=== PATIENT | female | born 1960 | race Caucasian/White ===

== ENCOUNTER 2016-05-14 14:29 | Inpatient (IN) | payer MEDICARE ==
[~2016-05-14] VITALS: Ht 149.9 cm; Wt 54.7 kg
[~2016-05-14 14:29] MED LIST: /ONDA4TA PO; /WARF4TA OR; /WARF5TA GT; /WARF5TA PO; ACET-654 PO; AKWASOL OD; ALLO300T OR; ARTIDRO OP; ATOR1TAB19 PO; BISA10SU PR; CALC0.5C PO; CALCIUM LACTATE PO; CELLCEPT PO; CINA30TA PO; CLON0.1D3 TD; CLON3PA TD; COLA100C2 OR; COUMADIN PO; COZA100T2 PO; FERR325T OR; HYDR50TA PO; LASI80TA OR; LIPI10TA OR; LOPR50TA OR; MAGN400T2 PO; MAGN400T20 PO; METO25TAB PO; MINOXIDIL PO; NEPHTAB PO; OMEP20CA3 PO; PERC7.5T12 PO; PHOS667C PO; POTA20TA OR; PRED2.5T OR; PRED5TA PO; SENISPAR PO; SENS30TA PO; TYLE325T5 PO; VANC12CA PO; VITA80005 PO; WARF-23 PO; WARF5TAB66 PO; WARF6TAB14 PO; WARFPOW3 PO; ZEMPLAR PO; [UNRECOGNIZED DRUG - CODE] PO; [UNRECOGNIZED DRUG - OTHER] PO; [UNRECOGNIZED DRUG - OTHER] PO
[2016-05-14 15:14] LABS: BASO % 0.4 % (0.0-1.0); EOS % 0.4 % (0.0-3.0); LARGE UNSTAINED CELL # 0.1 K/mm3 (0.0-0.4); LARGE UNSTAINED CELL % 1.3 % (0.0-4.0); LYMPH # 0.6 K/mm3 (1.5-4.5); LYMPH % 6.3 % (24.0-44.0); MEAN CORPUSCULAR HEMOGLOBIN 29.4 pg (27.0-33.0); MEAN CORPUSCULAR VOLUME 91.9 fl (80.0-96.0); MONO # 0.2 K/mm3 (0.0-0.8); MONO % 1.9 % (0.0-5.0); NEUTROPHILS # 7.9 K/mm3 (1.8-7.7); NEUTROPHILS % 89.7 % (36.0-66.0); PLATELET COUNT, AUTOMATED 147 k/mm3 (150-450); RED CELL DISTRIBUTION WIDTH 15.8 % (11.5-14.5); VENOUS O2 SATURATION 74.5 % (60.0-80.0); VENOUS PARTIAL PRESSURE O2 45.9 mmHg (30.0-50.0); VENOUS STANDARD HCO3 21.5 MEQ/L; VENOUS TOTAL CO2 24.8 MEQ/L (24.0-28.0); WHITE BLOOD COUNT 8.8 K/mm3 (4.0-10.0)
[2016-05-14] MEDS ORDERED: ONDANSETRON 4MG/2ML VIAL (J2405) As Ordered ONE (15:18)
[2016-05-14 15:50] LABS: ALBUMIN 3.7 GM/DL (3.2-5.2); ALBUMIN/GLOBULIN RATIO 1.06 (1.00-1.93); BILIRUBIN,DIRECT 0.1 MG/DL (0.0-0.2); BILIRUBIN,TOTAL 0.4 MG/DL (0.2-1.0); CREATININE FOR GFR 8.97 MG/DL (0.55-1.02); GLOMERULAR FILTRATION RATE 4.8 (>51); TOTAL PROTEIN 7.2 GM/DL (6.4-8.2)
--- NOTE | 2016-05-14 16:32 | REP ---
Portable chest x-ray: Single view. History: Hypotension. Comparison chest x-ray September 07, 2015. Findings: EKG monitoring electrodes overlie the chest. Lungs are symmetrically aerated and free of infiltrate. Pleural angles are sharp. Heart is not enlarged. The aorta is slightly tortuous. Pulmonary vasculature is not increased. No significant bony abnormality is seen. Impression: No active disease. Signed by Seun Calixto MD 05/15/2016 10:14 A
[2016-05-14] MEDS ORDERED: ONDANSETRON 4MG/2ML VIAL (J2405) IV PRN (17:00)
[2016-05-14] MEDS ORDERED: METO25TAB PO (17:06)
[2016-05-14] MEDS ORDERED: RENATAB5 PO (17:12)
[2016-05-14] MEDS ORDERED: CALC667T PO (17:12)
[2016-05-14] MEDS ORDERED: LIDO1CRE14 TOP (17:12)
--- NOTE | 2016-05-14 19:09 | HPEPDOC ---
General Date of Admission May 14, 2016 at 16:50 Chief Complaint The patient is a 56-year-old female Presented to the ER with complaints of nausea, vomiting and diarrhea for 2 days. History of Present Illness Patient is a 56 year old female with a PMHx of ESRD on HD (TTS), SLE ( on prednisone), DLP, HTN, GERD, hypercoagulabe state who presented to the ER with complaints of nausea, vomiting and diarrhea for 2 days duration. She notes that she has been having watery stools, 10x on 05/13 and 4 x on 05/14. Her diarrhea was described as watery, without mucus or blood. She reports vomiting episodes yesterday but has been resolving. Her vomitus was mostly food items, no evidence of blood. She denies any fever at home, but reports some chills. She reports poor appetite over the last few days, but no significant change in weight. She reports this is the first time something like this has happened. She has not been on any recent antibiotics. She did note that her great neice had similar symptoms and may have been exposed to her. She denies any chest pain, SOB, palpitations, cough, dysuria or abdominal pain. Home Medications Scheduled (Nicole-Hardik) 1 Tab Tab 1 TAB PO DAILY (Reported) (Lmbundiow-Jxdgxqwzeb-Trov 2.5-2.5 %) 1 Cre Cre 1 DOSE TOP 3XW (Reported) APPLY TO ACCESS PORT ON DIALYSIS DAYS Atorvastatin Calcium (Atorvastatin Calcium) 10 Mg Tab 10 MG PO QHS (Reported) Calcium Acetate (Calcium Acetate) 667 Mg Tab 667 MG PO TID (Reported) Cinacalcet Hydrochloride (Sensipar) 30 Mg Tab 30 MG PO 3XW (Reported) MON, WED, FRI Magnesium Oxide (Magnesium Oxide) 400 Mg Tab 400 MG PO DAILY (Reported) Metoprolol Tartrate (Metoprolol Tartrate) 25 Mg Tab 25 MG PO BID (Reported) TAKES ONCE DAILY ON DIALYSIS DAYS Omeprazole (Omeprazole) 20 Mg Cap 20 MG PO DAILY (Reported) Prednisone (Prednisone) 5 Mg Tab 5 MG PO DAILY (Reported) Warfarin Sod (Warfarin Sodium) 5 Mg Tab 5 MG PO QHS (Reported) Scheduled PRN Acetaminophen (Acetaminophen) 325 Mg Tab 650 MG PO Q4H PRN PRN PAIN / FEVER ( Reported) Allergies Coded Allergies: Amoxicillin (Unverified Allergy, Unknown, ACHES/PAINS, 05/14/16) Aspirin (Verified Adverse Reaction, Intermediate, INCREASED BLEEDING D/T COUMADIN, 07/12/12) NSAIDs (Verified Adverse Reaction, Unknown, HAD PROBLEM W/ HEAVEY MENSTRUATION, 07/12/12) Penicillins (Unverified Adverse Reaction, Unknown, ACHES AND PAINS, 07/12/12 ) Past Medical History Medical History ESRD on HD (TTS), SLE (on prednisone), DLP, HTN, GERD, 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) Surgical History Cholecystectomy 2011 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) 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 Bowel surgery, unknown, possibly exploratory laparotomy 1986 Family History Family History Non contributory Social History Social History - Denies the use of alcohol, tobacco or illicit drugs - Denies recent travel or sick contacts - Lives alone - 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; 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 Review of Symptoms Other systems Constitutional: Denies weight loss, or recent trauma Poor appetite Eyes: No visual changes or eye pain Ears, Nose, Throat: Denies nose bleeds, or difficulty swallowing Cardiovascular: Denies chest pain, sweating, or orthopnea Respiratory: Denies cough, wheezing, or shortness of breath GI: Positive nausea, vomiting, and diarrhea, Deniese abdominal pain, or constipation : Denies pain with urination or frequency, Still makes urine Musculoskeletal: Denies joint pain or swelling Neuro / Psych: Denies muscle weakness or sensory loss Skin: No skin rashes noted All other review of systems negative; otherwise stated in history of present illness Vital Signs - Vitals: BP 103/59, HR 82, RR 18, Sat 94%RA, Temp 99.7F - General: Lying in bed, No acute distress, Speaking in full sentences, AAOx3 - HEENT: NC, AT, Right eye is glass, Left eye is reactive to light - CVS: RRR, +S1S2, - Murmurs / rubs / gallops - Lungs: Fair air entry bilaterally, Clear to auscultation, No wheezing / rales / rhonchi - Abdomen: Soft, Non-distended, Non-tender, Hyperactive bowel sounds x 4 - Extremities: + PPx4, No lower extremity edema, No calf tenderness - Neuro: No focal motor or sensory deficit - Skin: No visible rashes Laboratory Data Labs 24H Laboratory Tests 2 05/14/16 15:03: Aspartate Amino Transf (AST/SGOT) 90H, Alanine Aminotransferase (ALT/SGPT) 92H, Alkaline Phosphatase 93, Total Bilirubin 0.4, Direct Bilirubin 0.1, Albumin 3.7 , Albumin/Globulin Ratio 1.06, Anion Gap 18H, White Blood Count 8.8, Red Blood Count 4.49, Hemoglobin 13.2, Hematocrit 41.2, Mean Corpuscular Volume 91.9, Mean Corpuscular Hemoglobin 29.4, Mean Corpuscular Hemoglobin Concent 32.0, Red Cell Distribution Width 15.8H, Platelet Count 147L, Neutrophils (%) (Auto) 89.7H , Lymphocytes (%) (Auto) 6.3L, Monocytes (%) (Auto) 1.9, Eosinophils (%) (Auto) 0.4, Basophils (%) (Auto) 0.4, Neutrophils # (Auto) 7.9H, Lymphocytes # (Auto) 0.6L, Monocytes # (Auto) 0.2, Eosinophils # (Auto) 0.0, Basophils # (Auto) 0.0, Blood Gas Bicarbonate Standard 21.5, Calcium Level 8.0L, Glomerular Filtration Rate 4.8L, Large Unclassified Cells # 0.1, Large Unclassified Cells % 1.3, Phosphorus Level 7.0H, Total Protein 7.2, Venous Blood Base Excess -3.0L, Venous Blood pH 7.315L, Venous Blood Partial Pressure CO2 47.0, Venous Blood Partial Pressure O2 45.9, Venous Blood Total Carbon Dioxide 24.8, Venous Blood HCO3 23.4, Venous Blood Oxygen Saturation 74.5 05/14/16 15:30: Lactic Acid (Sepsis) 1.1 CBC/BMP Laboratory Tests 05/14/16 15:03 Red Blood Count 4.49, Mean Corpuscular Volume 91.9, Mean Corpuscular Hemoglobin 29.4, Mean Corpuscular Hemoglobin Concent 32.0, Red Cell Distribution Width 15.8 H, Neutrophils (%) (Auto) 89.7 H, Lymphocytes (%) (Auto) 6.3 L, Monocytes ( %) (Auto) 1.9, Eosinophils (%) (Auto) 0.4, Basophils (%) (Auto) 0.4, Neutrophils # (Auto) 7.9 H, Lymphocytes # (Auto) 0.6 L, Monocytes # (Auto) 0.2, Eosinophils # (Auto) 0.0, Basophils # (Auto) 0.0 Microbiology Microbiology 05/14/16 Blood Culture, Received Pending Plan / VTE VTE Prophylaxis Ordered?: Yes Plan Plan Intractable nausea, vomiting and diarrhea likely 2/2 gastroenteritis - Presented to ER with 2 day history - Physical unrevealing - No leukocytosis, no fevers - Will check GI panel - Will control symptoms with Zofran - Will start IV fluid hydration and liquid diet (advance as tolerated) Positive orthostatic likely 2/2 hypovolemia 2/2 vomiting and diarrhea - Received 500 cc NS bolus in ER - Discussed with Nephrology will give 1/2 NS and Bicarb at this time Anion Gap and Metabolic alkalosis - Likely 2/2 uremia and vomiting - Discussed with Nephrology will give 1/2 NS and Bicarb at this time ESRD on HD (TTS) - Received last HD on Wednesday, missed HD today because she came to ER - Discussed with Nephrology, Dialysis for tomorrow most likely SLE - c/w prednisone DLP - c/w statin HTN - will c/w metoprolol with holding parameters GERD - c/w omeprazole Hypercoaguable state unknown etiology - Hx of right eye blindness because of clot - Has been on Coumadin for 10 years - DVT prophylaxis - On full anticoagulation with Coumadin OJDEE DIAZ MD May 14, 2016 19:08
[2016-05-14] MEDS ORDERED: ACETAMINOPHEN TAB 650MG DOSE (2X325MG) PO PRN (19:15)
[2016-05-14 19:32] LABS: INR 2.5
[2016-05-14] MEDS ORDERED: SODIUM BICARBONATE 75 MEQ in NS 0.45% 1,000 ML IV SCH (21:30)
[2016-05-14] MEDS ORDERED: METOPROLOL TART 25 MG TABLET As Ordered ONE (22:08)
[2016-05-14] MEDS ORDERED: WARFARIN SOD 5 MG TAB As Ordered ONE (22:10)
[2016-05-14 22:15] VITALS: BP 137/80
[2016-05-14] MEDS: CALCIUM ACETATE 667 MG GELCAP PO SCH (22:22)
[2016-05-14] MEDS: ATORVASTATIN 10 MG TAB PO SCH (22:23)
[2016-05-14] MEDS: METOPROLOL TART 25 MG TABLET PO SCH (22:23)
[2016-05-14] MEDS: WARFARIN SOD 5 MG TAB PO SCH (22:23)
--- NOTE | 2016-05-14 23:16 | CR ---
DATE OF NEPHROLOGY CONSULTATION: 05/14/2016 REQUESTING PHYSICIAN: Maninder Shields MD CONSULTING PHYSICIAN: Phyllis Hernandez MD REASON FOR CONSULTATION: Management of end-stage renal disease, hemodialysis and metabolic acidosis. CHIEF COMPLAINT: Colleen Velasco is a 56-year-old female with past medical history of end-stage renal disease, on hemodialysis every Wednesday, , Wednesday, history of systemic lupus erythematosus on prednisone. She is well known to nephrology service from outpatient dialysis. Her last dialysis was on Wednesday. Today is her regular day of dialysis but the patient was unable to come for dialysis because of intractable nausea and vomiting for the last two days. She was having watery loose stools almost 10 to 11 episodes a day for the last two days. She denies seeing any blood or mucus in the stools. She also reported vomiting yesterday but she denies seeing any blood in the vomitus. She was unable to keep any food down. She felt very weak and dehydrated. She denies having any fever, rales or rigors but she reported that her temperature was 99 degrees Fahrenheit in the emergency room. When patient arrived in the emergency room she was found to have dehydration and volume depletion along with metabolic acidosis. She was given IV fluid hydration and nephrology service was called for the management of end-stage renal disease and hemodialysis. PAST MEDICAL HISTORY: End-stage renal disease on hemodialysis every Wednesday, and Wednesday, system lupus erythematosus, hypertension, hypercoagulability, gastroesophageal reflux disease, history of toxoplasmosis in the past. PAST SURGICAL HISTORY: Status post cholecystectomy in 2011, status post brain cyst removal in that was secondary to toxoplasmosis, status post right eye surgery about 10 years ago, status post exploratory laparotomy in , status post left forearm atrioventricular (AV) graft for dialysis. ALLERGIES: The patient is allergic to AMOXICILLIN and NSAIDS. CURRENT MEDICATIONS: The patient's current inpatient medications include: - Tylenol as needed - Lipitor 10 mg nightly - PhosLo 1 tablet by mouth three times a day - magnesium oxide 400 mg by mouth daily - metoprolol 25 mg by mouth twice a day - Prilosec 20 mg by mouth daily - Zofran 4 mg IV every 6 hours as needed nausea and vomiting - prednisone 5 mg by mouth daily - warfarin 5 mg by mouth daily FAMILY HISTORY: No significant family history of end-stage renal disease. SOCIAL HISTORY: The patient denies any use of alcohol, smoking or illicit drug abuse. She lives alone. REVIEW OF SYSTEMS: CONSTITUTIONAL: The patient reported weakness and lethargy. She denies any fever or chills. EYES: The patient denies any recent visual changes, blurry vision. ENT: The patient denies any dysphagia or odynophagia, or ear discharge. CARDIOVASCULAR: She denies any chest pains or palpitations. RESPIRATORY: She denies any fever, cough, wheezing, shortness of breath. Neurologic: Without paresthesias, paralysis or prior seizures. GASTROINTESTINAL (GI): She reports nausea, vomiting, diarrhea. She denies any abdominal pain and she reports decreased appetite. GENITOURINARY (): She denies dysuria or hematuria. She reports that she still makes about a cup of urine a day. MUSCULOSKELETAL: She denies any muscle aches or pains. 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 SKIN: She denies any rashes or ulcers. PSYCHIATRIC: She denies any history of depression or anxiety. All other review of systems is negative. PHYSICAL EXAMINATION: GENERAL: The patient is awake, alert and oriented times three. Laying in bed. No apparent distress at this time. VITAL SIGNS: Temperature is 99.7 degrees Fahrenheit. Blood pressure is 103/59, pulse is 80, respiratory rate of 18, saturating 94% on room air. HEAD/NECK: Extraocular muscles intact. Pupils equally round and reactive to light. Neck is supple. Mucous membranes are dry. CARDIOVASCULAR: S1, S2, regular rate. No murmur, rub or gallop. RESPIRATORY: Chest is clear to auscultation bilaterally. Bilateral equal air entry. No rales or rhonchi. ABDOMEN: Soft. Positive bowel sounds. Nontender. No ascites. No organomegaly. EXTREMITIES: Pulses are 2+. No edema of the bilateral lower extremities. No clubbing or cyanosis. CENTRAL NERVOUS SYSTEM: No focal neurological deficit. Power is 5/5 in all extremities. SKIN: No rashes or ulcers. PSYCHIATRIC: Normal mood and affect. LABORATORY REVIEW: CBC showed a WBC of 0.8. Hemoglobin is 13.2, platelets are 147, INR is 2.5, VBG showed a pH of 7.31. BNP showed sodium 138, potassium 4, chloride 97, bicarbonate 23, BUN 87, creatinine 8.9. Phosphorous is 7, calcium 8. Microbiology: Blood culture is pending. Imaging: A chest x-ray done today showed no active disease. ASSESSMENT: 56-year-old female with past medical history of systemic lupus erythematosus, end-stage renal disease on hemodialysis admitted this time because of dehydration, volume depletion and orthostatic hypotension because of acute gastroenteritis. Nephrology service following the patient for management of end-stage renal disease. PLAN: 1. Dehydration and volume depletion. The patient was given normal saline 500 mg IV in the emergency room. I have started the patient on half NS plus 75 mEq bicarbonate at 75 mL an hour. She will get 1 liter of fluid IV overnight. 2. Anion gap metabolic acidosis. It is secondary to diarrhea and renal failure. No urgent indication for hemodialysis at this time. I have added the bicarbonate to IV fluids and the patient will be dialyzed tomorrow in the morning which will correct acidosis. 3. Acute gastroenteritis. It is most likely viral in nature. Her symptoms are improving. Continue symptomatic management. Continue Zofran and IV fluids. Advance diet to liquid diet as tolerated. 4. End-stage renal disease on hemodialysis. The patient's regular dialysis days are Wednesday, , Wednesday. Today is her regular day of dialysis. She missed her dialysis today, but she is volume depleted and dehydrated. There is no urgent need to do hemodialysis today for metabolic acidosis. She will be dialyzed tomorrow early in the morning. Electrolytes are acceptable at this time. 5. Systemic lupus erythematosus. Continue current dose of prednisone 5 mg by mouth daily. 6. Hypertension. The patient's blood pressure is acceptable at this time. Continue current dose of metoprolol 25 mg by mouth twice a day. 7. Chronic kidney disease. Mineral bone disease. Continue current dose of her Renvela one tablet by mouth three times a day with meals once patient starts eating.
[2016-05-15] VITALS (8 sets, daily range): BP systolic 118–138; BP diastolic 64–76
[2016-05-15 07:09] LABS: INR 2.47
[2016-05-15 07:19] LABS: BASO % 0.5 % (0.0-1.0); EOS % 0.7 % (0.0-3.0); LARGE UNSTAINED CELL # 0.2 K/mm3 (0.0-0.4); LARGE UNSTAINED CELL % 2.9 % (0.0-4.0); LYMPH # 0.6 K/mm3 (1.5-4.5); LYMPH % 11.3 % (24.0-44.0); MEAN CORPUSCULAR HEMOGLOBIN 29.2 pg (27.0-33.0); MEAN CORPUSCULAR HGB CONC 31.7 g/dl (32.0-36.5); MONO # 0.3 K/mm3 (0.0-0.8); NEUTROPHILS # 4.3 K/mm3 (1.8-7.7); NEUTROPHILS % 78.6 % (36.0-66.0); PLATELET COUNT, AUTOMATED 107 k/mm3 (150-450); RED CELL DISTRIBUTION WIDTH 15.8 % (11.5-14.5); WHITE BLOOD COUNT 5.5 K/mm3 (4.0-10.0)
[2016-05-15 07:46] LABS: ALBUMIN 2.6 GM/DL (3.2-5.2); ALBUMIN/GLOBULIN RATIO 0.87 (1.00-1.93); BILIRUBIN,TOTAL 0.4 MG/DL (0.2-1.0); CALCIUM LEVEL 7.2 MG/DL (8.5-10.1); CREATININE FOR GFR 8.4 MG/DL (0.55-1.02); GLOMERULAR FILTRATION RATE 5.2 (>51); MAGNESIUM LEVEL 1.6 MG/DL (1.8-2.4); POTASSIUM SERUM 3.9 MEQ/L (3.5-5.1); TOTAL PROTEIN 5.6 GM/DL (6.4-8.2)
[2016-05-15] MEDS: OMEPRAZOLE 20 MG CAP PO SCH (08:53)
[2016-05-15] MEDS: CALCIUM ACETATE 667 MG GELCAP PO SCH ×3 (08:53→21:24)
[2016-05-15] MEDS: METOPROLOL TART 25 MG TABLET PO SCH ×2 (08:53→21:23)
[2016-05-15] MEDS: predniSONE 5 MG TAB PO SCH (08:53)
[2016-05-15] MEDS: MAGNESIUM OXIDE 400 MG TAB (MAG-OX) PO SCH (08:53)
[2016-05-15] MEDS ORDERED: PANTOPRAZOLE 40MG TAB (PROTONIX) PO SCH (09:00)
--- NOTE | 2016-05-15 09:20 | ECGEPIP ---
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
--- NOTE | 2016-05-15 11:15 | EDDOCDS ---
Nurse's Notes [facility] Name: Colleen Velasco Age: 56 yrs Sex: Female : 1960 Arrival Date: 05/14/2016 Time: 14:29 Bed Admit Hold Private MD: Donavon Radford P Diagnosis: Other viral enteritis;Dehydration;End stage renal disease Presentation: 05/14 14:36 Presenting complaint: Patient states: vomiting and diarrhea since Wednesday. Adult Sepsis kcs Screening: The patient does not have new or worsening altered mentation. Patient's respiratory rate is less than 22. Systolic blood pressure is greater than 100. Patient has a qSOFA score of 0- Negative Sepsis Screen. Suicide/Homicide risk assessment- the patient denies having any suicidal and/or homicidal ideations and does not present with any other emotional, behavioral or mental health complaints. 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 Transition of care: patient was not received from another setting of care. 14:36 Method Of Arrival: Walkin/Carried/Asstd kcs 14:36 Acuity: IVÁN Level 3 ms18 Triage Assessment: 14:40 General: Appears comfortable, well developed, well nourished, well groomed, Behavior is kcs cooperative, pleasant. Pain: Denies pain. HIV screening NA for this visit Offered previously. Neurological: Level of Consciousness is awake, alert. Respiratory: Airway is patent Respiratory effort is even, unlabored, Respiratory pattern is regular, symmetrical. Derm: Skin is intact, is healthy with good turgor, Skin is dry, Skin is normal. Historical: - Allergies: Amoxicillin"achy all over"; Aspirin; - Home Meds: 1. Coumadin 5 mg Oral tab 1 tab once daily 2. Lipitor 10 mg Oral tab 1 tab nightly 3. calcium acetate 667 mg three times perday 4. metoprolol tartrate 25 mg Oral tab 1 tab 2 times per day takes once daily on dialysis days 5. omeprazole 20 mg Oral cpDR 1 cap once daily 6. Sensipar 30 mg oral tab 1 tab on Mon-Wed-Fri 7. prednisone 5 mg Oral tab 1 tab once daily 8. magnesium oxide 400 mg Oral tab daily 9. Nicole-Hardik oral 1 tab daily 10. PhosLo 667 mg Oral cap 1 caps 3 times per day 11. Tylenol 325 mg Oral tab 2 tabs every 6 hours as needed - PMHx: Hypercholesterolemia; Hypertension; Lupus; Renal Failure with Dialysis; GERD; - PSHx: Cholecystectomy(December 30, 2011); Brain Cyst removal; Bowel Surgery; Glass Eye right; - The history from nurses notes was reviewed: and I agree with what is documented. - Social history: Smoking status: Patient states was never smoker of tobacco. No barriers to communication noted, The patient speaks fluent Austrian. - : The pt / caregiver states he / she is on anticoagulants: coumadin. Home medication list is obtained from the patient, [employer] import data. - Hospitalizations: : No recent hospitalization is reported. - Exposure Risk Screening:: None identified. - Immunization history:: All immunizations up-to-date. - Family history: Not pertinent. - Social history:: the patient is a non-smoker, the patient does not drink alcohol. Screenin:00 Screening information is obtained from the patient. Fall risk: At risk due to glass ms18 eye. Assistance ADL's: requires no assistance with activities of daily living. Abuse/DV Screen: The patient / caregiver reports he/she is: not in a situation that causes fear, pain or injury. Nutritional screening: No deficits noted. home support is adequate. Assessment: 15:33 General: Appears in no apparent distress, comfortable, Behavior is appropriate for age, ms18 cooperative, pleasant. 15:56 Neurological: Level of Consciousness is awake, alert, obeys commands, Oriented to ms18 person, place, time. Respiratory: No deficits noted. GI: Abdomen is non- distended Bowel sounds present X 4 quads. Abd is soft X 4 quads Reports diarrhea, nausea, vomiting. Derm: Skin is pink, warm & dry. 16:39 General: Appears in no apparent distress, comfortable, Behavior is appropriate for age, ms18 cooperative, pleasant, Hospitalist in the room with the pt at this time. Will continue to monitor pt. Respiratory: No deficits noted. Derm: Skin is pink, warm & dry. 17:30 General: PT resting comfortably on stretcher at this time. Will continue to monitor pt. ms18 18:33 General: Appears in no apparent distress, comfortable, Pt in no acute distress. ms18 Awaiting admission orders and bed assignment at this time. Will continue to monitor pt. Neurological: Level of Consciousness is awake, alert, obeys commands, Oriented to person, place, time. Cardiovascular: Rhythm is regular. Respiratory: No deficits noted. Airway is patent Respiratory effort is even, unlabored. Derm: Skin is pink, warm & dry. normal. 19:03 General: Verbal report given by Lauryn Presley RN. Assumed care of patient at this time.. [facility] 19:16 General: Appears in no apparent distress, comfortable, well nourished, well groomed, kas2 Behavior is appropriate for age, cooperative. Pain: Denies pain. Neurological: Level of Consciousness is awake, alert, obeys commands, Oriented to person, place, time. Cardiovascular: Capillary refill < 3 seconds Heart tones S1 S2 present Rhythm is sinus rhythm No ectopy. Respiratory: Airway is patent Respiratory effort is even, unlabored, Respiratory pattern is regular, symmetrical, Breath sounds are clear bilaterally. GI: Abdomen is non- distended Bowel sounds present X 4 quads. Abd is soft X 4 quads Abd is non tender X 4 quads. Derm: Skin is intact, Skin is dry, Skin is pink, warm & dry. normal, Skin temperature is warm. 20:49 General: Appears in no apparent distress, comfortable, Behavior is appropriate for age, kas2 cooperative. Pain: Denies pain. Neurological: Level of Consciousness is awake, alert, obeys commands, Oriented to person, place, time. Respiratory: Airway is patent Respiratory effort is even, unlabored, Respiratory pattern is regular, symmetrical. Derm: Skin is intact, Skin is dry, Skin is pink, warm & dry. Skin temperature is warm. 21:56 General: Appears in no apparent distress, comfortable, Behavior is appropriate for age, kas2 cooperative. Pain: Denies pain. Neurological: Level of Consciousness is awake, alert, obeys commands, Oriented to person, place, time. Cardiovascular: Rhythm is sinus rhythm No ectopy. Respiratory: Airway is patent Respiratory effort is even, unlabored, Respiratory pattern is regular, symmetrical. Derm: Skin is intact, Skin is dry, Skin is pink, warm & dry. Skin temperature is warm. 22:13 General: Verbal report given to Diamond YU. Patient moved to Room 18. Resettled in bed.. [facility] Vital Signs: 14:33 BP 79 / 69; Pulse 108; Resp 20; Temp 99.7(O); Pulse Ox 96% on R/A; Weight 54.43 kg (R); elp Height 4 ft. 11 in. (149.86 cm) (R); Pain 0/10; 14:40 BP 119 / 70; Pulse 101; Resp 20; Pulse Ox 96% on R/A; kcs 14:59 BP 109 / 69 (auto/); ms18 15:00 Pulse 96 MON; Pulse Ox 95% ; ms18 15:13 Pulse 92 MON; Pulse Ox 94% ; ms18 15:14 BP 102 / 60 (auto/); ms18 15:28 Pulse 90 MON; Pulse Ox 94% ; ms18 15:29 BP 106 / 59 (auto/); ms18 15:44 BP 102 / 59 (auto/); ms18 15:48 Pulse 88 MON; Resp 18; Pulse Ox 95% ; ms18 15:56 BP 103 / 59 (auto/); mv5 15:56 Pulse 82 MON; Pulse Ox 94% ; mv5 15:59 BP 103 / 57 (auto/); ms18 16:00 Pulse 84 MON; Pulse Ox 95% ; ms18 16:08 Pulse 84 MON; Pulse Ox 94% ; ms18 16:14 BP 104 / 59 (auto/); ms18 16:29 BP 105 / 55 (auto/); ms18 16:43 Pulse 84 MON; Pulse Ox 95% ; ms18 16:44 BP 110 / 61 (auto/); ms18 16:57 Pulse 82 MON; Pulse Ox 95% ; ms18 16:59 BP 112 / 64 (auto/); ms18 17:06 Pulse 78 MON; Pulse Ox 95% ; ms18 17:14 BP 107 / 61 (auto/); ms18 17:29 BP 107 / 61 (auto/); ms18 17:42 Pulse 80 MON; Pulse Ox 97% ; ms18 17:44 BP 116 / 64 (auto/); ms18 17:58 Pulse 80 MON; Pulse Ox 97% ; ms18 17:59 BP 111 / 64 (auto/); ms18 18:14 BP 113 / 64 (auto/); ms18 18:20 Pulse 82 MON; Pulse Ox 95% ; ms18 18:29 BP 114 / 65 (auto/); ms18 18:44 BP 108 / 63 (auto/); kas2 18:44 Pulse 80 MON; Pulse Ox 94% ; kas2 18:59 BP 122 / 68 (auto/); kas2 18:59 Pulse 80 MON; Pulse Ox 100% ; kas2 19:14 BP 122 / 67 (auto/); kas2 19:14 Pulse 80 MON; Pulse Ox 88% ; kas2 19:19 Resp 18; Temp 97.9(O); Pain 0/10; kas2 20:44 BP 121 / 72 (auto/); kas2 20:44 Pulse 80 MON; Pulse Ox 90% ; kas2 20:55 Resp 18; Temp 97.6(O); Pain 0/10; kas2 20:59 BP 119 / 73 (auto/); kas2 20:59 Pulse 80 MON; Pulse Ox 94% ; kas2 21:14 BP 118 / 68 (auto/); kas2 21:14 Pulse 80 MON; Pulse Ox 89% ; kas2 21:29 BP 123 / 70 (auto/); kas2 21:29 Pulse 82 MON; Pulse Ox 90% ; kas2 21:44 BP 127 / 72 (auto/); kas2 21:44 Pulse 82 MON; Pulse Ox 89% ; kas2 21:58 Resp 18; Temp 98.2(O); Pain 0/10; kas2 14:33 Body Mass Index 24.24 (54.43 kg, 149.86 cm) [facility] Vitals: 14:33 Log In Time: May 14, 2016 at 14:30. [facility] ED Course: 14:33 Patient visited by Shirin Vila PCA. elp 14:33 Donavon Radford is Private Physician. elp 14:33 Patient moved to Waiting elp 14:34 Patient visited by Shirin Vila PCA. elp 14:34 Patient moved to Pre RCE elp 14:35 Patient moved to Triage 3 kcs 14:36 Triage Initiated kcs 14:43 Lauryn Muller,RN is Primary Nurse. kcs 14:43 Patient moved to 8 kcs 14:45 Prasanna Zamora MD is Attending Physician. pc 15:02 Patient visited by Prasanna Zamora MD. pc 15:09 Patient visited by Lauryn Muller,GIGI. ms18 15:10 CBC with Diff Sent. ms18 15:10 MED Profile Sent. ms18 15:10 Inserted saline lock: 20 gauge in right antecubital area and blood collected. mv5 15:26 EKG done. (by ED staff). Reviewed by Prasanna Zamora MD. jrd 15:31 Lactic Acid (Vieira tube on ice) Sent. ms18 16:00 Patient visited by Lauryn Muller RN. ms18 16:00 The patient / caregiver is instructed regarding the plan of care and ED course. Patient ms18 has correct armband on for positive identification. Placed in gown. Bed in low position. Call light in reach. Side rails up X2. windows technical specialist on. Pulse ox on. NIBP on. Property :Personal belongings accompany Pt. 16:38 Chest, 1 View Returned. EDMS 16:39 Patient visited by Lauryn Muller RN. ms18 16:42 Madison Temple is Hospitalizing Provider. pc 17:16 Patient moved to Admit Hold dwg 18:22 [facility] Payment Agreement was scanned into [employer] and attached to record. gjb 18:59 Tamia MullerRN is Primary Nurse. kas2 19:04 Patient visited by Tamia Muller RN. kas2 19:19 Patient visited by Tamia Muller RN. kas2 20:51 Patient visited by Tamia Muller RN. kas2 20:56 Patient visited by Tamia Muller RN. kas2 21:59 Patient visited by Tamia Muller RN. kas2 22:13 Patient visited by Tamia Muller RN. kas2 22:20 Patient moved to 18 sls1 22:21 Patient moved to Admit Hold sls1 02 09:55 EKG-ADULT Returned. EDMS Administered Medications: 05/14 15:22 Drug: Ondansetron 4 mg [ondansetron HCl 2 mg/mL intravenous solution (2 mL)] Route: mv5 IVP; Site: right antecubital; 15:59 Follow up: Response: No Adverse Reaction mv5 15:27 Drug: NS 0.9% 1000 ml [sodium chloride 0.9 % intravenous solution] Route: IV; Rate: ms18 bolus; Site: right antecubital; Order Results: Lab Order: CBC with Diff; SPEC'M 05/14/16 15:03 Test: WHITE BLOOD COUNT; Value: 8.8; Range: 4.0-10.0; Units: K/mm3; Status: F Test: RED BLOOD COUNT; Value: 4.49; Range: 4.00-5.40; Units: M/mm3; Status: F Test: HEMOGLOBIN; Value: 13.2; Range: 12.0-16.0; Units: g/dl; Status: F Test: HEMATOCRIT; Value: 41.2; Range: 36.0-47.0; Units: %; Status: F Test: MEAN CORPUSCULAR VOLUME; Value: 91.9; Range: 80.0-96.0; Units: fl; Status: F Test: MEAN CORPUSCULAR HEMOGLOBIN; Value: 29.4; Range: 27.0-33.0; Units: pg; Status: F Test: MEAN CORPUSCULAR HGB CONC; Value: 32.0; Range: 32.0-36.5; Units: g/dl; Status: F Test: RED CELL DISTRIBUTION WIDTH; Value: 15.8; Range: 11.5-14.5; Abnormal: Above high normal; Units: %; Status: F Test: PLATELET COUNT, AUTOMATED; Value: 147; Range: 150-450; Abnormal: Below low normal; Units: k/mm3; Status: F Test: NEUTROPHILS %; Value: 89.7; Range: 36.0-66.0; Abnormal: Above high normal; Units: %; Status: F Test: LYMPH %; Value: 6.3; Range: 24.0-44.0; Abnormal: Below low normal; Units: %; Status: F Test: MONO %; Value: 1.9; Range: 0.0-5.0; Units: %; Status: F Test: EOS %; Value: 0.4; Range: 0.0-3.0; Units: %; Status: F Test: BASO %; Value: 0.4; Range: 0.0-1.0; Units: %; Status: F Test: LARGE UNSTAINED CELL %; Value: 1.3; Range: 0.0-4.0; Units: %; Status: F Test: NEUTROPHILS #; Value: 7.9; Range: 1.8-7.7; Abnormal: Above high normal; Units: K/mm3; Status: F Test: LYMPH #; Value: 0.6; Range: 1.5-4.5; Abnormal: Below low normal; Units: K/mm3; Status: F Test: MONO #; Value: 0.2; Range: 0.0-0.8; Units: K/mm3; Status: F Test: EOS #; Value: 0.0; Range: 0.0-0.50; Units: K/mm3; Status: F Test: BASO #; Value: 0.0; Range: 0.0-0.2; Units: K/mm3; Status: F Test: LARGE UNSTAINED CELL #; Value: 0.1; Range: 0.0-0.4; Units: K/mm3; Status: F Lab Order: MED Profile; SPEC'M 05/14/16 15:03 Test: GLUCOSE, FASTING; Value: 103; Range: 70-105; Units: MG/DL; Status: F Test: BLOOD UREA NITROGEN; Value: 87; Range: 7-18; Abnormal: Above high normal; Units: MG/DL; Status: F Test: CREATININE FOR GFR; Value: 8.97; Range: 0.55-1.02; Abnormal: Above high normal; Units: MG/DL; Status: F Test: GLOMERULAR FILTRATION RATE; Value: 4.8; Range: >51; Abnormal: Below low normal; Status: F Test: SODIUM LEVEL; Value: 138; Range: 136-145; Units: MEQ/L; Status: F Test: POTASSIUM SERUM; Value: 4.0; Range: 3.5-5.1; Units: MEQ/L; Status: F Test: CHLORIDE LEVEL; Value: 97; Range: 98-107; Abnormal: Below low normal; Units: MEQ/L; Status: F Test: CARBON DIOXIDE LEVEL; Value: 23; Range: 21-32; Units: MEQ/L; Status: F Test: ANION GAP; Value: 18; Range: 8-16; Abnormal: Above high normal; Units: MEQ/L; Status: F Test: CALCIUM LEVEL; Value: 8.0; Range: 8.5-10.1; Abnormal: Below low normal; Units: MG/DL; Status: F Test Note: ; Units are mL/min/1.73 m2 Chronic Kidney Disease Staging per NKF: Stage I & II GFR >=60 Normal to Mildly Decreased Stage III GFR 30-59 Moderately Decreased Stage IV GFR 15-29 Severely Decreased Stage V GFR <15 Very Little GFR Left ESRD GFR <15 on [employer] Lab Order: Lactic Acid (Vieira tube on ice); [facility] 05/14/16 15:30 Test: LACTIC ACID SEPSIS PROTOCOL; Value: 1.1; Range: 0.4-2.0; Units: MMOL/L; Status: F Lab Order: Venous Blood Gas (large pea green tube on ice); [facility] 05/14/16 15:03 Test: VENOUS PH; Value: 7.315; Range: 7.330-7.430; Abnormal: Below low normal; Units: UNITS; Status: F Test: VENOUS PARTIAL PRESSURE CO2; Value: 47.0; Range: 38.0-50.0; Units: mmHg; Status: F Test: VENOUS PARTIAL PRESSURE O2; Value: 45.9; Range: 30.0-50.0; Units: mmHg; Status: F Test: VENOUS TOTAL CO2; Value: 24.8; Range: 24.0-28.0; Units: MEQ/L; Status: F Test: VENOUS HCO3; Value: 23.4; Range: 23.0-27.0; Units: MEQ/L; Status: F Test: VENOUS BASE EXCESS; Value: -3.0; Range: -2.0-2.0; Abnormal: Below low normal; Status: F Test: VENOUS STANDARD HCO3; Value: 21.5; Units: MEQ/L; Status: F Test: VENOUS O2 SATURATION; Value: 74.5; Range: 60.0-80.0; Units: %; Status: F Lab Order: Liver Profile; [facility] 05/14/16 15:03 Test: AST/SGOT; Value: 90; Range: 15-37; Abnormal: Above high normal; Units: U/L; Status: F Test: ALT/SGPT; Value: 92; Range: 12-78; Abnormal: Above high normal; Units: U/L; Status: F Test: ALKALINE PHOSPHATASE; Value: 93; Range: 45-117; Units: U/L; Status: F Test: BILIRUBIN,TOTAL; Value: 0.4; Range: 0.2-1.0; Units: MG/DL; Status: F Test: BILIRUBIN,DIRECT; Value: 0.1; Range: 0.0-0.2; Units: MG/DL; Status: F Test: TOTAL PROTEIN; Value: 7.2; Range: 6.4-8.2; Units: GM/DL; Status: F Test: ALBUMIN; Value: 3.7; Range: 3.2-5.2; Units: GM/DL; Status: F Test: ALBUMIN/GLOBULIN RATIO; Value: 1.06; Range: 1.00-1.93; Status: F Lab Order: Phosphorous Level; [facility] 05/14/16 15:03 Test: PHOSPHORUS LEVEL; Value: 7.0; Range: 2.5-4.9; Abnormal: Above high normal; Units: MG/DL; Status: F Lab Order: PROTHROMBIN TIME PROFILE\\E\\INR; [facility]05/14/16 15:03 Test: PROTHROMBIN TIME; Value: 27.1; Range: 12.3-14.5; Abnormal: Above high normal; Units: SECONDS; Status: F Test: INR; Value: 2.50; Status: F Test Note: ; THERAPUTIC HUMAN INR VALUES INDICATIONS NORMAL RANGES PROPHYLAXIS/TREATMENT OF: VENOUS THROMBOSIS 2.0-3.0 PULMONARY EMBOLISM 2.0-3.0 PREVENTION OF SYSTEMIC EMBOLISM FROM: TISSUE HEART VALVES 2.0-3.0 ACUTE MYOCARDIAL INFARCTION 2.0-3.0 VALVULAR HEART DISEASE 2.0-3.0 ATRIAL FIBRILLATION 2.0-3.0 MECHANICAL VALVES(HIGH RISK) 2.5-3.5 RECURRENT MYOCARDIAL INFARCTION 2.5-3.5 Lab Order: CBC WITH DIFFERENTIAL; 05/15/16 06:45 Test: WHITE BLOOD COUNT; Value: 5.5; Range: 4.0-10.0; Units: K/mm3; Status: F Test: RED BLOOD COUNT; Value: 3.48; Range: 4.00-5.40; Abnormal: Below low normal; Units: M/mm3; Status: F Test: HEMOGLOBIN; Value: 10.2; Range: 12.0-16.0; Units: g/dl; Status: F Test: HEMATOCRIT; Value: 32.0; Range: 36.0-47.0; Abnormal: Below low normal; Units: %; Status: F Test: MEAN CORPUSCULAR VOLUME; Value: 92.0; Range: 80.0-96.0; Units: fl; Status: F Test: MEAN CORPUSCULAR HEMOGLOBIN; Value: 29.2; Range: 27.0-33.0; Units: pg; Status: F Test: MEAN CORPUSCULAR HGB CONC; Value: 31.7; Range: 32.0-36.5; Abnormal: Below low normal; Units: g/dl; Status: F Test: RED CELL DISTRIBUTION WIDTH; Value: 15.8; Range: 11.5-14.5; Abnormal: Above high normal; Units: %; Status: F Test: PLATELET COUNT, AUTOMATED; Value: 107; Range: 150-450; Abnormal: Below low normal; Units: k/mm3; Status: F Test: NEUTROPHILS %; Value: 78.6; Range: 36.0-66.0; Abnormal: Above high normal; Units: %; Status: F Test: LYMPH %; Value: 11.3; Range: 24.0-44.0; Abnormal: Below low normal; Units: %; Status: F Test: MONO %; Value: 6.0; Range: 0.0-5.0; Abnormal: Above high normal; Units: %; Status: F Test: EOS %; Value: 0.7; Range: 0.0-3.0; Units: %; Status: F Test: BASO %; Value: 0.5; Range: 0.0-1.0; Units: %; Status: F Test: LARGE UNSTAINED CELL %; Value: 2.9; Range: 0.0-4.0; Units: %; Status: F Test: NEUTROPHILS #; Value: 4.3; Range: 1.8-7.7; Units: K/mm3; Status: F Test: LYMPH #; Value: 0.6; Range: 1.5-4.5; Abnormal: Below low normal; Units: K/mm3; Status: F Test: MONO #; Value: 0.3; Range: 0.0-0.8; Units: K/mm3; Status: F Test: EOS #; Value: 0.0; Range: 0.0-0.50; Units: K/mm3; Status: F Test: BASO #; Value: 0.0; Range: 0.0-0.2; Units: K/mm3; Status: F Test: LARGE UNSTAINED CELL #; Value: 0.2; Range: 0.0-0.4; Units: K/mm3; Status: F Lab Order: COMPLETE COMPHRENSIVE METABOLI; SPEC'M 05/15/16 06:45 Test: GLUCOSE, FASTING; Value: 77; Range: 70-105; Units: MG/DL; Status: F Test: BLOOD UREA NITROGEN; Value: 92; Range: 7-18; Abnormal: Above high normal; Units: MG/DL; Status: F Test: CREATININE FOR GFR; Value: 8.40; Range: 0.55-1.02; Abnormal: Above high normal; Units: MG/DL; Status: F Test: GLOMERULAR FILTRATION RATE; Value: 5.2; Range: >51; Abnormal: Below low normal; Status: F Test: SODIUM LEVEL; Value: 139; Range: 136-145; Units: MEQ/L; Status: F Test: POTASSIUM SERUM; Value: 3.9; Range: 3.5-5.1; Units: MEQ/L; Status: F Test: CHLORIDE LEVEL; Value: 103; Range: 98-107; Units: MEQ/L; Status: F Test: CARBON DIOXIDE LEVEL; Value: 20; Range: 21-32; Abnormal: Below low normal; Units: MEQ/L; Status: F Test: ANION GAP; Value: 16; Range: 8-16; Units: MEQ/L; Status: F Test: CALCIUM LEVEL; Value: 7.2; Range: 8.5-10.1; Abnormal: Below low normal; Units: MG/DL; Status: F Test: AST/SGOT; Value: 82; Range: 15-37; Abnormal: Above high normal; Units: U/L; Status: F Test: ALT/SGPT; Value: 80; Range: 12-78; Abnormal: Above high normal; Units: U/L; Status: F Test: ALKALINE PHOSPHATASE; Value: 72; Range: 45-117; Units: U/L; Status: F Test: BILIRUBIN,TOTAL; Value: 0.4; Range: 0.2-1.0; Units: MG/DL; Status: F Test: TOTAL PROTEIN; Value: 5.6; Range: 6.4-8.2; Units: GM/DL; Status: F Test: ALBUMIN; Value: 2.6; Range: 3.2-5.2; Units: GM/DL; Status: F Test: ALBUMIN/GLOBULIN RATIO; Value: 0.87; Range: 1.00-1.93; Abnormal: Below low normal; Status: F Test Note: ; Units are mL/min/1.73 m2 Chronic Kidney Disease Staging per NKF: Stage I & II GFR >=60 Normal to Mildly Decreased Stage III GFR 30-59 Moderately Decreased Stage IV GFR 15-29 Severely Decreased Stage V GFR <15 Very Little GFR Left ESRD GFR <15 on [employer] Lab Order: MAGNESIUM LEVEL; SPEC05/15/16 06:45 Test: MAGNESIUM LEVEL; Value: 1.6; Range: 1.8-2.4; Abnormal: Below low normal; Units: MG/DL; Status: F Lab Order: PROTHROMBIN TIME PROFILE\\E\\INR; 05/15/16 06:45 Test: PROTHROMBIN TIME; Value: 26.8; Range: 12.3-14.5; Abnormal: Above high normal; Units: SECONDS; Status: F Test: INR; Value: 2.47; Status: F Test Note: ; THERAPUTIC HUMAN INR VALUES INDICATIONS NORMAL RANGES PROPHYLAXIS/TREATMENT OF: VENOUS THROMBOSIS 2.0-3.0 PULMONARY EMBOLISM 2.0-3.0 PREVENTION OF SYSTEMIC EMBOLISM FROM: TISSUE HEART VALVES 2.0-3.0 ACUTE MYOCARDIAL INFARCTION 2.0-3.0 VALVULAR HEART DISEASE 2.0-3.0 ATRIAL FIBRILLATION 2.0-3.0 MECHANICAL VALVES(HIGH RISK) 2.5-3.5 RECURRENT MYOCARDIAL INFARCTION 2.5-3.5 Lab Order: STOOL POLYS; SPEC05/15/16 05:15 Test: STOOL LACTOFERRIN-polys by ICA; Value: LACTOFERRIN RESULTS POSITIVE; Abnormal: Abnormal; Status: F Lab Order: GASTROINTESTINAL (GI) PANEL; SPEC05/15/16 05:15 Test: GASTROINTESTINAL (GI) PANEL; Value: GI PANEL RESULT POSITIVE by PCR; Status: F Test: GASTROINTESTINAL (GI) PANEL; Value: Comments:; Status: F Test: GASTROINTESTINAL (GI) PANEL; Value: ORGANISM 1: NOROVIRUS; Status: F Test: GASTROINTESTINAL (GI) PANEL; Value: NOROVIRUS; Status: F Test: GASTROINTESTINAL (GI) PANEL; Value: CONSISTENCY OF STOOL UNFORMED stool.; Status: F Test: GASTROINTESTINAL (GI) PANEL; Value: Norovirus 1 Noroviruses are highly contagious and cause moderate; Status: F Test: GASTROINTESTINAL (GI) PANEL; Value: Norovirus 2 to severe gastroenteritis consisting primarily of; Status: F Test: GASTROINTESTINAL (GI) PANEL; Value: Norovirus 3 nausea, vomiting, and diarrhea with fever.; Status: F Test: GASTROINTESTINAL (GI) PANEL; Value: Norovirus 4 Transmission is fecal-oral or through aerosolized; Status: F Test: GASTROINTESTINAL (GI) PANEL; Value: Norovirus 5 vomitus. Symptoms generally last 24-48 hours and; Status: F Test: GASTROINTESTINAL (GI) PANEL; Value: Norovirus 6 the illness in self-limiting.; Status: F Test Note: ; This Gastrointestinal PCR Panel detects the following bacteria, parasites and viruses: Campylobacter (jejuni, coli and upsaliensis), Clostridium difficile (toxin A/B), Plesiomonas shigelloides, Salmonella, Yersinia enterocolitica, Vibrio (parahaemolyticus, vulnificus and cholerae), Vibrio clolerae, Enteroaggregative E. coli (EAEC), Enteropathogenis E. coli (EPEC), Enterotoxigenic E. coli (ETEC) it/st, Shiga-like producing E. coli (STEC) stx1/stc2, E.coli O157, Shigella/Enteroinvasive E. coli (EIEC), Cryptosporidium, Cyclospora cayetanensis, Entamoeba histolytica, Giardia lamblia, Adenovirus F 40/41, Astrovirus, Norovirus GI/GII, Rotavirus A and Sapovirus (I, II, IV, V). Lab Order: OCCULT BLOOD STOOL SPECIMEN; SPEC'M 05/15/16 05:15 Test: OCCULT BLOOD; Value: OCCULT BLOOD 1 POSITIVE; Abnormal: Abnormal; Status: F Radiology Order: EKG-ADULT Test: EKG-ADULT REASON FOR EXAMINATION: hypotension; Stationary ECG Study; [facility] - ED; ; Test Date: 2016-05-14; Pat Name: COLLEEN KORIN Department:; Room: -; Gender: F Haz Tech: rere; : 1960 Requested By: Prasanna Mock; Order Number: [id number] [place] MD: Yolanda Gleason; Measurements; Intervals [place]; Rate: 91 P: 44; [place]: 148 QRS: 9; QRSD: 74 T: 40; QT: 335; QTc: 413; Interpretive Statements; SINUS RHYTHM; PRWP; NSTTW ABNORMALITY; DECREASED RATE/LESS PRONOUNCED ST CHANGES COMPARED 09/07/15; Electronically Signed On 05-15-2016 9:19:54 EST by Yolanda Gleason; Radiology Order: Chest, 1 View Test: Chest, 1 View REASON FOR EXAMINATION: hypotension; Portable chest x-ray: Single view.; ; History: Hypotension.; ; Comparison chest x-ray September 07, 2015.; ; Findings: EKG monitoring electrodes overlie the chest. Lungs are symmetrically; aerated and free of infiltrate. Pleural angles are sharp. Heart is not; enlarged. The aorta is slightly tortuous. Pulmonary vasculature is not; increased. No significant bony abnormality is seen.; ; Impression:; ; No active disease.; ; ; ; ; Unreviewed; Outcome: 16:43 Decision to Hospitalize by Provider. 05/15 11:15 Patient left the ED. 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
--- NOTE | 2016-05-15 11:15 | EDDOCDS ---
Physician Documentation [facility] Name: Colleen Velasco Age: 56 yrs Sex: Female : 1960 Arrival Date: 05/14/2016 Time: 14:29 Bed Admit Hold Private MD: Donavon Radford P Disposition: 05/14 16:39 Critical Care:. pc Disposition: 05/14/16 16:43 Hospitalization ordered by Madison Temple for Inpatient Admission. Preliminary diagnosis are Other viral enteritis, Dehydration, End stage renal disease. - Bed requested for PCU. - Status is Inpatient Admission. hs1 - Condition is Stable. - Problem is new. - Symptoms have improved. HPI: 15:04 This 56 yrs old Female presents to ER via Walkin/Carried/Asstd with pc complaints of Nausea/Vomiting/Diarrhea. 15:04 The history is obtained from the patient. 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 She has pc been unable to keep any fluids down, has not had solids in 2 days and has had no relief with OTCs. She denies any fevers or chills, Resp symptoms. She feels weak, dizzy with standing and was unable to go to dialysis today. At their worst, the symptoms were moderate. In the emergency department, the symptoms are unchanged. The patient has not experienced similar symptoms in the past. The patient has been recently seen by Dr. Radford. Historical: - Allergies: Amoxicillin"achy all over"; Aspirin; - Home Meds: 1. Coumadin 5 mg Oral tab 1 tab once daily 2. Lipitor 10 mg Oral tab 1 tab nightly 3. calcium acetate 667 mg three times perday 4. metoprolol tartrate 25 mg Oral tab 1 tab 2 times per day takes once daily on dialysis days 5. omeprazole 20 mg Oral cpDR 1 cap once daily 6. Sensipar 30 mg oral tab 1 tab on Mon-Wed-Wed 7. prednisone 5 mg Oral tab 1 tab once daily 8. magnesium oxide 400 mg Oral tab daily 9. Nicole-Hardik oral 1 tab daily 10. PhosLo 667 mg Oral cap 1 caps 3 times per day 11. Tylenol 325 mg Oral tab 2 tabs every 6 hours as needed - PMHx: Hypercholesterolemia; Hypertension; Lupus; Renal Failure with Dialysis; GERD; - PSHx: Cholecystectomy(December 30, 2011); Brain Cyst removal; Bowel Surgery; Glass Eye right; - The history from nurses notes was reviewed: and I agree with what is documented. - Social history: Smoking status: Patient states was never smoker of tobacco. No barriers to communication noted, The patient speaks fluent Kenyan. - : The pt / caregiver states he / she is on anticoagulants: coumadin. Home medication list is obtained from the patient, [email or web address] import data. - Hospitalizations: : No recent hospitalization is reported. - Exposure Risk Screening:: None identified. - Immunization history:: All immunizations up-to-date. - Family history: Not pertinent. - Social history:: the patient is a non-smoker, the patient does not drink alcohol. ROS: 15:04 All systems are negative except as listed. pc Exam: 15:04 General Appearance: alert, the patient is in mild distress. pc 15:04 EENT: normal eye inspection, ears, nose and throat normal, mucous membranes dry. 15:04 Neck: The exam reveals no acute abnormalities. ROM is normal and painless. No nuchal rigidity is noted.. 15:04 Respiratory: no respiratory distress, normal breath sounds, chest non-tender. 15:04 CVS: regular rhythm, normal S1 and S2, no murmurs, strong peripheral pulses, normal capillary refill, the patient is tachycardic, at 119 bpm. 15:04 Abdomen: soft, non-tender, no organomegaly, no masses appreciated, no hernias palpated with/without gravity or Valsalva bowel sounds hyperactive. 15:04 Back: normal inspection. 15:04 Skin: skin color is normal, warm, dry, the skin turgor is poor. 15:04 Extremities: The extremities have a grossly normal appearance, are non-tender, without acute ROM abnormalities, with pedal edema noted, is 1+ edema bilaterally 15:04 Neuro: oriented x 3, cranial nerves normal as tested, no motor deficits, no sensory deficits. 15:04 Psych: normal mood. Vital Signs: 14:33 BP 79 / 69; Pulse 108; Resp 20; Temp 99.7(O); Pulse Ox 96% on R/A; Weight 54.43 kg / elp 120 lbs (R); Height 4 ft. 11 in. (149.86 cm) (R); Pain 0/10; 14:40 BP 119 / 70; Pulse 101; Resp 20; Pulse Ox 96% on R/A; kcs 14:59 BP 109 / 69 (auto/); ms18 15:00 Pulse 96 MON; Pulse Ox 95% ; ms18 15:13 Pulse 92 MON; Pulse Ox 94% ; ms18 15:14 BP 102 / 60 (auto/); ms18 15:28 Pulse 90 MON; Pulse Ox 94% ; ms18 15:29 BP 106 / 59 (auto/); ms18 15:44 BP 102 / 59 (auto/); ms18 15:48 Pulse 88 MON; Resp 18; Pulse Ox 95% ; ms18 15:56 BP 103 / 59 (auto/); mv5 15:56 Pulse 82 MON; Pulse Ox 94% ; mv5 15:59 BP 103 / 57 (auto/); ms18 16:00 Pulse 84 MON; Pulse Ox 95% ; ms18 16:08 Pulse 84 MON; Pulse Ox 94% ; ms18 16:14 BP 104 / 59 (auto/); ms18 16:29 BP 105 / 55 (auto/); ms18 16:43 Pulse 84 MON; Pulse Ox 95% ; ms18 16:44 BP 110 / 61 (auto/); ms18 16:57 Pulse 82 MON; Pulse Ox 95% ; ms18 16:59 BP 112 / 64 (auto/); ms18 17:06 Pulse 78 MON; Pulse Ox 95% ; ms18 17:14 BP 107 / 61 (auto/); ms18 17:29 BP 107 / 61 (auto/); ms18 17:42 Pulse 80 MON; Pulse Ox 97% ; ms18 17:44 BP 116 / 64 (auto/); ms18 17:58 Pulse 80 MON; Pulse Ox 97% ; ms18 17:59 BP 111 / 64 (auto/); ms18 18:14 BP 113 / 64 (auto/); ms18 18:20 Pulse 82 MON; Pulse Ox 95% ; ms18 18:29 BP 114 / 65 (auto/); ms18 18:44 BP 108 / 63 (auto/); kas2 18:44 Pulse 80 MON; Pulse Ox 94% ; kas2 18:59 BP 122 / 68 (auto/); kas2 18:59 Pulse 80 MON; Pulse Ox 100% ; kas2 19:14 BP 122 / 67 (auto/); kas2 19:14 Pulse 80 MON; Pulse Ox 88% ; kas2 19:19 Resp 18; Temp 97.9(O); Pain 0/10; kas2 20:44 BP 121 / 72 (auto/); kas2 20:44 Pulse 80 MON; Pulse Ox 90% ; kas2 20:55 Resp 18; Temp 97.6(O); Pain 0/10; kas2 20:59 BP 119 / 73 (auto/); kas2 20:59 Pulse 80 MON; Pulse Ox 94% ; kas2 21:14 BP 118 / 68 (auto/); kas2 21:14 Pulse 80 MON; Pulse Ox 89% ; kas2 21:29 BP 123 / 70 (auto/); kas2 21:29 Pulse 82 MON; Pulse Ox 90% ; kas2 21:44 BP 127 / 72 (auto/); kas2 21:44 Pulse 82 MON; Pulse Ox 89% ; kas2 21:58 Resp 18; Temp 98.2(O); Pain 0/10; kas2 14:33 Body Mass Index 24.24 (54.43 kg, 149.86 cm) elp MDM: 15:04 IV Saline Lock ordered. pc 15:04 NS 0.9% 1000 ml IV at bolus once ordered. pc 15:04 Wire Spring Relay Adjuster/Pulse Ox/q 30 min VS ordered. pc 15:04 Ondansetron 4 mg IVP once ordered. pc 15:04 Stool samples ordered. pc 15:04 Differential Diagnosis: gastroenteritis with dehydration and hypotension; ESRD on HD pc r/o electrolyte imbalance;. Plan: labs, IVF, meds. 15:05 CBC with Diff Ordered. EDMS 15:05 MED Profile Ordered. EDMS 15:05 Lactic Acid (Vieira tube on ice) Ordered. EDMS 15:05 Venous Blood Gas (large pea green tube on ice) Ordered. EDMS 15:05 Liver Profile Ordered. EDMS 15:05 Phosphorous Level Ordered. EDMS 15:06 ECG WITH READING ER PHYS+CARDIAG ordered. EDMS 15:27 CBC with Diff Reviewed. pc 15:27 Venous Blood Gas (large pea green tube on ice) Reviewed. pc 15:54 MED Profile Reviewed. pc 15:54 Liver Profile Reviewed. pc 15:54 Phosphorous Level Reviewed. pc 15:58 Chest, 1 View Ordered. EDMS 15:58 BED REQUEST+ADM ordered. EDMS 16:21 Lactic Acid (Vieira tube on ice) Reviewed. pc 16:39 Data reviewed: old medical records, vital signs, nurses notes, EKG(s), lab test pc results, all radiology studies and available results. Test interpretation: LAB - all labs as ordered have been reviewed, interpreted and considered in the overall management of the clinical presentation; X-RAY - interpreted by Radiologist and personally reviewed, 1 view chest no acute disease. The patient has been re-examined and re-evaluated. The patient's symptoms have mildly improved after treatment, with her BP stable and her pulse decreased. Physician consultation: Dr. Phyllis Hernandez MD regarding consult, and will see patient in inpatient room. 16:39 Physician consultation: Dr. Madison Temple regarding admission, and will see patient in ED, shortly. Disposition: The historical points, examination findings, and any diagnostic results supporting the provided diagnosis, were discussed with the patient or legal guardian. The need for further work-up and/or treatment in the hospital was explained. 16:56 Admission / Observation Status ordered. EDMS 16:57 STOOL SODIUM Ordered. EDMS 16:57 BLOOD CULTURES Ordered. EDMS 16:57 GASTROINTESTINAL (GI) PANEL Ordered. EDMS 17:01 Test interpretation: EKG. pc 17:42 CLEAR LIQUIDS DIET ordered. EDMS 18:20 Financial registration complete. [facility] 18:22 [facility] Payment Agreement was scanned into [employer] and attached to record. gjb 19:07 PROTHROMBIN TIME PROFILE\\E\\INR Ordered. EDMS 19:32 CBC WITH DIFFERENTIAL Ordered. EDMS 19:33 COMPLETE COMPHRENSIVE METABOLI Ordered. EDMS 19:33 MAGNESIUM LEVEL Ordered. EDMS 19:34 PROTHROMBIN TIME PROFILE\\E\\INR Ordered. EDMS 0203 05:01 CALPROTECTIN STOOL Ordered. EDMS 05:01 OSMOLARITY STOOL Ordered. EDMS 05:01 STOOL CHLORIDE Ordered. EDMS 05:01 STOOL POTASSIUM Ordered. EDMS 05:01 STOOL SODIUM Ordered. EDMS 05:02 STOOL POLYS Ordered. EDMS 05:02 GASTROINTESTINAL (GI) PANEL Ordered. EDMS 05:06 OCCULT BLOOD STOOL SPECIMEN Ordered. EDMS EC/02 17:01 Rate is 91 beats/min. Rhythm is regular, Normal Sinus Rhythm. QRS [place] is Normal. SC pc interval is normal. QRS interval is normal. QT interval is normal. No Q waves. T waves are Normal. No ST changes noted. Clinical impression: Normal Sinus Rhythm. Administered Medications: 15:22 Drug: Ondansetron 4 mg [ondansetron HCl 2 mg/mL intravenous solution (2 mL)] Route: mv5 IVP; Site: right antecubital; 15:59 Follow up: Response: No Adverse Reaction mv5 15:27 Drug: NS 0.9% 1000 ml [sodium chloride 0.9 % intravenous solution] Route: IV; Rate: ms18 bolus; Site: right antecubital; Critical Care Time: 16:39 Critical care time: Bedside Care: 25 minutes, Consultation: 15 minutes, Family pc Intervention: 10 minutes. Total time: 50 minutes Signatures: Dispatcher [employer] EDMS Prasanna Zamora MD MD pc Sleeman, Kacey, RN RN Tri Majano, New Car Inspector Unit lbd Ermelinda Lazo RN RN hs1 Mary Lou Hawthorne Mallory RN ms18 Michelle Proctor RN mv5 The chart was reviewed and I authenticate all verbal orders and agree with the evaluation and treatment provided.Corrections: (The following items were deleted from the chart) 16:57 16:57 GASTROINTESTINAL (GI) PANEL ordered. EDMS EDMS 16:57 16:57 GASTROINTESTINAL (GI) PANEL ordered. EDWA EDMS / 05:01 02/02 16:57 STOOL POTASSIUM ordered. EDWA EDMS / 05:02 02/02 16:57 STOOL POLYS ordered. EDWA EDMS 02 05:02 05:02 GASTROINTESTINAL (GI) PANEL ordered. EDWA EDMS 05:02 05:02 GASTROINTESTINAL (GI) PANEL ordered. EDMS EDMS 05:03 02/02 16:56 CALPROTECTIN STOOL ordered. EDMS EDMS / 05:04 02/02 16:56 OSMOLARITY STOOL ordered. EDMS EDMS 02/ 05:04 02/02 16:56 STOOL CHLORIDE ordered. [facility] EDMS Attachments: 18:22 [facility] Payment Agreement gjb MTDD
[2016-05-15] MEDS ORDERED: SLF 3 ML SYR IV PRN (13:00)
[2016-05-15] MEDS ORDERED: LIDOCAINE 1% SDV 5 ML VIAL SC ONE (14:00)
[2016-05-15] MEDS: SLF 3 ML SYR IV SCH ×2 (14:09→21:24)
--- NOTE | 2016-05-15 16:56 | IPNPDOC ---
Date Seen The patient was seen on 05/15/16. Progress Note DATE OF ENCOUNTER: 05/15/2016 SUBJECTIVE: Ms. Velasco was seen this afternoon during hemodialysis. She reports feeling well and tolerating hemodialysis thus far. She reports that nausea and vomiting have resolved. Still having nonbloody diarrhea. No lightheadedness, dizziness, headache, chest pain/pressure, palpitations or shortness of breath. No fevers or chills. She missed hemodialysis yesterday due to her GI symptoms. OBJECTIVE: Vital Signs Date Time Temp Pulse Resp B/P Pulse Ox O2 Delivery O2 Flow Rate FiO2 05/15/16 12:00 96.4 68 18 119/70 99 Room Air I&O- Last 24 Hours up to 6 AM 05/15/16 06:00 Intake Total 150 ml Output Total 0 ml Balance 150 ml GENERAL: Alert and oriented x3. Laying in bed, in no acute distress. HEENT: Normocephalic, atraumatic, extraocular muscles intact. Moist mucosa. NECK: Supple. No jugular venous distention appreciated. No thyromegaly. HEART: Normal S1, S2, regular rate. No murmur, gallop or rubs. LUNGS: Good air movement. Clear to auscultation bilaterally. ABDOMEN: Soft. Nontender, nondistended. Positive bowel sounds. EXTREMITIES: No cyanosis or edema of the lower extremities. Positive pedal pulses bilaterally. SKIN: Warm and dry. No rashes noted. NEUROLOGIC: No focal deficits. Motor and sensation intact. LABORATORY DATA: 05/15/16 06:45 Calcium Level 7.2 L, Aspartate Amino Transferase(AST/SGOT) 82 H, Alanine Aminotransferase (ALT/SGPT) 80 H, Alkaline Phosphatase 72, Total Bilirubin 0.4, Total Protein 5.6 #L, Albumin 2.6 L, Anion Gap 16, Magnesium Level 1.6L, Prothrombin Time International Ratio 2.47, Prothrombin Time 26.8H MICROBIOLOGY: GI Panel positive for norovirus. Blood cultures pending. ASSESSMENT/PLAN: Ms. Velasco is a 56-year-old female with past medical history of systemic lupus erythematosus, end-stage renal disease on hemodialysis admitted for dehydration, volume depletion and orthostatic hypotension because of acute gastroenteritis. Nephrology service following the patient for management of end-stage renal disease. 1. End-stage renal disease on hemodialysis Wednesday, and Wednesday. She is being dialyzed today since she missed her session yesterday due to acute GI illness. Volume status is improved. Potassium is stable. Goal is to remove 1.5 liters. 2. Acute viral gastroenteritis. Her symptoms are improving. Continue supportive care. GI panel was positive for norovirus. 3. Dehydration and volume depletion. Volume status stable after receiving IV fluids. Fluids have been discontinued. 4. Mild anion gap metabolic acidosis, secondary to diarrhea and renal failure. She received bicarb overnight. Will continue to monitor for now. This should also improve with her dialysis session today. 5. Hypomagnesemia, likely secondary to diarrhea. Mag run given x 1. Continue with daily oral supplementation. 6. Systemic lupus erythematosus. Continue current dose of prednisone 5mg daily. 7. Hypertension. Blood pressure is stable. Continue metoprolol 25mg twice a day. 8. History of hyperphosphatemia in renal disease. Continue Phoslo. GME ATTESTATION GME ATTESTATION My preceptor for this patient encounter was physically present in the building during the encounter and was fully available. As needed, all aspects of the patient interview, examination, medical decision making process, and medical care plan development were reviewed and approved by the preceptor. Preceptor is aware and concurs with the plan as stated in the body of this note and will attest to such by his/her cosignature. ATTENDING NOTE Nephrology: Pt was examined during HD today. UF goal 500 ml. Norovirus induced gastroenteritis. Cont symptomatic management. diarrhea is improving. AGUS GONGORA DO May 15, 2016 16:56 ELEAZAR ROSE MD May 17, 2016 22:12
[2016-05-15] MEDS ORDERED: MAG SULF 1GM/100ML (MAG RUN) 1 GM in APPROPRIATE DILUENT 1 EA IV ONE (17:00)
[2016-05-15] MEDS: WARFARIN SOD 5 MG TAB PO SCH (17:12)
--- NOTE | 2016-05-15 18:01 | IPN ---
DATE: 05/15/2016 SUBJECTIVE: This is a 56-year-old female who was seen and examined at bed side. Patient has a history of lupus nephritis, Raynaud's hypotension and end-stage renal disease secondary to Lupus. Receives hemodialysis Wednesday, , Wednesday who presented to the Emergency department (ED) yesterday with complaint of vomiting and excessive diarrhea. Earlier this week on Wednesday she was out at [facility] and [facility], with her family and then Wednesday morning started waking up and not feeling well. Wednesday night she started having emesis and multiple diarrhea episodes was going every two hours. Reported having melena in her loose bowel movements that filled up the toilet bowl. There has been no recent travel, no sick contacts. Her family who ate similar things were not sick with similar symptoms, has not been drinking amador water. She does drink water from her well, which she has been living in the same house for many years. Attempted to take some Tylenol and Imodium at home without relief. Because of her symptoms she did not have her dialysis yesterday. This morning said her diarrhea had slowed down since midnight, had approximately three to four episodes which is improved compared to every two hours. She was found to be positive for Norovirus on GI panel. Her nausea is also resolved. No longer reports chills that she had on admission. No fevers, chest pain, shortness of breath, palpitations. OBJECTIVE: VITAL SIGNS: Blood pressure 118/66, heart rate 63, temperature 98.7, respiration rate 20, pulse ox 97% on room air. INTAKE AND OUTPUT: Not accurately documented. GENERAL: Patient is lying in bed, comfortable. In no acute distress. She is alert, awake and oriented times three. Pleasant, cooperative. HEENT: Normocephalic, atraumatic. Moist oral mucosa. Multiple missing teeth with dental caries. HEART: Regular rate and rhythm. S1, S2, normal, somewhat distant sounding. Could not appreciate any murmurs, rubs or gallops. Breath sounds were diminished bilateral lung bases but no adventitious sounds. ABDOMEN: Soft, non-tender, non-distended. Bowel sounds present. No rebound or guarding. She does have an umbilical hernia that is reducible. EXTREMITIES: Edematous but non pitting. NEUROLOGICAL: No focal deficits appreciated. LABORATORY DATA: WBC 5.5, hemoglobin 10.2, hematocrit 32; decreased from yesterday 13.2. Platelet 107; decreased from yesterday 147. All her cell lines appear to be down today. Neutrophil 78.6; improved from 98.7, sodium 139, potassium 3.9, chloride 103, carbon dioxide 20, BUN 96, creatinine 8.4, glucose 77, lactic acid 1.1, calcium 7.2, magnesium 1.6, AST 82, ALT 80, alkaline phosphatase 72. Total protein 5.6. Coags PT 26.8, INR 2.4, other <<5:41>> is pending. Stool occult is positive. Norovirus positive. IMAGING: Chest x-ray without acute findings. IMPRESSION AND PLAN: Ms. Velasco is a pleasant 56-year-old female with history of Lupus nephritis, end-stage renal disease secondary to Lupus on hemodialysis presented with nausea, vomiting, diarrhea. 1. Acute viral gastroenteritis. GI panel positive for Norovirus. Continue with supportive management. It appears that her loose bowel movements have slowed down significantly. Continue to monitor for volume status. 2. Dehydration. She was evaluated by nephrology and was started with half normal saline plus bicarbonate with 1 liter fluid administered in total. 3. Metabolic acidosis with gap, improving. Greatly appreciate Dr. Hernandez's assistance. 4. End-stage renal disease on hemodialysis. Patient is undergoing hemodialysis this morning. 5. Lupus with Lupus nephritis. She is on chronic prednisone 5 mg daily. Reportedly has been on this dose for at least 5 years. She is also on Coumadin to prevent hypercoagulable state. INR is therapeutic. 6. Anemia. Hemoglobin showed a decrease today compared to admission. Could be due to blood loss versus dilutional. Check iron studies. She recently had a colonoscopy in August 2014 at that time was shown to have internal hemorrhoids and diverticulosis. 7. Hypertension. Blood pressure appears to be within reasonable range. She is on her home dose Lopressor twice a day but should only take once a day on dialysis days. 8. Hyperlipidemia. Continue statin therapy 10 mg at bedtime. 9. Gastroesophageal reflux disease. Continue Prilosec 20 mg daily. 10. Chronic hypomagnesemia. Continue magnesium supplementation. 11. Previous history of small bowel obstruction status post surgery 2013 and 2012. 12. History of toxoplasmosis. 13. Deep vein thrombosis prophylaxis. Sequential compression devices (SCDs) and thromboembolic deterrent stockings (TEDS). She is on Coumadin, however due to anemia we will continue to monitor her H H. My preceptor for this patient encounter was Dr. Maninder Shields. The preceptor was physically present in the building during the encounter and was fully available as needed. All aspects of the patient interview, examination, medical decision making process, and medical care plan development were reviewed and approved by the preceptor. The preceptor is aware and concurs with the plan as stated in the body of this note and will attest to such by his/her co-signature.
[2016-05-15] MEDS: ATORVASTATIN 10 MG TAB PO SCH (21:24)
[2016-05-16 04:51] VITALS: BP 119/70
[2016-05-16] MEDS: SLF 3 ML SYR IV SCH (05:19)
[2016-05-16 05:51] LABS: BASO % 0.6 % (0.0-1.0); EOS # 0.1 K/mm3 (0.0-0.50); EOS % 1.9 % (0.0-3.0); LARGE UNSTAINED CELL # 0.2 K/mm3 (0.0-0.4); LARGE UNSTAINED CELL % 4.4 % (0.0-4.0); LYMPH % 25.8 % (24.0-44.0); MEAN CORPUSCULAR HEMOGLOBIN 28.6 pg (27.0-33.0); MEAN CORPUSCULAR VOLUME 92.2 fl (80.0-96.0); MONO # 0.3 K/mm3 (0.0-0.8); MONO % 8.1 % (0.0-5.0); NEUTROPHILS # 2.4 K/mm3 (1.8-7.7); NEUTROPHILS % 59.1 % (36.0-66.0); PLATELET COUNT, AUTOMATED 111 k/mm3 (150-450); RED CELL DISTRIBUTION WIDTH 15.7 % (11.5-14.5); RETIC HEMOGLOBIN CONTENT CHr 29.3 PG (24-36); RETICULOCYTE ABSOLUTE ADVIA212 22 x10(9)/L (17-77)
[2016-05-16 05:54] LABS: INR 3.74
[2016-05-16 06:19] LABS: ALBUMIN 2.6 GM/DL (3.2-5.2); ALBUMIN/GLOBULIN RATIO 0.9 (1.00-1.93); BILIRUBIN,TOTAL 0.3 MG/DL (0.2-1.0); CALCIUM LEVEL 8.5 MG/DL (8.5-10.1); CREATININE FOR GFR 4.43 MG/DL (0.55-1.02); GLOMERULAR FILTRATION RATE 10.9 (>51); MAGNESIUM LEVEL 2.4 MG/DL (1.8-2.4); POTASSIUM SERUM 3.9 MEQ/L (3.5-5.1); TOTAL PROTEIN 5.5 GM/DL (6.4-8.2)
[2016-05-16 08:00] VITALS: BP 122/66
[2016-05-16] MEDS: CALCIUM ACETATE 667 MG GELCAP PO SCH (08:56)
[2016-05-16] MEDS: OMEPRAZOLE 20 MG CAP PO SCH (08:56)
[2016-05-16] MEDS: MAGNESIUM OXIDE 400 MG TAB (MAG-OX) PO SCH (08:57)
[2016-05-16] MEDS: predniSONE 5 MG TAB PO SCH (08:57)
[2016-05-16 08:58] VITALS: BP 122/66
[2016-05-16] MEDS: METOPROLOL TART 25 MG TABLET PO SCH (08:58)
[2016-05-16] MEDS ORDERED: WARF-23 PO (10:40)
[2016-05-16] MEDS ORDERED: METO25TAB PO (10:40)
--- NOTE | 2016-05-16 12:09 | IPNPDOC ---
Date Seen The patient was seen on 05/16/16. Progress Note DATE OF ENCOUNTER: 05/16/2016 SUBJECTIVE: Ms. Velasco was seen this morning at bedside. No acute overnight issues. She had hemodialysis yesterday where 1.5 L was removed and this was well -tolerated. She had dialysis yesterday secondary to missing her normal dialysis schedule on due to GI symptoms. She reports that nausea, vomiting and diarrhea have resolved. No abdominal pain. No lightheadedness, dizziness, headache, chest pain/pressure, palpitations or shortness of breath. No fevers or chills. She is eager and feels ready to go home. OBJECTIVE: Vital Signs Date Time Temp Pulse Resp B/P Pulse Ox O2 Delivery O2 Flow Rate FiO2 05/16/16 08:58 54 122/66 05/16/16 08:00 96.7 18 96 Room Air I&O- Last 24 Hours up to 6 AM 05/16/16 06:00 Intake Total 1810 ml Output Total 1825 ml Balance -15 ml GENERAL: Alert and oriented x3. Laying in bed, in no acute distress. HEENT: Normocephalic, atraumatic, extraocular muscles intact. Moist mucosa. NECK: Supple. No jugular venous distention appreciated. No thyromegaly. HEART: Normal S1, S2, regular rate and rhythm. LUNGS: Clear to auscultation bilaterally. ABDOMEN: Soft. Nontender, nondistended. Positive bowel sounds. EXTREMITIES: No cyanosis or lower extremity edema. Positive pedal pulses bilaterally. SKIN: Warm and dry. No rashes noted. NEUROLOGIC: No focal deficits. Motor and sensation intact. LABORATORY DATA: 05/16/16 05:20 MICROBIOLOGY: GI Panel positive for norovirus. Blood cultures show no growth thus far. ASSESSMENT/PLAN: Ms. Velasco is a 56-year-old female with past medical history of systemic lupus erythematosus, end-stage renal disease on hemodialysis admitted for dehydration, volume depletion and orthostatic hypotension because of acute gastroenteritis. Nephrology service following the patient for management of end-stage renal disease. 1. End-stage renal disease on hemodialysis Wednesday, and Wednesday. She was dialyzed yesterday due to missing her normal dialysis on . Volume status is stable. Her potassium level is stable. She is feeling well and eager to go home. She can continue with her normal dialysis schedule. 2. Acute viral gastroenteritis. Her symptoms have resolved. 3. Mild anion gap metabolic acidosis, secondary to diarrhea and renal failure. This has resolved. She did receive bicarbonate when she came in, which would explain why her CO2 is mildly elevated. 4. Hypomagnesemia, resolved. 5. Systemic lupus erythematosus. She is on prednisone 5mg daily. 6. Hypertension. Blood pressure is stable. Continue metoprolol 25mg twice a day. 7. History of hyperphosphatemia in renal disease. Continue Phoslo. DISPOSITION: Patient is feeling well and would like to go home. She is stable on a renal standpoint. She has been advised to continue following her fluid restriction and she can be dialyzed according to her normal schedule, next dialysis would be Wednesday. GME ATTESTATION GME ATTESTATION My preceptor for this patient encounter was physically present in the building during the encounter and was fully available. As needed, all aspects of the patient interview, examination, medical decision making process, and medical care plan development were reviewed and approved by the preceptor. Preceptor is aware and concurs with the plan as stated in the body of this note and will attest to such by his/her cosignature. AGUS GONGORA DO May 16, 2016 12:09
--- NOTE | 2016-05-17 09:56 | DSES ---
DATE OF ADMISSION: 05/14/2016 DATE OF DISCHARGE: 05/16/2016 PRIMARY CARE PROVIDER: Dr. Donavon Radford. CONSULTATIONS: Dr. Hernandez, Dr. Radford of nephrology. PROCEDURES: None. COMPLICATIONS: None. DIAGNOSTIC IMAGING: Chest x-ray on admission: No actives disease. GI panel positive for norovirus lactoferrin positive. Blood cultures negative after 48 hours. DISCHARGE DIAGNOSES: 1. Acute viral gastroenteritis secondary to norovirus. 2. Hypotension. 3. Dehydration. 4. Metabolic encephalopathy with GAP. 5. Endstage renal disease on hemodialysis. 6. Lupus with lupus nephritis. 7. Anemia. 8. Hypertension. 9. Hyperlipidemia. 10. Gastroesophageal reflux disease 11. Chronic hypomagnesemia. 12. History of small bowel obstruction. 13. History of capsule osmosis. 14. Supratherapeutic INR. 15. Bradycardia. BRIEF HOSPITAL COURSE: Ms. Velasco is a pleasant 56-year-old female with a past medical history as mentioned above who presented to the emergency department on the day of presentation complaining of vomiting, excessive diarrhea. Earlier in the week, she actually was out with her family at [facility] and had a Whopper [employer] and [employer]. Her family remained well. However, approximately 2 days after her ingestion, she started having emesis and loose bowel movements going every 2 hours. No recent travel. No sick contact was reported. The patient has been living at the same house and drinks water from her well for years. Because of symptoms, she attempted to take some Imodium and Tylenol without significant relief of symptoms. She actually missed a dialysis on her scheduled day because of her symptoms. In the emergency department, she was found to be hypotensive with systolic of 79, heart rate 108, temperature 99.7. Because of her hypotension, she was started on IV hydration. Initially with normal saline and was later switched to half normal with sodium bicarbonate, which improved her metabolic acidosis. With hydration, her symptoms improved significantly on the second day of her stay, reported no longer having loose bowel movements. She also underwent hemodialysis on the day of admission and tolerated it well without any adverse reaction. Because of her INR at the time of discharged was found to be 3.74, she will hold her Coumadin dosing tonight. She was also found to have bradycardia on telemetry with heart rate as low as in the 40s, therefore, her Lopressor dose was decreased from 25 twice a day to 12.5 twice a day after discussion with her primary care provider. For her other chronic conditions, her home medications will continue without change including her prednisone. PHYSICAL EXAMINATION AT DISCHARGE: VITAL SIGNS: Blood pressure 122/66, heart rate 55, temperature 96.7, respiratory rate 18, pulse ox 96% on room air. Intake and output was 1780 and 1825. GENERAL: The patient was walking in the room, comfortable. No acute distress. Alert, awake, oriented times three. Pleasant and cooperative. Her last bowel movement was a day prior to discharge date. NECK: Supple. Trachea midline. No jugular venous distention. CHEST: Symmetric chest rise. No accessory muscle use. Breath sounds were diminished but clear. HEART: Regular rate and rhythm. S1, S2 present. Distant sounding. ABDOMEN: Soft, nontender, nondistended. Bowel sounds present. No guarding and no rebound. EXTREMITIES: No pedal edema. Pedal pulses present but diminished. Left upper extremity has fistula in place, positive for bruit and thrill. NEURO: No focal deficit. LABORATORY DATA: WBC 4, hemoglobin 10.4, hematocrit 33.4, platelet 111. Sodium 143, potassium 3.9, chloride 102, carbon dioxide 34, BUN 25, creatinine 4.43, glucose 84, magnesium 2.4. TIBC 150, transferrin 575, coags: PT 37, INR 3.74. DISPOSITION: Home. Activity as tolerated. Diet: Renal diet. CONDITION: Stable. DISCHARGE MEDICATION CHANGE: - Lopressor 12.5 mg by mouth twice a day. - Coumadin 5 mg daily, will be held on the day of discharge. Continue with the following home medications: - Tylenol 650 mg by mouth every 4 hour as needed - Lipitor 10 mg by mouth nightly - calcium acetate 667 three times a day - Sensipar 30 mg three times a week, Wednesday, Wednesday and Wednesday. - lidocaine cream with dialysis - magnesium oxide 400 mg daily - omeprazole 20 mg by mouth daily - prednisone 5 mg by mouth daily. Will defer to primary care physician to taper down her medication. - Nicole-Hardik 1 tablet by mouth daily Stop the following home medication: Lopressor 25 mg by mouth twice a day Followup with Dr. Radford next week. PATIENT INSTRUCTIONS: The patient was instructed to return to the hospital if she has worsening or recurrent symptoms or anything else concerning the patient or her family. All of this was explained to the patient at the time of discharge and all questions answered. Time spent: 35 minutes. My preceptor for this patient encounter was Dr. Maninder Shields. The preceptor was physically present in the building during the encounter and was fully available. As needed, all aspects of the patient interview, examination, medical decision making process, and medical care plan development were reviewed and approved by the preceptor. The preceptor is aware and concurs with the plan as stated in the body of this note and will attest to such by his/her cosignature.
--- NOTE | 2016-05-17 12:15 | EDDOCDS ---
Physician Documentation [facility] Name: Colleen Velasco Age: 56 yrs Sex: Female : 1960 Arrival Date: 05/14/2016 Time: 14:29 Bed Admit Hold Private MD: Donavon Radford P Disposition: 05/14 16:39 Critical Care:. pc Disposition: 05/14/16 16:43 Hospitalization ordered by Madison Temple for Inpatient Admission. Preliminary diagnosis are Other viral enteritis, Dehydration, End stage renal disease. - Bed requested for PCU. - Status is Inpatient Admission. hs1 - Condition is Stable. - Problem is new. - Symptoms have improved. HPI: 15:04 This 56 yrs old Female presents to ER via Walkin/Carried/Asstd with pc complaints of Nausea/Vomiting/Diarrhea. 15:04 The history is obtained from the patient. 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 She has pc been unable to keep any fluids down, has not had solids in 2 days and has had no relief with OTCs. She denies any fevers or chills, Resp symptoms. She feels weak, dizzy with standing and was unable to go to dialysis today. At their worst, the symptoms were moderate. In the emergency department, the symptoms are unchanged. The patient has not experienced similar symptoms in the past. The patient has been recently seen by Dr. Radford. Historical: - Allergies: Amoxicillin"achy all over"; Aspirin; - Home Meds: 1. Coumadin 5 mg Oral tab 1 tab once daily 2. Lipitor 10 mg Oral tab 1 tab nightly 3. calcium acetate 667 mg three times perday 4. metoprolol tartrate 25 mg Oral tab 1 tab 2 times per day takes once daily on dialysis days 5. omeprazole 20 mg Oral cpDR 1 cap once daily 6. Sensipar 30 mg oral tab 1 tab on Mon-Wed-Wed 7. prednisone 5 mg Oral tab 1 tab once daily 8. magnesium oxide 400 mg Oral tab daily 9. Nicole-Hardik oral 1 tab daily 10. PhosLo 667 mg Oral cap 1 caps 3 times per day 11. Tylenol 325 mg Oral tab 2 tabs every 6 hours as needed - PMHx: Hypercholesterolemia; Hypertension; Lupus; Renal Failure with Dialysis; GERD; - PSHx: Cholecystectomy(December 30, 2011); Brain Cyst removal; Bowel Surgery; Glass Eye right; - The history from nurses notes was reviewed: and I agree with what is documented. - Social history: Smoking status: Patient states was never smoker of tobacco. No barriers to communication noted, The patient speaks fluent Macanese. - : The pt / caregiver states he / she is on anticoagulants: coumadin. Home medication list is obtained from the patient, [employer] import data. - Hospitalizations: : No recent hospitalization is reported. - Exposure Risk Screening:: None identified. - Immunization history:: All immunizations up-to-date. - Family history: Not pertinent. - Social history:: the patient is a non-smoker, the patient does not drink alcohol. ROS: 15:04 All systems are negative except as listed. pc Exam: 15:04 General Appearance: alert, the patient is in mild distress. pc 15:04 EENT: normal eye inspection, ears, nose and throat normal, mucous membranes dry. 15:04 Neck: The exam reveals no acute abnormalities. ROM is normal and painless. No nuchal rigidity is noted.. 15:04 Respiratory: no respiratory distress, normal breath sounds, chest non-tender. 15:04 CVS: regular rhythm, normal S1 and S2, no murmurs, strong peripheral pulses, normal capillary refill, the patient is tachycardic, at 119 bpm. 15:04 Abdomen: soft, non-tender, no organomegaly, no masses appreciated, no hernias palpated with/without gravity or Valsalva bowel sounds hyperactive. 15:04 Back: normal inspection. 15:04 Skin: skin color is normal, warm, dry, the skin turgor is poor. 15:04 Extremities: The extremities have a grossly normal appearance, are non-tender, without acute ROM abnormalities, with pedal edema noted, is 1+ edema bilaterally 15:04 Neuro: oriented x 3, cranial nerves normal as tested, no motor deficits, no sensory deficits. 15:04 Psych: normal mood. Vital Signs: 14:33 BP 79 / 69; Pulse 108; Resp 20; Temp 99.7(O); Pulse Ox 96% on R/A; Weight 54.43 kg / elp 120 lbs (R); Height 4 ft. 11 in. (149.86 cm) (R); Pain 0/10; 14:40 BP 119 / 70; Pulse 101; Resp 20; Pulse Ox 96% on R/A; kcs 14:59 BP 109 / 69 (auto/); ms18 15:00 Pulse 96 MON; Pulse Ox 95% ; ms18 15:13 Pulse 92 MON; Pulse Ox 94% ; ms18 15:14 BP 102 / 60 (auto/); ms18 15:28 Pulse 90 MON; Pulse Ox 94% ; ms18 15:29 BP 106 / 59 (auto/); ms18 15:44 BP 102 / 59 (auto/); ms18 15:48 Pulse 88 MON; Resp 18; Pulse Ox 95% ; ms18 15:56 BP 103 / 59 (auto/); mv5 15:56 Pulse 82 MON; Pulse Ox 94% ; mv5 15:59 BP 103 / 57 (auto/); ms18 16:00 Pulse 84 MON; Pulse Ox 95% ; ms18 16:08 Pulse 84 MON; Pulse Ox 94% ; ms18 16:14 BP 104 / 59 (auto/); ms18 16:29 BP 105 / 55 (auto/); ms18 16:43 Pulse 84 MON; Pulse Ox 95% ; ms18 16:44 BP 110 / 61 (auto/); ms18 16:57 Pulse 82 MON; Pulse Ox 95% ; ms18 16:59 BP 112 / 64 (auto/); ms18 17:06 Pulse 78 MON; Pulse Ox 95% ; ms18 17:14 BP 107 / 61 (auto/); ms18 17:29 BP 107 / 61 (auto/); ms18 17:42 Pulse 80 MON; Pulse Ox 97% ; ms18 17:44 BP 116 / 64 (auto/); ms18 17:58 Pulse 80 MON; Pulse Ox 97% ; ms18 17:59 BP 111 / 64 (auto/); ms18 18:14 BP 113 / 64 (auto/); ms18 18:20 Pulse 82 MON; Pulse Ox 95% ; ms18 18:29 BP 114 / 65 (auto/); ms18 18:44 BP 108 / 63 (auto/); kas2 18:44 Pulse 80 MON; Pulse Ox 94% ; kas2 18:59 BP 122 / 68 (auto/); kas2 18:59 Pulse 80 MON; Pulse Ox 100% ; kas2 19:14 BP 122 / 67 (auto/); kas2 19:14 Pulse 80 MON; Pulse Ox 88% ; kas2 19:19 Resp 18; Temp 97.9(O); Pain 0/10; kas2 20:44 BP 121 / 72 (auto/); kas2 20:44 Pulse 80 MON; Pulse Ox 90% ; kas2 20:55 Resp 18; Temp 97.6(O); Pain 0/10; kas2 20:59 BP 119 / 73 (auto/); kas2 20:59 Pulse 80 MON; Pulse Ox 94% ; kas2 21:14 BP 118 / 68 (auto/); kas2 21:14 Pulse 80 MON; Pulse Ox 89% ; kas2 21:29 BP 123 / 70 (auto/); kas2 21:29 Pulse 82 MON; Pulse Ox 90% ; kas2 21:44 BP 127 / 72 (auto/); kas2 21:44 Pulse 82 MON; Pulse Ox 89% ; kas2 21:58 Resp 18; Temp 98.2(O); Pain 0/10; kas2 14:33 Body Mass Index 24.24 (54.43 kg, 149.86 cm) elp MDM: 15:04 IV Saline Lock ordered. pc 15:04 NS 0.9% 1000 ml IV at bolus once ordered. pc 15:04 Compo Conveyor Operator/Pulse Ox/q 30 min VS ordered. pc 15:04 Ondansetron 4 mg IVP once ordered. pc 15:04 Stool samples ordered. pc 15:04 Differential Diagnosis: gastroenteritis with dehydration and hypotension; ESRD on HD pc r/o electrolyte imbalance;. Plan: labs, IVF, meds. 15:05 CBC with Diff Ordered. EDMS 15:05 MED Profile Ordered. EDMS 15:05 Lactic Acid (Vieira tube on ice) Ordered. EDMS 15:05 Venous Blood Gas (large pea green tube on ice) Ordered. EDMS 15:05 Liver Profile Ordered. EDMS 15:05 Phosphorous Level Ordered. EDMS 15:06 ECG WITH READING ER PHYS+CARDIAG ordered. EDMS 15:27 CBC with Diff Reviewed. pc 15:27 Venous Blood Gas (large pea green tube on ice) Reviewed. pc 15:54 MED Profile Reviewed. pc 15:54 Liver Profile Reviewed. pc 15:54 Phosphorous Level Reviewed. pc 15:58 Chest, 1 View Ordered. EDMS 15:58 BED REQUEST+ADM ordered. EDMS 16:21 Lactic Acid (Vieira tube on ice) Reviewed. pc 16:39 Data reviewed: old medical records, vital signs, nurses notes, EKG(s), lab test pc results, all radiology studies and available results. Test interpretation: LAB - all labs as ordered have been reviewed, interpreted and considered in the overall management of the clinical presentation; X-RAY - interpreted by Radiologist and personally reviewed, 1 view chest no acute disease. The patient has been re-examined and re-evaluated. The patient's symptoms have mildly improved after treatment, with her BP stable and her pulse decreased. Physician consultation: Dr. Phyllis Hernandez MD regarding consult, and will see patient in inpatient room. 16:39 Physician consultation: Dr. Madison Temple regarding admission, and will see patient in ED, shortly. Disposition: The historical points, examination findings, and any diagnostic results supporting the provided diagnosis, were discussed with the patient or legal guardian. The need for further work-up and/or treatment in the hospital was explained. 16:56 Admission / Observation Status ordered. EDMS 16:57 STOOL SODIUM Ordered. EDMS 16:57 BLOOD CULTURES Ordered. EDMS 16:57 GASTROINTESTINAL (GI) PANEL Ordered. EDMS 17:01 Test interpretation: EKG. pc 17:42 CLEAR LIQUIDS DIET ordered. EDMS 18:20 Financial registration complete. [facility] 18:22 [facility] Payment Agreement was scanned into [email or web address] and attached to record. gjb 19:07 PROTHROMBIN TIME PROFILE\\E\\INR Ordered. EDMS 19:32 CBC WITH DIFFERENTIAL Ordered. EDMS 19:33 COMPLETE COMPHRENSIVE METABOLI Ordered. EDMS 19:33 MAGNESIUM LEVEL Ordered. EDMS 19:34 PROTHROMBIN TIME PROFILE\\E\\INR Ordered. EDMS 02/03 05:01 CALPROTECTIN STOOL Ordered. EDMS 05:01 OSMOLARITY STOOL Ordered. EDMS 05:01 STOOL CHLORIDE Ordered. EDMS 05:01 STOOL POTASSIUM Ordered. EDMS 05:01 STOOL SODIUM Ordered. EDMS 05:02 STOOL POLYS Ordered. EDMS 05:02 GASTROINTESTINAL (GI) PANEL Ordered. EDMS 05:06 OCCULT BLOOD STOOL SPECIMEN Ordered. EDMS 14:56 ECG/EKG was scanned into [email or web address] and attached to record. EC/02 17:01 Rate is 91 beats/min. Rhythm is regular, Normal Sinus Rhythm. QRS Alfred is Normal. TX pc interval is normal. QRS interval is normal. QT interval is normal. No Q waves. T waves are Normal. No ST changes noted. Clinical impression: Normal Sinus Rhythm. Administered Medications: 15:22 Drug: Ondansetron 4 mg [ondansetron HCl 2 mg/mL intravenous solution (2 mL)] Route: mv5 IVP; Site: right antecubital; 15:59 Follow up: Response: No Adverse Reaction mv5 15:27 Drug: NS 0.9% 1000 ml [sodium chloride 0.9 % intravenous solution] Route: IV; Rate: ms18 bolus; Site: right antecubital; Critical Care Time: 16:39 Critical care time: Bedside Care: 25 minutes, Consultation: 15 minutes, Family pc Intervention: 10 minutes. Total time: 50 minutes Signatures: Dispatcher [employer] EDPrasanna Alicia MD MD pc Sleeman, Kacey, RN RN kcs Daly, Linda, Machine Tool Builder Unit lbd Priscilla Saldaña, Ermelinda Schaefer RN RN hs1 Mary Lou Hawthorne Mallory RN [id number] Michelle Proctor RN mv5 The chart was reviewed and I authenticate all verbal orders and agree with the evaluation and treatment provided.Corrections: (The following items were deleted from the chart) 16:57 16:57 GASTROINTESTINAL (GI) PANEL ordered. [facility] EDMS 16:57 16:57 GASTROINTESTINAL (GI) PANEL ordered. EDID EDMS 05/15 05:01 02/02 16:57 STOOL POTASSIUM ordered. EDID EDMS 05/15 05:02 02/02 16:57 STOOL POLYS ordered. EDID EDMS 02 05:02 05:02 GASTROINTESTINAL (GI) PANEL ordered. EDID EDMS 05:02 05:02 GASTROINTESTINAL (GI) PANEL ordered. EDID EDMS 05:03 02 16:56 CALPROTECTIN STOOL ordered. EDID EDMS 05/15 05:04 02/02 16:56 OSMOLARITY STOOL ordered. EDID EDMS 02 05:04 02/02 16:56 STOOL CHLORIDE ordered. [facility] EDMS Attachments: 18:22 [facility] [place] Agreement gj 05/15 14:56 ECG/EKG gb Chart Complete MTDD
--- NOTE | 2016-05-17 12:16 | EDDOCDS ---
Nurse's Notes [facility] Name: Colleen Velasco Age: 56 yrs Sex: Female : 1960 Arrival Date: 05/14/2016 Time: 14:29 Bed Admit Hold Private MD: Donavon Radford P Diagnosis: Other viral enteritis;Dehydration;End stage renal disease Presentation: 05/14 14:36 Presenting complaint: Patient states: vomiting and diarrhea since Wednesday. Adult Sepsis kcs Screening: The patient does not have new or worsening altered mentation. Patient's respiratory rate is less than 22. Systolic blood pressure is greater than 100. Patient has a qSOFA score of 0- Negative Sepsis Screen. Suicide/Homicide risk assessment- the patient denies having any suicidal and/or homicidal ideations and does not present with any other emotional, behavioral or mental health complaints. Status: Patient is not a service team leader or dependent. Transition of care: patient was not received from another setting of care. 14:36 Method Of Arrival: Walkin/Carried/Asstd kcs 14:36 Acuity: IVÁN Level 3 ms18 Triage Assessment: 14:40 General: Appears comfortable, well developed, well nourished, well groomed, Behavior is kcs cooperative, pleasant. Pain: Denies pain. HIV screening NA for this visit Offered previously. Neurological: Level of Consciousness is awake, alert. Respiratory: Airway is patent Respiratory effort is even, unlabored, Respiratory pattern is regular, symmetrical. Derm: Skin is intact, is healthy with good turgor, Skin is dry, Skin is normal. Historical: - Allergies: Amoxicillin"achy all over"; Aspirin; - Home Meds: 1. Coumadin 5 mg Oral tab 1 tab once daily 2. Lipitor 10 mg Oral tab 1 tab nightly 3. calcium acetate 667 mg three times perday 4. metoprolol tartrate 25 mg Oral tab 1 tab 2 times per day takes once daily on dialysis days 5. omeprazole 20 mg Oral cpDR 1 cap once daily 6. Sensipar 30 mg oral tab 1 tab on Mon-Wed-Fri 7. prednisone 5 mg Oral tab 1 tab once daily 8. magnesium oxide 400 mg Oral tab daily 9. Nicole-Hardik oral 1 tab daily 10. PhosLo 667 mg Oral cap 1 caps 3 times per day 11. Tylenol 325 mg Oral tab 2 tabs every 6 hours as needed - PMHx: Hypercholesterolemia; Hypertension; Lupus; Renal Failure with Dialysis; GERD; - PSHx: Cholecystectomy(December 30, 2011); Brain Cyst removal; Bowel Surgery; Glass Eye right; - The history from nurses notes was reviewed: and I agree with what is documented. - Social history: Smoking status: Patient states was never smoker of tobacco. No barriers to communication noted, The patient speaks fluent Kosovan. - : The pt / caregiver states he / she is on anticoagulants: coumadin. Home medication list is obtained from the patient, [employer] import data. - Hospitalizations: : No recent hospitalization is reported. - Exposure Risk Screening:: None identified. - Immunization history:: All immunizations up-to-date. - Family history: Not pertinent. - Social history:: the patient is a non-smoker, the patient does not drink alcohol. Screenin:00 Screening information is obtained from the patient. Fall risk: At risk due to glass ms18 eye. Assistance ADL's: requires no assistance with activities of daily living. Abuse/DV Screen: The patient / caregiver reports he/she is: not in a situation that causes fear, pain or injury. Nutritional screening: No deficits noted. home support is adequate. Assessment: 15:33 General: Appears in no apparent distress, comfortable, Behavior is appropriate for age, ms18 cooperative, pleasant. 15:56 Neurological: Level of Consciousness is awake, alert, obeys commands, Oriented to ms18 person, place, time. Respiratory: No deficits noted. GI: Abdomen is non- distended Bowel sounds present X 4 quads. Abd is soft X 4 quads Reports diarrhea, nausea, vomiting. Derm: Skin is pink, warm & dry. 16:39 General: Appears in no apparent distress, comfortable, Behavior is appropriate for age, ms18 cooperative, pleasant, Hospitalist in the room with the pt at this time. Will continue to monitor pt. Respiratory: No deficits noted. Derm: Skin is pink, warm & dry. 17:30 General: PT resting comfortably on stretcher at this time. Will continue to monitor pt. ms18 18:33 General: Appears in no apparent distress, comfortable, Pt in no acute distress. ms18 Awaiting admission orders and bed assignment at this time. Will continue to monitor pt. Neurological: Level of Consciousness is awake, alert, obeys commands, Oriented to person, place, time. Cardiovascular: Rhythm is regular. Respiratory: No deficits noted. Airway is patent Respiratory effort is even, unlabored. Derm: Skin is pink, warm & dry. normal. 19:03 General: Verbal report given by Lauryn Presley RN. Assumed care of patient at this time.. [facility] 19:16 General: Appears in no apparent distress, comfortable, well nourished, well groomed, kas2 Behavior is appropriate for age, cooperative. Pain: Denies pain. Neurological: Level of Consciousness is awake, alert, obeys commands, Oriented to person, place, time. Cardiovascular: Capillary refill < 3 seconds Heart tones S1 S2 present Rhythm is sinus rhythm No ectopy. Respiratory: Airway is patent Respiratory effort is even, unlabored, Respiratory pattern is regular, symmetrical, Breath sounds are clear bilaterally. GI: Abdomen is non- distended Bowel sounds present X 4 quads. Abd is soft X 4 quads Abd is non tender X 4 quads. Derm: Skin is intact, Skin is dry, Skin is pink, warm & dry. normal, Skin temperature is warm. 20:49 General: Appears in no apparent distress, comfortable, Behavior is appropriate for age, kas2 cooperative. Pain: Denies pain. Neurological: Level of Consciousness is awake, alert, obeys commands, Oriented to person, place, time. Respiratory: Airway is patent Respiratory effort is even, unlabored, Respiratory pattern is regular, symmetrical. Derm: Skin is intact, Skin is dry, Skin is pink, warm & dry. Skin temperature is warm. 21:56 General: Appears in no apparent distress, comfortable, Behavior is appropriate for age, kas2 cooperative. Pain: Denies pain. Neurological: Level of Consciousness is awake, alert, obeys commands, Oriented to person, place, time. Cardiovascular: Rhythm is sinus rhythm No ectopy. Respiratory: Airway is patent Respiratory effort is even, unlabored, Respiratory pattern is regular, symmetrical. Derm: Skin is intact, Skin is dry, Skin is pink, warm & dry. Skin temperature is warm. 22:13 General: Verbal report given to Diamond YU. Patient moved to Room 18. Resettled in bed.. [facility] Vital Signs: 14:33 BP 79 / 69; Pulse 108; Resp 20; Temp 99.7(O); Pulse Ox 96% on R/A; Weight 54.43 kg (R); elp Height 4 ft. 11 in. (149.86 cm) (R); Pain 0/10; 14:40 BP 119 / 70; Pulse 101; Resp 20; Pulse Ox 96% on R/A; kcs 14:59 BP 109 / 69 (auto/); ms18 15:00 Pulse 96 MON; Pulse Ox 95% ; ms18 15:13 Pulse 92 MON; Pulse Ox 94% ; ms18 15:14 BP 102 / 60 (auto/); ms18 15:28 Pulse 90 MON; Pulse Ox 94% ; ms18 15:29 BP 106 / 59 (auto/); ms18 15:44 BP 102 / 59 (auto/); ms18 15:48 Pulse 88 MON; Resp 18; Pulse Ox 95% ; ms18 15:56 BP 103 / 59 (auto/); mv5 15:56 Pulse 82 MON; Pulse Ox 94% ; mv5 15:59 BP 103 / 57 (auto/); ms18 16:00 Pulse 84 MON; Pulse Ox 95% ; ms18 16:08 Pulse 84 MON; Pulse Ox 94% ; ms18 16:14 BP 104 / 59 (auto/); ms18 16:29 BP 105 / 55 (auto/); ms18 16:43 Pulse 84 MON; Pulse Ox 95% ; ms18 16:44 BP 110 / 61 (auto/); ms18 16:57 Pulse 82 MON; Pulse Ox 95% ; ms18 16:59 BP 112 / 64 (auto/); ms18 17:06 Pulse 78 MON; Pulse Ox 95% ; ms18 17:14 BP 107 / 61 (auto/); ms18 17:29 BP 107 / 61 (auto/); ms18 17:42 Pulse 80 MON; Pulse Ox 97% ; ms18 17:44 BP 116 / 64 (auto/); ms18 17:58 Pulse 80 MON; Pulse Ox 97% ; ms18 17:59 BP 111 / 64 (auto/); ms18 18:14 BP 113 / 64 (auto/); ms18 18:20 Pulse 82 MON; Pulse Ox 95% ; ms18 18:29 BP 114 / 65 (auto/); ms18 18:44 BP 108 / 63 (auto/); kas2 18:44 Pulse 80 MON; Pulse Ox 94% ; kas2 18:59 BP 122 / 68 (auto/); kas2 18:59 Pulse 80 MON; Pulse Ox 100% ; kas2 19:14 BP 122 / 67 (auto/); kas2 19:14 Pulse 80 MON; Pulse Ox 88% ; kas2 19:19 Resp 18; Temp 97.9(O); Pain 0/10; kas2 20:44 BP 121 / 72 (auto/); kas2 20:44 Pulse 80 MON; Pulse Ox 90% ; kas2 20:55 Resp 18; Temp 97.6(O); Pain 0/10; kas2 20:59 BP 119 / 73 (auto/); kas2 20:59 Pulse 80 MON; Pulse Ox 94% ; kas2 21:14 BP 118 / 68 (auto/); kas2 21:14 Pulse 80 MON; Pulse Ox 89% ; kas2 21:29 BP 123 / 70 (auto/); kas2 21:29 Pulse 82 MON; Pulse Ox 90% ; kas2 21:44 BP 127 / 72 (auto/); kas2 21:44 Pulse 82 MON; Pulse Ox 89% ; kas2 21:58 Resp 18; Temp 98.2(O); Pain 0/10; kas2 14:33 Body Mass Index 24.24 (54.43 kg, 149.86 cm) [facility] Vitals: 14:33 Log In Time: May 14, 2016 at 14:30. [facility] ED Course: 14:33 Patient visited by Shirin Vila PCA. elp 14:33 Donavon Radford is Private Physician. elp 14:33 Patient moved to Waiting elp 14:34 Patient visited by Shirin Vila PCA. elp 14:34 Patient moved to Pre RCE elp 14:35 Patient moved to Triage 3 kcs 14:36 Triage Initiated kcs 14:43 Lauryn Muller,RN is Primary Nurse. kcs 14:43 Patient moved to 8 kcs 14:45 Prasanna Zamora MD is Attending Physician. pc 15:02 Patient visited by Prasanna Zamora MD. pc 15:09 Patient visited by Lauryn Muller,GIGI. ms18 15:10 CBC with Diff Sent. ms18 15:10 MED Profile Sent. ms18 15:10 Inserted saline lock: 20 gauge in right antecubital area and blood collected. mv5 15:26 EKG done. (by ED staff). Reviewed by Prasanna Zamora MD. jrd 15:31 Lactic Acid (Vieira tube on ice) Sent. ms18 16:00 Patient visited by Lauryn Muller RN. ms18 16:00 The patient / caregiver is instructed regarding the plan of care and ED course. Patient ms18 has correct armband on for positive identification. Placed in gown. Bed in low position. Call light in reach. Side rails up X2. vice president business development on. Pulse ox on. NIBP on. Property :Personal belongings accompany Pt. 16:38 Chest, 1 View Returned. EDMS 16:39 Patient visited by Lauryn Muller RN. ms18 16:42 Madison Temple is Hospitalizing Provider. pc 17:16 Patient moved to Admit Hold dwg 18:22 [facility] Payment Agreement was scanned into [employer] and attached to record. gjb 18:59 Tamia MullerRN is Primary Nurse. kas2 19:04 Patient visited by Tamia Muller RN. kas2 19:19 Patient visited by Tamia Muller RN. kas2 20:51 Patient visited by Tamia Muller RN. kas2 20:56 Patient visited by Tamia Muller RN. kas2 21:59 Patient visited by Tamia Muller RN. kas2 22:13 Patient visited by Tamia Muller RN. kas2 22:20 Patient moved to 18 sls1 22:21 Patient moved to Admit Hold sls1 02 09:55 EKG-ADULT Returned. EDMS 14:56 ECG/EKG was scanned into [employer] and attached to record. gb Administered Medications: 05/14 15:22 Drug: Ondansetron 4 mg [ondansetron HCl 2 mg/mL intravenous solution (2 mL)] Route: mv5 IVP; Site: right antecubital; 15:59 Follow up: Response: No Adverse Reaction mv5 15:27 Drug: NS 0.9% 1000 ml [sodium chloride 0.9 % intravenous solution] Route: IV; Rate: ms18 bolus; Site: right antecubital; Order Results: Lab Order: CBC with Diff; SPEC'M 05/14/16 15:03 Test: WHITE BLOOD COUNT; Value: 8.8; Range: 4.0-10.0; Units: K/mm3; Status: F Test: RED BLOOD COUNT; Value: 4.49; Range: 4.00-5.40; Units: M/mm3; Status: F Test: HEMOGLOBIN; Value: 13.2; Range: 12.0-16.0; Units: g/dl; Status: F Test: HEMATOCRIT; Value: 41.2; Range: 36.0-47.0; Units: %; Status: F Test: MEAN CORPUSCULAR VOLUME; Value: 91.9; Range: 80.0-96.0; Units: fl; Status: F Test: MEAN CORPUSCULAR HEMOGLOBIN; Value: 29.4; Range: 27.0-33.0; Units: pg; Status: F Test: MEAN CORPUSCULAR HGB CONC; Value: 32.0; Range: 32.0-36.5; Units: g/dl; Status: F Test: RED CELL DISTRIBUTION WIDTH; Value: 15.8; Range: 11.5-14.5; Abnormal: Above high normal; Units: %; Status: F Test: PLATELET COUNT, AUTOMATED; Value: 147; Range: 150-450; Abnormal: Below low normal; Units: k/mm3; Status: F Test: NEUTROPHILS %; Value: 89.7; Range: 36.0-66.0; Abnormal: Above high normal; Units: %; Status: F Test: LYMPH %; Value: 6.3; Range: 24.0-44.0; Abnormal: Below low normal; Units: %; Status: F Test: MONO %; Value: 1.9; Range: 0.0-5.0; Units: %; Status: F Test: EOS %; Value: 0.4; Range: 0.0-3.0; Units: %; Status: F Test: BASO %; Value: 0.4; Range: 0.0-1.0; Units: %; Status: F Test: LARGE UNSTAINED CELL %; Value: 1.3; Range: 0.0-4.0; Units: %; Status: F Test: NEUTROPHILS #; Value: 7.9; Range: 1.8-7.7; Abnormal: Above high normal; Units: K/mm3; Status: F Test: LYMPH #; Value: 0.6; Range: 1.5-4.5; Abnormal: Below low normal; Units: K/mm3; Status: F Test: MONO #; Value: 0.2; Range: 0.0-0.8; Units: K/mm3; Status: F Test: EOS #; Value: 0.0; Range: 0.0-0.50; Units: K/mm3; Status: F Test: BASO #; Value: 0.0; Range: 0.0-0.2; Units: K/mm3; Status: F Test: LARGE UNSTAINED CELL #; Value: 0.1; Range: 0.0-0.4; Units: K/mm3; Status: F Lab Order: MED Profile; SPEC'M 05/14/16 15:03 Test: GLUCOSE, FASTING; Value: 103; Range: 70-105; Units: MG/DL; Status: F Test: BLOOD UREA NITROGEN; Value: 87; Range: 7-18; Abnormal: Above high normal; Units: MG/DL; Status: F Test: CREATININE FOR GFR; Value: 8.97; Range: 0.55-1.02; Abnormal: Above high normal; Units: MG/DL; Status: F Test: GLOMERULAR FILTRATION RATE; Value: 4.8; Range: >51; Abnormal: Below low normal; Status: F Test: SODIUM LEVEL; Value: 138; Range: 136-145; Units: MEQ/L; Status: F Test: POTASSIUM SERUM; Value: 4.0; Range: 3.5-5.1; Units: MEQ/L; Status: F Test: CHLORIDE LEVEL; Value: 97; Range: 98-107; Abnormal: Below low normal; Units: MEQ/L; Status: F Test: CARBON DIOXIDE LEVEL; Value: 23; Range: 21-32; Units: MEQ/L; Status: F Test: ANION GAP; Value: 18; Range: 8-16; Abnormal: Above high normal; Units: MEQ/L; Status: F Test: CALCIUM LEVEL; Value: 8.0; Range: 8.5-10.1; Abnormal: Below low normal; Units: MG/DL; Status: F Test Note: ; Units are mL/min/1.73 m2 Chronic Kidney Disease Staging per NKF: Stage I & II GFR >=60 Normal to Mildly Decreased Stage III GFR 30-59 Moderately Decreased Stage IV GFR 15-29 Severely Decreased Stage V GFR <15 Very Little GFR Left ESRD GFR <15 on STEAK SAUCE [employer]KER Lab Order: Lactic Acid (Vieria tube on ice); [facility] 05/14/16 15:30 Test: LACTIC ACID SEPSIS PROTOCOL; Value: 1.1; Range: 0.4-2.0; Units: MMOL/L; Status: F Lab Order: Venous Blood Gas (large pea green tube on ice); [facility] 05/14/16 15:03 Test: VENOUS PH; Value: 7.315; Range: 7.330-7.430; Abnormal: Below low normal; Units: UNITS; Status: F Test: VENOUS PARTIAL PRESSURE CO2; Value: 47.0; Range: 38.0-50.0; Units: mmHg; Status: F Test: VENOUS PARTIAL PRESSURE O2; Value: 45.9; Range: 30.0-50.0; Units: mmHg; Status: F Test: VENOUS TOTAL CO2; Value: 24.8; Range: 24.0-28.0; Units: MEQ/L; Status: F Test: VENOUS HCO3; Value: 23.4; Range: 23.0-27.0; Units: MEQ/L; Status: F Test: VENOUS BASE EXCESS; Value: -3.0; Range: -2.0-2.0; Abnormal: Below low normal; Status: F Test: VENOUS STANDARD HCO3; Value: 21.5; Units: MEQ/L; Status: F Test: VENOUS O2 SATURATION; Value: 74.5; Range: 60.0-80.0; Units: %; Status: F Lab Order: Liver Profile; [facility] 05/14/16 15:03 Test: AST/SGOT; Value: 90; Range: 15-37; Abnormal: Above high normal; Units: U/L; Status: F Test: ALT/SGPT; Value: 92; Range: 12-78; Abnormal: Above high normal; Units: U/L; Status: F Test: ALKALINE PHOSPHATASE; Value: 93; Range: 45-117; Units: U/L; Status: F Test: BILIRUBIN,TOTAL; Value: 0.4; Range: 0.2-1.0; Units: MG/DL; Status: F Test: BILIRUBIN,DIRECT; Value: 0.1; Range: 0.0-0.2; Units: MG/DL; Status: F Test: TOTAL PROTEIN; Value: 7.2; Range: 6.4-8.2; Units: GM/DL; Status: F Test: ALBUMIN; Value: 3.7; Range: 3.2-5.2; Units: GM/DL; Status: F Test: ALBUMIN/GLOBULIN RATIO; Value: 1.06; Range: 1.00-1.93; Status: F Lab Order: Phosphorous Level; [facility] 05/14/16 15:03 Test: PHOSPHORUS LEVEL; Value: 7.0; Range: 2.5-4.9; Abnormal: Above high normal; Units: MG/DL; Status: F Lab Order: PROTHROMBIN TIME PROFILE\\E\\INR; 05/14/16 15:03 Test: PROTHROMBIN TIME; Value: 27.1; Range: 12.3-14.5; Abnormal: Above high normal; Units: SECONDS; Status: F Test: INR; Value: 2.50; Status: F Test Note: ; THERAPUTIC HUMAN INR VALUES INDICATIONS NORMAL RANGES PROPHYLAXIS/TREATMENT OF: VENOUS THROMBOSIS 2.0-3.0 PULMONARY EMBOLISM 2.0-3.0 PREVENTION OF SYSTEMIC EMBOLISM FROM: TISSUE HEART VALVES 2.0-3.0 ACUTE MYOCARDIAL INFARCTION 2.0-3.0 VALVULAR HEART DISEASE 2.0-3.0 ATRIAL FIBRILLATION 2.0-3.0 MECHANICAL VALVES(HIGH RISK) 2.5-3.5 RECURRENT MYOCARDIAL INFARCTION 2.5-3.5 Lab Order: CBC WITH DIFFERENTIAL; 05/15/16 06:45 Test: WHITE BLOOD COUNT; Value: 5.5; Range: 4.0-10.0; Units: K/mm3; Status: F Test: RED BLOOD COUNT; Value: 3.48; Range: 4.00-5.40; Abnormal: Below low normal; Units: M/mm3; Status: F Test: HEMOGLOBIN; Value: 10.2; Range: 12.0-16.0; Units: g/dl; Status: F Test: HEMATOCRIT; Value: 32.0; Range: 36.0-47.0; Abnormal: Below low normal; Units: %; Status: F Test: MEAN CORPUSCULAR VOLUME; Value: 92.0; Range: 80.0-96.0; Units: fl; Status: F Test: MEAN CORPUSCULAR HEMOGLOBIN; Value: 29.2; Range: 27.0-33.0; Units: pg; Status: F Test: MEAN CORPUSCULAR HGB CONC; Value: 31.7; Range: 32.0-36.5; Abnormal: Below low normal; Units: g/dl; Status: F Test: RED CELL DISTRIBUTION WIDTH; Value: 15.8; Range: 11.5-14.5; Abnormal: Above high normal; Units: %; Status: F Test: PLATELET COUNT, AUTOMATED; Value: 107; Range: 150-450; Abnormal: Below low normal; Units: k/mm3; Status: F Test: NEUTROPHILS %; Value: 78.6; Range: 36.0-66.0; Abnormal: Above high normal; Units: %; Status: F Test: LYMPH %; Value: 11.3; Range: 24.0-44.0; Abnormal: Below low normal; Units: %; Status: F Test: MONO %; Value: 6.0; Range: 0.0-5.0; Abnormal: Above high normal; Units: %; Status: F Test: EOS %; Value: 0.7; Range: 0.0-3.0; Units: %; Status: F Test: BASO %; Value: 0.5; Range: 0.0-1.0; Units: %; Status: F Test: LARGE UNSTAINED CELL %; Value: 2.9; Range: 0.0-4.0; Units: %; Status: F Test: NEUTROPHILS #; Value: 4.3; Range: 1.8-7.7; Units: K/mm3; Status: F Test: LYMPH #; Value: 0.6; Range: 1.5-4.5; Abnormal: Below low normal; Units: K/mm3; Status: F Test: MONO #; Value: 0.3; Range: 0.0-0.8; Units: K/mm3; Status: F Test: EOS #; Value: 0.0; Range: 0.0-0.50; Units: K/mm3; Status: F Test: BASO #; Value: 0.0; Range: 0.0-0.2; Units: K/mm3; Status: F Test: LARGE UNSTAINED CELL #; Value: 0.2; Range: 0.0-0.4; Units: K/mm3; Status: F Lab Order: COMPLETE COMPHRENSIVE METABOLI; SPEC'M 05/15/16 06:45 Test: GLUCOSE, FASTING; Value: 77; Range: 70-105; Units: MG/DL; Status: F Test: BLOOD UREA NITROGEN; Value: 92; Range: 7-18; Abnormal: Above high normal; Units: MG/DL; Status: F Test: CREATININE FOR GFR; Value: 8.40; Range: 0.55-1.02; Abnormal: Above high normal; Units: MG/DL; Status: F Test: GLOMERULAR FILTRATION RATE; Value: 5.2; Range: >51; Abnormal: Below low normal; Status: F Test: SODIUM LEVEL; Value: 139; Range: 136-145; Units: MEQ/L; Status: F Test: POTASSIUM SERUM; Value: 3.9; Range: 3.5-5.1; Units: MEQ/L; Status: F Test: CHLORIDE LEVEL; Value: 103; Range: 98-107; Units: MEQ/L; Status: F Test: CARBON DIOXIDE LEVEL; Value: 20; Range: 21-32; Abnormal: Below low normal; Units: MEQ/L; Status: F Test: ANION GAP; Value: 16; Range: 8-16; Units: MEQ/L; Status: F Test: CALCIUM LEVEL; Value: 7.2; Range: 8.5-10.1; Abnormal: Below low normal; Units: MG/DL; Status: F Test: AST/SGOT; Value: 82; Range: 15-37; Abnormal: Above high normal; Units: U/L; Status: F Test: ALT/SGPT; Value: 80; Range: 12-78; Abnormal: Above high normal; Units: U/L; Status: F Test: ALKALINE PHOSPHATASE; Value: 72; Range: 45-117; Units: U/L; Status: F Test: BILIRUBIN,TOTAL; Value: 0.4; Range: 0.2-1.0; Units: MG/DL; Status: F Test: TOTAL PROTEIN; Value: 5.6; Range: 6.4-8.2; Units: GM/DL; Status: F Test: ALBUMIN; Value: 2.6; Range: 3.2-5.2; Units: GM/DL; Status: F Test: ALBUMIN/GLOBULIN RATIO; Value: 0.87; Range: 1.00-1.93; Abnormal: Below low normal; Status: F Test Note: ; Units are mL/min/1.73 m2 Chronic Kidney Disease Staging per NKF: Stage I & II GFR >=60 Normal to Mildly Decreased Stage III GFR 30-59 Moderately Decreased Stage IV GFR 15-29 Severely Decreased Stage V GFR <15 Very Little GFR Left ESRD GFR <15 on STEAK [employer]UCE [employer]ER Lab Order: MAGNESIUM LEVEL; SPEC05/15/16 06:45 Test: MAGNESIUM LEVEL; Value: 1.6; Range: 1.8-2.4; Abnormal: Below low normal; Units: MG/DL; Status: F Lab Order: PROTHROMBIN TIME PROFILE\\E\\INR; 05/15/16 06:45 Test: PROTHROMBIN TIME; Value: 26.8; Range: 12.3-14.5; Abnormal: Above high normal; Units: SECONDS; Status: F Test: INR; Value: 2.47; Status: F Test Note: ; THERAPUTIC HUMAN INR VALUES INDICATIONS NORMAL RANGES PROPHYLAXIS/TREATMENT OF: VENOUS THROMBOSIS 2.0-3.0 PULMONARY EMBOLISM 2.0-3.0 PREVENTION OF SYSTEMIC EMBOLISM FROM: TISSUE HEART VALVES 2.0-3.0 ACUTE MYOCARDIAL INFARCTION 2.0-3.0 VALVULAR HEART DISEASE 2.0-3.0 ATRIAL FIBRILLATION 2.0-3.0 MECHANICAL VALVES(HIGH RISK) 2.5-3.5 RECURRENT MYOCARDIAL INFARCTION 2.5-3.5 Lab Order: STOOL POLYS; 05/15/16 05:15 Test: STOOL LACTOFERRIN-polys by ICA; Value: LACTOFERRIN RESULTS POSITIVE; Abnormal: Abnormal; Status: F Lab Order: GASTROINTESTINAL (GI) PANEL; SPEC05/15/16 05:15 Test: GASTROINTESTINAL (GI) PANEL; Value: GI PANEL RESULT POSITIVE by PCR; Status: F Test: GASTROINTESTINAL (GI) PANEL; Value: Comments:; Status: F Test: GASTROINTESTINAL (GI) PANEL; Value: ORGANISM 1: NOROVIRUS; Status: F Test: GASTROINTESTINAL (GI) PANEL; Value: NOROVIRUS; Status: F Test: GASTROINTESTINAL (GI) PANEL; Value: CONSISTENCY OF STOOL UNFORMED stool.; Status: F Test: GASTROINTESTINAL (GI) PANEL; Value: Norovirus 1 Noroviruses are highly contagious and cause moderate; Status: F Test: GASTROINTESTINAL (GI) PANEL; Value: Norovirus 2 to severe gastroenteritis consisting primarily of; Status: F Test: GASTROINTESTINAL (GI) PANEL; Value: Norovirus 3 nausea, vomiting, and diarrhea with fever.; Status: F Test: GASTROINTESTINAL (GI) PANEL; Value: Norovirus 4 Transmission is fecal-oral or through aerosolized; Status: F Test: GASTROINTESTINAL (GI) PANEL; Value: Norovirus 5 vomitus. Symptoms generally last 24-48 hours and; Status: F Test: GASTROINTESTINAL (GI) PANEL; Value: Norovirus 6 the illness in self-limiting.; Status: F Test Note: ; This Gastrointestinal PCR Panel detects the following bacteria, parasites and viruses: Campylobacter (jejuni, coli and upsaliensis), Clostridium difficile (toxin A/B), Plesiomonas shigelloides, Salmonella, Yersinia enterocolitica, Vibrio (parahaemolyticus, vulnificus and cholerae), Vibrio clolerae, Enteroaggregative E. coli (EAEC), Enteropathogenis E. coli (EPEC), Enterotoxigenic E. coli (ETEC) it/st, Shiga-like producing E. coli (STEC) stx1/stc2, E.coli O157, Shigella/Enteroinvasive E. coli (EIEC), Cryptosporidium, Cyclospora cayetanensis, Entamoeba histolytica, Giardia lamblia, Adenovirus F 40/41, Astrovirus, Norovirus GI/GII, Rotavirus A and Sapovirus (I, II, IV, V). 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; : 1960 Requested By: Prasanna Mock; Order Number: [id number] [place] MD: Yolanda Gleason; Measurements; Intervals [place]; Rate: 91 P: 44; OK: 148 QRS: 9; QRSD: 74 T: 40; QT: 335; QTc: 413; Interpretive Statements; SINUS RHYTHM; PRWP; NSTTW ABNORMALITY; DECREASED RATE/LESS PRONOUNCED ST CHANGES COMPARED 09/07/15; Electronically Signed On 05-15-2016 9:19:54 EST by Yolanda Gleason; Radiology Order: Chest, 1 View Test: Chest, 1 View REASON FOR EXAMINATION: hypotension; Portable chest x-ray: Single view.; ; History: Hypotension.; ; Comparison chest x-ray September 07, 2015.; ; Findings: EKG monitoring electrodes overlie the chest. Lungs are symmetrically; aerated and free of infiltrate. Pleural angles are sharp. Heart is not; enlarged. The aorta is slightly tortuous. Pulmonary vasculature is not; increased. No significant bony abnormality is seen.; ; Impression:; ; No active disease.; ; ; ; ; Unreviewed; Outcome: 16:43 Decision to Hospitalize by Provider. 05/15 11:15 Patient left the ED. hs1 Signatures: Dispatcher [employer] EDMS Prasanna Zamora MD MD pc Sleeman, Kacey, RN RN Umang Johnson RN RN dwPriscilla Bustos, Rocky Reg Ermelinda Hagen RN RN hs1 Carley Evangelista RN RN sls1 Shirin Vila, CREDIT CARD CONTROL CLERK CREDIT CARD CONTROL CLERK Lauryn Miller RN RN ms18 Gucci Pittman, CREDIT CARD CONTROL CLERK CREDIT CARD CONTROL CLERK Mayr Lou Henry Kim, RN RN [facility] Michelle Proctor RN RN mv5 Corrections: (The following items were deleted from the chart) 05/14 14:45 14:36 Acuity: IVÁN Level 4 kcs ms18 15:56 15:33 General: Appears in no apparent distress, mv5 ms18 Chart Complete MTDD
--- NOTE | 2016-05-17 12:16 | EDDOCDS ---
Physician Documentation [facility] Name: Colleen Velasco Age: 56 yrs Sex: Female : 1960 Arrival Date: 05/14/2016 Time: 14:29 Bed Admit Hold Private MD: Donavon Radford P Disposition: 05/14 16:39 Critical Care:. pc Disposition: 05/14/16 16:43 Hospitalization ordered by Madison Temple for Inpatient Admission. Preliminary diagnosis are Other viral enteritis, Dehydration, End stage renal disease. - Bed requested for PCU. - Status is Inpatient Admission. hs1 - Condition is Stable. - Problem is new. - Symptoms have improved. HPI: 15:04 This 56 yrs old Female presents to ER via Walkin/Carried/Asstd with pc complaints of Nausea/Vomiting/Diarrhea. 15:04 The history is obtained from the patient. She started with n/v/d 36 hours [employer]. She has pc been unable to keep any fluids down, has not had solids in 2 days and has had no relief with OTCs. She denies any fevers or chills, Resp symptoms. She feels weak, dizzy with standing and was unable to go to dialysis today. At their worst, the symptoms were moderate. In the emergency department, the symptoms are unchanged. The patient has not experienced similar symptoms in the past. The patient has been recently seen by Dr. Radford. Historical: - Allergies: Amoxicillin"achy all over"; Aspirin; - Home Meds: 1. Coumadin 5 mg Oral tab 1 tab once daily 2. Lipitor 10 mg Oral tab 1 tab nightly 3. calcium acetate 667 mg three times perday 4. metoprolol tartrate 25 mg Oral tab 1 tab 2 times per day takes once daily on dialysis days 5. omeprazole 20 mg Oral cpDR 1 cap once daily 6. Sensipar 30 mg oral tab 1 tab on Mon-Wed-Wed 7. prednisone 5 mg Oral tab 1 tab once daily 8. magnesium oxide 400 mg Oral tab daily 9. Nicole-Hardik oral 1 tab daily 10. PhosLo 667 mg Oral cap 1 caps 3 times per day 11. Tylenol 325 mg Oral tab 2 tabs every 6 hours as needed - PMHx: Hypercholesterolemia; Hypertension; Lupus; Renal Failure with Dialysis; GERD; - PSHx: Cholecystectomy(December 30, 2011); Brain Cyst removal; Bowel Surgery; Glass Eye right; - The history from nurses notes was reviewed: and I agree with what is documented. - Social history: Smoking status: Patient states was never smoker of tobacco. No barriers to communication noted, The patient speaks fluent [place]ijani. - : The pt / caregiver states he / she is on anticoagulants: coumadin. Home medication list is obtained from the patient, Automated [employer] import data. - Hospitalizations: : No recent hospitalization is reported. - Exposure Risk Screening:: None identified. - Immunization history:: All immunizations up-to-date. - Family history: Not pertinent. - Social history:: the patient is a non-smoker, the patient does not drink alcohol. ROS: 15:04 All systems are negative except as listed. pc Exam: 15:04 General Appearance: alert, the patient is in mild distress. pc 15:04 EENT: normal eye inspection, ears, nose and throat normal, mucous membranes dry. 15:04 Neck: The exam reveals no acute abnormalities. ROM is normal and painless. No nuchal rigidity is noted.. 15:04 Respiratory: no respiratory distress, normal breath sounds, chest non-tender. 15:04 CVS: regular rhythm, normal S1 and S2, no murmurs, strong peripheral pulses, normal capillary refill, the patient is tachycardic, at 119 bpm. 15:04 Abdomen: soft, non-tender, no organomegaly, no masses appreciated, no hernias palpated with/without gravity or Valsalva bowel sounds hyperactive. 15:04 Back: normal inspection. 15:04 Skin: skin color is normal, warm, dry, the skin turgor is poor. 15:04 Extremities: The extremities have a grossly normal appearance, are non-tender, without acute ROM abnormalities, with pedal edema noted, is 1+ edema bilaterally 15:04 Neuro: oriented x 3, cranial nerves normal as tested, no motor deficits, no sensory deficits. 15:04 Psych: normal mood. Vital Signs: 14:33 BP 79 / 69; Pulse 108; Resp 20; Temp 99.7(O); Pulse Ox 96% on R/A; Weight 54.43 kg / elp 120 lbs (R); Height 4 ft. 11 in. (149.86 cm) (R); Pain 0/10; 14:40 BP 119 / 70; Pulse 101; Resp 20; Pulse Ox 96% on R/A; kcs 14:59 BP 109 / 69 (auto/); ms18 15:00 Pulse 96 MON; Pulse Ox 95% ; ms18 15:13 Pulse 92 MON; Pulse Ox 94% ; ms18 15:14 BP 102 / 60 (auto/); ms18 15:28 Pulse 90 MON; Pulse Ox 94% ; ms18 15:29 BP 106 / 59 (auto/); ms18 15:44 BP 102 / 59 (auto/); ms18 15:48 Pulse 88 MON; Resp 18; Pulse Ox 95% ; ms18 15:56 BP 103 / 59 (auto/); mv5 15:56 Pulse 82 MON; Pulse Ox 94% ; mv5 15:59 BP 103 / 57 (auto/); ms18 16:00 Pulse 84 MON; Pulse Ox 95% ; ms18 16:08 Pulse 84 MON; Pulse Ox 94% ; ms18 16:14 BP 104 / 59 (auto/); ms18 16:29 BP 105 / 55 (auto/); ms18 16:43 Pulse 84 MON; Pulse Ox 95% ; ms18 16:44 BP 110 / 61 (auto/); ms18 16:57 Pulse 82 MON; Pulse Ox 95% ; ms18 16:59 BP 112 / 64 (auto/); ms18 17:06 Pulse 78 MON; Pulse Ox 95% ; ms18 17:14 BP 107 / 61 (auto/); ms18 17:29 BP 107 / 61 (auto/); ms18 17:42 Pulse 80 MON; Pulse Ox 97% ; ms18 17:44 BP 116 / 64 (auto/); ms18 17:58 Pulse 80 MON; Pulse Ox 97% ; ms18 17:59 BP 111 / 64 (auto/); ms18 18:14 BP 113 / 64 (auto/); ms18 18:20 Pulse 82 MON; Pulse Ox 95% ; ms18 18:29 BP 114 / 65 (auto/); ms18 18:44 BP 108 / 63 (auto/); kas2 18:44 Pulse 80 MON; Pulse Ox 94% ; kas2 18:59 BP 122 / 68 (auto/); kas2 18:59 Pulse 80 MON; Pulse Ox 100% ; kas2 19:14 BP 122 / 67 (auto/); kas2 19:14 Pulse 80 MON; Pulse Ox 88% ; kas2 19:19 Resp 18; Temp 97.9(O); Pain 0/10; kas2 20:44 BP 121 / 72 (auto/); kas2 20:44 Pulse 80 MON; Pulse Ox 90% ; kas2 20:55 Resp 18; Temp 97.6(O); Pain 0/10; kas2 20:59 BP 119 / 73 (auto/); kas2 20:59 Pulse 80 MON; Pulse Ox 94% ; kas2 21:14 BP 118 / 68 (auto/); kas2 21:14 Pulse 80 MON; Pulse Ox 89% ; kas2 21:29 BP 123 / 70 (auto/); kas2 21:29 Pulse 82 MON; Pulse Ox 90% ; kas2 21:44 BP 127 / 72 (auto/); kas2 21:44 Pulse 82 MON; Pulse Ox 89% ; kas2 21:58 Resp 18; Temp 98.2(O); Pain 0/10; kas2 14:33 Body Mass Index 24.24 (54.43 kg, 149.86 cm) elp MDM: 15:04 IV Saline Lock ordered. pc 15:04 NS 0.9% 1000 ml IV at bolus once ordered. pc 15:04 Sterile Tech/Pulse Ox/q 30 min VS ordered. pc 15:04 Ondansetron 4 mg IVP once ordered. pc 15:04 Stool samples ordered. pc 15:04 Differential Diagnosis: gastroenteritis with dehydration and hypotension; ESRD on HD pc r/o electrolyte imbalance;. Plan: labs, IVF, meds. 15:05 CBC with Diff Ordered. EDMS 15:05 MED Profile Ordered. EDMS 15:05 Lactic Acid (Vieira tube on ice) Ordered. EDMS 15:05 Venous Blood Gas (large pea green tube on ice) Ordered. EDMS 15:05 Liver Profile Ordered. EDMS 15:05 Phosphorous Level Ordered. EDMS 15:06 ECG WITH READING ER PHYS+CARDIAG ordered. EDMS 15:27 CBC with Diff Reviewed. pc 15:27 Venous Blood Gas (large pea green tube on ice) Reviewed. pc 15:54 MED Profile Reviewed. pc 15:54 Liver Profile Reviewed. pc 15:54 Phosphorous Level Reviewed. pc 15:58 Chest, 1 View Ordered. EDMS 15:58 BED REQUEST+ADM ordered. EDMS 16:21 Lactic Acid (Vieira tube on ice) Reviewed. pc 16:39 Data reviewed: old medical records, vital signs, nurses notes, EKG(s), lab test pc results, all radiology studies and available results. Test interpretation: LAB - all labs as ordered have been reviewed, interpreted and considered in the overall management of the clinical presentation; X-RAY - interpreted by Radiologist and personally reviewed, 1 view chest no acute disease. The patient has been re-examined and re-evaluated. The patient's symptoms have mildly improved after treatment, with her BP stable and her pulse decreased. Physician consultation: Dr. Phyllis Hernandez MD regarding consult, and will see patient in inpatient room. 16:39 Physician consultation: Dr. Madison eTmple regarding admission, and will see patient in ED, shortly. Disposition: The historical points, examination findings, and any diagnostic results supporting the provided diagnosis, were discussed with the patient or legal guardian. The need for further work-up and/or treatment in the hospital was explained. 16:56 Admission / Observation Status ordered. EDMS 16:57 STOOL SODIUM Ordered. EDMS 16:57 BLOOD CULTURES Ordered. EDMS 16:57 GASTROINTESTINAL (GI) PANEL Ordered. EDMS 17:01 Test interpretation: EKG. pc 17:42 CLEAR LIQUIDS DIET ordered. EDMS 18:20 Financial registration complete. [facility] 18:22 [facility] Payment Agreement was scanned into [email or web address] and attached to record. gjb 19:07 PROTHROMBIN TIME PROFILE\\E\\INR Ordered. EDMS 19:32 CBC WITH DIFFERENTIAL Ordered. EDMS 19:33 COMPLETE COMPHRENSIVE METABOLI Ordered. EDMS 19:33 MAGNESIUM LEVEL Ordered. EDMS 19:34 PROTHROMBIN TIME PROFILE\\E\\INR Ordered. EDMS 02/03 05:01 CALPROTECTIN STOOL Ordered. EDMS 05:01 OSMOLARITY STOOL Ordered. EDMS 05:01 STOOL CHLORIDE Ordered. EDMS 05:01 STOOL POTASSIUM Ordered. EDMS 05:01 STOOL SODIUM Ordered. EDMS 05:02 STOOL POLYS Ordered. EDMS 05:02 GASTROINTESTINAL (GI) PANEL Ordered. EDMS 05:06 OCCULT BLOOD STOOL SPECIMEN Ordered. EDMS 14:56 ECG/EKG was scanned into [email or web address] and attached to record. EC/02 17:01 Rate is 91 beats/min. Rhythm is regular, Normal Sinus Rhythm. QRS [place] is Normal. [place] pc interval is normal. QRS interval is normal. QT interval is normal. No Q waves. T waves are Normal. No ST changes noted. Clinical impression: Normal Sinus Rhythm. Administered Medications: 15:22 Drug: Ondansetron 4 mg [ondansetron HCl 2 mg/mL intravenous solution (2 mL)] Route: mv5 IVP; Site: right antecubital; 15:59 Follow up: Response: No Adverse Reaction mv5 15:27 Drug: NS 0.9% 1000 ml [sodium chloride 0.9 % intravenous solution] Route: IV; Rate: ms18 bolus; Site: right antecubital; Critical Care Time: 16:39 Critical care time: Bedside Care: 25 minutes, Consultation: 15 minutes, Family pc Intervention: 10 minutes. Total time: 50 minutes Signatures: Dispatcher [employer] EDPrasanna Alicia MD MD pc Sleeman, Kacey, RN RN kcs Daly, Linda, Scrap Sorter Unit lbd Priscilla Saldaña, Ermelinda Schaefer RN RN hs1 Mary Lou Hawthorne Mallory RN ms18 Michelle Proctor RN mv5 The chart was reviewed and I authenticate all verbal orders and agree with the evaluation and treatment provided.Corrections: (The following items were deleted from the chart) 16:57 16:57 GASTROINTESTINAL (GI) PANEL ordered. [facility] EDMS 16:57 16:57 GASTROINTESTINAL (GI) PANEL ordered. EDGA EDMS 05/15 05:01 02/02 16:57 STOOL POTASSIUM ordered. EDGA EDMS 05/15 05:02 02/02 16:57 STOOL POLYS ordered. EDGA EDMS 02 05:02 05:02 GASTROINTESTINAL (GI) PANEL ordered. EDGA EDMS 05:02 05:02 GASTROINTESTINAL (GI) PANEL ordered. EDGA EDMS 05:03 02 16:56 CALPROTECTIN STOOL ordered. EDGA EDMS 05/15 05:04 02/02 16:56 OSMOLARITY STOOL ordered. EDGA EDMS 02 05:04 02/02 16:56 STOOL CHLORIDE ordered. [facility] EDMS Attachments: 18:22 [facility] [place] gj 05/15 14:56 ECG/EKG gb Chart Complete MTDD
== END 2016-05-16 13:13 | disposition home or self-care (01) | DRG 391 ==
LOC: M ED 14:29 → M ED INP 16:50 → M PCU 05-15 10:01
PROVIDERS: ADMIT Internal Medicine; ATTEND Internal Medicine
PROC: 5A1D00Z (ICD-10-PCS; principal; 2016-05-15)
DX: A08.11 Acute gastroenteropathy due to Norwalk agent (principal); N18.6 End stage renal disease; G93.41 Metabolic encephalopathy; E87.2 Acidosis; I12.0 Hypertensive chronic kidney disease with stage 5 chronic kidney disease or end stage renal disease; E78.5 Hyperlipidemia, unspecified; K21.9 Gastro-esophageal reflux disease without esophagitis; D64.9 Anemia, unspecified; R00.1 Bradycardia, unspecified; M32.14 Glomerular disease in systemic lupus erythematosus; E86.0 Dehydration; E83.39 Other disorders of phosphorus metabolism; I95.1 Orthostatic hypotension; E83.42 Hypomagnesemia; Z99.2 Dependence on renal dialysis; Z79.01 Long term (current) use of anticoagulants; Z79.52 Long term (current) use of systemic steroids; Z79.899 Other long term (current) drug therapy; Z88.6 Allergy status to analgesic agent; Z88.1 Allergy status to other antibiotic agents; Z88.0 Allergy status to penicillin; Z90.49 Acquired absence of other specified parts of digestive tract; Z90.01 Acquired absence of eye

== ENCOUNTER → 2016-07-22 | Outpatient (CLI) | payer MEDICARE ==
[~2016-07-22] MED LIST changes: +CALC667T PO; +LIDO1CRE14 TOP; -PHOS667C PO; +PHOS667C5 PO; +RENATAB5 PO
--- NOTE | 2016-07-22 15:50 | REPMRS ---
Patient History The patient states she has not had a clinical breast exam in over a year. Patient is postmenopausal and is nulliparous. No known family history of cancer. Digital Woman Screen Mammo: July 22, 2016 - Exam #: [id number] Bilateral CC and MLO view(s) were taken. Technologist: Christelle Crowell, Technologist Prior study comparison: November 07, 2014, digital woman screen mammo performed at [facility]. FINDINGS: The breast tissue is heterogeneously dense. This may lower the sensitivity of mammography. There has been no change in the appearance of the mammogram from the prior studies. There is a moderate amount of residual fibroglandular tissue which is fairly symmetric. There is no interval development of dominant mass, areas of architectural distortion, or clustered microcalcification typical of malignancy. ASSESSMENT: BI-RADS/ACR category 1 mammogram. Negative. Recommendation Routine screening mammogram in 1 year (for women over age 40). This mammogram was interpreted with the aid of an FDA-approved computer-aided dectection system. Electronically Signed By: Umang Vieira MD 07/22/16 [id number]
== END ==
LOC: M WHC 14:45
PROVIDERS: ATTEND Internal Medicine Nephrology
DX: Z12.31 Encounter for screening mammogram for malignant neoplasm of breast (principal); Z99.2 Dependence on renal dialysis; Z01.818 Encounter for other preprocedural examination

== ENCOUNTER → 2016-10-29 | Outpatient (REF) | payer MEDICARE, BC ==
[~2016-10-29] MED LIST changes: -ACET-654 PO; +ACET1TAB17 PO; +CALC1CAP; +METO25TA4 PO; +WARF-20 PO
== END ==
LOC: M LAB REF 10:48
PROVIDERS: ATTEND Internal Medicine Nephrology
DX: K92.2 Gastrointestinal hemorrhage, unspecified (principal)

== ENCOUNTER 2016-12-11 05:46 | Day surgery (SDC) | payer MEDICARE, BC ==
[~2016-12-11] VITALS: Ht 149.9 cm; Wt 54.4 kg
[2016-12-11] MEDS ORDERED: D5W/0.2% SODIUM CHLORIDE 1,000 ML IV SCH (06:00)
[2016-12-11 06:49] LABS: INR 1.07
[2016-12-11] MEDS ORDERED: fentaNYL 100 MCG/2 ML INJECTION (J3010) As Ordered ONE (07:35)
[2016-12-11] MEDS ORDERED: LIDOCAINE 2% INJ 100 MG/5 ML SDV (FOR ANES.) As Ordered ONE (07:35)
[2016-12-11] MEDS ORDERED: PROPOFOL 200 MG/20 ML VIAL As Ordered ONE (07:49)
[2016-12-11] MEDS ORDERED: ePHEDrine SULFATE 25 MG/5 ML(5MG/ML) SYRINGE As Ordered ONE (07:51)
--- NOTE | 2016-12-11 08:06 | ROOR ---
Patient Name: Colleen Velasco Procedure Date: 12/11/2016 7:13 AM Date of : 1960 Age: 56 Gender: Female Note Status: Finalized Procedure: Upper GI endoscopy Indications: Iron deficiency anemia Providers: Rayshawn Wyatt MD Referring MD: Donavon Radford MD Requesting Provider: Medicines: Monitored Anesthesia Care Complications: No immediate complications. Procedure: Pre-Anesthesia Assessment: - Prior to the procedure, a History and Physical was performed, and patient medications and allergies were reviewed. The patient is competent. The risks and benefits of the procedure and the sedation options and risks were discussed with the patient. All questions were answered and informed consent was obtained. Patient identification and proposed procedure were verified by the physician, the nurse and the anesthesiologist in the endoscopy suite. Mental Status Examination: alert and oriented. Airway Examination: normal oropharyngeal airway and neck mobility. Respiratory Examination: clear to auscultation. CV Examination: normal. Prophylactic Antibiotics: The patient does not require prophylactic antibiotics. Prior Anticoagulants: The patient has taken Coumadin (warfarin), last dose was 7 days prior to procedure. ASA Grade Assessment: III - A patient with severe systemic disease. After reviewing the risks and benefits, the patient was deemed in satisfactory condition to undergo the procedure. The anesthesia plan was to use monitored anesthesia care (MAC). Immediately prior to administration of medications, the patient was re-assessed for adequacy to receive sedatives. The heart rate, respiratory rate, oxygen saturations, blood pressure, adequacy of pulmonary ventilation, and response to care were monitored throughout the procedure. The physical status of the patient was re-assessed after the procedure. The Endoscope was introduced through the mouth, and advanced to the third part of duodenum. The upper GI endoscopy was accomplished without difficulty. The patient tolerated the procedure well. Findings: The Z-line was irregular and was found 35 cm from the incisors. Mucosa was biopsied with a cold forceps for histology. A total of 4 specimen bottles were sent to pathology. Patchy mildly erythematous mucosa without bleeding was found at the pylorus. Biopsies were taken with a cold forceps for Helicobacter pylori testing. Patchy nodular mucosa was found in the gastric antrum. Biopsies were taken with a cold forceps for histology. Estimated blood loss was minimal. The third portion of the duodenum was normal. This was biopsied with a cold forceps for evaluation of celiac disease. Impression: - Z-line irregular, 35 cm from the incisors. Biopsied. - Erythematous mucosa in the pylorus. Biopsied. - Nodular mucosa in the gastric antrum. Biopsied. - Normal third portion of the duodenum. Biopsied. Recommendation: - Telephone my office for pathology results in 2 weeks. Rayshawn Wyatt MD Rayshawn Wyatt MD 12/11/2016 8:06:15 AM This report has been signed electronically. Number of Addenda: 0 Note Initiated On: 12/11/2016 7:13 AM Estimated Blood Loss: Estimated blood loss was minimal.
[2016-12-11 08:50] VITALS: BP 135/58
== END 2016-12-11 08:50 | disposition home or self-care (01) ==
LOC: M SDC 05:46
PROVIDERS: ATTEND Surgery
DX: K22.8 Other specified diseases of esophagus (principal); K31.89 Other diseases of stomach and duodenum; D50.9 Iron deficiency anemia, unspecified; I10 Essential (primary) hypertension; M32.10 Systemic lupus erythematosus, organ or system involvement unspecified; N18.9 Chronic kidney disease, unspecified; Z88.0 Allergy status to penicillin; Z88.8 Allergy status to other drugs, medicaments and biological substances; Z79.899 Other long term (current) drug therapy
CPT/HCPCS: 36415; 49329; 84132; 85610; 88305; J3010

== ENCOUNTER → 2016-12-25 | Outpatient (CLI) | payer MEDICARE, BC ==
[~2016-12-25] MED LIST changes: +ISOVUE-300 61% 50ML VIAL (Q9967) As Ordered ONE; +LIDOCAINE 2% MDV 20 ML VIAL As Ordered ONE; +MIDAZOLAM INJ 2 MG/2 ML VIAL (J2250) As Ordered ONE; +fentaNYL 100 MCG/2 ML INJECTION (J3010) As Ordered ONE
--- NOTE | 2017-01-20 11:58 | REPKIM ---
DATE OF PROCEDURE: 12/25/2016 ATTENDING SURGEON: Dr. Mitali Estrella CYLINDER BATCHER: Palmer Blanc PREOPERATIVE DIAGNOSIS: End-stage renal disease. Dysfunctional left looped forearm arteriovenous graft. POSTOPERATIVE DIAGNOSIS: End-stage renal disease. Dysfunctional left looped forearm arteriovenous graft. PROCEDURE: Left looped forearm arteriovenous graft fistulogram. Retrograde left brachial artery angiogram. Left cephalic vein angioplasty with 8 x 200 balloon. Left looped forearm arteriovenous graft angioplasty with 8 x 200 balloon. INDICATION: Patient is a 56-year-old female with end-stage renal disease who underwent creation of a left looped forearm arteriovenous graft from the brachial artery to the cephalic vein. The patient has had recurrent stenosis of the graft cephalic vein anastomosis and now has pulsatility with excessive bleeding on decannulization from the graft while undergoing hemodialysis. Patient will undergo a fistulogram with possible angioplasty and/or stent. Risks, benefits, and alternative treatment options were discussed with the patient. ANESTHESIA: Was local with sedation with 1 mL of Versed and 50 mcg of Fentanyl and 1 mL of 2% lidocaine. SEDATION TIME: Was from 8:28 a.m. to 8:45 a.m. with the sedation administered by myself. The cardiopulmonary monitoring performed by the nurse in the room and the procedure was performed under my direct supervision and direction and I was present for the entire case. FLUOROSCOPIC TIME: 1.6 minutes. CONTRAST: 3 mL. Heparin - none. COMPLICATIONS: None. DRAINS: None. SPECIMENS: None. IMPLANTS: None. PROCEDURE: Patient was taken to the angiography suite, placed supine on the angiography room table and the left loop forearm arteriovenous graft was cannulated with a micropuncture needle after anesthetizing the overlying skin with 1% lidocaine. The micropuncture wire was advanced through the micropuncture needle which was upsized to a micropuncture sheath. A fistulogram was performed showing an approximate 80% stenosis at the graft to cephalic vein anastomosis. The cephalic vein and the arteriovenous graft were then angioplastied with an 8 x 200 balloon. A retrograde left brachial artery angiogram was performed showing the remainder of the graft to be patent with good flow in the brachial artery proximal and distal to the arteriovenous graft and no stenosis at the graft to brachial artery anastomosis. A completion of fistulogram showed resolution of the stenosis of the graft to cephalic vein anastomosis. Catheters and wires were removed. A 2-0 Prolene suture was placed at the puncture site for hemostasis. Dressings were then applied. All instruments, sponge, and needle counts were correct at the end of the case. There were no complications. Dr. Estrella was present for and directed the entire case. The patient was transferred to the holding area and subsequently discharged in stable condition once the 2-0 Prolene suture was removed and good hemostasis was noted. RADIOLOGIC SUPERVISION INTERPRETATION: The fistulogram showed graft to be widely patent in the cephalic vein where there was 80% stenosis at the cephalic vein to graft anastomosis. The reminder of the cephalic vein was patent into the upper arm and essentially with no central venous stenosis noted. The graft to cephalic vein anastomosis was angioplastied with an 8 x 200 balloon with a completion fistulogram showing resolution of the stenosis. A retrograde brachial artery angiogram was performed during inflation of the 8 x 200 balloon showing the remainder of the graft to be patent to the brachial artery with no stenosis at the graft to brachial artery anastomosis and good flow in the brachial artery proximal and distal to the graft to brachial artery anastomosis.
== END | disposition home or self-care (01) ==
LOC: M IRPRO 07:08
PROVIDERS: ATTEND Surgery Vascular Surgery
DX: T82.590A Other mechanical complication of surgically created arteriovenous fistula, initial encounter (principal); N18.6 End stage renal disease; Z99.2 Dependence on renal dialysis
CPT/HCPCS: 36902; 99152; C1725; C1769; C1894; J2250; J3010; Q9967

== ENCOUNTER → 2017-02-02 | Outpatient (CLI) | payer MEDICARE ==
[~2017-02-02] MED LIST changes: -ISOVUE-300 61% 50ML VIAL (Q9967) As Ordered ONE; -LIDOCAINE 2% MDV 20 ML VIAL As Ordered ONE; -MIDAZOLAM INJ 2 MG/2 ML VIAL (J2250) As Ordered ONE; -fentaNYL 100 MCG/2 ML INJECTION (J3010) As Ordered ONE
[2017-02-02 20:04] LABS: BASO # 0.1 10^3/uL (0.0-0.2); BASO % 0.4 % (0.0-1.0); EOS # 0.1 10^3/uL (0.0-0.50); EOS % 0.6 % (0.0-3.0); IMMATURE GRANULOCYTE % 1.8 % (0-0); LYMPH # 1.3 10^3/uL (1.5-4.5); LYMPH % 8.3 % (24.0-44.0); MEAN CORPUSCULAR HEMOGLOBIN 28.3 pg (27.0-33.0); MEAN CORPUSCULAR HGB CONC 30.8 g/dl (32.0-36.5); MEAN CORPUSCULAR VOLUME 91.8 fl (80.0-96.0); MONO # 0.9 10^3/uL (0.0-0.8); NEUTROPHILS # 12.4 10^3/uL (1.8-7.7); NEUTROPHILS % 82.9 % (36.0-66.0); PLATELET COUNT, AUTOMATED 111 10^3/uL (150-450); RED CELL DISTRIBUTION WIDTH 17.1 % (11.5-14.5)
[2017-02-02 20:11] LABS: CREATININE FOR GFR 3.45 MG/DL (0.55-1.02); GLOMERULAR FILTRATION RATE 14.6 (>51)
== END ==
LOC: M SMT 14:37
PROVIDERS: ATTEND Internal Medicine Rheumatology
DX: M32.10 Systemic lupus erythematosus, organ or system involvement unspecified (principal); D69.6 Thrombocytopenia, unspecified; M10.9 Gout, unspecified

== ENCOUNTER → 2017-05-21 | Outpatient (CLI) | payer MEDICARE ==
[~2017-05-21] MED LIST changes: -/ONDA4TA PO; -/WARF4TA OR; -/WARF5TA GT; -/WARF5TA PO; -ACET1TAB17 PO; -AKWASOL OD; -ALLO300T OR; -ARTIDRO OP; -ATOR1TAB19 PO; -BISA10SU PR; -CALC0.5C PO; -CALC1CAP; -CALC667T PO; -CALCIUM LACTATE PO; -CELLCEPT PO; -CINA30TA PO; -CLON0.1D3 TD; -CLON3PA TD; -COLA100C2 OR; -COUMADIN PO; -COZA100T2 PO; -FERR325T OR; -HYDR50TA PO; +ISOVUE-300 61% 50ML VIAL (Q9967) As Ordered; -LASI80TA OR; -LIDO1CRE14 TOP; +LIDOCAINE 2% MDV 20 ML VIAL As Ordered; -LIPI10TA OR; -LOPR50TA OR; -MAGN400T2 PO; -MAGN400T20 PO; -METO25TA4 PO; -METO25TAB PO; +MIDAZOLAM INJ 2 MG/2 ML VIAL (J2250) As Ordered; -MINOXIDIL PO; -NEPHTAB PO; -OMEP20CA3 PO; -PERC7.5T12 PO; -PHOS667C5 PO; -POTA20TA OR; -PRED2.5T OR; -PRED5TA PO; -RENATAB5 PO; -SENISPAR PO; -SENS30TA PO; -TYLE325T5 PO; -VANC12CA PO; -VITA80005 PO; -WARF-20 PO; -WARF-23 PO; -WARF5TAB66 PO; -WARF6TAB14 PO; -WARFPOW3 PO; -ZEMPLAR PO; -[UNRECOGNIZED DRUG - CODE] PO; -[UNRECOGNIZED DRUG - OTHER] PO; -[UNRECOGNIZED DRUG - OTHER] PO; +fentaNYL 100 MCG/2 ML INJECTION (J3010) As Ordered
== END | disposition home or self-care (01) ==
LOC: M IRPRO 10:33
DX: T82.858A Stenosis of other vascular prosthetic devices, implants and grafts, initial encounter (principal); N18.9 Chronic kidney disease, unspecified
CPT/HCPCS: 36902

== ENCOUNTER 2017-08-05 23:25 | Emergency (ER) | payer MEDICARE, BC ==
[2017-08-06] MEDS: MORPHINE 4 MG/ML 1ML VIAL/SYRINGE (J2270) IV ×2 (02:01→03:30)
[2017-08-06 03:26] LABS: BASO % 0.1 % (0.0-1.0); EOS # 0.2 10^3/uL (0.0-0.50); EOS % 1.1 % (0.0-3.0); HEMATOCRIT 23.3 % (36.0-47.0); HEMOGLOBIN 7.4 g/dl (12.0-15.5); IMMATURE GRANULOCYTE % 0.9 % (0-3.0); LYMPH # 0.4 10^3/uL (1.5-4.5); LYMPH % 2.7 % (24.0-44.0); MEAN CORPUSCULAR HEMOGLOBIN 28.6 pg (27.0-33.0); MEAN CORPUSCULAR HGB CONC 31.8 g/dl (32.0-36.5); MONO # 0.6 10^3/uL (0.0-0.8); MONO % 4.8 % (0.0-5.0); NEUTROPHILS # 12.2 10^3/uL (1.8-7.7); NEUTROPHILS % 90.4 % (36.0-66.0); PLATELET COUNT, AUTOMATED 208 10^3/uL (150-450); RED BLOOD COUNT 2.59 10^6/uL (4.00-5.40); RED CELL DISTRIBUTION WIDTH 18.8 % (11.5-14.5); WHITE BLOOD COUNT 13.5 10^3/uL (4.0-10.0)
[2017-08-06 04:19] LABS: ANION GAP 10 MEQ/L (8-16); BLOOD UREA NITROGEN 52 MG/DL (7-18); CALCIUM LEVEL 6.6 MG/DL (8.5-10.1); CARBON DIOXIDE LEVEL 16 MEQ/L (21-32); CHLORIDE LEVEL 115 MEQ/L (98-107); GLOMERULAR FILTRATION RATE 23.2 (>51); GLUCOSE, FASTING 105 MG/DL (70-100); POTASSIUM SERUM 5.1 MEQ/L (3.5-5.1); SODIUM LEVEL 141 MEQ/L (136-145)
[2017-08-06 04:22] LABS: AMORPHOUS SEDIMENT SMALL (NEGATIVE); APPEARANCE, URINE CLOUDY (CLEAR); BACTERIA, URINE AUTO NEGATIVE (NEGATIVE); BILIRUBIN, URINE AUTO NEGATIVE (NEGATIVE); BLOOD, URINE BLOOD 3+ (NEGATIVE); COLOR, URINE YELLOW (YELLOW); GLUCOSE, URINE (UA) AUTO NEGATIVE (NEGATIVE); KETONE, URINE AUTO NEGATIVE (NEGATIVE); LEUKOCYTE ESTERASE, URINE AUTO NEGATIVE (NEGATIVE); MUCUS, URINE SMALL (NEGATIVE); NITRITE, URINE AUTO NEGATIVE (NEGATIVE); PROTEIN, URINE AUTO 2+ mg/dL (NEGATIVE); RBC, URINE AUTO TNTC /HPF (0-3); SPECIFIC GRAVITY URINE AUTO 1.014 (1.002-1.035); SQUAMOUS EPITHELIAL CELL UR AU 1 /HPF (0-6); UROBILINOGEN, URINE AUTO 0.2 mg/dL (0.0-2.0); WBC, URINE AUTO 11 /HPF (0-3)
[2017-08-06] MEDS: ONDANSETRON 4MG/2ML VIAL (J2405) IV (05:02)
[2017-08-06] MEDS ORDERED: metroNIDAZOLE 500 MG in APPROPRIATE DILUENT 1 EA IV (05:15)
[2017-08-06] MEDS ORDERED: CIPROFLOXACIN 200 MG in APPROPRIATE DILUENT 1 EA IV (05:15)
[2017-08-06 05:22] LABS: PARTIAL THROMBOPLASTIN TIME 182.1 SECONDS (26.8-37.9); PROTHROMBIN TIME > 150.0 SECONDS (12.4-14.5)
[2017-08-06] MEDS: NS 500 ML IV (05:23)
[2017-08-06] MEDS ORDERED: PHYTONADIONE 10MG/ML INJECTION (J3430) As Ordered (05:27)
[2017-08-06] MEDS: PHYTONADIONE INJection 10 MG in NS 50 ML IV (05:41)
== END 2017-08-06 07:06 | disposition short-term general hospital (02) ==
LOC: M ED 23:25
DX: Z94.0 Kidney transplant status (principal); R58 Hemorrhage, not elsewhere classified; M25.551 Pain in right hip; I48.91 Unspecified atrial fibrillation; E78.5 Hyperlipidemia, unspecified; K21.9 Gastro-esophageal reflux disease without esophagitis; Z79.899 Other long term (current) drug therapy; Z79.01 Long term (current) use of anticoagulants; Z88.0 Allergy status to penicillin; Z88.8 Allergy status to other drugs, medicaments and biological substances
CPT/HCPCS: J3430

== ENCOUNTER → 2017-08-25 | Outpatient (REF) | payer MEDICARE ==
[2017-08-25 15:30] LABS: BASO # 0.1 10^3/uL (0.0-0.2); BASO % 0.6 % (0.0-1.0); EOS # 0.1 10^3/uL (0.0-0.50); EOS % 1.1 % (0.0-3.0); HEMOGLOBIN 10.4 g/dl (12.0-15.5); IMMATURE GRANULOCYTE % 4.4 % (0-3.0); LYMPH # 0.3 10^3/uL (1.5-4.5); LYMPH % 2.4 % (24.0-44.0); MEAN CORPUSCULAR HEMOGLOBIN 29.5 pg (27.0-33.0); MEAN CORPUSCULAR HGB CONC 31.5 g/dl (32.0-36.5); MEAN CORPUSCULAR VOLUME 93.5 fl (80.0-96.0); MONO # 0.6 10^3/uL (0.0-0.8); MONO % 5.3 % (0.0-5.0); NEUTROPHILS # 10.1 10^3/uL (1.8-7.7); NEUTROPHILS % 86.2 % (36.0-66.0); PLATELET COUNT, AUTOMATED 295 10^3/uL (150-450); RED BLOOD COUNT 3.53 10^6/uL (4.00-5.40); RED CELL DISTRIBUTION WIDTH 16.5 % (11.5-14.5); WHITE BLOOD COUNT 11.7 10^3/uL (4.0-10.0)
[2017-08-25 15:47] LABS: ALBUMIN 3.2 GM/DL (3.2-5.2); ALBUMIN/GLOBULIN RATIO 0.97 (1.00-1.93); ALKALINE PHOSPHATASE 149 U/L (45-117); ALT/SGPT 29 U/L (12-78); ANION GAP 8 MEQ/L (8-16); AST/SGOT 24 U/L (7-37); BILIRUBIN,DIRECT 0.2 MG/DL (0.0-0.2); BILIRUBIN,TOTAL 0.4 MG/DL (0.2-1.0); BLOOD UREA NITROGEN 55 MG/DL (7-18); CALCIUM LEVEL 7.9 MG/DL (8.5-10.1); CARBON DIOXIDE LEVEL 23 MEQ/L (21-32); CHLORIDE LEVEL 100 MEQ/L (98-107); CHOLESTEROL LEVEL 134 MG/DL (<200); CHOLESTEROL RISK RATIO 4.466 (<5); CREATININE FOR GFR 2.08 MG/DL (0.55-1.30); GLUCOSE, FASTING 115 MG/DL (70-100); HDL CHOLESTEROL 30 MG/DL (>40); LDL CHOLESTEROL 52.6 MG/DL (<100); MAGNESIUM LEVEL 1.9 MG/DL (1.8-2.4); NON-HDL-C 104 MG/DL; PHOSPHORUS LEVEL 3.6 MG/DL (2.5-4.9); SODIUM LEVEL 131 MEQ/L (136-145); TOTAL PROTEIN 6.5 GM/DL (6.4-8.2); TRIGLYCERIDES LEVEL 257 MG/DL (<150)
[2017-08-25 15:51] LABS: POTASSIUM SERUM 5.4 MEQ/L (3.5-5.1)
[2017-08-25 16:03] LABS: CREATININE,RANDOM URINE 24.2 MG/DL; TOTAL PROTEIN,RANDOM URINE 28.5 MG/DL (0.0-12.0)
[2017-08-25 16:04] LABS: APPEARANCE, URINE CLEAR (CLEAR); BACTERIA, URINE AUTO NEGATIVE (NEGATIVE); BILIRUBIN, URINE AUTO NEGATIVE (NEGATIVE); BLOOD, URINE BLOOD NEGATIVE (NEGATIVE); COLOR, URINE YELLOW (YELLOW); GLUCOSE, URINE (UA) AUTO NEGATIVE (NEGATIVE); KETONE, URINE AUTO NEGATIVE (NEGATIVE); LEUKOCYTE ESTERASE, URINE AUTO NEGATIVE (NEGATIVE); MUCUS, URINE SMALL (NEGATIVE); NITRITE, URINE AUTO NEGATIVE (NEGATIVE); PROTEIN, URINE AUTO NEGATIVE (NEGATIVE); RBC, URINE AUTO 0 /HPF (0-3); SPECIFIC GRAVITY URINE AUTO 1.006 (1.002-1.035); SQUAMOUS EPITHELIAL CELL UR AU 0 /HPF (0-6); UROBILINOGEN, URINE AUTO 0.2 mg/dL (0.0-2.0); WBC, URINE AUTO 0 /HPF (0-3)
[2017-08-25 16:09] LABS: POSITIVE DIFF POS FLAG
== END ==
LOC: M LAB REF 15:00
DX: N18.5 Chronic kidney disease, stage 5 (principal); Z94.0 Kidney transplant status; D84.9 Immunodeficiency, unspecified; Z79.899 Other long term (current) drug therapy
CPT/HCPCS: 83735

== ENCOUNTER → 2017-08-26 | Outpatient (REF) | payer MEDICARE ==
[2017-08-31 00:07] LABS: BK VIRUS BLOOD PCR1 Negative copies/mL (Negative); CMV QUANT DNA PCR (PLASMA) Negative (Negative)
== END ==
LOC: M LAB REF 12:05
DX: Z94.0 Kidney transplant status (principal); N18.5 Chronic kidney disease, stage 5; D84.9 Immunodeficiency, unspecified
CPT/HCPCS: 87497

== ENCOUNTER → 2017-10-12 | Outpatient (CLI) | payer MEDICARE ==
[2017-10-12 12:36] LABS: HEMATOCRIT 30.6 % (36.0-47.0); HEMOGLOBIN 9.9 g/dl (12.0-15.5); MEAN CORPUSCULAR HEMOGLOBIN 30.7 pg (27.0-33.0); MEAN CORPUSCULAR HGB CONC 32.4 g/dl (32.0-36.5); MEAN CORPUSCULAR VOLUME 94.7 fl (80.0-96.0); PLATELET COUNT, AUTOMATED 184 10^3/uL (150-450); RED BLOOD COUNT 3.23 10^6/uL (4.00-5.40); RED CELL DISTRIBUTION WIDTH 16.1 % (11.5-14.5); WHITE BLOOD COUNT 4.9 10^3/uL (4.0-10.0)
[2017-10-12 12:40] LABS: APPEARANCE, URINE CLEAR (CLEAR); BACTERIA, URINE AUTO NEGATIVE (NEGATIVE); BILIRUBIN, URINE AUTO NEGATIVE (NEGATIVE); BLOOD, URINE BLOOD NEGATIVE (NEGATIVE); COLOR, URINE YELLOW (YELLOW); GLUCOSE, URINE (UA) AUTO NEGATIVE (NEGATIVE); KETONE, URINE AUTO NEGATIVE (NEGATIVE); LEUKOCYTE ESTERASE, URINE AUTO NEGATIVE (NEGATIVE); NITRITE, URINE AUTO NEGATIVE (NEGATIVE); PROTEIN, URINE AUTO NEGATIVE (NEGATIVE); RBC, URINE AUTO 1 /HPF (0-3); SPECIFIC GRAVITY URINE AUTO 1.009 (1.002-1.035); SQUAMOUS EPITHELIAL CELL UR AU 0 /HPF (0-6); UROBILINOGEN, URINE AUTO 0.2 mg/dL (0.0-2.0); WBC, URINE AUTO 1 /HPF (0-3)
[2017-10-12 13:11] LABS: ALBUMIN 3.6 GM/DL (3.2-5.2); ALBUMIN/GLOBULIN RATIO 1.33 (1.00-1.93); ALKALINE PHOSPHATASE 87 U/L (45-117); ALT/SGPT 27 U/L (12-78); AMYLASE 143 U/L (25-115); ANION GAP 13 MEQ/L (8-16); AST/SGOT 31 U/L (7-37); BILIRUBIN,TOTAL 0.3 MG/DL (0.2-1.0); BLOOD UREA NITROGEN 49 MG/DL (7-18); CARBON DIOXIDE LEVEL 24 MEQ/L (21-32); CHLORIDE LEVEL 96 MEQ/L (98-107); CREATININE FOR GFR 1.86 MG/DL (0.55-1.30); GLOMERULAR FILTRATION RATE 29.6 (>51); GLUCOSE, FASTING 96 MG/DL (70-100); POTASSIUM SERUM 4.6 MEQ/L (3.5-5.1); SODIUM LEVEL 133 MEQ/L (136-145); TOTAL PROTEIN 6.3 GM/DL (6.4-8.2)
== END ==
LOC: M WUC 10:22
DX: N18.6 End stage renal disease (principal)
CPT/HCPCS: 82150

== ENCOUNTER → 2017-10-19 | Outpatient (CLI) | payer MEDICARE ==
[2017-10-19 13:12] LABS: HEMATOCRIT 28.9 % (36.0-47.0); HEMOGLOBIN 9.2 g/dl (12.0-15.5); MEAN CORPUSCULAR HEMOGLOBIN 29.6 pg (27.0-33.0); MEAN CORPUSCULAR HGB CONC 31.8 g/dl (32.0-36.5); MEAN CORPUSCULAR VOLUME 92.9 fl (80.0-96.0); PLATELET COUNT, AUTOMATED 207 10^3/uL (150-450); RED BLOOD COUNT 3.11 10^6/uL (4.00-5.40); RED CELL DISTRIBUTION WIDTH 15.5 % (11.5-14.5); WHITE BLOOD COUNT 3.1 10^3/uL (4.0-10.0)
[2017-10-19 13:25] LABS: APPEARANCE, URINE CLEAR (CLEAR); BACTERIA, URINE AUTO NEGATIVE (NEGATIVE); BILIRUBIN, URINE AUTO NEGATIVE (NEGATIVE); BLOOD, URINE BLOOD NEGATIVE (NEGATIVE); COLOR, URINE YELLOW (YELLOW); GLUCOSE, URINE (UA) AUTO NEGATIVE (NEGATIVE); KETONE, URINE AUTO NEGATIVE (NEGATIVE); LEUKOCYTE ESTERASE, URINE AUTO NEGATIVE (NEGATIVE); NITRITE, URINE AUTO NEGATIVE (NEGATIVE); PROTEIN, URINE AUTO NEGATIVE (NEGATIVE); RBC, URINE AUTO 1 /HPF (0-3); SPECIFIC GRAVITY URINE AUTO 1.009 (1.002-1.035); SQUAMOUS EPITHELIAL CELL UR AU 0 /HPF (0-6); UROBILINOGEN, URINE AUTO 0.2 mg/dL (0.0-2.0); WBC, URINE AUTO 2 /HPF (0-3)
[2017-10-19 13:37] LABS: ALBUMIN 3.8 GM/DL (3.2-5.2); ALBUMIN/GLOBULIN RATIO 1.58 (1.00-1.93); ALKALINE PHOSPHATASE 83 U/L (45-117); ALT/SGPT 24 U/L (12-78); AMYLASE 100 U/L (25-115); ANION GAP 9 MEQ/L (8-16); AST/SGOT 21 U/L (7-37); BILIRUBIN,TOTAL 0.4 MG/DL (0.2-1.0); BLOOD UREA NITROGEN 46 MG/DL (7-18); CALCIUM LEVEL 9.2 MG/DL (8.5-10.1); CARBON DIOXIDE LEVEL 26 MEQ/L (21-32); CHLORIDE LEVEL 96 MEQ/L (98-107); CREATININE FOR GFR 2.18 MG/DL (0.55-1.30); GLOMERULAR FILTRATION RATE 24.7 (>51); GLUCOSE, FASTING 93 MG/DL (70-100); POTASSIUM SERUM 4.2 MEQ/L (3.5-5.1); SODIUM LEVEL 131 MEQ/L (136-145); TOTAL PROTEIN 6.2 GM/DL (6.4-8.2)
== END ==
LOC: M WUC 09:24
DX: N18.6 End stage renal disease (principal)
CPT/HCPCS: 82150

== ENCOUNTER → 2017-10-26 | Outpatient (CLI) | payer MEDICARE ==
[2017-10-26 13:13] LABS: HEMATOCRIT 27.7 % (36.0-47.0); HEMOGLOBIN 8.8 g/dl (12.0-15.5); MEAN CORPUSCULAR HEMOGLOBIN 29.6 pg (27.0-33.0); MEAN CORPUSCULAR HGB CONC 31.8 g/dl (32.0-36.5); MEAN CORPUSCULAR VOLUME 93.3 fl (80.0-96.0); PLATELET COUNT, AUTOMATED 187 10^3/uL (150-450); RED BLOOD COUNT 2.97 10^6/uL (4.00-5.40); RED CELL DISTRIBUTION WIDTH 15.3 % (11.5-14.5); WHITE BLOOD COUNT 2.8 10^3/uL (4.0-10.0)
[2017-10-26 13:15] LABS: APPEARANCE, URINE CLEAR (CLEAR); BACTERIA, URINE AUTO NEGATIVE (NEGATIVE); BILIRUBIN, URINE AUTO NEGATIVE (NEGATIVE); BLOOD, URINE BLOOD NEGATIVE (NEGATIVE); COLOR, URINE YELLOW (YELLOW); GLUCOSE, URINE (UA) AUTO NEGATIVE (NEGATIVE); KETONE, URINE AUTO NEGATIVE (NEGATIVE); LEUKOCYTE ESTERASE, URINE AUTO NEGATIVE (NEGATIVE); NITRITE, URINE AUTO NEGATIVE (NEGATIVE); PROTEIN, URINE AUTO NEGATIVE (NEGATIVE); RBC, URINE AUTO 0 /HPF (0-3); SQUAMOUS EPITHELIAL CELL UR AU 0 /HPF (0-6); UROBILINOGEN, URINE AUTO 0.2 mg/dL (0.0-2.0); WBC, URINE AUTO 2 /HPF (0-3)
[2017-10-26 13:19] LABS: ADD MANUAL DIFFER YES; DIFF SLIDE NUMBER 227; POS COUNT POS FLAG; POSITIVE MORPH POS FLAG
[2017-10-26 13:32] LABS: ALBUMIN 3.6 GM/DL (3.2-5.2); ALKALINE PHOSPHATASE 79 U/L (45-117); ALT/SGPT 24 U/L (12-78); ANION GAP 10 MEQ/L (8-16); AST/SGOT 19 U/L (7-37); BILIRUBIN,DIRECT 0.2 MG/DL (0.0-0.2); BILIRUBIN,TOTAL 0.3 MG/DL (0.2-1.0); BLOOD UREA NITROGEN 58 MG/DL (7-18); CARBON DIOXIDE LEVEL 25 MEQ/L (21-32); CHLORIDE LEVEL 100 MEQ/L (98-107); CHOLESTEROL LEVEL 87 MG/DL (<200); CHOLESTEROL RISK RATIO 2.071 (<5); CREATININE FOR GFR 2.22 MG/DL (0.55-1.30); GLOMERULAR FILTRATION RATE 24.2 (>51); GLUCOSE, FASTING 97 MG/DL (70-100); HDL CHOLESTEROL 42 MG/DL (>40); LDL CHOLESTEROL 18.8 MG/DL (<100); MAGNESIUM LEVEL 1.3 MG/DL (1.8-2.4); NON-HDL-C 45 MG/DL; PHOSPHORUS LEVEL 3.1 MG/DL (2.5-4.9); POTASSIUM SERUM 4.4 MEQ/L (3.5-5.1); SODIUM LEVEL 135 MEQ/L (136-145); TRIGLYCERIDES LEVEL 131 MG/DL (<150)
[2017-10-26 13:52] LABS: CREATININE,RANDOM URINE 55.5 MG/DL; TOTAL PROTEIN,RANDOM URINE 27.3 MG/DL (0.0-12.0)
[2017-10-26 14:16] LABS: BASOPHILS 1 % (0-4); EOSINOPHILS 2 % (0-5); LYMPHOCYTES 10 % (16-52); MONOCYTES 4 % (0-8); NEUTROPHILS 83 % (35-75); OVALOCYTES 1+; PLATELET ESTIMATE NORMAL (NORMAL)
[2017-10-26 14:17] LABS: ANISOCYTOSIS 1+
[2017-10-26 14:45] LABS: INR 8.85; PROTHROMBIN TIME 75.1 SECONDS (12.1-14.4)
[2017-10-29 10:43] LABS: BK VIRUS BLOOD PCR1 Negative copies/mL (Negative); CMV QUANT DNA PCR (PLASMA) Negative (Negative)
== END ==
LOC: M WUC 10:16
DX: Z51.81 Encounter for therapeutic drug level monitoring (principal); Z79.899 Other long term (current) drug therapy; Z94.0 Kidney transplant status; N18.5 Chronic kidney disease, stage 5; D84.9 Immunodeficiency, unspecified
CPT/HCPCS: 83735

== ENCOUNTER → 2017-10-27 | Outpatient (REF) | payer MEDICARE ==
[2017-10-27 20:28] LABS: PROTHROMBIN TIME 57.7 SECONDS (12.1-14.4)
[2017-10-27 20:44] LABS: INR 6.35
== END ==
LOC: M LAB REF 16:59
DX: Z51.81 Encounter for therapeutic drug level monitoring (principal); Z79.01 Long term (current) use of anticoagulants
CPT/HCPCS: 85610

== ENCOUNTER → 2017-11-01 | Outpatient (CLI) | payer MEDICARE ==
[2017-11-01 12:35] LABS: HEMATOCRIT 28.8 % (36.0-47.0); HEMOGLOBIN 8.7 g/dl (12.0-15.5); MEAN CORPUSCULAR HEMOGLOBIN 29.2 pg (27.0-33.0); MEAN CORPUSCULAR HGB CONC 30.2 g/dl (32.0-36.5); MEAN CORPUSCULAR VOLUME 96.6 fl (80.0-96.0); PLATELET COUNT, AUTOMATED 200 10^3/uL (150-450); RED BLOOD COUNT 2.98 10^6/uL (4.00-5.40); RED CELL DISTRIBUTION WIDTH 15.3 % (11.5-14.5); WHITE BLOOD COUNT 3.7 10^3/uL (4.0-10.0)
[2017-11-01 13:18] LABS: ALBUMIN 3.5 GM/DL (3.2-5.2); ALKALINE PHOSPHATASE 87 U/L (45-117); ALT/SGPT 23 U/L (12-78); AMYLASE 133 U/L (25-115); ANION GAP 12 MEQ/L (8-16); AST/SGOT 19 U/L (7-37); BILIRUBIN,TOTAL 0.3 MG/DL (0.2-1.0); BLOOD UREA NITROGEN 50 MG/DL (7-18); CARBON DIOXIDE LEVEL 24 MEQ/L (21-32); CHLORIDE LEVEL 99 MEQ/L (98-107); CREATININE FOR GFR 2.04 MG/DL (0.55-1.30); GLOMERULAR FILTRATION RATE 26.6 (>51); GLUCOSE, FASTING 100 MG/DL (70-100); LIPASE 658 U/L (73-393); POTASSIUM SERUM 4.2 MEQ/L (3.5-5.1); SODIUM LEVEL 135 MEQ/L (136-145); TOTAL PROTEIN 6.2 GM/DL (6.4-8.2)
[2017-11-01 15:12] LABS: CREATININE, URINE 58.3 MG/DL; MALB URINE SIEMENS 89.9 MG/L; MAU/CREAT RATIO 154.2 MCG/MG (0.0-30.0)
== END ==
LOC: M WUC 09:50
DX: Z51.81 Encounter for therapeutic drug level monitoring (principal); Z79.01 Long term (current) use of anticoagulants
CPT/HCPCS: 82150

== ENCOUNTER → 2017-11-01 | Outpatient (CLI) | payer MEDICARE ==
[2017-11-01 14:47] LABS: INR 1.54; PROTHROMBIN TIME 18.7 SECONDS (12.1-14.4)
== END ==
LOC: M WUC 12:14
DX: Z51.81 Encounter for therapeutic drug level monitoring (principal); Z79.01 Long term (current) use of anticoagulants

== ENCOUNTER → 2017-11-05 | Outpatient (REF) | payer MEDICARE ==
[2017-11-05 13:37] LABS: INR 3.38
== END ==
LOC: M LAB REF 12:47
DX: Z79.01 Long term (current) use of anticoagulants (principal)
CPT/HCPCS: 85610

== ENCOUNTER → 2017-11-09 | Outpatient (CLI) | payer MEDICARE ==
[2017-11-09 17:11] LABS: INR 7.75
[2017-11-10 10:33] LABS: PROTHROMBIN TIME 67.6 SECONDS (12.1-14.4)
== END ==
LOC: M WUC 12:00
DX: Z51.81 Encounter for therapeutic drug level monitoring (principal); Z79.01 Long term (current) use of anticoagulants
CPT/HCPCS: 85610

== ENCOUNTER → 2017-11-12 | Outpatient (REF) | payer MEDICARE ==
[2017-11-12 14:27] LABS: PROTHROMBIN TIME 42.3 SECONDS (12.1-14.4)
== END ==
LOC: M LAB REF 13:04
DX: Z79.01 Long term (current) use of anticoagulants (principal)
CPT/HCPCS: 85610

== ENCOUNTER → 2017-11-15 | Outpatient (REF) | payer MEDICARE ==
[2017-11-15 17:56] LABS: INR 1.96; PROTHROMBIN TIME 22.7 SECONDS (12.1-14.4)
[2017-11-15 18:32] LABS: FERRITIN 2649 NG/ML (8-252); IRON (FE) 106 UG/DL (50-170); PERCENT SATURATION 44.5 % (13.2-45.0); TOTAL IRON BINDING CAPACITY 238 UG/DL (250-450)
== END ==
LOC: M LAB REF 13:25
DX: R19.7 Diarrhea, unspecified (principal); D50.0 Iron deficiency anemia secondary to blood loss (chronic); Z94.0 Kidney transplant status
CPT/HCPCS: 83550

== ENCOUNTER → 2017-11-18 | Outpatient (CLI) | payer MEDICARE | LOC: M RAD 07:05 | DX: I82.C11 Acute embolism and thrombosis of right internal jugular vein (principal); Z79.01 Long term (current) use of anticoagulants | CPT/HCPCS: 93880 ==

== ENCOUNTER → 2017-11-23 | Outpatient (CLI) | payer MEDICARE ==
[2017-11-23 15:03] LABS: HEMATOCRIT 26.7 % (36.0-47.0); HEMOGLOBIN 7.9 g/dl (12.0-15.5); MEAN CORPUSCULAR HEMOGLOBIN 29.8 pg (27.0-33.0); MEAN CORPUSCULAR HGB CONC 29.6 g/dl (32.0-36.5); MEAN CORPUSCULAR VOLUME 100.8 fl (80.0-96.0); PLATELET COUNT, AUTOMATED 126 10^3/uL (150-450); RED BLOOD COUNT 2.65 10^6/uL (4.00-5.40); RED CELL DISTRIBUTION WIDTH 15.3 % (11.5-14.5); WHITE BLOOD COUNT 6.1 10^3/uL (4.0-10.0)
[2017-11-23 15:14] LABS: APPEARANCE, URINE CLEAR (CLEAR); BACTERIA, URINE AUTO NEGATIVE (NEGATIVE); BILIRUBIN, URINE AUTO NEGATIVE (NEGATIVE); BLOOD, URINE BLOOD NEGATIVE (NEGATIVE); COLOR, URINE YELLOW (YELLOW); GLUCOSE, URINE (UA) AUTO NEGATIVE (NEGATIVE); KETONE, URINE AUTO NEGATIVE (NEGATIVE); LEUKOCYTE ESTERASE, URINE AUTO NEGATIVE (NEGATIVE); NITRITE, URINE AUTO NEGATIVE (NEGATIVE); PROTEIN, URINE AUTO NEGATIVE (NEGATIVE); RBC, URINE AUTO 2 /HPF (0-3); SPECIFIC GRAVITY URINE AUTO 1.006 (1.002-1.035); SQUAMOUS EPITHELIAL CELL UR AU 0 /HPF (0-6); UROBILINOGEN, URINE AUTO 0.2 mg/dL (0.0-2.0); WBC, URINE AUTO 1 /HPF (0-3)
[2017-11-23 15:31] LABS: ALBUMIN 3.4 GM/DL (3.2-5.2); ALBUMIN/GLOBULIN RATIO 1.26 (1.00-1.93); ALKALINE PHOSPHATASE 82 U/L (45-117); ALT/SGPT 16 U/L (12-78); AMYLASE 146 U/L (25-115); ANION GAP 10 MEQ/L (8-16); AST/SGOT 16 U/L (7-37); BILIRUBIN,TOTAL 0.3 MG/DL (0.2-1.0); BLOOD UREA NITROGEN 38 MG/DL (7-18); CALCIUM LEVEL 8.9 MG/DL (8.5-10.1); CARBON DIOXIDE LEVEL 26 MEQ/L (21-32); CHLORIDE LEVEL 109 MEQ/L (98-107); CREATININE FOR GFR 2.03 MG/DL (0.55-1.30); GLOMERULAR FILTRATION RATE 26.8 (>51); GLUCOSE, FASTING 94 MG/DL (70-100); POTASSIUM SERUM 4.4 MEQ/L (3.5-5.1); SODIUM LEVEL 145 MEQ/L (136-145); TOTAL PROTEIN 6.1 GM/DL (6.4-8.2)
== END ==
LOC: M WUC 12:32
DX: N18.6 End stage renal disease (principal); Z51.81 Encounter for therapeutic drug level monitoring; Z79.01 Long term (current) use of anticoagulants
CPT/HCPCS: 82150

== ENCOUNTER → 2017-11-23 | Outpatient (CLI) | payer MEDICARE ==
[2017-11-23 15:16] LABS: INR 1.02; PROTHROMBIN TIME 13.5 SECONDS (12.1-14.4)
== END ==
LOC: M WUC 12:27
DX: Z51.81 Encounter for therapeutic drug level monitoring (principal); Z79.01 Long term (current) use of anticoagulants

== ENCOUNTER → 2017-11-29 | Outpatient (REF) | payer MEDICARE ==
[2017-11-29 13:20] LABS: PROTHROMBIN TIME 13.3 SECONDS (12.1-14.4)
== END ==
LOC: M LAB REF 12:58
DX: Z79.01 Long term (current) use of anticoagulants (principal); I48.0 Paroxysmal atrial fibrillation
CPT/HCPCS: 85610

== ENCOUNTER → 2017-12-03 | Outpatient (CLI) | payer MEDICARE ==
[2017-12-03 17:11] LABS: INR 1.07
[2017-12-06 08:36] LABS: PROTHROMBIN TIME 14.1 SECONDS (12.1-14.4)
== END ==
LOC: M WUC 12:39
DX: Z79.01 Long term (current) use of anticoagulants (principal)
CPT/HCPCS: 85610

== ENCOUNTER → 2018-01-04 | Outpatient (REF) | payer MEDICARE, BC ==
[2018-01-04 13:21] LABS: INR 1.11; PROTHROMBIN TIME 14.5 SECONDS (12.1-14.4)
== END ==
LOC: M LAB REF 12:51
DX: Z79.01 Long term (current) use of anticoagulants (principal)
CPT/HCPCS: 85610

== ENCOUNTER → 2018-01-10 | Outpatient (CLI) | payer MEDICARE, BC | LOC: M WUC 13:50 | DX: Z94.0 Kidney transplant status (principal) | CPT/HCPCS: 36415 ==

== ENCOUNTER 2018-01-12 14:06 | Day surgery (SDC) | payer MEDICARE, BC ==
[2018-01-12] MEDS ORDERED: fentaNYL 100 MCG/2 ML INJECTION (J3010) As Ordered (19:44)
[2018-01-12] MEDS ORDERED: PROPOFOL 200 MG/20 ML VIAL As Ordered (19:44)
[2018-01-12] MEDS ORDERED: LIDOCAINE 2% INJ 100 MG/5 ML SDV (FOR ANES.) As Ordered (19:44)
== END 2018-01-12 21:00 | disposition home or self-care (01) ==
LOC: M OPP 21:00
DX: I34.0 Nonrheumatic mitral (valve) insufficiency (principal); I50.32 Chronic diastolic (congestive) heart failure; I34.8 Other nonrheumatic mitral valve disorders; I48.0 Paroxysmal atrial fibrillation; I11.0 Hypertensive heart disease with heart failure; M32.9 Systemic lupus erythematosus, unspecified; N18.6 End stage renal disease; Z94.0 Kidney transplant status; Z79.01 Long term (current) use of anticoagulants; Z79.899 Other long term (current) drug therapy; Z88.0 Allergy status to penicillin; Z88.1 Allergy status to other antibiotic agents; Z91.041 Radiographic dye allergy status
CPT/HCPCS: J3010

== ENCOUNTER → 2018-01-17 | Outpatient (REF) | payer MEDICARE, BC | LOC: M LABWUC 16:39 | DX: Z94.0 Kidney transplant status (principal) ==

== ENCOUNTER → 2018-01-17 | Outpatient (REF) | payer MEDICARE, BC ==
[2018-01-17 18:33] LABS: INR 1.54; PROTHROMBIN TIME 18.7 SECONDS (12.1-14.4)
== END ==
LOC: M LAB REF 17:16
DX: Z51.81 Encounter for therapeutic drug level monitoring (principal); Z79.01 Long term (current) use of anticoagulants; Z94.0 Kidney transplant status
CPT/HCPCS: 85610

== ENCOUNTER → 2018-01-19 | Outpatient (REF) | payer MEDICARE, BC | LOC: M LAB REF 17:25 | DX: A04.72 Enterocolitis due to Clostridium difficile, not specified as recurrent (principal) | CPT/HCPCS: 87493 ==

== ENCOUNTER → 2018-02-01 | Outpatient (CLI) | payer MEDICARE, BC ==
[2018-02-01 17:50] LABS: PROTHROMBIN TIME 19.1 SECONDS (12.1-14.4)
[2018-02-03 08:36] LABS: INR 1.58
== END ==
LOC: M WUC 13:58
DX: Z51.81 Encounter for therapeutic drug level monitoring (principal); Z79.01 Long term (current) use of anticoagulants

== ENCOUNTER → 2018-02-01 | Outpatient (CLI) | payer MEDICARE, BC ==
[2018-02-01 17:45] LABS: HEMATOCRIT 30.1 % (36.0-47.0); HEMOGLOBIN 8.8 g/dl (12.0-15.5); MEAN CORPUSCULAR HEMOGLOBIN 28.3 pg (27.0-33.0); MEAN CORPUSCULAR HGB CONC 29.2 g/dl (32.0-36.5); MEAN CORPUSCULAR VOLUME 96.8 fl (80.0-96.0); PLATELET COUNT, AUTOMATED 185 10^3/uL (150-450); RED BLOOD COUNT 3.11 10^6/uL (4.00-5.40); RED CELL DISTRIBUTION WIDTH 13.8 % (11.5-14.5); WHITE BLOOD COUNT 4.6 10^3/uL (4.0-10.0)
[2018-02-01 18:34] LABS: APPEARANCE, URINE HAZY (CLEAR); BACTERIA, URINE AUTO NEGATIVE (NEGATIVE); BILIRUBIN, URINE AUTO NEGATIVE (NEGATIVE); BLOOD, URINE BLOOD NEGATIVE (NEGATIVE); COLOR, URINE YELLOW (YELLOW); GLUCOSE, URINE (UA) AUTO NEGATIVE (NEGATIVE); KETONE, URINE AUTO NEGATIVE (NEGATIVE); LEUKOCYTE ESTERASE, URINE AUTO NEGATIVE (NEGATIVE); MUCUS, URINE SMALL (NEGATIVE); NITRITE, URINE AUTO NEGATIVE (NEGATIVE); PROTEIN, URINE AUTO NEGATIVE (NEGATIVE); RBC, URINE AUTO 4 /HPF (0-3); SPECIFIC GRAVITY URINE AUTO 1.009 (1.002-1.035); SQUAMOUS EPITHELIAL CELL UR AU 0 /HPF (0-6); UROBILINOGEN, URINE AUTO 0.2 mg/dL (0.0-2.0); WBC, URINE AUTO 2 /HPF (0-3)
[2018-02-01 21:54] LABS: ALBUMIN 3.5 GM/DL (3.2-5.2); ALBUMIN/GLOBULIN RATIO 1.35 (1.00-1.93); ALKALINE PHOSPHATASE 78 U/L (45-117); ALT/SGPT 16 U/L (12-78); AMYLASE 103 U/L (25-115); ANION GAP 10 MEQ/L (8-16); AST/SGOT 19 U/L (7-37); BILIRUBIN,TOTAL 0.2 MG/DL (0.2-1.0); BLOOD UREA NITROGEN 52 MG/DL (7-18); CALCIUM LEVEL 8.6 MG/DL (8.5-10.1); CARBON DIOXIDE LEVEL 23 MEQ/L (21-32); CHLORIDE LEVEL 106 MEQ/L (98-107); CREATININE FOR GFR 2.22 MG/DL (0.55-1.30); GLOMERULAR FILTRATION RATE 24.2 (>51); GLUCOSE, FASTING 114 MG/DL (70-100); LIPASE 348 U/L (73-393); POTASSIUM SERUM 4.9 MEQ/L (3.5-5.1); SODIUM LEVEL 139 MEQ/L (136-145); TOTAL PROTEIN 6.1 GM/DL (6.4-8.2)
== END ==
LOC: M WUC 13:52
DX: N18.6 End stage renal disease (principal); Z51.81 Encounter for therapeutic drug level monitoring; Z79.01 Long term (current) use of anticoagulants
CPT/HCPCS: 82150

== ENCOUNTER → 2018-02-17 | Outpatient (REF) | payer MEDICARE, BC ==
[2018-02-17 13:34] LABS: INR 1.71; PROTHROMBIN TIME 20.4 SECONDS (12.1-14.4)
== END ==
LOC: M LAB REF 13:05
DX: I48.0 Paroxysmal atrial fibrillation (principal); Z79.01 Long term (current) use of anticoagulants
CPT/HCPCS: 85610

== ENCOUNTER 2018-02-28 15:43 | Emergency (ER) | payer MEDICARE, BC | END 2018-02-28 16:50 | disposition home or self-care (01) | LOC: M ED 15:43 | DX: R13.10 Dysphagia, unspecified (principal); I10 Essential (primary) hypertension | CPT/HCPCS: 99283 ==

== ENCOUNTER → 2018-03-02 | Outpatient (REF) | payer MEDICARE, BC ==
[2018-03-02 17:46] LABS: INR 3.12; PROTHROMBIN TIME 32.8 SECONDS (12.1-14.4)
== END ==
LOC: M LAB REF 16:45
DX: I48.0 Paroxysmal atrial fibrillation (principal); Z51.81 Encounter for therapeutic drug level monitoring; Z79.01 Long term (current) use of anticoagulants
CPT/HCPCS: 85610

== ENCOUNTER 2018-03-07 11:41 | Outpatient (CLI) | payer MEDICARE, BC ==
[2018-03-07] MEDS: MAG SULF 1GM/100ML (MAG RUN) X 2 DOSES (2GM TOTAL) IV (12:22)
== END 2018-03-07 15:15 | disposition home or self-care (01) ==
LOC: M INFU 11:41
DX: E83.42 Hypomagnesemia (principal); Z94.0 Kidney transplant status
CPT/HCPCS: J3475

== ENCOUNTER → 2018-03-17 | Outpatient (REF) | payer MEDICARE, BC ==
[2018-03-17 13:35] LABS: INR 2.58; PROTHROMBIN TIME 28.2 SECONDS (12.1-14.4)
== END ==
LOC: M LAB REF 13:09
DX: I48.0 Paroxysmal atrial fibrillation (principal); Z79.01 Long term (current) use of anticoagulants
CPT/HCPCS: 85610

== ENCOUNTER 2018-03-24 13:31 | Outpatient (CLI) | payer MEDICARE, BC ==
[~2018-03-24] VITALS: Ht 149.9 cm; Wt 50.9 kg
[~2018-03-24 13:31] MED LIST changes: +/ONDA4TA PO; +/WARF4TA OR; +/WARF5TA GT; +/WARF5TA PO; +ACET1TAB55 PO; +AKWASOL OD; +ALLO300T OR; +ARTIDRO OP; +ATOR1TAB19 PO; +BISA10SU PR; +CALC0.5C PO; +CALC1CAP; +CALC1CAP31 PO; +CALC667T PO; +CALCIUM LACTATE PO; +CELLCEPT PO; +CINA30TA PO; +CLON0.1D3 TD; +CLON3PA TD; +COLA100C2 OR; +COUM1TAB14 PO; +COUM1TAB17 PO; +COUMADIN PO; +COZA100T2 PO; +FERR325T OR; +FLEC50HA PO; +FURO40TA2 PO; +HYDR-3910 PO; +HYDR50TA PO; +IRON325T7 PO; +ISOS30TA4 PO; -ISOVUE-300 61% 50ML VIAL (Q9967) As Ordered; +LASI80TA OR; +LIDO1CRE14 TOP; -LIDOCAINE 2% MDV 20 ML VIAL As Ordered; +LIPI10TA OR; +LOPR50TA OR; +MAGN400T2 PO; +MAGN400T20 PO; +METO25TA4 PO; +METO25TAB PO; -MIDAZOLAM INJ 2 MG/2 ML VIAL (J2250) As Ordered; +MINOXIDIL PO; +MYCO250C PO; +NEPHTAB PO; +OMEP20CA3 PO; +PERC7.5T12 PO; +PHOS667C5 PO; +POTA20TA OR; +PRED2.5T OR; +PRED25TA PO; +PRED5TA PO; +RENATAB5 PO; +SENISPAR PO; +SENS30TA PO; +SODI650T PO; +TACR1CAP3 PO; +TYLE325T5 PO; +VANC12CA PO; +VITA80005 PO; +WARF-20 PO; +WARF-23 PO; +WARF5TAB66 PO; +WARF6TAB14 PO; +WARFPOW3 PO; +ZEMPLAR PO; +[UNRECOGNIZED DRUG - CODE] PO; +[UNRECOGNIZED DRUG - OTHER] PO; +[UNRECOGNIZED DRUG - OTHER] PO; -fentaNYL 100 MCG/2 ML INJECTION (J3010) As Ordered
[2018-03-24 13:35] VITALS: BP 141/65
[2018-03-24] MEDS ORDERED: MAG SULF 1GM/100ML (MAG RUN) 1 GM in APPROPRIATE DILUENT 1 EA IV SCH (14:00)
[2018-03-24 15:00] VITALS: BP 112/56
[2018-03-24 16:00] VITALS: BP 116/58
[2018-03-29] MEDS ORDERED: OMEP40CA2 PO (12:57)
[2018-03-29] MEDS ORDERED: PRED5TA PO (12:57)
[2018-03-29] MEDS ORDERED: METO100T5 PO (12:57)
[2018-03-29] MEDS ORDERED: MYCO250C PO (12:57)
[2018-03-31] MEDS ORDERED: PROC20004 INJ (17:55)
[2018-03-31] MEDS ORDERED: FLORCAP10 PO (17:55)
[2018-03-31] MEDS ORDERED: VITA500T PO (17:55)
[2018-03-31] MEDS ORDERED: REFR0.5D8 OD (17:55)
[2018-03-31] MEDS ORDERED: CELL250C PO (17:55)
[2018-04-04] MEDS ORDERED: CIPR-249 PO (11:20)
[2018-04-04] MEDS ORDERED: ISOS30TA4 PO (11:20)
[2018-04-04] MEDS ORDERED: FURO20TA2 PO (11:20)
== END 2018-03-24 16:00 | disposition home or self-care (01) ==
LOC: M INFU 13:31
PROVIDERS: ATTEND Internal Medicine Nephrology
DX: E83.42 Hypomagnesemia (principal)
CPT/HCPCS: 96365; 96366; J3475

== ENCOUNTER 2018-03-29 12:38 | Emergency (ER) | payer MEDICARE, BC ==
[2018-03-29] MEDS: ONDANSETRON 4 MG ORAL DISINTEGRATING TAB (Q0162 PER 1MG) PO (13:47)
[2018-03-29 13:59] LABS: HEMATOCRIT 36.3 % (36.0-47.0); HEMOGLOBIN 10.9 g/dl (12.0-15.5); MEAN CORPUSCULAR HEMOGLOBIN 28.2 pg (27.0-33.0); MEAN CORPUSCULAR VOLUME 93.8 fl (80.0-96.0); PLATELET COUNT, AUTOMATED 201 10^3/uL (150-450); RED BLOOD COUNT 3.87 10^6/uL (4.00-5.40); RED CELL DISTRIBUTION WIDTH 14.5 % (11.5-14.5); WHITE BLOOD COUNT 2.6 10^3/uL (4.0-10.0)
[2018-03-29 14:04] LABS: ADD MANUAL DIFFER YES; DIFF SLIDE NUMBER 286; POS COUNT POS FLAG; POSITIVE DIFF POS FLAG; POSITIVE MORPH POS FLAG
[2018-03-29 14:12] LABS: INR 1.92; PROTHROMBIN TIME 22.4 SECONDS (12.1-14.4)
[2018-03-29 14:13] LABS: PARTIAL THROMBOPLASTIN TIME 48.8 SECONDS (25.4-37.6)
[2018-03-29 14:29] LABS: ANION GAP 11 MEQ/L (8-16); BLOOD UREA NITROGEN 51 MG/DL (7-18); CALCIUM LEVEL 9.1 MG/DL (8.5-10.1); CARBON DIOXIDE LEVEL 21 MEQ/L (21-32); CHLORIDE LEVEL 106 MEQ/L (98-107); CREATININE FOR GFR 1.98 MG/DL (0.55-1.30); GLOMERULAR FILTRATION RATE 27.6 (>51); GLUCOSE, FASTING 131 MG/DL (70-100); POTASSIUM SERUM 4.1 MEQ/L (3.5-5.1); SODIUM LEVEL 138 MEQ/L (136-145)
[2018-03-29 15:30] LABS: BANDS 10 % (< 11); BASOPHILS 3 % (0-4); EOSINOPHILS 3 % (0-5); LYMPHOCYTES 9 % (16-52); METAMYELOCYTES 10 % (0-0); MONOCYTES 22 % (0-8); MYELOCYTES 23 % (0-0); NEUTROPHILS 20 % (35-75)
[2018-03-29 15:31] LABS: PLATELET ESTIMATE NORMAL (NORMAL); TEAR DROP CELLS 1+
[2018-03-29 15:32] LABS: HYPOCHROMASIA 1+; TOXIC VACUOLATION 1+
[2018-03-29 18:37] LABS: LACTIC ACID SEPSIS PROTOCOL 0.9 MMOL/L (0.4-2.0)
== END 2018-03-29 19:10 | disposition home or self-care (01) ==
LOC: M ED 12:38
DX: A02.9 Salmonella infection, unspecified (principal); D72.819 Decreased white blood cell count, unspecified; I10 Essential (primary) hypertension; E78.5 Hyperlipidemia, unspecified; M32.9 Systemic lupus erythematosus, unspecified; N18.9 Chronic kidney disease, unspecified; K21.9 Gastro-esophageal reflux disease without esophagitis; Z86.73 Personal history of transient ischemic attack (TIA), and cerebral infarction without residual deficits; Z86.19 Personal history of other infectious and parasitic diseases; Z90.49 Acquired absence of other specified parts of digestive tract; Z79.01 Long term (current) use of anticoagulants; Z79.899 Other long term (current) drug therapy; Z88.1 Allergy status to other antibiotic agents; Z88.0 Allergy status to penicillin; Z88.6 Allergy status to analgesic agent

== ENCOUNTER 2018-03-31 14:55 | Inpatient (IN) | payer MEDICARE, BC ==
[2018-03-31] MEDS: NS 1,000 ML IV (17:43)
[2018-03-31] MEDS: diphenhydrAMINE INJ 50MG/ML VIAL (J1200) IV (17:43)
[2018-03-31] MEDS: methylPREDNISolone INJ 125 MG/2 ML VIAL (J2930) IV (17:43)
[2018-03-31] MEDS: cefTRIAXone SOD 1 GM in D5W MINI-BAG PLUS 50 ML IV (17:43)
[2018-03-31 17:45] LABS: HEMOGLOBIN 10.6 g/dl (12.0-15.5); MEAN CORPUSCULAR HEMOGLOBIN 28.2 pg (27.0-33.0); MEAN CORPUSCULAR HGB CONC 30.3 g/dl (32.0-36.5); MEAN CORPUSCULAR VOLUME 93.1 fl (80.0-96.0); PLATELET COUNT, AUTOMATED 250 10^3/uL (150-450); RED BLOOD COUNT 3.76 10^6/uL (4.00-5.40); RED CELL DISTRIBUTION WIDTH 14.6 % (11.5-14.5); WHITE BLOOD COUNT 3.4 10^3/uL (4.0-10.0)
[2018-03-31 17:46] LABS: ANION GAP 13 MEQ/L (8-16); BLOOD UREA NITROGEN 69 MG/DL (7-18); CALCIUM LEVEL 8.1 MG/DL (8.5-10.1); CARBON DIOXIDE LEVEL 18 MEQ/L (21-32); CHLORIDE LEVEL 102 MEQ/L (98-107); GLOMERULAR FILTRATION RATE 13.4 (>51); GLUCOSE, FASTING 108 MG/DL (70-100); POTASSIUM SERUM 3.6 MEQ/L (3.5-5.1); SODIUM LEVEL 133 MEQ/L (136-145)
[2018-03-31 17:49] LABS: ADD MANUAL DIFFER YES; DIFF SLIDE NUMBER 321; POS COUNT POS FLAG; POSITIVE DIFF POS FLAG; POSITIVE MORPH POS FLAG
[2018-03-31] MEDS ORDERED: ACETAMINOPHEN TAB 650MG DOSE (2X325MG) PO (18:15)
[2018-03-31 18:27] LABS: BANDS 41 % (< 11); BASOPHILS 3 % (0-4); EOSINOPHILS 2 % (0-5); LYMPHOCYTES 6 % (16-52); METAMYELOCYTES 17 % (0-0); MONOCYTES 8 % (0-8); NEUTROPHILS 23 % (35-75)
[2018-03-31 18:28] LABS: PLATELET ESTIMATE NORMAL (NORMAL)
[2018-03-31 18:29] LABS: ACANTHOCYTES 1+; OVALOCYTES 1+; TEAR DROP CELLS 1+
[2018-03-31] MEDS: **hydrALAZINE HCL** 25 MG TAB PO (20:54)
[2018-03-31] MEDS: FLECAINIDE 50MG TABLET PO (20:54)
[2018-03-31] MEDS: METOPROLOL TARTRATE 100 MG TAB PO (20:54)
[2018-03-31] MEDS: ATORVASTATIN 10 MG TAB PO (20:55)
[2018-03-31] MEDS: TACROLIMUS 1 MG CAP (J7507) PO (20:55)
[2018-03-31] MEDS: WARFARIN SOD 5 MG TAB PO (20:55)
[2018-03-31] MEDS: CIPROFLOXACIN 400 MG in APPROPRIATE DILUENT 1 EA IV (21:17)
[2018-03-31] MEDS: SODIUM BICARBONATE 75 MEQ in NS 0.45% 1,000 ML IV (22:54)
[2018-03-31 23:46] LABS: INR 2.34; PROTHROMBIN TIME 26.2 SECONDS (12.1-14.4)
[2018-03-31 23:47] LABS: ANION GAP 15 MEQ/L (8-16); BLOOD UREA NITROGEN 68 MG/DL (7-18); CALCIUM LEVEL 7.8 MG/DL (8.5-10.1); CARBON DIOXIDE LEVEL 12 MEQ/L (21-32); CHLORIDE LEVEL 109 MEQ/L (98-107); CREATININE FOR GFR 3.08 MG/DL (0.55-1.30); GLOMERULAR FILTRATION RATE 16.6 (>51); GLUCOSE, FASTING 167 MG/DL (70-100); POTASSIUM SERUM 3.9 MEQ/L (3.5-5.1); SODIUM LEVEL 136 MEQ/L (136-145)
[2018-04-01 06:00] LABS: HEMATOCRIT 28.9 % (36.0-47.0); HEMOGLOBIN 8.9 g/dl (12.0-15.5); MEAN CORPUSCULAR HEMOGLOBIN 28.3 pg (27.0-33.0); MEAN CORPUSCULAR HGB CONC 30.8 g/dl (32.0-36.5); MEAN CORPUSCULAR VOLUME 91.7 fl (80.0-96.0); PLATELET COUNT, AUTOMATED 143 10^3/uL (150-450); RED BLOOD COUNT 3.15 10^6/uL (4.00-5.40); RED CELL DISTRIBUTION WIDTH 14.1 % (11.5-14.5)
[2018-04-01 06:01] LABS: ADD MANUAL DIFFER YES; DIFF SLIDE NUMBER 55; POS COUNT POS FLAG; POSITIVE DIFF POS FLAG; POSITIVE MORPH POS FLAG; WHITE BLOOD COUNT 1.3 10^3/uL (4.0-10.0)
[2018-04-01 06:14] LABS: INR 2.59; PROTHROMBIN TIME 28.3 SECONDS (12.1-14.4)
[2018-04-01 06:24] LABS: ANION GAP 13 MEQ/L (8-16); BLOOD UREA NITROGEN 63 MG/DL (7-18); CALCIUM LEVEL 7.7 MG/DL (8.5-10.1); CARBON DIOXIDE LEVEL 16 MEQ/L (21-32); CHLORIDE LEVEL 109 MEQ/L (98-107); CREATININE FOR GFR 2.66 MG/DL (0.55-1.30); GLOMERULAR FILTRATION RATE 19.6 (>51); GLUCOSE, FASTING 156 MG/DL (70-100); POTASSIUM SERUM 3.6 MEQ/L (3.5-5.1); SODIUM LEVEL 138 MEQ/L (136-145)
[2018-04-01 06:31] LABS: BANDS 10 % (< 11); LYMPHOCYTES 16 % (16-52); METAMYELOCYTES 14 % (0-0); MONOCYTES 2 % (0-8); MYELOCYTES 2 % (0-0); NEUTROPHILS 56 % (35-75); OVALOCYTES 1+
[2018-04-01 06:32] LABS: TEAR DROP CELLS 1+
[2018-04-01 06:34] LABS: PLATELET ESTIMATE DECREASED (NORMAL)
[2018-04-01] MEDS: predniSONE 5 MG TAB PO (08:43)
[2018-04-01] MEDS: ASCORBIC ACID 500 MG TAB PO (08:43)
[2018-04-01] MEDS: **hydrALAZINE HCL** 25 MG TAB PO ×2 (08:44→21:33)
[2018-04-01] MEDS: TACROLIMUS 1 MG CAP (J7507) PO ×2 (08:44→21:33)
[2018-04-01] MEDS: METOPROLOL TARTRATE 100 MG TAB PO ×2 (08:44→21:33)
[2018-04-01] MEDS: ISOSORBIDE MON. (IMDUR) 30 MG XR TAB PO (08:44)
[2018-04-01] MEDS: SODIUM BICARBONATE 75 MEQ in NS 0.45% 1,000 ML IV ×2 (08:45→23:00)
[2018-04-01] MEDS: MAGNESIUM OXIDE 400 MG TAB (MAG-OX) PO (08:45)
[2018-04-01] MEDS: FLECAINIDE 50MG TABLET PO ×2 (08:45→21:33)
[2018-04-01] MEDS: OMEPRAZOLE 20 MG CAP PO (08:45)
[2018-04-01] MEDS ORDERED: PANTOPRAZOLE 40MG INJ (PROTONIX) (C9113) IV (09:00)
[2018-04-01 10:42] LABS: ANION GAP 12 MEQ/L (8-16); BLOOD UREA NITROGEN 67 MG/DL (7-18); CALCIUM LEVEL 8.2 MG/DL (8.5-10.1); CARBON DIOXIDE LEVEL 19 MEQ/L (21-32); CHLORIDE LEVEL 108 MEQ/L (98-107); GLOMERULAR FILTRATION RATE 20.1 (>51); GLUCOSE, FASTING 121 MG/DL (70-100); MAGNESIUM LEVEL 1.3 MG/DL (1.8-2.4); POTASSIUM SERUM 3.8 MEQ/L (3.5-5.1); SODIUM LEVEL 139 MEQ/L (136-145)
[2018-04-01] MEDS: MAG SULF 1GM/100ML (MAG RUN) 1 GM in APPROPRIATE DILUENT 1 EA IV ×2 (13:38→14:35)
[2018-04-01 14:34] LABS: ANION GAP 13 MEQ/L (8-16); BLOOD UREA NITROGEN 59 MG/DL (7-18); CARBON DIOXIDE LEVEL 17 MEQ/L (21-32); CHLORIDE LEVEL 108 MEQ/L (98-107); CREATININE FOR GFR 2.46 MG/DL (0.55-1.30); GLOMERULAR FILTRATION RATE 21.5 (>51); GLUCOSE, FASTING 117 MG/DL (70-100); POTASSIUM SERUM 3.6 MEQ/L (3.5-5.1); SODIUM LEVEL 138 MEQ/L (136-145)
[2018-04-01] MEDS: WARFARIN SOD 5 MG TAB PO (17:53)
[2018-04-01 20:46] LABS: ANION GAP 14 MEQ/L (8-16); BLOOD UREA NITROGEN 54 MG/DL (7-18); CALCIUM LEVEL 7.4 MG/DL (8.5-10.1); CARBON DIOXIDE LEVEL 18 MEQ/L (21-32); CHLORIDE LEVEL 111 MEQ/L (98-107); CREATININE FOR GFR 2.15 MG/DL (0.55-1.30); GLOMERULAR FILTRATION RATE 25.1 (>51); GLUCOSE, FASTING 120 MG/DL (70-100); POTASSIUM SERUM 3.5 MEQ/L (3.5-5.1); SODIUM LEVEL 143 MEQ/L (136-145)
[2018-04-01] MEDS: CIPROFLOXACIN 400 MG in APPROPRIATE DILUENT 1 EA IV (21:32)
[2018-04-01] MEDS: ATORVASTATIN 10 MG TAB PO (21:32)
[2018-04-02 02:36] LABS: ANION GAP 10 MEQ/L (8-16); BLOOD UREA NITROGEN 52 MG/DL (7-18); CALCIUM LEVEL 7.8 MG/DL (8.5-10.1); CARBON DIOXIDE LEVEL 20 MEQ/L (21-32); CHLORIDE LEVEL 113 MEQ/L (98-107); CREATININE FOR GFR 1.87 MG/DL (0.55-1.30); GLOMERULAR FILTRATION RATE 29.4 (>51); GLUCOSE, FASTING 115 MG/DL (70-100); POTASSIUM SERUM 3.2 MEQ/L (3.5-5.1); SODIUM LEVEL 143 MEQ/L (136-145)
[2018-04-02 06:16] LABS: HEMATOCRIT 25.2 % (36.0-47.0); HEMOGLOBIN 7.8 g/dl (12.0-15.5); MEAN CORPUSCULAR HEMOGLOBIN 28.5 pg (27.0-33.0); PLATELET COUNT, AUTOMATED 138 10^3/uL (150-450); RED BLOOD COUNT 2.74 10^6/uL (4.00-5.40); RED CELL DISTRIBUTION WIDTH 14.6 % (11.5-14.5)
[2018-04-02 06:23] LABS: POS COUNT POS FLAG; WHITE BLOOD COUNT 1.7 10^3/uL (4.0-10.0)
[2018-04-02 06:27] LABS: INR 2.69; PROTHROMBIN TIME 29.2 SECONDS (12.1-14.4)
[2018-04-02 06:58] LABS: ALBUMIN 2.7 GM/DL (3.2-5.2); ALBUMIN/GLOBULIN RATIO 1.23 (1.00-1.93); ALKALINE PHOSPHATASE 64 U/L (45-117); ALT/SGPT 13 U/L (12-78); ANION GAP 11 MEQ/L (8-16); AST/SGOT 14 U/L (7-37); BILIRUBIN,TOTAL 0.1 MG/DL (0.2-1.0); BLOOD UREA NITROGEN 48 MG/DL (7-18); C REACTIVE PROTEIN QUANTITATIV 0.41 MG/DL (0.00-0.30); CALCIUM LEVEL 7.7 MG/DL (8.5-10.1); CARBON DIOXIDE LEVEL 21 MEQ/L (21-32); CHLORIDE LEVEL 111 MEQ/L (98-107); FERRITIN 1444 NG/ML (8-252); GLOMERULAR FILTRATION RATE 32.9 (>51); GLUCOSE, FASTING 87 MG/DL (70-100); IRON (FE) 147 UG/DL (50-170); MAGNESIUM LEVEL 1.8 MG/DL (1.8-2.4); PHOSPHORUS LEVEL 2.4 MG/DL (2.5-4.9); POTASSIUM SERUM 3.4 MEQ/L (3.5-5.1); SODIUM LEVEL 143 MEQ/L (136-145); TOTAL IRON BINDING CAPACITY 171 UG/DL (250-450); TOTAL PROTEIN 4.9 GM/DL (6.4-8.2)
[2018-04-02] MEDS: OMEPRAZOLE 20 MG CAP PO (08:16)
[2018-04-02] MEDS: MAG SULF 1GM/100ML (MAG RUN) 1 GM in APPROPRIATE DILUENT 1 EA IV (08:16)
[2018-04-02] MEDS: TACROLIMUS 1 MG CAP (J7507) PO ×2 (08:16→20:36)
[2018-04-02] MEDS: NS 1,000 ML IV (08:16)
[2018-04-02] MEDS: ASCORBIC ACID 500 MG TAB PO (08:16)
[2018-04-02] MEDS: predniSONE 5 MG TAB PO (08:16)
[2018-04-02] MEDS: FLECAINIDE 50MG TABLET PO ×2 (08:16→20:36)
[2018-04-02] MEDS: POTASSIUM CHLORIDE 10 MEQ SR TABLET PO (08:17)
[2018-04-02] MEDS: MAGNESIUM OXIDE 400 MG TAB (MAG-OX) PO (08:17)
[2018-04-02] MEDS: **hydrALAZINE HCL** 25 MG TAB PO ×2 (08:23→20:36)
[2018-04-02] MEDS: ISOSORBIDE MON. (IMDUR) 30 MG XR TAB PO (08:23)
[2018-04-02] MEDS: METOPROLOL TARTRATE 100 MG TAB PO ×2 (08:24→20:36)
[2018-04-02 10:03] LABS: DIFF SLIDE NUMBER 28; POSITIVE DIFF POS FLAG; POSITIVE MORPH POS FLAG
[2018-04-02 10:37] LABS: BANDS 3 % (< 11); EOSINOPHILS 1 % (0-5); HYPOCHROMASIA 2+; LYMPHOCYTES 36 % (16-52); METAMYELOCYTES 5 % (0-0); MONOCYTES 8 % (0-8); MYELOCYTES 2 % (0-0); NEUTROPHILS 45 % (35-75); OVALOCYTES 1+
[2018-04-02 10:38] LABS: PLATELET ESTIMATE DECREASED (NORMAL)
[2018-04-02] MEDS: DARBEPOETIN 100 MCG/0.5 ML *NON-DIALYSIS* SYRINGE (J0881) SQ (13:05)
[2018-04-02 13:26] LABS: IMMEDIATE SPIN CROSSMATCH 1 1
[2018-04-02] MEDS: NYSTATIN 500,000 U/5 ML SUSP UDC SS ×3 (13:55→23:42)
[2018-04-02] MEDS: WARFARIN SOD 5 MG TAB PO (17:31)
[2018-04-02] MEDS: CIPROFLOXACIN 400 MG in APPROPRIATE DILUENT 1 EA IV (20:35)
[2018-04-02] MEDS: ATORVASTATIN 10 MG TAB PO (20:36)
[2018-04-02] MEDS: **hydrALAZINE** 10 MG TAB PO (23:43)
[2018-04-02] MEDS: amLODIPine 5 MG TAB PO (23:43)
[2018-04-03] MEDS: METOPROLOL TART 25 MG TABLET PO (01:34)
[2018-04-03] MEDS: NYSTATIN 500,000 U/5 ML SUSP UDC SS ×4 (05:30→23:26)
[2018-04-03 06:44] LABS: ALBUMIN 2.8 GM/DL (3.2-5.2); ALBUMIN/GLOBULIN RATIO 1.08 (1.00-1.93); ALKALINE PHOSPHATASE 60 U/L (45-117); ALT/SGPT 13 U/L (12-78); ANION GAP 9 MEQ/L (8-16); AST/SGOT 19 U/L (7-37); BILIRUBIN,TOTAL 0.4 MG/DL (0.2-1.0); BLOOD UREA NITROGEN 30 MG/DL (7-18); C REACTIVE PROTEIN QUANTITATIV < 0.30 MG/DL (0.00-0.30); CALCIUM LEVEL 8.6 MG/DL (8.5-10.1); CARBON DIOXIDE LEVEL 21 MEQ/L (21-32); CHLORIDE LEVEL 112 MEQ/L (98-107); CREATININE FOR GFR 1.42 MG/DL (0.55-1.30); GLOMERULAR FILTRATION RATE 40.4 (>51); GLUCOSE, FASTING 83 MG/DL (70-100); MAGNESIUM LEVEL 1.7 MG/DL (1.8-2.4); POTASSIUM SERUM 3.6 MEQ/L (3.5-5.1); SODIUM LEVEL 142 MEQ/L (136-145); TOTAL PROTEIN 5.4 GM/DL (6.4-8.2)
[2018-04-03 07:14] LABS: HEMATOCRIT 33.6 % (36.0-47.0); MEAN CORPUSCULAR HEMOGLOBIN 28.1 pg (27.0-33.0); MEAN CORPUSCULAR HGB CONC 30.7 g/dl (32.0-36.5); MEAN CORPUSCULAR VOLUME 91.6 fl (80.0-96.0); PLATELET COUNT, AUTOMATED 171 10^3/uL (150-450); RED BLOOD COUNT 3.67 10^6/uL (4.00-5.40); RED CELL DISTRIBUTION WIDTH 15.1 % (11.5-14.5); WHITE BLOOD COUNT 3.2 10^3/uL (4.0-10.0)
[2018-04-03 07:25] LABS: INR 1.92; PROTHROMBIN TIME 22.3 SECONDS (12.1-14.4)
[2018-04-03 08:13] LABS: HEMOGLOBIN 10.3 g/dl (12.0-15.5); POS COUNT POS FLAG; POSITIVE MORPH POS FLAG
[2018-04-03 08:14] LABS: ADD MANUAL DIFFER YES; DIFF SLIDE NUMBER 47
[2018-04-03 08:21] LABS: ATYPICAL LYMPH 1 % (0-5); BANDS 3 % (< 11); EOSINOPHILS 6 % (0-5); LYMPHOCYTES 21 % (16-52); METAMYELOCYTES 11 % (0-0); MONOCYTES 7 % (0-8); MYELOCYTES 5 % (0-0); NEUTROPHILS 46 % (35-75)
[2018-04-03 08:23] LABS: OVALOCYTES 1+; PLATELET ESTIMATE NORMAL (NORMAL)
[2018-04-03 08:25] LABS: TEAR DROP CELLS 1+
[2018-04-03] MEDS: MAGNESIUM OXIDE 400 MG TAB (MAG-OX) PO (09:15)
[2018-04-03] MEDS: OMEPRAZOLE 20 MG CAP PO (09:15)
[2018-04-03] MEDS: MAG SULF 1GM/100ML (MAG RUN) 1 GM in APPROPRIATE DILUENT 1 EA IV (09:15)
[2018-04-03] MEDS: **hydrALAZINE HCL** 25 MG TAB PO ×2 (09:16→21:11)
[2018-04-03] MEDS: ISOSORBIDE MON. (IMDUR) 30 MG XR TAB PO (09:16)
[2018-04-03] MEDS: predniSONE 5 MG TAB PO (09:16)
[2018-04-03] MEDS: FLECAINIDE 50MG TABLET PO ×2 (09:16→21:10)
[2018-04-03] MEDS: TACROLIMUS 1 MG CAP (J7507) PO ×2 (09:16→21:12)
[2018-04-03] MEDS: ASCORBIC ACID 500 MG TAB PO (09:16)
[2018-04-03] MEDS: METOPROLOL TARTRATE 100 MG TAB PO ×2 (09:17→21:11)
[2018-04-03] MEDS: POTASSIUM CHLORIDE 10 MEQ SR TABLET PO (09:17)
[2018-04-03] MEDS: FUROSEMIDE 20 MG TAB PO (11:14)
[2018-04-03] MEDS: CIPROFLOXACIN 500 MG TAB PO (15:29)
[2018-04-03] MEDS: WARFARIN SOD 5 MG TAB PO (17:19)
[2018-04-03] MEDS: ATORVASTATIN 10 MG TAB PO (21:11)
[2018-04-04] MEDS: CIPROFLOXACIN 500 MG TAB PO (06:13)
[2018-04-04] MEDS: NYSTATIN 500,000 U/5 ML SUSP UDC SS ×2 (06:13→12:24)
[2018-04-04 06:43] LABS: HEMATOCRIT 32.4 % (36.0-47.0); MEAN CORPUSCULAR HEMOGLOBIN 28.2 pg (27.0-33.0); MEAN CORPUSCULAR HGB CONC 30.9 g/dl (32.0-36.5); MEAN CORPUSCULAR VOLUME 91.5 fl (80.0-96.0); PLATELET COUNT, AUTOMATED 177 10^3/uL (150-450); RED BLOOD COUNT 3.54 10^6/uL (4.00-5.40); RED CELL DISTRIBUTION WIDTH 15.2 % (11.5-14.5); WHITE BLOOD COUNT 3.5 10^3/uL (4.0-10.0)
[2018-04-04 06:51] LABS: ADD MANUAL DIFFER YES; DIFF SLIDE NUMBER 44; POS COUNT POS FLAG; POSITIVE MORPH POS FLAG
[2018-04-04 06:57] LABS: ALBUMIN 2.6 GM/DL (3.2-5.2); ALBUMIN/GLOBULIN RATIO 0.96 (1.00-1.93); ALKALINE PHOSPHATASE 64 U/L (45-117); ALT/SGPT 15 U/L (12-78); ANION GAP 7 MEQ/L (8-16); AST/SGOT 17 U/L (7-37); BILIRUBIN,TOTAL 0.4 MG/DL (0.2-1.0); BLOOD UREA NITROGEN 25 MG/DL (7-18); C REACTIVE PROTEIN QUANTITATIV < 0.30 MG/DL (0.00-0.30); CALCIUM LEVEL 8.4 MG/DL (8.5-10.1); CARBON DIOXIDE LEVEL 23 MEQ/L (21-32); CHLORIDE LEVEL 113 MEQ/L (98-107); CREATININE FOR GFR 1.53 MG/DL (0.55-1.30); GLOMERULAR FILTRATION RATE 37.1 (>51); GLUCOSE, FASTING 84 MG/DL (70-100); MAGNESIUM LEVEL 1.9 MG/DL (1.8-2.4); SODIUM LEVEL 143 MEQ/L (136-145); TOTAL PROTEIN 5.3 GM/DL (6.4-8.2)
[2018-04-04 06:59] LABS: INR 1.89; PROTHROMBIN TIME 22.1 SECONDS (12.1-14.4)
[2018-04-04 07:31] LABS: ATYPICAL LYMPH 3 % (0-5); BANDS 5 % (< 11); EOSINOPHILS 7 % (0-5); LYMPHOCYTES 14 % (16-52); METAMYELOCYTES 5 % (0-0); MONOCYTES 13 % (0-8); MYELOCYTES 8 % (0-0); NEUTROPHILS 45 % (35-75)
[2018-04-04 07:32] LABS: ANISOCYTOSIS 1+; PLATELET ESTIMATE NORMAL (NORMAL); POIKILOCYTOSIS 1+
[2018-04-04 07:33] LABS: OVALOCYTES 1+
[2018-04-04] MEDS: OMEPRAZOLE 20 MG CAP PO (08:35)
[2018-04-04] MEDS: ISOSORBIDE MON. (IMDUR) 30 MG XR TAB PO (08:35)
[2018-04-04] MEDS: METOPROLOL TARTRATE 100 MG TAB PO (08:35)
[2018-04-04] MEDS: predniSONE 5 MG TAB PO (08:36)
[2018-04-04] MEDS: ASCORBIC ACID 500 MG TAB PO (08:36)
[2018-04-04] MEDS: TACROLIMUS 1 MG CAP (J7507) PO (08:36)
[2018-04-04] MEDS: **hydrALAZINE HCL** 25 MG TAB PO (08:36)
[2018-04-04] MEDS: FUROSEMIDE 20 MG TAB PO (08:36)
[2018-04-04] MEDS: MAGNESIUM OXIDE 400 MG TAB (MAG-OX) PO (08:36)
[2018-04-04] MEDS: FLECAINIDE 50MG TABLET PO (08:36)
[2018-04-04] MEDS: MYCOPHENOLATE MOFETIL 250 MG CAP (J7517) PO (12:24)
== END 2018-04-04 14:46 | disposition home or self-care (01) | DRG 371 ==
LOC: M ED 14:55 → M ED INP 17:46 → M MSPAV 20:33
PROC: 30233N1 Transfusion of Nonautologous Red Blood Cells into Peripheral Vein, Percutaneous Approach (ICD-10-PCS; principal; 2018-04-02)
DX: A02.0 Salmonella enteritis (principal); D61.811 Other drug-induced pancytopenia; D84.9 Immunodeficiency, unspecified; N17.9 Acute kidney failure, unspecified; E87.2 Acidosis; N18.4 Chronic kidney disease, stage 4 (severe); Z94.0 Kidney transplant status; D68.61 Antiphospholipid syndrome; I48.0 Paroxysmal atrial fibrillation; Z79.01 Long term (current) use of anticoagulants; Z79.899 Other long term (current) drug therapy; D63.1 Anemia in chronic kidney disease; K21.9 Gastro-esophageal reflux disease without esophagitis; E86.0 Dehydration; E78.5 Hyperlipidemia, unspecified; M32.14 Glomerular disease in systemic lupus erythematosus; I35.0 Nonrheumatic aortic (valve) stenosis; Z79.52 Long term (current) use of systemic steroids; Z88.6 Allergy status to analgesic agent; Z88.2 Allergy status to sulfonamides; Z88.0 Allergy status to penicillin; R13.10 Dysphagia, unspecified; E87.6 Hypokalemia; E83.42 Hypomagnesemia; I12.9 Hypertensive chronic kidney disease with stage 1 through stage 4 chronic kidney disease, or unspecified chronic kidney disease

== ENCOUNTER → 2018-03-31 | Outpatient (REF) | payer MEDICARE ==
[2018-03-31 17:24] LABS: HEMATOCRIT 30.8 % (36.0-47.0); HEMOGLOBIN 9.4 g/dl (12.0-15.5); MEAN CORPUSCULAR HEMOGLOBIN 28.1 pg (27.0-33.0); MEAN CORPUSCULAR HGB CONC 30.5 g/dl (32.0-36.5); MEAN CORPUSCULAR VOLUME 91.9 fl (80.0-96.0); PLATELET COUNT, AUTOMATED 220 10^3/uL (150-450); RED BLOOD COUNT 3.35 10^6/uL (4.00-5.40); RED CELL DISTRIBUTION WIDTH 14.6 % (11.5-14.5); WHITE BLOOD COUNT 3.3 10^3/uL (4.0-10.0)
[2018-03-31 17:30] LABS: ADD MANUAL DIFFER YES; DIFF SLIDE NUMBER 319; POSITIVE DIFF POS FLAG; POSITIVE MORPH POS FLAG
[2018-03-31 17:41] LABS: INR 2.15; PROTHROMBIN TIME 24.4 SECONDS (12.1-14.4)
[2018-03-31 17:45] LABS: SLIDE REVIEW Report; SOURCE PERIPHERAL SMEAR
[2018-03-31 18:15] LABS: ATYPICAL LYMPH 1 % (0-5); BANDS 25 % (< 11); BASOPHILS 2 % (0-4); EOSINOPHILS 2 % (0-5); HYPOCHROMASIA 1+; LYMPHOCYTES 5 % (16-52); METAMYELOCYTES 13 % (0-0); MONOCYTES 12 % (0-8); NEUTROPHILS 40 % (35-75); NUCLEATED RED BLOOD CELL 1 % (0-0); PLATELET ESTIMATE NORMAL (NORMAL)
[2018-03-31 18:16] LABS: TEAR DROP CELLS 1+
== END ==
LOC: M LAB REF 17:04
DX: D47.Z1 Post-transplant lymphoproliferative disorder (PTLD) (principal); I48.0 Paroxysmal atrial fibrillation; Z51.81 Encounter for therapeutic drug level monitoring; Z79.01 Long term (current) use of anticoagulants; Z94.0 Kidney transplant status

== ENCOUNTER → 2018-03-31 | Outpatient (CLI) | payer MEDICARE, BC ==
[2018-03-31 12:53] LABS: HEMATOCRIT 31.8 % (36.0-47.0); HEMOGLOBIN 9.6 g/dl (12.0-15.5); MEAN CORPUSCULAR HEMOGLOBIN 28.2 pg (27.0-33.0); MEAN CORPUSCULAR HGB CONC 30.2 g/dl (32.0-36.5); MEAN CORPUSCULAR VOLUME 93.3 fl (80.0-96.0); PLATELET COUNT, AUTOMATED 214 10^3/uL (150-450); RED BLOOD COUNT 3.41 10^6/uL (4.00-5.40); RED CELL DISTRIBUTION WIDTH 14.5 % (11.5-14.5); WHITE BLOOD COUNT 3.6 10^3/uL (4.0-10.0)
[2018-03-31 12:54] LABS: ADD MANUAL DIFFER YES; DIFF SLIDE NUMBER 195; POS COUNT POS FLAG; POSITIVE MORPH POS FLAG
[2018-03-31 13:19] LABS: ALBUMIN 3.5 GM/DL (3.2-5.2); ALBUMIN/GLOBULIN RATIO 1.46 (1.00-1.93); ALKALINE PHOSPHATASE 73 U/L (45-117); ALT/SGPT 14 U/L (12-78); AMYLASE 102 U/L (25-115); ANION GAP 15 MEQ/L (8-16); AST/SGOT 16 U/L (7-37); BILIRUBIN,DIRECT < 0.1 MG/DL (0.0-0.2); BILIRUBIN,TOTAL 0.2 MG/DL (0.2-1.0); BLOOD UREA NITROGEN 72 MG/DL (7-18); CALCIUM LEVEL 8.4 MG/DL (8.5-10.1); CARBON DIOXIDE LEVEL 14 MEQ/L (21-32); CHLORIDE LEVEL 104 MEQ/L (98-107); CREATININE FOR GFR 3.39 MG/DL (0.55-1.30); GLOMERULAR FILTRATION RATE 14.8 (>51); GLUCOSE, FASTING 120 MG/DL (70-100); LIPASE 581 U/L (73-393); MAGNESIUM LEVEL 1.6 MG/DL (1.8-2.4); POTASSIUM SERUM 3.8 MEQ/L (3.5-5.1); SODIUM LEVEL 133 MEQ/L (136-145); TOTAL PROTEIN 5.9 GM/DL (6.4-8.2)
[2018-03-31 13:40] LABS: ATYPICAL LYMPH 3 % (0-5); BANDS 18 % (< 11); BASOPHILS 2 % (0-4); EOSINOPHILS 5 % (0-5); LYMPHOCYTES 8 % (16-52); METAMYELOCYTES 9 % (0-0); MONOCYTES 24 % (0-8); NEUTROPHILS 31 % (35-75); NUCLEATED RED BLOOD CELL 1 % (0-0)
[2018-03-31 13:41] LABS: PLATELET ESTIMATE NORMAL (NORMAL)
[2018-03-31 13:42] LABS: SMUDGE CELLS 1+
[2018-03-31 13:43] LABS: ACANTHOCYTES 1+; POLYCHROMASIA 1+
[2018-03-31 13:45] LABS: MAU/CREAT RATIO 83.5 MCG/MG (0.0-30.0); TOTAL PROTEIN,RANDOM URINE 61.6 MG/DL (0.0-12.0)
[2018-04-07 00:31] LABS: BK VIRUS BLOOD PCR1 4500 copies/mL (Negative); BK VIRUS BLOOD PCR2 3.653 (.)
== END ==
LOC: M WUC 10:37
DX: N18.5 Chronic kidney disease, stage 5 (principal); D84.9 Immunodeficiency, unspecified; Z51.81 Encounter for therapeutic drug level monitoring; Z79.899 Other long term (current) drug therapy; Z94.0 Kidney transplant status

== ENCOUNTER → 2018-04-07 | Outpatient (REF) | payer MEDICARE ==
[~2018-04-07] MED LIST changes: +CELL250C PO; +CIPR-249 PO; +FLORCAP10 PO; +FURO20TA2 PO; +METO100T5 PO; +OMEP40CA2 PO; +PROC20004 INJ; +REFR0.5D8 OD; +VITA500T PO
[2018-04-07 13:25] LABS: ALBUMIN 3.3 GM/DL (3.2-5.2); ALT/SGPT 20 U/L (12-78); AMYLASE 143 U/L (25-115); BILIRUBIN,DIRECT < 0.1 MG/DL (0.0-0.2); BILIRUBIN,TOTAL 0.2 MG/DL (0.2-1.0); LIPASE 600 U/L (73-393); TOTAL PROTEIN 5.9 GM/DL (6.4-8.2)
[2018-04-07 13:40] LABS: INR 1.74; PROTHROMBIN TIME 20.6 SECONDS (12.1-14.4)
[2018-04-12 14:10] LABS: BK VIRUS BLOOD PCR2 4.176 (.)
== END ==
LOC: M LAB REF 12:35
PROVIDERS: ATTEND Internal Medicine Nephrology
DX: Z94.0 Kidney transplant status (principal); Z79.899 Other long term (current) drug therapy; D84.9 Immunodeficiency, unspecified; Z79.01 Long term (current) use of anticoagulants

== ENCOUNTER → 2018-04-20 | Outpatient (REF) | payer MEDICARE ==
[~2018-04-20] MED LIST changes: +ISOS30TAB PO
[2018-04-20 17:44] LABS: INR 1.4; PROTHROMBIN TIME 17.3 SECONDS (12.1-14.4)
== END ==
LOC: M LAB REF 16:59
PROVIDERS: ATTEND Internal Medicine Nephrology
DX: I48.0 Paroxysmal atrial fibrillation (principal); Z51.81 Encounter for therapeutic drug level monitoring; Z79.01 Long term (current) use of anticoagulants

== ENCOUNTER → 2018-04-26 | Outpatient (REF) | payer MEDICARE ==
[2018-04-26 13:54] LABS: INR 1.89
== END ==
LOC: M LAB REF 13:24
PROVIDERS: ATTEND Internal Medicine Nephrology
DX: Z94.0 Kidney transplant status (principal); Z79.899 Other long term (current) drug therapy; D84.9 Immunodeficiency, unspecified; Z79.01 Long term (current) use of anticoagulants

== ENCOUNTER 2018-04-29 11:49 | Day surgery (SDC) | payer MEDICARE ==
[~2018-04-29] VITALS: Ht 149.9 cm; Wt 49.0 kg
[~2018-04-29 11:49] MED LIST changes: +NS 1,000 ML IV ONE
[2018-04-29] MEDS ORDERED: LIDOCAINE 2% INJ 100 MG/5 ML SDV (FOR ANES.) As Ordered ONE (12:27)
[2018-04-29] MEDS ORDERED: PROPOFOL 200 MG/20 ML VIAL As Ordered ONE (12:27)
[2018-04-29] MEDS ORDERED: fentaNYL 100 MCG/2 ML INJECTION (J3010) As Ordered ONE (12:28)
[2018-04-29] MEDS ORDERED: ePHEDrine SULFATE 25 MG/5 ML(5MG/ML) SYRINGE As Ordered ONE (12:47)
--- NOTE | 2018-04-29 13:10 | ROOR ---
Patient Name: Colleen Velasco Procedure Date: 04/29/2018 12:26 PM Date of : 1960 Age: 58 Room: [facility] Gender: Female Note Status: Finalized Procedure: Upper GI endoscopy Indications: Dysphagia, Abnormal cine-esophagram Providers: Maninder BRISENO MD Referring MD: Donavon Radford MD Requesting Provider: Medicines: Monitored Anesthesia Care Complications: No immediate complications. Procedure: Pre-Anesthesia Assessment: - The heart rate, respiratory rate, oxygen saturations, blood pressure, adequacy of pulmonary ventilation, and response to care were monitored throughout the procedure. The Endoscope was introduced through the mouth, and advanced to the second part of duodenum. The upper GI endoscopy was accomplished without difficulty. The patient tolerated the procedure well. Findings: One benign-appearing, intrinsic moderate (circumferential scarring or stenosis; an endoscope may pass) stenosis was found at the gastroesophageal junction. This stenosis measured 1 cm (inner diameter) x 1 cm (in length). The stenosis was traversed. A TTS dilator was passed through the scope. Dilation with a 12-13.5-15 mm balloon dilator was performed to 15 mm. The dilation site was examined and showed moderate improvement in luminal narrowing. Estimated blood loss was minimal. A small hiatal hernia was present. The examined duodenum was normal. Mildly severe esophagitis was found in the lower third of the esophagus. Biopsies were taken with a cold forceps for histology. Impression: - Benign-appearing esophageal stenosis and mild esophagitis. Biopsied.. Dilated. - Small hiatal hernia. - Normal examined duodenum. - (I note prolonged mild oozing of blood from dilation site, This was observed for at least 10 minutes until this stopped spontaneously.) Recommendation: - Use Prilosec (omeprazole) 40 mg daily. - Continue present medications. - Resume Coumadin (warfarin) at prior dose in 2 days. Refer to managing physician for further adjustment of therapy. - Return to referring physician at the next available appointment for coumadin level check. - (Future endoscopic procedures, if needed, will involve pre op INR/platelet function check and coumadin hold for more than the standard 3 days.) Maninder Briseno MD Maninder BRISENO MD 04/29/2018 1:10:20 PM This report has been signed electronically. Number of Addenda: 0 Note Initiated On: 04/29/2018 12:26 PM Estimated Blood Loss: Estimated blood loss: none.
[2018-04-29 13:40] VITALS: BP 137/75
== END 2018-04-29 13:44 | disposition home or self-care (01) ==
LOC: M OPP 11:49
PROVIDERS: ATTEND Internal Medicine Gastroenterology
DX: K22.2 Esophageal obstruction (principal); K44.9 Diaphragmatic hernia without obstruction or gangrene; K20.9 Esophagitis, unspecified; R13.10 Dysphagia, unspecified; R93.3 Abnormal findings on diagnostic imaging of other parts of digestive tract; N18.9 Chronic kidney disease, unspecified; I12.9 Hypertensive chronic kidney disease with stage 1 through stage 4 chronic kidney disease, or unspecified chronic kidney disease; E78.00 Pure hypercholesterolemia, unspecified; Z79.82 Long term (current) use of aspirin; Z79.899 Other long term (current) drug therapy; Z88.8 Allergy status to other drugs, medicaments and biological substances; Z94.0 Kidney transplant status
CPT/HCPCS: 43239; 43249; 88305; J3010

== ENCOUNTER → 2018-05-10 | Outpatient (REF) | payer MEDICARE ==
[~2018-05-10] MED LIST changes: -NS 1,000 ML IV ONE
[2018-05-10 19:14] LABS: INR 1.82; PROTHROMBIN TIME 21.4 SECONDS (12.1-14.4)
== END ==
LOC: M LAB REF 16:59
PROVIDERS: ATTEND Internal Medicine Nephrology
DX: I48.0 Paroxysmal atrial fibrillation (principal); Z79.01 Long term (current) use of anticoagulants

== ENCOUNTER → 2018-05-25 | Outpatient (REF) | payer MEDICARE ==
[2018-05-25 13:29] LABS: INR 2.41; PROTHROMBIN TIME 26.7 SECONDS (12.1-14.4)
== END ==
LOC: M LAB REF 12:43
PROVIDERS: ATTEND Internal Medicine Nephrology
DX: I48.0 Paroxysmal atrial fibrillation (principal); Z79.01 Long term (current) use of anticoagulants

== ENCOUNTER → 2018-06-27 | Outpatient (REF) | payer MEDICARE ==
[2018-06-27 13:51] LABS: INR 2.33
[2018-06-30 10:15] LABS: BK VIRUS BLOOD PCR1 Positive < 200 copies/mL (Negative)
== END ==
LOC: M LAB REF 13:17
PROVIDERS: ATTEND Internal Medicine Nephrology
DX: I48.0 Paroxysmal atrial fibrillation (principal); Z94.0 Kidney transplant status; Z79.01 Long term (current) use of anticoagulants; N39.0 Urinary tract infection, site not specified

== ENCOUNTER → 2018-07-19 | Outpatient (REF) | payer MEDICARE ==
[~2018-07-19] MED LIST changes: -/ONDA4TA PO; -/WARF4TA OR; -/WARF5TA GT; -/WARF5TA PO; -CALC0.5C PO; +CALC0.5C14 PO; +CLON0.3D2 TD; -CLON3PA TD; +COUM1TAB14 OR; +COUM1TAB17 GT; +FERR325T82 PO; +HYDR-4267 PO; -HYDR50TA PO; -IRON325T7 PO; +METO1TAB63 PO; -METO25TAB PO; +NEPH1TAB11 PO; +ONDA-1 PO
[2018-07-19 14:26] LABS: INR 1.63; PROTHROMBIN TIME 19.6 SECONDS (12.1-14.4)
== END ==
LOC: M LAB REF 13:37
PROVIDERS: ATTEND Internal Medicine Nephrology
DX: Z79.01 Long term (current) use of anticoagulants (principal); I48.0 Paroxysmal atrial fibrillation; Z94.0 Kidney transplant status

== ENCOUNTER 2018-08-04 13:16 | Outpatient (CLI) | payer MEDICARE ==
[~2018-08-04] VITALS: Ht 149.9 cm; Wt 52.7 kg
[2018-08-04 13:16] VITALS: BP 134/65
[2018-08-04 14:11] VITALS: BP 138/63
== END 2018-08-04 14:11 ==
LOC: M INFU 13:16
PROVIDERS: ATTEND Internal Medicine Nephrology
DX: N39.0 Urinary tract infection, site not specified (principal); B96.20 Unspecified Escherichia coli [E. coli] as the cause of diseases classified elsewhere; Z53.9 Procedure and treatment not carried out, unspecified reason

== ENCOUNTER 2018-08-21 21:54 | Inpatient (IN) | payer MEDICARE ==
[~2018-08-21] VITALS: Ht 149.9 cm; Wt 50.7 kg
[~2018-08-21 21:54] MED LIST changes: +**hydrALAZINE** 10 MG TAB PO SCH; +ATORVASTATIN 10 MG TAB PO SCH; +CALCITRIOL 0.25 MCG CAP (S0169) PO SCH; -CINA30TA PO; +CINA30TA4 PO; +FLECAINIDE 50MG TABLET PO SCH; +ISOSORBIDE MON. (IMDUR) 30 MG XR TAB PO SCH; +METOPROLOL TARTRATE 100 MG TAB PO SCH; +MYCOPHENOLATE MOFETIL 250 MG CAP (J7517) PO SCH; +TACROLIMUS 0.5 MG CAP PO SCH; +TACROLIMUS 1 MG CAP (J7507) PO SCH; +WARFARIN SOD 5 MG TAB PO SCH
[2018-08-21] MEDS ORDERED: FURO40TA2 (22:06)
[2018-08-21] MEDS ORDERED: PROCRIT (22:06)
[2018-08-21] MEDS ORDERED: PRED5TA (22:06)
[2018-08-21] MEDS ORDERED: COUM1TAB17 (22:06)
[2018-08-21] MEDS ORDERED: ISOS30TA4 PO (22:06)
[2018-08-21] MEDS ORDERED: NS 500 ML IV ONE (22:45)
[2018-08-22 00:04] LABS: INR 3.2; PROTHROMBIN TIME 33.5 SECONDS (12.1-14.4)
[2018-08-22 00:07] LABS: BASO % 0.7 % (0.0-1.0); EOS % 0.3 % (0.0-3.0); HEMATOCRIT 32.8 % (36.0-47.0); HEMOGLOBIN 10.2 g/dl (12.0-15.5); LYMPH # 0.4 10^3/uL (1.5-4.5); LYMPH % 6.8 % (24.0-44.0); MEAN CORPUSCULAR HEMOGLOBIN 29.8 pg (27.0-33.0); MEAN CORPUSCULAR HGB CONC 31.1 g/dl (32.0-36.5); MEAN CORPUSCULAR VOLUME 95.9 fl (80.0-96.0); MONO % 35.2 % (0.0-5.0); NEUTROPHILS # 3.2 10^3/uL (1.8-7.7); NEUTROPHILS % 56.1 % (36.0-66.0); PLATELET COUNT, AUTOMATED 152 10^3/uL (150-450); RED BLOOD COUNT 3.42 10^6/uL (4.00-5.40); WHITE BLOOD COUNT 5.8 10^3/uL (4.0-10.0)
[2018-08-22 00:11] LABS: ALBUMIN 3.4 GM/DL (3.2-5.2); ALT/SGPT 16 U/L (12-78); BILIRUBIN,DIRECT < 0.1 MG/DL (0.0-0.2); BILIRUBIN,TOTAL 0.3 MG/DL (0.2-1.0); BLOOD UREA NITROGEN 70 MG/DL (7-18); CARBON DIOXIDE LEVEL 22 MEQ/L (21-32); CHLORIDE LEVEL 103 MEQ/L (98-107); CK-MB VALUE MASS < 1.0 NG/ML (<3.6); CPK CREATINE PHOSPHOKINASE 39 U/L (26-192); CREATININE FOR GFR 3.05 MG/DL (0.55-1.30); GLOMERULAR FILTRATION RATE 16.7 (>51); GLUCOSE, FASTING 86 MG/DL (70-100); LIPASE 284 U/L (73-393); MB/CK RELATIVE INDEX 2.56 (< OR =4); POTASSIUM SERUM 4.9 MEQ/L (3.5-5.1); SODIUM LEVEL 134 MEQ/L (136-145); TOTAL PROTEIN 6.6 GM/DL (6.4-8.2); TROPONIN I < 0.02 NG/ML (< 0.10)
[2018-08-22] MEDS ORDERED: NS 500 ML IV ONE (00:30)
--- NOTE | 2018-08-22 00:30 | REPVR ---
EXAM: US Retroperitoneal Limited, Kidneys EXAM DATE/TIME: 08/21/2018 11:51 PM CLINICAL HISTORY: 58 years old, female; Signs and symptoms; Other: Urgency; Prior surgery; Surgery date: 6+ months; Surgery type: Renal transplant, just over 1 yr ago; Additional info: Urgency, transplant kidney TECHNIQUE: Imaging protocol: Real-time ultrasound of the retroperitoneum with image documentation. Examination was focused on the kidneys. COMPARISON: GALLBLADDER US 11/14/2011 11:53 PM FINDINGS: Right kidney: Echogenic atrophic [place] right kidney measuring 8.4 x 3.8 x 2.9 cm. Left kidney: Echogenic atrophic [place] left kidney measuring 6.8 x 3.0 x 2.8 cm. Transplanted kidney: Transplanted kidney in the right lower quadrant measuring 10.8 x 5.4 x 5.3 cm. No evidence of hydronephrosis, stones, mass, cyst in the transplanted kidney. Bladder: Urinary bladder is empty and not well visualized. IMPRESSION: Atrophic echogenic bilateral [place] kidneys. Transplanted kidney in the right lower quadrant measuring 10.8 x 5.4 x 5.3 cm. No evidence of hydronephrosis, stones, mass, cyst in the transplanted kidney. Urinary bladder is not evaluated secondary to nondistention. Electronically signed by: Charlene Rodgers On 08/22/2018 00:30:11 AM
[2018-08-22] MEDS ORDERED: PIPERACILLIN/TAZOBACTAM SOD 2.25 GM in D5W MINI-BAG PLUS 50 ML IV ONE (00:45)
[2018-08-22] MEDS ORDERED: FLUCONAZOLE 200 MG in APPROPRIATE DILUENT 1 EA IV ONE (00:45)
[2018-08-22] MEDS ORDERED: NS 1,000 ML IV SCH (01:00)
[2018-08-22] MEDS ORDERED: ACET500T15 PO (01:15)
[2018-08-22] MEDS ORDERED: FURO20TA2 PO (01:15)
[2018-08-22] MEDS ORDERED: TACR0.5C3 PO (01:15)
[2018-08-22] MEDS ORDERED: PROBCAP14 PO (01:15)
--- NOTE | 2018-08-22 01:26 | HPEPDOC ---
General Date of Admission Chief Complaint The patient is a 58-year-old female admitted with a reason for visit of Body Aches. Source: Patient, RN/, Old records History of Present Illness Ms. Velasco is a 58 years old woman with hx/o Lupus Nephritis, s/p Right Renal transplant on 07/2017 at [facility], s/p biopsy on 07/2018 to r/o BK infection (ruled out) due to rising serum Cr 1.7, hx/o ESBL E. coli UTI in June 2018. The pt presents to ER with c/o chills, rigors, dysuria and urgency for two days. In the ER, pt has a slight temp of 99.1K, with abnormal UA: positive LE, WBC and bacteremia. She was also noted to have elevated serum Cr of 3.05. WBC and hemodynamic was normal. Dr. Green was contacted from ER; recommended adding Diflucan to cover fungal infection. Record from [facility] reviewed. She was admitted from [birth year][age] yo 08/03/18 in order to bridge Coumadin prior to kidney biopsy. During admission she had developed CHF, likely from tachyarrhythmia and mitral regurg. Echo on record from 01/2018 shows moderate mitral regurg with normal EF and LV. Review urine culture from 06/2018 shows ESBL E. coli. Home Medications Scheduled Ascorbic Acid (Vitamin C) 500 Mg Tab, 500 MG PO DAILY, (Reported) Atorvastatin Calcium (Atorvastatin Calcium) 10 Mg Tab, 10 MG PO QHS, (Reported) Calcitriol (Calcitriol) 0.25 Mcg Cap, 0.25 MCG PO BID, (Reported) Ferrous Sulfate (Iron) 325 Mg Tab, 650 MG PO QPM, (Reported) Flecainide Acetate (Flecainide Acetate) 50 Mg Tab, 50 MG PO BID, (Reported) Folic Acid/Vit B Complex and C (Nicole-Hardik Tablet) 1 Tab Tab, 1 TAB PO DAILY, ( Reported) Furosemide (Furosemide) 20 Mg Tablet, 20 MG PO DAILY, (Reported) Hydralazine HCl (Hydralazine HCl) 25 Mg Tab, 25 MG PO TID, (Reported) HOLD FOR SYSTOLIC BP <100 Isosorbide Mononitrate (Isosorbide Mononitrate ER) 30 Mg Tab.er.24h, 30 MG PO BID, (Reported) Lactobacillus Acidophilus (Probiotic) 1 Each Capsule, 1 CAP PO DAILY, (Reported) Magnesium Oxide (Magnesium Oxide) 400 Mg Tab, 800 MG PO DAILY, (Reported) AT NOON Metoprolol Tartrate (Metoprolol Tartrate) 100 Mg Tab, 100 MG PO BID, (Reported) Mycophenolate Mofetil (Cellcept) 250 Mg Cap, 500 MG PO BID, (Reported) Prednisone (Prednisone) 5 Mg Tab, 5 MG PO DAILY, (Reported) Tacrolimus (Tacrolimus) 1 Mg Cap, 2 MG PO BID, (Reported) TOTAL DOSE: 2.5 MG BID (5 MG PER DAY) Tacrolimus (Tacrolimus) 0.5 Mg Capsule, 0.5 MG PO BID, (Reported) TOTAL DOSE: 2.5 MG BID (5 MG PER DAY) Warfarin Sodium (Coumadin) 5 Mg Tab, 5 MG PO QHS, (Reported) Scheduled PRN Acetaminophen (Acetaminophen) 500 Mg Tablet, 1,000 MG PO Q6H PRN for PAIN / FEVER, (Reported) Carboxymethylcellulose Sodium (Refresh Tears) 0.5 % Ori, 1 DROP OD TID PRN for DRY EYES, (Reported) Epoetin Raffi (Procrit) 20,000 Unit/Ml Inj, 10,000 UNIT INJ Q2WK PRN for LOW BLOOD COUNTS, (Reported) GIVEN AFTER BLOOD COUNT TESTS PER DR. GREEN Allergies Coded Allergies: sulfamethoxazole (Verified Allergy, Mild, ITCHY, ACHY JOINTS, 08/04/18) trimethoprim (Verified Allergy, Mild, ITCHY, ACHY JOINTS, 08/04/18) NSAIDS (Non-Steroidal Anti-Inflamma (Verified Adverse Reaction, Mild, HAD PROBLEM W/HEAVY MENSTRUATION, 08/04/18) amoxicillin (Verified Adverse Reaction, Mild, ACHES/PAINS, 08/04/18) aspirin (Verified Adverse Reaction, Mild, INCREASED BLEEDING D/T COUMADIN, 08/04/18) Past Medical History Medical History Antiphospholipid Syndrome, SLE, ESRD due to Lupus Nephritis s/p Right Kidney Transplant 07/2017, Blindness of Right Eye, ?CHF, Paroxysmal AF, Gout, HLD, Hyperparathyroidism, HTN, Libman-Sacks Endocarditis, ESBL UTI Surgical History Abdominal surgery, Brain surgery, Eye surgery, Kidney transplant, Family History DM, HTN, Kidney disease, Cancer, Asthma Social History * Smoker: Denies Alcohol: Denies Drugs: denies A-FIB/CHADSVASC A-FIB History Current/History of A-Fib/PAF?: Yes Current Oral Anticoagulant The: Yes Review of Systems Constitutional: Reports: Chills, Fever Eyes: Denies: Pain ENT: Denies: Head Aches Skin: Denies: Rash, Lesions Pulmonary: Denies: Dyspnea, Cough Cardiovascular: Denies: Chest Pain, Edema Gastrointestinal: Denies: Nausea, Vomiting, Abdominal Pain, Diarrhea Genitourinary: Reports: Dysuria, Frequency Musculoskeletal: Denies: Neck Pain, Back Pain Neurological: Denies: Weakness, Numbness Psych: Reports: Mood Normal; Denies: Anxiety Physical Examination General Exam: Positive: Alert, Cooperative, No Acute Distress ENT Exam: Positive: Atraumatic Neck Exam: Positive: Supple; Negative: JVD Chest Exam: Positive: Clear to auscultation, Normal air movement Heart Exam: Positive: Rate Normal, Regular Rhythm Abdomen Exam: Positive: Normal bowel sounds, Soft; Negative: Tenderness Extremity Exam: Positive: Normal pulses; Negative: Edema Skin Exam: Positive: Nl turgor and temperature; Negative: Rash Neuro Exam: Positive: Normal Speech, Strength at 5/5 X4 ext Psych Exam: Positive: Mental status NL, Mood NL Vital Signs Vital Signs Date Time Temp Pulse Resp B/P (MAP) Pulse Ox O2 Delivery O2 Flow Rate FiO2 08/22/18 01:10 97.1 69 18 95 Room Air 08/21/18 23:38 Laboratory Data Labs 24H Laboratory Tests 2 08/21/18 22:33: Urine Color PATRIC, Urine Appearance CLOUDYH, Urine pH 5.0, Urine Specific [place] 1.017, Urine Protein 1+H, Urine Glucose (UA) NEGATIVE, Urine Ketones NEGATIVE, Urine Blood NEGATIVE, Urine Nitrite NEGATIVE, Urine Bilirubin NEGATIVE, Urine Urobilinogen 0.2, Urine Leukocyte Esterase 1+H, Urine WBC (Auto) 47H, Urine RBC (Auto) 3, Urine Hyaline Casts (Auto) 0, Urine Bacteria (Auto) 1+H, Urine Squamous Epithelial Cells 3, Urine Amorphous Sediment SMALLH, Urine Mucus (Auto) SMALL, Urine Sperm (Auto) 08/21/18 23:35: Immature Granulocyte % (Auto) 0.9, White Blood Count 5.8, Red Blood Count 3.42L, Hemoglobin 10.2L, Hematocrit 32.8L, Mean Corpuscular Volume 95.9, Mean Corpuscular Hemoglobin 29.8, Mean Corpuscular Hemoglobin Concent 31.1L, Red Cell Distribution Width 15.0H, Platelet Count 152, Neutrophils (%) (Auto) 56.1, Lymphocytes (%) (Auto) 6.8L, Monocytes (%) (Auto) 35.2H, Eosinophils (%) (Auto) 0.3, Basophils (%) (Auto) 0.7, Neutrophils # (Auto) 3.2, Lymphocytes # (Auto) 0.4L, Monocytes # (Auto) 2.0H, Eosinophils # (Auto) 0.0, Basophils # (Auto) 0.0, Nucleated Red Blood Cells % (auto) 0.0, Prothrombin Time 33.5H, Prothromb Time International Ratio 3.20, Activated Partial Thromboplast Time 92.0H, Anion Gap 9, Glomerular Filtration Rate 16.7L, Lactic Acid Level 0.6, Calcium Level 9.0, Aspartate Amino Transf (AST/SGOT) 20, Alanine Aminotransferase (ALT/SGPT) 16, Alkaline Phosphatase 49, Total Bilirubin 0.3, Direct Bilirubin < 0.1, Total Creatine Kinase 39, Creatine Kinase MB < 1.0, Creatine Kinase MB Relative Index 2.56, Troponin I < 0.02, Total Protein 6.6, Albumin 3.4, Albumin/Globulin Ratio 1.06, Lipase 284 CBC/BMP Laboratory Tests 08/21/18 23:35 Red Blood Count 3.42 L, Mean Corpuscular Volume 95.9, Mean Corpuscular Hemoglobin 29.8, Mean Corpuscular Hemoglobin Concent 31.1 L, Red Cell Distribution Width 15.0 H, Neutrophils (%) (Auto) 56.1, Lymphocytes (%) (Auto) 6.8 L, Monocytes (%) (Auto) 35.2 H, Eosinophils (%) (Auto) 0.3, Basophils (%) (Auto) 0.7, Neutrophils # (Auto) 3.2, Lymphocytes # (Auto) 0.4 L, Monocytes # (Auto) 2.0 H, Eosinophils # (Auto) 0.0, Basophils # (Auto) 0.0 Microbiology Microbiology 08/22/18 Blood Culture, Received Pending 08/21/18 Blood Culture, Received Pending 08/21/18 Urine Culture, Received Pending Assessment/Plan UTI in a Renal Transplant Patient on Immunosuppressive Therapy; Hx/O ESBL UTI - Admit to inpatient - Imipenem renally dosed; Diflucan for fungal coverage - Follow c/s - Monitor Signs of Sepsis RABIA - Nephrology consult; I spoke with Dr. Green, he will see the pt later today. - IV Fluid; monitor renal fx closely - Hold diuretic Paroxysmal AF - Currently in SR - INR 3,2 - Continue home dose Coumadin; repeat Coumadin, and adjust accordingly - Continue BB and Flecainide Reported Hx/o CHF - pt has no clinical signs of CHF; monitor while pt is receiving IV fluid S/P Renal Transplant - Continue immunotherapy Plan / VTE VTE Prophylaxis Ordered?: No VTE Exclusion Mechanical Proph: Other VTE Exclusion Pharmacological: Other Plan Anticipated Discharge: Home THEODORA JENSEN MD August 22, 2018 01:26
[2018-08-22] MEDS ORDERED: MOM 30ML SUSPENSION UDC PO PRN (01:30)
[2018-08-22] MEDS ORDERED: MAALOX 30 ML SUSP *UDC PO PRN (01:30)
[2018-08-22] MEDS: ACETAMINOPHEN TAB 650MG DOSE (2X325MG) PO PRN ×2 (01:50→07:05)
[2018-08-22 02:55] VITALS: BP 164/58
[2018-08-22] MEDS ORDERED: ACETAMINOPHEN TAB 650MG DOSE (2X325MG) PO ONE (03:15)
[2018-08-22 03:43] VITALS: BP 164/58
[2018-08-22 04:00] VITALS: BP 132/70
[2018-08-22] MEDS ORDERED: IMIPENEM/CILASTATIN 250 MG in D5W MINI-BAG PLUS 100 ML IV SCH (04:00)
[2018-08-22 04:18] LABS: INR 3.13; PROTHROMBIN TIME 32.9 SECONDS (12.1-14.4)
[2018-08-22 04:27] LABS: CALCIUM LEVEL 8.6 MG/DL (8.5-10.1); CREATININE FOR GFR 2.89 MG/DL (0.55-1.30); GLOMERULAR FILTRATION RATE 17.8 (>51); POTASSIUM SERUM 4.7 MEQ/L (3.5-5.1)
--- NOTE | 2018-08-22 05:48 | DS.PDOC ---
Discharge Summary General Date of Admission August 22, 2018 at 01:16 Date of Discharge 08/22/2018 Discharge Summary PROCEDURES PERFORMED DURING STAY: None. ADMITTING DIAGNOSES: 1. UTI in a Renal Transplant Recipient 2. Acute Renal Failure. DISCHARGE DIAGNOSES: 1. UTI in a Renal Transplant Recipient 2. Acute Renal Failure. COMPLICATIONS/CHIEF COMPLAINT: Arf, Uti. HISTORY OF PRESENT ILLNESS: Ms. Velasco is a 58 years old woman with hx/o Lupus Nephritis, s/p Right Renal transplant on 07/2017 at [facility], s/p biopsy on 07/2018 to r/o BK infection (ruled out) due to rising serum Cr 1.7, hx/o ESBL E. coli UTI in June 2018. The pt presents to ER with c/o chills, rigors, dysuria and urgency for two days. In the ER, pt has a slight temp of 99.1K, with abnormal UA: positive LE, WBC and bacteremia. She was also noted to have elevated serum Cr of 3.05. WBC and hemodynamic was normal. Dr. Radford was contacted from ER; recommended adding Diflucan to cover fungal infection. Record from [facility] reviewed. She was admitted from [birth year]/[age] yo 08/03/18 in order to bridge Coumadin prior to kidney biopsy. During admission she had developed CHF, likely from tachyarrhythmia and mitral regurg. Echo on record from 01/2018 shows moderate mitral regurg with normal EF and LV. Review urine culture from 06/2018 shows ESBL E. coli.. HOSPITAL COURSE: Pt was admitted in phone consultation with Nephrology. She was empirical placed on renally-dosed imipenem due to prior hx of ESBL E coli UTI, and Diflucan to cover fungal infection. Pt spike fever of 105 overnight after admission; hemodynamically stable. Repeat serum Cr did not improve much (from 3.05 to 2.89) after two litre of IV fluid. Transplant team at [facility] contacted early this morning; pt accepted for admission under Dr. Deras. Pt updated on plan; she agrees. DISCHARGE MEDICATIONS: Please see below. ALLERGIES: Please see below. PHYSICAL EXAMINATION ON DISCHARGE: VITAL SIGNS: Please see below. GENERAL: A, Ox3, NAD HEENT/ NECK: neck supple, no JVD CARDIOVASCULAR EXAMINATION: Regular rate and rhythm RESPIRATORY EXAMINATION: CTA b/l ABDOMINAL EXAMINATION: soft, nontender EXTREMITIES: no edema SKIN: no rash NEUROLOGICAL EXAMINATION: no focal deficits PSYCHIATRIC EXAMINATION: no normal mood LABORATORY DATA: Please see below. DISPOSITION: [facility] Vital Signs/I&Os Vital Signs Date Time Temp Pulse Resp B/P (MAP) Pulse Ox O2 Delivery O2 Flow Rate FiO2 08/22/18 04:38 83 08/22/18 04:00 99.9 20 132/70 (90) 97 08/22/18 01:10 Room Air I&O- Last 24 Hours up to 6 AM 08/22/18 06:00 Intake Total 150 ml Output Total 0 ml Balance 150 ml Laboratory Data Labs 24H Laboratory Tests 2 08/21/18 22:33: Urine Color PATRIC, Urine Appearance CLOUDYH, Urine pH 5.0, Urine Specific [place] 1.017, Urine Protein 1+H, Urine Glucose (UA) NEGATIVE, Urine Ketones NEG ATIVE, Urine Blood NEGATIVE, Urine Nitrite NEGATIVE, Urine Bilirubin NEGATIVE, Urine Urobilinogen 0.2, Urine Leukocyte Esterase 1+H, Urine WBC (Auto) 47H, Urine RBC (Auto) 3, Urine Hyaline Casts (Auto) 0, Urine Bacteria (Auto) 1+H, Urine Squamous Epithelial Cells 3, Urine Amorphous Sediment SMALLH, Urine Mucus (Auto) SMALL, Urine Sperm (Auto) 08/21/18 23:35: Immature Granulocyte % (Auto) 0.9, White Blood Count 5.8, Red Blood Count 3.42L, Hemoglobin 10.2L, Hematocrit 32.8L, Mean Corpuscular Volume 95.9, Mean Corpuscular Hemoglobin 29.8, Mean Corpuscular Hemoglobin Concent 31.1L, Red Cell Distribution Width 15.0H, Platelet Count 152, Neutrophils (%) (Auto) 56.1, Lymphocytes (%) (Auto) 6.8L, Monocytes (%) (Auto) 35.2H, Eosinophils (%) (Auto) 0.3, Basophils (%) (Auto) 0.7, Neutrophils # (Auto) 3.2, Lymphocytes # (Auto) 0.4L, Monocytes # (Auto) 2.0H, Eosinophils # (Auto) 0.0, Basophils # (Auto) 0.0, Nucleated Red Blood Cells % (auto) 0.0, Prothrombin Time 33.5H, Prothromb Time International Ratio 3.20, Activated Partial Thromboplast Time 92.0H, Anion Gap 9, Glomerular Filtration Rate 16.7L, Lactic Acid Level 0.6, Calcium Level 9.0, Aspartate Amino Transf (AST/SGOT) 20, Alanine Aminotransferase (ALT/SGPT) 16, Alkaline Phosphatase 49, Total Bilirubin 0.3, Direct Bilirubin < 0.1, Total Creatine Kinase 39, Creatine Kinase MB < 1.0, Creatine Kinase MB Relative Index 2.56, Troponin I < 0.02, Total Protein 6.6, Albumin 3.4, Albumin/Globulin Ratio 1.06, Lipase 284 08/22/18 03:40: Prothrombin Time 32.9H, Prothromb Time International Ratio 3.13, Anion Gap 8, Glomerular Filtration Rate 17.8L, Calcium Level 8.6, Blood Urea Nitrogen 67H, Creatinine 2.89H, Sodium Level 135L, Potassium Level 4.7, Chloride Level 107, Carbon Dioxide Level 20L 08/22/18 05:31: CBC/BMP Laboratory Tests 08/21/18 23:35 Red Blood Count 3.42 L, Mean Corpuscular Volume 95.9, Mean Corpuscular Hemoglobin 29.8, Mean Corpuscular Hemoglobin Concent 31.1 L, Red Cell Distribution Width 15.0 H, Neutrophils (%) (Auto) 56.1, Lymphocytes (%) (Auto) 6.8 L, Monocytes (%) (Auto) 35.2 H, Eosinophils (%) (Auto) 0.3, Basophils (%) (Auto) 0.7, Neutrophils # (Auto) 3.2, Lymphocytes # (Auto) 0.4 L, Monocytes # (Auto) 2.0 H, Eosinophils # (Auto) 0.0, Basophils # (Auto) 0.0 08/22/18 03:40 Calcium Level 8.6 Microbiology Microbiology 08/22/18 Blood Culture, Received Pending 08/21/18 Blood Culture, Received Pending 08/21/18 Urine Culture, Received Pending Discharge Medications Scheduled Ascorbic Acid (Vitamin C) 500 Mg Tab, 500 MG PO DAILY, (Reported) Atorvastatin Calcium (Atorvastatin Calcium) 10 Mg Tab, 10 MG PO QHS, (Reported) Calcitriol (Calcitriol) 0.25 Mcg Cap, 0.25 MCG PO BID, (Reported) Ferrous Sulfate (Iron) 325 Mg Tab, 650 MG PO QPM, (Reported) Flecainide Acetate (Flecainide Acetate) 50 Mg Tab, 50 MG PO BID, (Reported) Folic Acid/Vit B Complex and C (Nicole-Hardik Tablet) 1 Tab Tab, 1 TAB PO DAILY, (Reported) Furosemide (Furosemide) 20 Mg Tablet, 20 MG PO DAILY, (Reported) Hydralazine HCl (Hydralazine HCl) 25 Mg Tab, 25 MG PO TID, (Reported) HOLD FOR SYSTOLIC BP <100 Isosorbide Mononitrate (Isosorbide Mononitrate ER) 30 Mg Tab.er.24h, 30 MG PO B ID, (Reported) Lactobacillus Acidophilus (Probiotic) 1 Each Capsule, 1 CAP PO DAILY, (Reported) Magnesium Oxide (Magnesium Oxide) 400 Mg Tab, 800 MG PO DAILY, (Reported) AT NOON Metoprolol Tartrate (Metoprolol Tartrate) 100 Mg Tab, 100 MG PO BID, (Reported) Mycophenolate Mofetil (Cellcept) 250 Mg Cap, 500 MG PO BID, (Reported) Prednisone (Prednisone) 5 Mg Tab, 5 MG PO DAILY, (Reported) Tacrolimus (Tacrolimus) 1 Mg Cap, 2 MG PO BID, (Reported) TOTAL DOSE: 2.5 MG BID (5 MG PER DAY) Tacrolimus (Tacrolimus) 0.5 Mg Capsule, 0.5 MG PO BID, (Reported) TOTAL DOSE: 2.5 MG BID (5 MG PER DAY) Warfarin Sodium (Coumadin) 5 Mg Tab, 5 MG PO QHS, (Reported) Scheduled PRN Acetaminophen (Acetaminophen) 500 Mg Tablet, 1,000 MG PO Q6H PRN for PAIN / FEVER, (Reported) Carboxymethylcellulose Sodium (Refresh Tears) 0.5 % Ori, 1 DROP OD TID PRN for DRY EYES, (Reported) Epoetin Raffi (Procrit) 20,000 Unit/Ml Inj, 10,000 UNIT INJ Q2WK PRN for LOW BLOOD COUNTS, (Reported) GIVEN AFTER BLOOD COUNT TESTS PER DR. RADFORD Allergies Coded Allergies: sulfamethoxazole (Verified Allergy, Mild, ITCHY, ACHY JOINTS, 08/04/18) trimethoprim (Verified Allergy, Mild, ITCHY, ACHY JOINTS, 08/04/18) NSAIDS (Non-Steroidal Anti-Inflamma (Verified Adverse Reaction, Mild, HAD PROBLEM W/HEAVY MENSTRUATION, 08/04/18) amoxicillin (Verified Adverse Reaction, Mild, ACHES/PAINS, 08/04/18) aspirin (Verified Adverse Reaction, Mild, INCREASED BLEEDING D/T COUMADIN, 08/04/18) THEODORA JENSEN MD August 22, 2018 05:48
--- NOTE | 2018-08-22 06:00 | ECGEPIP ---
Stationary ECG Study [facility] [place] - ED Test Date: 2018-08-21 Pat Name: MARIA ALEJANDRA LANGLEY Department: Room: - Gender: F Pluck Separator: keturah : 1960 Requested By: DADA Jasmine Order Number: [id number] Reading MD: Prasanna Zamora Measurements Intervals [place] Rate: 67 P: -16 IN: 174 QRS: 9 QRSD: 85 T: 60 QT: 387 QTc: 409 Interpretive Statements SINUS RHYTHM POOR R WAVE PROGRESSION NONSPECIFIC ST & T-WAVE ABNORMALITY SIMILAR TO 05/14/16 Electronically Signed On 08-22-2018 6:00:09 EDT by Prasanna Zamora
[2018-08-22 06:34] VITALS: BP 150/62
--- NOTE | 2018-08-22 07:59 | REP ---
Portable chest x-ray: Single view. History: Weakness. Comparison chest x-ray: May 14, 2016. Findings: EKG monitoring electrodes overlie the chest. The lungs are symmetrically aerated and clear. The heart is enlarged, somewhat more so than on the prior study with evidence of left atrial enlargement as well. The thoracic aorta is tortuous. Pleural angles are sharp. Pulmonary vasculature is somewhat cephalized. Impression: Cardiomegaly and pulmonary vascular cephalization. No evidence of pleural effusion or pulmonary edema. Electronically Signed by Seun Calixto MD 08/22/2018 07:51 A
[2018-08-22] MEDS ORDERED: ASCORBIC ACID 500 MG TAB PO SCH (09:00)
[2018-08-22] MEDS ORDERED: LACTOBACILLUS ACIDOPHILUS CAP (BACID) PO SCH (09:00)
[2018-08-22] MEDS ORDERED: predniSONE 5 MG TAB PO SCH (09:00)
[2018-08-22] MEDS ORDERED: FOLIC ACID 1 MG TAB PO SCH (09:00)
[2018-08-22] MEDS ORDERED: FLUCONAZOLE 100 MG TAB PO SCH (09:00)
[2018-08-22] MEDS ORDERED: MAGNESIUM OXIDE 400 MG TAB (MAG-OX) PO SCH (12:00)
[2018-08-22] MEDS ORDERED: FERROUS SULFATE 325MG TAB PO SCH (18:00)
[2018-08-25 00:07] LABS: BK VIRUS BLOOD PCR1 Positive < 200 copies/mL (Negative)
== END 2018-08-22 07:01 | disposition short-term general hospital (02) | DRG 683 ==
LOC: M ED 21:54 → M ED INP 08-22 01:16 → M PCU 08-22 02:35
PROVIDERS: ADMIT Internal Medicine; ATTEND Internal Medicine
DX: N17.9 Acute kidney failure, unspecified (principal); N39.0 Urinary tract infection, site not specified; Z94.0 Kidney transplant status; D68.61 Antiphospholipid syndrome; N25.81 Secondary hyperparathyroidism of renal origin; Z79.899 Other long term (current) drug therapy; Z88.2 Allergy status to sulfonamides; Z88.6 Allergy status to analgesic agent; I48.0 Paroxysmal atrial fibrillation; M10.9 Gout, unspecified; I10 Essential (primary) hypertension

== ENCOUNTER 2018-09-08 13:49 | Inpatient (IN) | payer MEDICARE ==
[~2018-09-08] VITALS: Ht 149.9 cm; Wt 49.4 kg
[~2018-09-08 13:49] MED LIST changes: -**hydrALAZINE** 10 MG TAB PO SCH; +ACET500T15 PO; -ATORVASTATIN 10 MG TAB PO SCH; -CALCITRIOL 0.25 MCG CAP (S0169) PO SCH; +COUM1TAB17; -FLECAINIDE 50MG TABLET PO SCH; +FURO40TA2; -ISOSORBIDE MON. (IMDUR) 30 MG XR TAB PO SCH; -METOPROLOL TARTRATE 100 MG TAB PO SCH; -MYCOPHENOLATE MOFETIL 250 MG CAP (J7517) PO SCH; +PRED5TA; +PROBCAP14 PO; +PROCRIT; +TACR0.5C3 PO; -TACROLIMUS 0.5 MG CAP PO SCH; -TACROLIMUS 1 MG CAP (J7507) PO SCH; -WARFARIN SOD 5 MG TAB PO SCH
[2018-09-08] MEDS ORDERED: [UNRECOGNIZED DRUG - CODE] PO (14:19)
[2018-09-08] MEDS ORDERED: ACETAMINOPHEN TAB 650MG DOSE (2X325MG) PO ONE (16:15)
[2018-09-08] MEDS ORDERED: CEFEPIME HCL 1 GM in D5W MINI-BAG PLUS 50 ML IV ONE (16:15)
[2018-09-08 16:32] LABS: BASO % 1.4 % (0.0-1.0); EOS % 0.7 % (0.0-3.0); HEMATOCRIT 32.5 % (36.0-47.0); HEMOGLOBIN 9.9 g/dl (12.0-15.5); LYMPH # 0.4 10^3/uL (1.5-4.5); LYMPH % 25.4 % (24.0-44.0); MEAN CORPUSCULAR HEMOGLOBIN 29.4 pg (27.0-33.0); MEAN CORPUSCULAR HGB CONC 30.5 g/dl (32.0-36.5); MEAN CORPUSCULAR VOLUME 96.4 fl (80.0-96.0); MONO # 0.5 10^3/uL (0.0-0.8); MONO % 32.4 % (0.0-5.0); NEUTROPHILS % 39.4 % (36.0-66.0); PLATELET COUNT, AUTOMATED 156 10^3/uL (150-450); RED BLOOD COUNT 3.37 10^6/uL (4.00-5.40)
--- NOTE | 2018-09-08 16:52 | REP ---
Clinical: Fever. Technique: PA and lateral. Comparison: 08/22/2018. Findings: Stable cardiomegaly. No focal consolidation, effusion, or pneumothorax. Skeletal structures are intact. Impression: Stable cardiomegaly. No focal consolidation. Electronically Signed by Louie Moore MD 09/08/2018 04:43 P
[2018-09-08 17:00] LABS: ALBUMIN 3.1 GM/DL (3.2-5.2); BILIRUBIN,TOTAL 0.3 MG/DL (0.2-1.0); CALCIUM LEVEL 8.9 MG/DL (8.5-10.1); CREATININE FOR GFR 2.64 MG/DL (0.55-1.30); GLOMERULAR FILTRATION RATE 19.7 (>51); POTASSIUM SERUM 4.9 MEQ/L (3.5-5.1); TOTAL PROTEIN 6.6 GM/DL (6.4-8.2)
[2018-09-08 17:22] LABS: NEUTROPHILS # 0.6 10^3/uL (1.8-7.7); WHITE BLOOD COUNT 1.4 10^3/uL (4.0-10.0)
[2018-09-08] MEDS ORDERED: HYDR-3911 PO (18:25)
[2018-09-08] MEDS ORDERED: FLORCAP10 PO (18:25)
[2018-09-08] MEDS ORDERED: ACETAMINOPHEN TAB 650MG DOSE (2X325MG) PO PRN (20:00)
[2018-09-08] MEDS ORDERED: MOM 30ML SUSPENSION UDC PO PRN (20:00)
[2018-09-08] MEDS ORDERED: MAALOX 30 ML SUSP *UDC PO PRN (20:00)
[2018-09-08 20:43] LABS: PROTHROMBIN TIME 23.1 SECONDS (12.1-14.4)
--- NOTE | 2018-09-08 20:49 | HPEPDOC ---
General Date of Admission September 08, 2018 at 19:51 Date of Service: September 08, 2018 Chief Complaint The patient is a 58-year-old female admitted with a reason for visit of Bronchitis Febrile Neutropenia. Source: Patient, RN/MD, Old records Exam Limitations: No limitations History of Present Illness Ms. Velasco is a 58 years old woman who is a kidney transplant recipient, on immunotherapy. She was sent by Dr. Green to ER today due to low blood count. Her WBC is 1.4K, and ANC is 560. Pt has cough for several days that is slightly productive, but otherwise feels fine and has no change in her usual state of health. Pt has a low grade temp of 100.5 in the ER. She denies abdominal pain, diarrhea, dysuria or frequency. She reports normal fluid intake. Cr is slightly elevated at 2.64; usually her Cr runs lower than 2.0. UA and CXR are normal. Pt was recently admitted here about two weeks ago with UTI, sepsis and RABIA; she was transferred to [facility] under the care of kidney transplant team. Home Medications Scheduled Ascorbic Acid (Vitamin C) 500 Mg Tab, 500 MG PO DAILY, (Reported) Atorvastatin Calcium (Atorvastatin Calcium) 10 Mg Tab, 10 MG PO QHS, (Reported) Calcitriol (Calcitriol) 0.25 Mcg Cap, 0.25 MCG PO BID, (Reported) Ferrous Sulfate (Iron) 325 Mg Tab, 650 MG PO QPM, (Reported) Flecainide Acetate (Flecainide Acetate) 50 Mg Tab, 50 MG PO BID, (Reported) Folic Acid/Vit B Complex and C (Nicole-Hardik Tablet) 1 Tab Tab, 1 TAB PO DAILY, (Reported) Furosemide (Furosemide) 20 Mg Tablet, 20 MG PO DAILY, (Reported) Hydralazine HCl (Hydralazine HCl) 50 Mg Tablet, 50 MG PO BID, (Reported) Isosorbide Mononitrate (Isosorbide Mononitrate ER) 30 Mg Tab.er.24h, 30 MG PO BID, (Reported) Magnesium Oxide (Magnesium Oxide) 400 Mg Tab, 800 MG PO DAILY, (Reported) AT NOON Metoprolol Tartrate (Metoprolol Tartrate) 100 Mg Tab, 100 MG PO BID, (Reported) Mycophenolate Mofetil (Cellcept) 250 Mg Cap, 500 MG PO BID, (Reported) Prednisone (Prednisone) 5 Mg Tab, 5 MG PO DAILY, (Reported) Tacrolimus (Tacrolimus) 1 Mg Cap, 1 MG PO BID, (Reported) Warfarin Sodium (Coumadin) 5 Mg Tab, 5 MG PO QHS, (Reported) BEEN ON HOLD FOR 2 DAYS FOR LOW BLOOD COUNT l Acidophil/B Lactis/B Longum (Florajen3 Capsule) 460 Mg Capsule, 1 CAP PO SHANI LY, (Reported) Scheduled PRN Acetaminophen (Acetaminophen) 500 Mg Tablet, 1,000 MG PO Q6H PRN for PAIN / FEVER, (Reported) Carboxymethylcellulose Sodium (Refresh Tears) 0.5 % Ori, 1 DROP OD TID PRN for DRY EYES, (Reported) Epoetin Raffi (Procrit) 20,000 Unit/Ml Inj, 10,000 UNIT INJ Q2WK PRN for LOW BLOOD COUNTS, (Reported) GIVEN AFTER BLOOD COUNT TESTS PER DR. 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 Nephritis s/p Right Kidney Transplant 07/2017, Blindness of Right Eye, ?CHF, Paroxysmal AF, Gout, HLD, Hyperparathyroidism, HTN, Libman-Sacks Endocarditis, ESBL UTI Surgical History Abdominal surgery, Brain surgery, Eye surgery, Kidney transplant, Family History DM, HTN, Kidney disease, Cancer, Asthma Social History * Smoker: Denies Alcohol: Denies Drugs: denies A-FIB/CHADSVASC A-FIB History Current/History of A-Fib/PAF?: No Review of Systems Constitutional: Reports: Fever; Denies: Chills Eyes: Denies: Pain ENT: Denies: Head Aches Skin: Denies: Rash, Lesions Pulmonary: Reports: Cough; Denies: Dyspnea Cardiovascular: Denies: Chest Pain, Edema Gastrointestinal: Denies: Nausea, Vomiting, Abdominal Pain, Diarrhea Genitourinary: Denies: Dysuria, Frequency Musculoskeletal: Denies: Neck Pain, Back Pain Neurological: Denies: Weakness, Numbness Psych: Reports: Mood Normal; Denies: Anxiety Physical Examination General Exam: Positive: Alert, Cooperative, No Acute Distress Eye Exam: Positive: PERRLA ENT Exam: Positive: Atraumatic Neck Exam: Positive: Supple; Negative: JVD Chest Exam: Positive: Clear to auscultation, Normal air movement Heart Exam: Positive: Rate Normal, Regular Rhythm Abdomen Exam: Positive: Normal bowel sounds, Soft; Negative: Tenderness Extremity Exam: Positive: Normal pulses; Negative: Edema Skin Exam: Positive: Nl turgor and temperature; Negative: Rash Neuro Exam: Positive: Normal Speech, Strength at 5/5 X4 ext Psych Exam: Positive: Mental status NL, Mood NL; Negative: Anxiety Vital Signs Vital Signs Date Time Temp Pulse Resp B/P (MAP) Pulse Ox O2 Delivery O2 Flow Rate FiO2 09/08/18 18:04 60 18 131/67 (88) 95 Room Air 09/08/18 13:50 100.5 Laboratory Data Labs 24H Laboratory Tests 2 09/08/18 16:05: Anion Gap 6L, Glomerular Filtration Rate 19.7L, Blood Urea Nitrogen 45H, Creatinine 2.64H, Sodium Level 140, Potassium Level 4.9, Chloride Level 108H, Carbon Dioxide Level 26, Calcium Level 8.9, Aspartate Amino Transf (AST/SGOT) 22, Alanine Aminotransferase (ALT/SGPT) 19, Alkaline Phosphatase 71, Total Bilirubin 0.3, Total Protein 6.6, Albumin 3.1L, Albumin/Globulin Ratio 0.89L 09/08/18 16:19: Immature Granulocyte % (Auto) 0.7, White Blood Count 1.4L, Red Blood Count 3.37L, Hemoglobin 9.9L, Hematocrit 32.5L, Mean Corpuscular Volume 96.4H, Mean Corpuscular Hemoglobin 29.4, Mean Corpuscular Hemoglobin Concent 30.5L, Red Cell Distribution Width 15.0H, Platelet Count 156, Neutrophils (%) (Auto) 39.4, Lymphocytes (%) (Auto) 25.4, Monocytes (%) (Auto) 32.4H, Eosinophils (%) (Auto) 0.7, Basophils (%) (Auto) 1.4H, Neutrophils # (Auto) 0.6L, Lymphocytes # (Auto) 0.4L, Monocytes # (Auto) 0.5, Eosinophils # (Auto) 0.0, Basophils # (Auto) 0.0, Nucleated Red Blood Cells % (auto) 0.0 09/08/18 18:40: Urine Color YELLOW, Urine Appearance CLEAR, Urine pH 5.0, Urine Specific [place] 1.013, Urine Protein 1+H, Urine Glucose (UA) NEGATIVE, Urine Ketones NEGATIVE, Urine Blood NEGATIVE, Urine Nitrite NEGATIVE, Urine Bilirubin NEGATIVE, Urine Urobilinogen 0.2, Urine Leukocyte Esterase NEGATIVE, Urine WBC (Auto) 4H, Urine RBC (Auto) 2, Urine Hyaline Casts (Auto) 0, Urine Bacteria (Auto) NEGATIVE, Urine Squamous Epithelial Cells 0, Urine Mucus (Auto) SMALL, Urine Sperm (Auto) CBC/BMP Laboratory Tests 09/08/18 16:05 Calcium Level 8.9, Aspartate Amino Transf (AST/SGOT) 22, Alanine Aminotransferase (ALT/SGPT) 19, Alkaline Phosphatase 71, Total Bilirubin 0.3, Total Protein 6.6, Albumin 3.1 L 09/08/18 16:19 Red Blood Count 3.37 L, Mean Corpuscular Volume 96.4 H, Mean Corpuscular Hemoglobin 29.4, Mean Corpuscular Hemoglobin Concent 30.5 L, Red Cell Distribution Width 15.0 H, Neutrophils (%) (Auto) 39.4, Lymphocytes (%) (Auto) 25.4, Monocytes (%) (Auto) 32.4 H, Eosinophils (%) (Auto) 0.7, Basophils (%) (Auto) 1.4 H, Neutrophils # (Auto) 0.6 L, Lymphocytes # (Auto) 0.4 L, Monocytes # (Auto) 0.5, Eosinophils # (Auto) 0.0, Basophils # (Auto) 0.0 Microbiology Microbiology 09/08/18 Blood Culture, Received Pending 09/08/18 Blood Culture, Received Pending Assessment/Plan Cellcept-induced Neutropenia, Acute Bronchitis, Slight Worsening of CKD 3, Kidney Transplant Recipient on Immunotherapy - Admit to inpatient - Oral Doxy for bronchitis; pt has no signs of sepsis - Neupogen - Montior renal fx; IV Fluid; Renal consult Continue home meds for other chronic illness Plan / VTE VTE Prophylaxis Ordered?: No VTE Exclusion Mechanical Proph: Other VTE Exclusion Pharmacological: Other Plan Anticipated Discharge: Home THEODORA JENSEN MD September 08, 2018 20:49
[2018-09-08] MEDS ORDERED: FILGRASTIM 300 MCG/0.5 ML SYRINGE (J1442 PER 1MCG) SC SCH (21:00)
[2018-09-08] MEDS ORDERED: MYCOPHENOLATE MOFETIL 250 MG CAP (J7517) PO SCH (21:00)
[2018-09-08] MEDS ORDERED: POLYVINYL ALCOHOL OPHTH SOLN 15 ML(LIQUITEARS) OU PRN (21:00)
[2018-09-08] MEDS ORDERED: AZITHROMYCIN 250 MG TAB PO SCH (21:00)
[2018-09-08] MEDS: ATORVASTATIN 10 MG TAB PO SCH (21:49)
[2018-09-08] MEDS: FERROUS SULFATE 325MG TAB PO SCH (21:50)
[2018-09-08] MEDS: METOPROLOL TARTRATE 100 MG TAB PO SCH (21:50)
[2018-09-08] MEDS: DOXYCYCLINE HYCLATE 100 MG TAB PO SCH (21:50)
[2018-09-08] MEDS: **hydrALAZINE** 50 MG TAB PO SCH (21:50)
[2018-09-08] MEDS: FLECAINIDE 50MG TABLET PO SCH (21:51)
[2018-09-08] MEDS: WARFARIN SOD 5 MG TAB PO SCH (21:51)
[2018-09-08] MEDS: ISOSORBIDE MON. (IMDUR) 30 MG XR TAB PO SCH (21:51)
[2018-09-08 22:10] VITALS: BP 160/78
[2018-09-08] MEDS: CALCITRIOL 0.25 MCG CAP (S0169) PO SCH (23:01)
[2018-09-08] MEDS: TACROLIMUS 1 MG CAP (J7507) PO SCH (23:01)
[2018-09-08 23:59] VITALS: BP 164/78
[2018-09-09] VITALS (7 sets, daily range): BP systolic 108–168; BP diastolic 53–72
[2018-09-09 05:53] LABS: HEMATOCRIT 33.1 % (36.0-47.0); HEMOGLOBIN 9.9 g/dl (12.0-15.5); MEAN CORPUSCULAR HEMOGLOBIN 28.1 pg (27.0-33.0); MEAN CORPUSCULAR HGB CONC 29.9 g/dl (32.0-36.5); PLATELET COUNT, AUTOMATED 134 10^3/uL (150-450); RED BLOOD COUNT 3.52 10^6/uL (4.00-5.40); WHITE BLOOD COUNT 6.8 10^3/uL (4.0-10.0)
[2018-09-09 06:06] LABS: INR 1.85; PROTHROMBIN TIME 21.7 SECONDS (12.1-14.4)
[2018-09-09 06:19] LABS: ALBUMIN 3.1 GM/DL (3.2-5.2); BILIRUBIN,TOTAL 0.4 MG/DL (0.2-1.0); CALCIUM LEVEL 9.5 MG/DL (8.5-10.1); CREATININE FOR GFR 2.24 MG/DL (0.55-1.30); GLOMERULAR FILTRATION RATE 23.8 (>51); POTASSIUM SERUM 4.6 MEQ/L (3.5-5.1); TOTAL PROTEIN 6.8 GM/DL (6.4-8.2)
[2018-09-09] MEDS: TACROLIMUS 1 MG CAP (J7507) PO SCH ×2 (09:41→21:24)
[2018-09-09] MEDS: CALCITRIOL 0.25 MCG CAP (S0169) PO SCH ×2 (09:41→21:23)
[2018-09-09] MEDS: **hydrALAZINE** 50 MG TAB PO SCH ×2 (09:43→21:24)
[2018-09-09] MEDS: DOXYCYCLINE HYCLATE 100 MG TAB PO SCH ×2 (09:43→21:24)
[2018-09-09] MEDS: ISOSORBIDE MON. (IMDUR) 30 MG XR TAB PO SCH ×2 (09:43→21:25)
[2018-09-09] MEDS: FLECAINIDE 50MG TABLET PO SCH ×2 (09:43→21:23)
[2018-09-09] MEDS: predniSONE 5 MG TAB PO SCH (09:43)
[2018-09-09] MEDS: METOPROLOL TARTRATE 100 MG TAB PO SCH ×2 (09:44→21:24)
[2018-09-09] MEDS: MYCOPHENOLATE MOFETIL 250 MG CAP (J7517) PO SCH ×2 (10:12→21:24)
[2018-09-09] MEDS: MAGNESIUM OXIDE 400 MG TAB (MAG-OX) PO SCH (12:25)
[2018-09-09 13:23] LABS: BASO % 0.2 % (0.0-1.0); EOS % 0.3 % (0.0-3.0); HEMOGLOBIN 10.3 g/dl (12.0-15.5); LYMPH # 0.5 10^3/uL (1.5-4.5); LYMPH % 3.8 % (24.0-44.0); MEAN CORPUSCULAR HEMOGLOBIN 29.3 pg (27.0-33.0); MEAN CORPUSCULAR HGB CONC 30.3 g/dl (32.0-36.5); MEAN CORPUSCULAR VOLUME 96.9 fl (80.0-96.0); MONO # 0.9 10^3/uL (0.0-0.8); NEUTROPHILS # 10.7 10^3/uL (1.8-7.7); NEUTROPHILS % 87.6 % (36.0-66.0); PLATELET COUNT, AUTOMATED 141 10^3/uL (150-450); RED BLOOD COUNT 3.51 10^6/uL (4.00-5.40); WHITE BLOOD COUNT 12.3 10^3/uL (4.0-10.0)
[2018-09-09] MEDS ORDERED: SLF 3 ML SYR IV PRN (13:30)
[2018-09-09] MEDS: SLF 3 ML SYR IV SCH ×2 (14:00→22:00)
[2018-09-09] MEDS ORDERED: **hydrALAZINE HCL** 25 MG TAB PO SCH (14:00)
--- NOTE | 2018-09-09 16:51 | IPNPDOC ---
Subjective Date Seen The patient was seen on 09/09/18. Subjective Chief Complaint/HPI Cough, fever, neutropenia Events since last encounter The patient reports she still has some cough with productive colored sputum, associated with low-grade fever, no associated chills or sweats, no associated chest pain. No nausea or vomiting. No abdominal pain. Ambulating okay. Objective Physical Examination General Exam: Positive: Alert, Cooperative, No Acute Distress, Other (sitting up in chair) Eye Exam: Positive: PERRLA ENT Exam: Positive: Mucous membr. moist/pink Neck Exam: Positive: Supple; Negative: JVD Chest Exam: Positive: Other (slight adventitious sounds secondary to secretions but otherwise no wheeze, no distress) Heart Exam: Positive: Normal S1, Normal S2; Negative: Gallops, Rubs Abdomen Exam: Positive: Soft; Negative: Tenderness Extremity Exam: Positive: Normal pulses; Negative: Edema Skin Exam: Negative: Rash Neuro Exam: Positive: Normal Speech, Other (awake, alert, oriented 3 and answering questions appropriately.) Psych Exam: Positive: Mental status NL, Mood NL Assessment /Plan Assessment Neutropenia, possibly secondary to mycophenolate: -Improved post Neupogen yesterday -ANC count 10,774 today -Leukocytosis is likely secondary to the Neupogen. Acute bronchitis -Continue oral doxycycline -Patient does not appear septic or toxic -Tmax 100.3 early this morning -Sputum culture pending Acute on chronic kidney disease stage III in setting of history of kidney transplant: -Patient was seen by an case was discussed with Dr. Hernandez from nephrology -Case was also discussed with patient's transplant team in [facility] -Creatinine has improveddown to 2.2 today. Patient reports she had not been able to eat or drink much while she was waiting in the ER yesterdaythis may have contributed to the elevated creatinine. -Per discussion with the member of transplant team, patient should follow-up at [facility] in 1-2 weeks upon discharge. -I did check with our laboratorytacrolimus level testing would be a send out test and will take about 7 business days to return. Per discussion with the member from transplant team, if tacrolimus level is more than 6, we could pos sibly hold the mycophenolate, however, since we will likely not get these results back for over a week, we will continue with the patient's current regimen until she follows up with the transplant team. -Continue tacrolimus 1 mg twice a day, mycophenolate 250 g by mouth twice a day and prednisone 5 mg daily Hypertension: -Continue hydralazine, metoprolol, isosorbide mononitrate Paroxysmal atrial fibrillation: -Continue metoprolol, warfarin, flecainide Hyperlipidemia: -Continue atorvastatin Hypoparathyroidism: -Continue Calcitriol DVT PPx: -On warfarin Disposition: Anticipate discharge home hopefully within the next 24 hours if clinically improving Plan/VTE VTE Prophylaxis Ordered?: Yes VTE Exclusion Mechanical Proph: Other VTE Exclusion Pharmacological: Other Plan Anticipated Discharge: Home VS, I&O, 24H, [facility] Vital Signs/I&O Vital Signs Date Time Temp Pulse Resp B/P (MAP) Pulse Ox O2 Delivery O2 Flow Rate FiO2 09/09/18 16:00 98.8 62 16 108/53 (71) 95 09/08/18 21:49 Room Air I&O- Last 24 Hours up to 6 AM 09/09/18 06:00 Intake Total 50 ml Output Total 500 ml Balance -450 ml Laboratory Data 24H LABS Laboratory Tests 2 09/08/18 18:40: Urine Color YELLOW, Urine Appearance CLEAR, Urine pH 5.0, Urine Specific [place] 1.013, Urine Protein 1+H, Urine Glucose (UA) NEGATIVE, Urine Ketones NEGATIVE, Urine Blood NEGATIVE, Urine Nitrite NEGATIVE, Urine Bilirubin NEGATIVE, Urine Urobilinogen 0.2, Urine Leukocyte Esterase NEGATIVE, Urine WBC (Auto) 4H, Urine RBC (Auto) 2, Urine Hyaline Casts (Auto) 0, Urine Bacteria (Auto) NEGATIVE, Urine Squamous Epithelial Cells 0, Urine Mucus (Auto) SMALL, Urine Sperm (Auto) 09/08/18 20:23: Prothrombin Time 23.1H, Prothromb Time International Ratio 2.00 09/09/18 05:34: Prothrombin Time 21.7H, Prothromb Time International Ratio 1.85, Nucleated Red Blood Cells % (auto) 0.0, Anion Gap 8, Glomerular Filtration Rate 23.8L, Blood Urea Nitrogen 42H, Creatinine 2.24H, Sodium Level 137, Potassium Level 4.6, Chloride Level 108H, Carbon Dioxide Level 21, Calcium Level 9.5, Aspartate Amino Transf (AST/SGOT) 18, Alanine Aminotransferase (ALT/SGPT) 19, Alkaline Phosphatase 68, Total Bilirubin 0.4, Total Protein 6.8, Albumin 3.1L, Albumin/Globulin Ratio 0.84L 09/09/18 13:04: Nucleated Red Blood Cells % (auto) 0.0, Immature Granulocyte % (Auto) 1.1, White Blood Count 12.3H, Red Blood Count 3.51L, Hemoglobin 10.3L, Hematocrit 34.0L, Mean Corpuscular Volume 96.9H, Mean Corpuscular Hemoglobin 29.3, Mean Corpuscular Hemoglobin Concent 30.3L, Red Cell Distribution Width 14.8H, Platelet Count 141L, Neutrophils (%) (Auto) 87.6H, Lymphocytes (%) (Auto) 3.8L, Monocytes (%) (Auto) 7.0H, Eosinophils (%) (Auto) 0.3, Basophils (%) (Auto) 0.2, Neutrophils # (Auto) 10.7H, Lymphocytes # (Auto) 0.5L, Monocytes # (Auto) 0.9H, Eosinophils # (Auto) 0.0, Basophils # (Auto) 0.0 CBC/BMP Laboratory Tests 09/09/18 05:34 Red Blood Count 3.52 L, Mean Corpuscular Volume 94.0, Mean Corpuscular Hemoglobin 28.1, Mean Corpuscular Hemoglobin Concent 29.9 L, Red Cell Distribution Width 14.8 H, Calcium Level 9.5, Aspartate Amino Transf (AST/SGOT) 18, Alanine Aminotransferase (ALT/SGPT) 19, Alkaline Phosphatase 68, Total Bilirubin 0.4, Total Protein 6.8, Albumin 3.1 L 09/09/18 13:04 Red Blood Count 3.51 L, Mean Corpuscular Volume 96.9 H, Mean Corpuscular Hemoglobin 29.3, Mean Corpuscular Hemoglobin Concent 30.3 L, Red Cell Distribution Width 14.8 H, Neutrophils (%) (Auto) 87.6 H, Lymphocytes (%) (Auto) 3.8 L, Monocytes (%) (Auto) 7.0 H, Eosinophils (%) (Auto) 0.3, Basophils (%) (Auto) 0.2, Neutrophils # (Auto) 10.7 H, Lymphocytes # (Auto) 0.5 L, Monocytes # (Auto) 0.9 H, Eosinophils # (Auto) 0.0, Basophils # (Auto) 0.0 Microbiology Microbiology 09/08/18 Blood Culture - Preliminary, Resulted No growth after 24 hours . All specim... 09/08/18 Blood Culture, Received Pending 09/09/18 Gram Stain - Final, Resulted 09/09/18 Sputum Culture, Resulted Pending DONAVON THEODORE MD September 09, 2018 16:51
[2018-09-09] MEDS: ATORVASTATIN 10 MG TAB PO SCH (21:23)
[2018-09-09] MEDS: WARFARIN SOD 5 MG TAB PO SCH (21:24)
[2018-09-09] MEDS: FERROUS SULFATE 325MG TAB PO SCH (21:24)
[2018-09-10 02:00] VITALS: BP 148/60
[2018-09-10] MEDS: SLF 3 ML SYR IV SCH (05:09)
[2018-09-10 05:55] LABS: HEMATOCRIT 32.5 % (36.0-47.0); HEMOGLOBIN 9.5 g/dl (12.0-15.5); MEAN CORPUSCULAR HEMOGLOBIN 28.1 pg (27.0-33.0); MEAN CORPUSCULAR HGB CONC 29.2 g/dl (32.0-36.5); MEAN CORPUSCULAR VOLUME 96.2 fl (80.0-96.0); PLATELET COUNT, AUTOMATED 129 10^3/uL (150-450); RED BLOOD COUNT 3.38 10^6/uL (4.00-5.40); WHITE BLOOD COUNT 7.9 10^3/uL (4.0-10.0)
[2018-09-10 06:00] VITALS: BP 161/67
[2018-09-10 06:17] LABS: CALCIUM LEVEL 8.9 MG/DL (8.5-10.1); CREATININE FOR GFR 2.07 MG/DL (0.55-1.30); GLOMERULAR FILTRATION RATE 26.1 (>51); MAGNESIUM LEVEL 2.3 MG/DL (1.8-2.4); POTASSIUM SERUM 4.6 MEQ/L (3.5-5.1)
[2018-09-10 06:21] LABS: INR 1.99
[2018-09-10 07:37] LABS: ATYPICAL LYMPH 1 % (0-5); EOSINOPHILS 2 % (0-5); LYMPHOCYTES 15 % (16-52); MONOCYTES 1 % (0-8); NEUTROPHILS 69 % (35-75)
[2018-09-10 07:38] LABS: ANISOCYTOSIS 1+; OVALOCYTES 1+; PLATELET ESTIMATE DECREASED (NORMAL); POIKILOCYTOSIS 1+
--- NOTE | 2018-09-10 07:40 | CR ---
DATE OF CONSULTATION: 09/09/2018 REQUESTING PHYSICIAN: Dr. Ford Deras CONSULTING PHYSICIAN: Dr. Hernandez REASON FOR CONSULTATION: Management of chronic kidney disease and renal transplant status. CHIEF COMPLAINT: The patient was asked to go to the emergency room because of febrile neutropenia. HISTORY OF PRESENT ILLNESS: Mrs. Colleen Velasco is a 58-year-old female with past medical history of renal failure, status post kidney transplant, best baseline creatinine of around 1.7 as of March 2018. She was recently admitted at [facility] 2 weeks ago with sepsis secondary to urinary tract infection. She was given intravenous (IV) meropenem, and she was sent home. She recently got a call from the Transplant Center about 3 days ago that the patient was neutropenic, and she was having low grade temperatures as well, so initially we wanted to give the patient Neupogen as an outpatient. However, it was not available right away to give to the patient. Given the patient's recent history of sepsis, immunocompromise status, renal allograft status, and low grade fevers with neutropenia, decision was made to send the patient to the emergency room for further evaluation and management. The patient was admitted overnight under the hospitalist service. Nephrology service was called for further help in the management of this patient with immunocompromise status and renal allograft status. I saw and evaluated the patient today morning. The patient was given a dose of Neupogen last night. She was initially given IV antibiotics but then she was started on doxycycline for bronchitis. The patient reports that she is symptomatically feeling better today as compared with yesterday. However, she still reports low grade temperatures. Otherwise, she denies any chills, rigors, dysuria or hematuria. She still does report some cough. PAST MEDICAL HISTORY: Past medical history of end-stage renal disease secondary to lupus nephritis, status post donor kidney transplant in July 2017, history of systemic lupus erythematosus, antiphospholipid syndrome, blindness of the right eye, paroxysmal atrial fibrillation, chronic gout secondary to chronic kidney disease, hyperlipidemia, secondary hyperparathyroidism, hypertension, recent history of extended spectrum beta lactamase (ESBL) urinary tract infection, history of Libman-Sacks endocarditis PAST SURGICAL HISTORY: Status post abdominal surgery, eye surgery, status post donor kidney transplant in July 2017. ALLERGIES: She is allergic to NONSTEROIDAL ANTI-INFLAMMATORY DRUGS (NSAIDS), SULFA. FAMILY HISTORY: There is a positive family history of diabetes, hypertension and asthma. SOCIAL HISTORY: The patient denies any illicit drug abuse, smoking or alcohol abuse. REVIEW OF SYSTEMS: Constitutional: Patient reported having subjective feelings of chills and fever when she came in; however, she is feeling better now. Eyes: She reports blindness of the right eye. Ears, Nose, Throat (ENT): She denies any dysphagia, odynophagia, ear discharge. Cardiovascular: She denies any chest pain or palpitations. Respiratory: She denies any shortness of breath, but she does report cough with some phlegm. Gastrointestinal (GI): She denies any nausea or vomiting. Genitourinary: She denies any dysuria or hematuria. Musculoskeletal: She denies any muscle aches and pains. Central Nervus System (MORTICIAN HELPER): She denies any strokes or seizures. Skin: She denies any rashes or ulcers. Endocrine: She reports history of hyperparathyroidism. Psychiatric: She denies any depression or anxiety. All other review of systems is negative. PHYSICAL EXAMINATION: General: The patient is awake, alert, oriented times three, laying in bed, in no apparent distress. Vital signs: Temperature this morning was 100 degrees Fahrenheit, blood pressure 146/72, pulse is 71, respiratory rate of 18, saturating 93% on room air. Head and Neck Exam: Extraocular muscles intact. The patient has blindness of the right eye. Mucous membranes are moist. Neck is supple. There is no jugular venous distention (JVD). Cardiovascular: S1, S2, regular rate. No edema of the bilateral lower extremities. Respiratory: The patient has mild expiratory rhonchi at the bases, otherwise bilateral equal air entry. Abdomen is soft. Positive bowel sounds. Umbilical hernia was noted. Right lower quadrant renal allograft with no bruit or tenderness. Musculoskeletal: No clubbing or cyanosis. Pulses are 2+. MORTICIAN HELPER: No focal deficit. Power is 5/5 in all extremities. Psychiatric: Normal mood and affect. LABORATORY REVIEW: CBC showed a WBC of 1.4 and hemoglobin 9.9 with a platelet of 156 on arrival. CBC done today, morning, showed a WBC of 6.8, hemoglobin 9.9, platelets of 134, INR is 1.85. Urinalysis showed 1+ protein, negative nitrite, negative leukocyte esterase. BMP showed sodium 137, potassium 4.6, chloride 108, bicarbonate 21, BUN 42, creatinine is 2.2; it was 2.6 last night, albumin is 3.1. Microbiology: Blood culture initially negative. Sputum Gram stain showed many WBCs, a few epithelial cells, moderate gram-positive cocci in clusters and chains. IMAGING STUDIES: A chest x-ray was done yesterday, which showed stable cardiomegaly, no focal consolidation. CURRENT INPATIENT MEDICATIONS: The patient's medicines include Tylenol as needed, Mylanta as needed, Artificial Tears, Lipitor 10 mg nightly, calcitriol 0.25 mcg by mouth twice a day, doxycycline 100 mg by mouth twice a day, iron tablet 650 mg by mouth daily. She was given one dose of Neupogen 300 mcg subcu. She is on flecainide 50 mg by mouth twice a day, hydralazine 50 mg by mouth twice a day, isosorbide 30 mg by mouth twice a day, magnesium 800 mg by mouth daily, metoprolol tartrate 100 mg by mouth twice a day, Milk of Magnesia as needed, CellCept 250 mg by mouth twice a day, prednisone 5 mg by mouth daily, tacrolimus 1 mg by mouth twice a day and warfarin 5 mg by mouth nightly. ASSESSMENT: A 58-year-old female with a history of donor kidney transplant, history of systemic lupus erythematosus with baseline 683, admitted this time with acute kidney injury superimposed on chronic kidney disease stage III and febrile neutropenia. PLAN: 1. Acute kidney injury superimposed on chronic kidney disease stage III, must be secondary to dehydration and volume depletion and sickness. Patient's renal function is already improving to 2.2. Her best baseline creatinine is 1.7 as of March 2018. Continue to monitor for renal improvement. 2. Febrile neutropenia. The patient's cultures are pending. She was given a dose of Neupogen. White cell count has nicely improved. She is currently on doxycycline. Fevers are improving. If the patient has recurrence of fevers, then she can be given broad-spectrum IV antibiotics. 3. Renal allograft status. The patient is currently on tacrolimus 1 mg by mouth twice a day. She is on prednisone 5 mg daily. I agree with lowering the CellCept dose from 500 mg twice a day to 250 mg twice a day. 4. Hypertension with hypertensive heart disease and chronic kidney disease. Continue current dose of hydralazine 50 mg by mouth twice a day, isosorbide 30 mg by mouth twice a day and metoprolol 100 mg by mouth twice a day. 5. Secondary hyperparathyroidism. Continue current dose of calcitriol 0.25 mcg by mouth twice a day. 6. Paroxysmal atrial fibrillation (a fib). Continue home dose of flecainide 50 mg by mouth twice a day. She is also on warfarin and metoprolol. 7. Anemia in chronic kidney disease. Hemoglobin is 10.3, which is optimal. No need of Aranesp administration at this point. Thank you for involving me in the care of this patient. I shall be happy to follow the patient along with you tomorrow morning.
[2018-09-10] MEDS: CALCITRIOL 0.25 MCG CAP (S0169) PO SCH (09:58)
[2018-09-10] MEDS: FLECAINIDE 50MG TABLET PO SCH (09:58)
[2018-09-10] MEDS: DOXYCYCLINE HYCLATE 100 MG TAB PO SCH (09:59)
[2018-09-10] MEDS: TACROLIMUS 1 MG CAP (J7507) PO SCH (09:59)
[2018-09-10] MEDS: **hydrALAZINE** 50 MG TAB PO SCH (09:59)
[2018-09-10] MEDS: METOPROLOL TARTRATE 100 MG TAB PO SCH (09:59)
[2018-09-10 10:00] VITALS: BP 158/75
[2018-09-10] MEDS: predniSONE 5 MG TAB PO SCH (10:00)
[2018-09-10] MEDS: ISOSORBIDE MON. (IMDUR) 30 MG XR TAB PO SCH (10:00)
[2018-09-10] MEDS: MYCOPHENOLATE MOFETIL 250 MG CAP (J7517) PO SCH (10:00)
[2018-09-10] MEDS ORDERED: DOXY100T PO (11:27)
[2018-09-10] MEDS ORDERED: HYDR-3911 PO (11:27)
[2018-09-10] MEDS ORDERED: CELL250C PO (11:27)
[2018-09-10] MEDS: MAGNESIUM OXIDE 400 MG TAB (MAG-OX) PO SCH (12:11)
--- NOTE | 2018-09-10 14:38 | DS.PDOC ---
Discharge Summary General Date of Admission September 08, 2018 at 19:51 Date of Discharge 09/08/18 Discharge Summary PROCEDURES PERFORMED DURING STAY: None. ADMITTING DIAGNOSES: Cellcept-induced Neutropenia, Acute Bronchitis, Slight Worsening of CKD 3, Kidney Transplant Recipient on Immunotherapy DISCHARGE DIAGNOSES: Neutropenia secondary to mycophenolate, acute bronchitis, acute on chronic kidney disease stage III in setting of history of kidney transplantnow improvedcreatinine back to baseline, hypertension, paroxysmal atrial fibrillation, hyperlipidemia, hypoparathyroidism COMPLICATIONS/CHIEF COMPLAINT: Bronchitis, Febrile Neutropenia. HISTORY OF PRESENT ILLNESS: The patient is a 58-year-old female with a previous history of kidney transplant currently on immunosuppressants who was sent to the ER by her primary care provider Dr. Green for concerns regarding low blood counts/neutropeniaher WBC was 1.4 and ANC 560. The patient also had been having some cough. In the ER, she had a low-grade fever of 100.5. Chest x-ray did not show any obvious infiltrates. Her creatinine was slightly elevated at 2.64 with the usual baseline of about 1.8-2.0 HOSPITAL COURSE: Neutropenia, possibly secondary to mycophenolate: -Improved post Neupogen -ANC count 6399 today Acute bronchitis -Continue oral doxycycline -plan is to continue for total 5 day treatment for presumed acute bacterial bronchitis -Sputum culture pending - advised patient to follow up on results of same during follow-up with PCP Acute on chronic kidney disease stage III in setting of history of kidney transplant: -Patient was seen by Dr. Hernandez from nephrology -Case was also discussed with patient's transplant team in [facility] -Creatinine 2.0 today. Patients appetite is good. -Furosemide to be resumed per home dosing per discussion with nephrology today. -Per discussion with transplant team, patient is been advised regarding follow- up at [facility] in 1-2 weeks upon discharge. -I did check with our laboratory - tacrolimus level testing would be a send out test and will take about 7 business days to return. Per discussion with the member from transplant team, if tacrolimus level is more than 6, we could possibly hold the mycophenolate, however, since we will likely not get these results back for over a week, we will continue with the patient's current regime n until she follows up with the transplant team. -Continue tacrolimus 1 mg twice a day, mycophenolate 250 g by mouth twice a day and prednisone 5 mg daily Hypertension: -Continue hydralazine, metoprolol, isosorbide mononitrate -Patient's blood pressures have been running slightly elevateddiscussed with patient regarding monitoring her blood pressure 2-3 times a day at home and to discuss with Dr. Green/the transplant team regarding up titration of hydralazine if her blood pressures do continue to be elevated at home. Paroxysmal atrial fibrillation: -Continue metoprolol, warfarin, flecainide -INR is 1.99 today. Continue outpatient monitoring as before on discharge. Hyperlipidemia: -Continue atorvastatin Hypoparathyroidism: -Continue Calcitriol On day of discharge, patient is doing better. Reports only slight occasional cough. No overnight fevers. Tolerating oral intake wellappetite seems to have improved. Able to ambulate independently without any problems. No overt shortness of breath. Oxygen saturation some normal on room air and vital signs otherwise stable. DISCHARGE MEDICATIONS: Please see below. ALLERGIES: Please see below. PHYSICAL EXAMINATION ON DISCHARGE: VITAL SIGNS: Please see below. GENERAL: Patient was sitting up in chair, no distress. HEENT: PERRLA, oral mucous membranes moist CARDIOVASCULAR EXAMINATION: S1, S2 heard, no rubs or gallops RESPIRATORY EXAMINATION: Clear to auscultationno overt wheezing/crackles/rhonchi. No distress. ABDOMINAL EXAMINATION: Soft, nontender NEUROLOGICAL EXAMINATION: Awake, alert, answering questions appropriately and moving all 4 extremities PSYCHIATRIC EXAMINATION: Normal mood and affect LABORATORY DATA: Please see below. IMAGING: CXR: Impression: Stable cardiomegaly. No focal consolidation. PROGNOSIS: Fair ACTIVITY: As tolerated. DIET: Regular DISCHARGE PLAN: Patient to be discharged home today. Outpatient follow-up with Dr. Green in 1-2 weeks. Outpatient follow-up with transplant team at [facility] in 1-2 weeks. Patient will require to follow-up on final reports of her sputum cultures. DISPOSITION: Home, Self-Care. ITEMS TO FOLLOWUP ON ON OUTPATIENT: 1. Final results of sputum culture. DISCHARGE CONDITION: Stable. TIME SPENT ON DISCHARGE: 37 minutes. Vital Signs/I&Os Vital Signs Date Time Temp Pulse Resp B/P (MAP) Pulse Ox O2 Delivery O2 Flow Rate FiO2 09/10/18 10:00 97.7 69 20 158/75 (102) 97 09/08/18 21:49 Room Air I&O- Last 24 Hours up to 6 AM 09/10/18 06:00 Intake Total 0 ml Output Total 600 ml Balance -600 ml Laboratory Data Labs 24H Laboratory Tests 2 09/10/18 05:34: Nucleated Red Blood Cells % (auto) 0.0, Neutrophils 69, Band Neutrophils 12H, Lymphocytes (Manual) 15L, Monocytes (Manual) 1, Eosinophils (Manual) 2, Atypical Lymphocytes 1, Platelet Estimate DECREASED, Poikilocytosis 1+, Anisocytosis 1+, Macrocytosis 1+, Ovalocytes 1+, Prothrombin Time 23.0H, Prothromb Time International Ratio 1.99, Anion Gap 5L, Glomerular Filtration Rate 26.1L, Blood Urea Nitrogen 44H, Creatinine 2.07H, Sodium Level 139, Potassium Level 4.6, Chloride Level 110H, Carbon Dioxide Level 24, Calcium Level 8.9, Phosphorus Level 3.0, Magnesium Level 2.3 CBC/BMP Laboratory Tests 09/10/18 05:34 Red Blood Count 3.38 L, Mean Corpuscular Volume 96.2 H, Mean Corpuscular Hemoglobin 28.1, Mean Corpuscular Hemoglobin Concent 29.2 L, Red Cell Distribution Width 14.9 H, Calcium Level 8.9 Microbiology Microbiology 09/08/18 Blood Culture - Preliminary, Resulted No growth after 24 hours . All specim... 09/08/18 Blood Culture - Preliminary, Resulted No growth after 24 hours . All specim... 09/09/18 Gram Stain - Final, Resulted 09/09/18 Sputum Culture, Resulted Pending Discharge Medications Scheduled Ascorbic Acid (Vitamin C) 500 Mg Tab, 500 MG PO DAILY, (Reported) Atorvastatin Calcium (Atorvastatin Calcium) 10 Mg Tab, 10 MG PO QHS, (Reported) Calcitriol (Calcitriol) 0.25 Mcg Cap, 0.25 MCG PO BID, (Reported) Doxycycline Hyclate (Doxycycline Hyclate) 100 Mg Tablet, 100 MG PO BID Ferrous Sulfate (Iron) 325 Mg Tab, 650 MG PO QPM, (Reported) Flecainide Acetate (Flecainide Acetate) 50 Mg Tab, 50 MG PO BID, (Reported) Folic Acid/Vit B Complex and C (Nicole-Hardik Tablet) 1 Tab Tab, 1 TAB PO DAILY, (Reported) Furosemide (Furosemide) 20 Mg Tablet, 20 MG PO DAILY, (Reported) Hydralazine HCl (Hydralazine HCl) 50 Mg Tablet, 50 MG PO ASDIRECTED 1 tab twice daily and 0.5 tab daily at 1400 Isosorbide Mononitrate (Isosorbide Mononitrate ER) 30 Mg Tab.er.24h, 30 MG PO BID, (Reported) Magnesium Oxide (Magnesium Oxide) 400 Mg Tab, 800 MG PO DAILY, (Reported) AT NOON Metoprolol Tartrate (Metoprolol Tartrate) 100 Mg Tab, 100 MG PO BID, (Reported) Mycophenolate Mofetil (Cellcept) 250 Mg Cap, 250 MG PO BID Prednisone (Prednisone) 5 Mg Tab, 5 MG PO DAILY, (Reported) Tacrolimus (Tacrolimus) 1 Mg Cap, 1 MG PO BID, (Reported) Warfarin Sodium (Coumadin) 5 Mg Tab, 5 MG PO QHS, (Reported) BEEN ON HOLD FOR 2 DAYS FOR LOW BLOOD COUNT l Acidophil/B Lactis/B Longum (Florajen3 Capsule) 460 Mg Capsule, 1 CAP PO DAILY, (Reported) Scheduled PRN Acetaminophen (Acetaminophen) 500 Mg Tablet, 1,000 MG PO Q6H PRN for PAIN / FEVER, (Reported) Carboxymethylcellulose Sodium (Refresh Tears) 0.5 % Ori, 1 DROP OD TID PRN for DRY EYES, (Reported) Epoetin Raffi (Procrit) 20,000 Unit/Ml Inj, 10,000 UNIT INJ Q2WK PRN for LOW BLOOD COUNTS, (Reported) GIVEN AFTER BLOOD COUNT TESTS PER DR. GREEN Allergies Coded Allergies: sulfamethoxazole (Verified Allergy, Mild, ITCHY, ACHY JOINTS, 08/04/18) trimethoprim (Verified Allergy, Mild, ITCHY, ACHY JOINTS, 08/04/18) NSAIDS (Non-Steroidal Anti-Inflamma (Verified Adverse Reaction, Mild, HAD PROBLEM W/HEAVY MENSTRUATION, 08/04/18) amoxicillin (Verified Adverse Reaction, Mild, ACHES/PAINS, 08/04/18) aspirin (Verified Adverse Reaction, Mild, INCREASED BLEEDING D/T COUMADIN, 08/04/18) DONAVON THEODORE MD Sep 10, 2018 14:38
--- NOTE | 2018-09-11 14:19 | IPN ---
DATE: 09/10/2018 SUBJECTIVE: The patient was seen and examined at the bedside today, morning. She was actually sitting on the sofa today. She is afebrile, hemodynamically stable. She feels much better. Her cough is improving. Neutropenia has improved. Renal function is stable. Creatinine has improved to 2 today, which is close to her baseline, and the patient reported that she was getting ready to be discharged today. OBJECTIVE: Vital signs: Temperature is 97.7 degrees Fahrenheit. Blood pressure 158/75, pulse is 69, respiratory rate of 20, saturating 97% on room air. Intake and output: The urine output is not recorded. Weight on the bed scale is 49.4 kg. PHYSICAL EXAMINATION: General: The patient is awake, alert, oriented times three, sitting up in the bed, in no apparent distress. Head and Neck Exam: Extraocular muscles intact. Pupils round and reactive to light on the right side. The patient has decreased vision in the left eye. Cardiovascular: S1, S2, regular rate. Very trace edema of the bilateral lower extremities. Respiratory: Chest is clear to auscultation bilaterally. Bilateral equal air entry. No rales or rhonchi. Abdomen: Soft. Positive bowel sounds. Umbilical hernia is present right lower quadrant. Renal allograft with no tenderness. Musculoskeletal: No clubbing or cyanosis. Pulses are 2+. Central Nervous Systems (PODIATRY ASSISTANT): No focal deficit. Power is 5/5 in all extremities. LAB REVIEW: Review CBC showed a WBC of 7.9, hemoglobin 9.5, platelets are 129. BMP showed sodium 139, potassium 4.6, chloride 110, bicarbonate 24, BUN 44, creatinine is 2; it was 2.2 yesterday. Microbiology: Blood cultures are negative so far. Sputum Gram stain showed moderate gram-positive cocci in clusters and chains and a few gram-positive rods. CURRENT INPATIENT MEDICATIONS: The patient's medications were all reviewed by me. She continues to be on doxycycline 100 mg by mouth twice a day. ASSESSMENT/PLAN: 1. Acute kidney injury superimposed on chronic kidney disease stage III. It is secondary to sickness, decreased oral intake and volume depletion. Her diuretics were held on admission. Creatinine has improved to 2. She feels much better. Low dose of Lasix is being restarted now. 2. Febrile neutropenia. The patient's neutropenia has resolved. White cell count is 7.9. She got one dose of Neupogen during this admission. CellCept dose has been decreased to 250 mg by mouth twice a day. 3. Renal allograft status. Continue current dose of tacrolimus and prednisone. CellCept decreased to 250 mg twice a day. Patient to follow up with [facility] next week. 4. Hypertension. Blood pressure is optimized with current dose of hydralazine, isosorbide and metoprolol. 5. Anemia in chronic kidney disease. Hemoglobin is 9.5 which is optimal. No need of Aranesp administration at this point. 6. Disposition: It is okay to discharge the patient from a nephrology standpoint. She will need to followup with the transplant service next week. It is okay to resume the diuretic on discharge. Plan of care was discussed with the hospitalist, Dr. Ford Deras.
== END 2018-09-10 13:33 | disposition home or self-care (01) | DRG 809 ==
LOC: M ED 13:49 → M ED INP 19:51 → M PCU 22:10 → M MSPAV 09-09 21:54
PROVIDERS: ADMIT Internal Medicine; ATTEND Internal Medicine
DX: D70.2 Other drug-induced agranulocytosis (principal); N17.9 Acute kidney failure, unspecified; Z94.0 Kidney transplant status; N25.81 Secondary hyperparathyroidism of renal origin; J20.9 Acute bronchitis, unspecified; N18.3 Chronic kidney disease, stage 3 (moderate); I12.9 Hypertensive chronic kidney disease with stage 1 through stage 4 chronic kidney disease, or unspecified chronic kidney disease; I48.0 Paroxysmal atrial fibrillation; E78.5 Hyperlipidemia, unspecified; Z79.899 Other long term (current) drug therapy; Z88.6 Allergy status to analgesic agent; Z88.8 Allergy status to other drugs, medicaments and biological substances; Z88.0 Allergy status to penicillin; D63.1 Anemia in chronic kidney disease

== ENCOUNTER → 2018-09-22 | Outpatient (CLI) | payer MEDICARE ==
[~2018-09-22] MED LIST changes: +DOXY100T PO; +HYDR-3911 PO; +[UNRECOGNIZED DRUG - CODE] PO
[2018-09-22 12:32] LABS: BASO # 0.1 10^3/uL (0.0-0.2); BASO % 0.8 % (0.0-1.0); EOS # 0.1 10^3/uL (0.0-0.50); EOS % 1.5 % (0.0-3.0); HEMATOCRIT 33.6 % (36.0-47.0); HEMOGLOBIN 9.8 g/dl (12.0-15.5); LYMPH # 0.7 10^3/uL (1.5-4.5); LYMPH % 8.7 % (24.0-44.0); MEAN CORPUSCULAR HEMOGLOBIN 28.8 pg (27.0-33.0); MEAN CORPUSCULAR HGB CONC 29.2 g/dl (32.0-36.5); MEAN CORPUSCULAR VOLUME 98.8 fl (80.0-96.0); MONO # 0.9 10^3/uL (0.0-0.8); MONO % 12.4 % (0.0-5.0); NEUTROPHILS # 5.7 10^3/uL (1.8-7.7); NEUTROPHILS % 75.5 % (36.0-66.0); PLATELET COUNT, AUTOMATED 213 10^3/uL (150-450); WHITE BLOOD COUNT 7.5 10^3/uL (4.0-10.0)
[2018-09-22 12:44] LABS: INR 2.22
[2018-09-22 12:53] LABS: ALBUMIN 3.2 GM/DL (3.2-5.2); CALCIUM LEVEL 9.1 MG/DL (8.5-10.1); CREATININE FOR GFR 2.29 MG/DL (0.55-1.30); GLOMERULAR FILTRATION RATE 23.2 (>51); MAGNESIUM LEVEL 2.5 MG/DL (1.8-2.4); PHOSPHORUS LEVEL 3.4 MG/DL (2.5-4.9); POTASSIUM SERUM 4.5 MEQ/L (3.5-5.1)
[2018-09-22 13:01] LABS: CREATININE, URINE 90.7 MG/DL; CREATININE,RANDOM URINE 90.7 MG/DL; MALB URINE SIEMENS 77.2 MG/L; MAU/CREAT RATIO 85.1 MCG/MG (0.0-30.0); TOTAL PROTEIN,RANDOM URINE 26.7 MG/DL (0.0-12.0)
== END ==
LOC: M WUC 10:31
PROVIDERS: ATTEND Internal Medicine Nephrology
DX: Z94.0 Kidney transplant status (principal); Z79.899 Other long term (current) drug therapy

== ENCOUNTER → 2018-09-28 | Outpatient (CLI) | payer MEDICARE ==
[2018-09-28 13:37] LABS: BASO # 0.1 10^3/uL (0.0-0.2); BASO % 1.2 % (0.0-1.0); EOS # 0.1 10^3/uL (0.0-0.50); EOS % 1.2 % (0.0-3.0); HEMATOCRIT 32.8 % (36.0-47.0); HEMOGLOBIN 9.8 g/dl (12.0-15.5); LYMPH # 0.4 10^3/uL (1.5-4.5); LYMPH % 7.9 % (24.0-44.0); MEAN CORPUSCULAR HEMOGLOBIN 29.4 pg (27.0-33.0); MEAN CORPUSCULAR HGB CONC 29.9 g/dl (32.0-36.5); MEAN CORPUSCULAR VOLUME 98.5 fl (80.0-96.0); MONO # 0.6 10^3/uL (0.0-0.8); MONO % 11.4 % (0.0-5.0); NEUTROPHILS # 3.8 10^3/uL (1.8-7.7); NEUTROPHILS % 77.5 % (36.0-66.0); PLATELET COUNT, AUTOMATED 168 10^3/uL (150-450); RED BLOOD COUNT 3.33 10^6/uL (4.00-5.40); WHITE BLOOD COUNT 4.9 10^3/uL (4.0-10.0)
[2018-09-28 13:54] LABS: INR 1.45; PROTHROMBIN TIME 17.4 SECONDS (11.8-14.0)
[2018-09-28 13:59] LABS: ALBUMIN 3.2 GM/DL (3.2-5.2); CALCIUM LEVEL 8.3 MG/DL (8.5-10.1); CREATININE FOR GFR 1.54 MG/DL (0.55-1.30); GLOMERULAR FILTRATION RATE 36.7 (>51); MAGNESIUM LEVEL 2.3 MG/DL (1.8-2.4); PHOSPHORUS LEVEL 1.9 MG/DL (2.5-4.9); POTASSIUM SERUM 5.1 MEQ/L (3.5-5.1)
[2018-09-28 14:21] LABS: APPEARANCE, URINE CLEAR (CLEAR); BACTERIA, URINE AUTO 1+ (NEGATIVE); BILIRUBIN, URINE AUTO NEGATIVE (NEGATIVE); BLOOD, URINE BLOOD NEGATIVE (NEGATIVE); COLOR, URINE YELLOW (YELLOW); GLUCOSE, URINE (UA) AUTO NEGATIVE (NEGATIVE); KETONE, URINE AUTO NEGATIVE (NEGATIVE); LEUKOCYTE ESTERASE, URINE AUTO NEGATIVE (NEGATIVE); MUCUS, URINE SMALL (NEGATIVE); NITRITE, URINE AUTO NEGATIVE (NEGATIVE); PROTEIN, URINE AUTO NEGATIVE (NEGATIVE); RBC, URINE AUTO 3 /HPF (0-3); SPECIFIC GRAVITY URINE AUTO 1.013 (1.002-1.035); SQUAMOUS EPITHELIAL CELL UR AU 0 /HPF (0-6); UROBILINOGEN, URINE AUTO 0.2 mg/dL (0.0-2.0); WBC, URINE AUTO 4 /HPF (0-3)
[2018-09-28 14:34] LABS: MAU/CREAT RATIO 132.6 MCG/MG (0.0-30.0); TOTAL PROTEIN,RANDOM URINE 38.5 MG/DL (0.0-12.0)
== END ==
LOC: M WUC 10:01
PROVIDERS: ATTEND Internal Medicine Nephrology
DX: Z94.0 Kidney transplant status (principal); N18.5 Chronic kidney disease, stage 5; I48.0 Paroxysmal atrial fibrillation; Z79.01 Long term (current) use of anticoagulants

== ENCOUNTER → 2018-10-04 | Outpatient (REF) | payer MEDICARE ==
[2018-10-04 13:58] LABS: INR 1.37; PROTHROMBIN TIME 16.6 SECONDS (11.8-14.0)
== END ==
LOC: M LAB REF 12:37
PROVIDERS: ATTEND Internal Medicine Nephrology
DX: I48.0 Paroxysmal atrial fibrillation (principal); Z94.0 Kidney transplant status; Z79.01 Long term (current) use of anticoagulants; Z79.899 Other long term (current) drug therapy

== ENCOUNTER → 2018-10-12 | Outpatient (REF) | payer MEDICARE ==
[~2018-10-12] MED LIST changes: -CALC667T PO; +CALC667T2 PO; +OMEP20CA4 PO
[2018-10-12 14:09] LABS: INR 1.62
== END ==
LOC: M LAB REF 12:47
PROVIDERS: ATTEND Internal Medicine Nephrology
DX: I48.0 Paroxysmal atrial fibrillation (principal); Z79.01 Long term (current) use of anticoagulants

== ENCOUNTER → 2018-10-28 | Outpatient (REF) | payer MEDICARE ==
[2018-10-28 13:46] LABS: INR 2.76; PROTHROMBIN TIME 29.1 SECONDS (11.8-14.0)
== END ==
LOC: M LAB REF 12:38
PROVIDERS: ATTEND Internal Medicine Nephrology
DX: Z94.0 Kidney transplant status (principal); Z79.899 Other long term (current) drug therapy

== ENCOUNTER → 2018-11-10 | Outpatient (REF) | payer MEDICARE ==
[2018-11-10 14:17] LABS: INR 3.05; PROTHROMBIN TIME 31.5 SECONDS (11.8-14.0)
== END ==
LOC: M LAB REF 12:53
PROVIDERS: ATTEND Internal Medicine Nephrology
DX: Z94.0 Kidney transplant status (principal)

== ENCOUNTER → 2018-11-23 | Outpatient (REF) | payer MEDICARE ==
[2018-11-23 14:14] LABS: AMORPHOUS SEDIMENT SMALL (NEGATIVE); APPEARANCE, URINE CLEAR (CLEAR); BACTERIA, URINE AUTO NEGATIVE (NEGATIVE); BILIRUBIN, URINE AUTO NEGATIVE (NEGATIVE); BLOOD, URINE BLOOD NEGATIVE (NEGATIVE); COLOR, URINE YELLOW (YELLOW); GLUCOSE, URINE (UA) AUTO NEGATIVE (NEGATIVE); KETONE, URINE AUTO NEGATIVE (NEGATIVE); LEUKOCYTE ESTERASE, URINE AUTO NEGATIVE (NEGATIVE); NITRITE, URINE AUTO NEGATIVE (NEGATIVE); PROTEIN, URINE AUTO NEGATIVE (NEGATIVE); RBC, URINE AUTO 0 /HPF (0-3); SPECIFIC GRAVITY URINE AUTO 1.008 (1.002-1.035); SQUAMOUS EPITHELIAL CELL UR AU 0 /HPF (0-6); UROBILINOGEN, URINE AUTO 0.2 mg/dL (0.0-2.0); WBC, URINE AUTO 3 /HPF (0-3)
[2018-11-23 14:16] LABS: INR 3.28; PROTHROMBIN TIME 33.4 SECONDS (11.8-14.0)
[2018-11-23 14:34] LABS: TOTAL PROTEIN,RANDOM URINE 8.9 MG/DL (0.0-12.0)
[2018-11-23 14:45] LABS: ALBUMIN 3.7 GM/DL (3.2-5.2); CALCIUM LEVEL 9.8 MG/DL (8.5-10.1); CREATININE FOR GFR 2.09 MG/DL (0.55-1.30); GLOMERULAR FILTRATION RATE 25.8 (>51); POTASSIUM SERUM 4.3 MEQ/L (3.5-5.1)
[2018-11-23 14:57] LABS: BASO # 0.1 10^3/uL (0.0-0.2); BASO % 0.7 % (0.0-1.0); EOS # 0.2 10^3/uL (0.0-0.50); EOS % 1.7 % (0.0-3.0); HEMATOCRIT 33.6 % (36.0-47.0); HEMOGLOBIN 10.3 g/dl (12.0-15.5); LYMPH # 0.5 10^3/uL (1.5-4.5); LYMPH % 5.5 % (24.0-44.0); MEAN CORPUSCULAR HEMOGLOBIN 28.1 pg (27.0-33.0); MEAN CORPUSCULAR HGB CONC 30.7 g/dl (32.0-36.5); MEAN CORPUSCULAR VOLUME 91.8 fl (80.0-96.0); MONO # 0.9 10^3/uL (0.0-0.8); NEUTROPHILS # 7.5 10^3/uL (1.8-7.7); NEUTROPHILS % 81.3 % (36.0-66.0); PLATELET COUNT, AUTOMATED 198 10^3/uL (150-450); RED BLOOD COUNT 3.66 10^6/uL (4.00-5.40); WHITE BLOOD COUNT 9.2 10^3/uL (4.0-10.0)
== END ==
LOC: M LAB REF 13:13
PROVIDERS: ATTEND Internal Medicine Nephrology
DX: Z79.899 Other long term (current) drug therapy (principal); Z94.0 Kidney transplant status; N18.5 Chronic kidney disease, stage 5; D84.9 Immunodeficiency, unspecified

== ENCOUNTER → 2018-12-01 | Outpatient (REF) | payer MEDICARE ==
[~2018-12-01] MED LIST changes: +ALLO100T PO; +FAMO20TA PO; +FLAG500T PO; +FLORCAP6 PO; +MYCO1TAB PO; +NORV5TAB PO; +OMEP1CAP73 PO; -OMEP20CA4 PO; -OMEP40CA2 PO; +OMEP40CA97 PO; +PANT40TA3 PO; +SIRO1TAB3 PO; +VANC125C3 PO; +WARF4TAB51 PO
[2018-12-01 19:15] LABS: INR 2.44; PROTHROMBIN TIME 26.3 SECONDS (11.8-14.0)
== END ==
LOC: M LAB REF 17:13
PROVIDERS: ATTEND Internal Medicine Nephrology
DX: Z94.0 Kidney transplant status (principal)

== ENCOUNTER → 2018-12-19 | Outpatient (REF) | payer MEDICARE ==
[~2018-12-19] MED LIST changes: -ALLO100T PO; -FAMO20TA PO; -FLAG500T PO; -FLORCAP6 PO; -MYCO1TAB PO; -NORV5TAB PO; -OMEP1CAP73 PO; +OMEP20CA4 PO; +OMEP40CA2 PO; -OMEP40CA97 PO; -PANT40TA3 PO; -SIRO1TAB3 PO; -VANC125C3 PO; -WARF4TAB51 PO
[2018-12-19 14:07] LABS: APPEARANCE, URINE CLEAR (CLEAR); BACTERIA, URINE AUTO NEGATIVE (NEGATIVE); BILIRUBIN, URINE AUTO NEGATIVE (NEGATIVE); BLOOD, URINE BLOOD NEGATIVE (NEGATIVE); COLOR, URINE STRAW (YELLOW); GLUCOSE, URINE (UA) AUTO NEGATIVE (NEGATIVE); KETONE, URINE AUTO NEGATIVE (NEGATIVE); LEUKOCYTE ESTERASE, URINE AUTO NEGATIVE (NEGATIVE); NITRITE, URINE AUTO NEGATIVE (NEGATIVE); PROTEIN, URINE AUTO NEGATIVE (NEGATIVE); RBC, URINE AUTO 1 /HPF (0-3); SPECIFIC GRAVITY URINE AUTO 1.005 (1.002-1.035); SQUAMOUS EPITHELIAL CELL UR AU 0 /HPF (0-6); UROBILINOGEN, URINE AUTO 0.2 mg/dL (0.0-2.0); WBC, URINE AUTO 1 /HPF (0-3)
[2018-12-19 14:18] LABS: BASO % 0.8 % (0.0-1.0); EOS # 0.2 10^3/uL (0.0-0.5); EOS % 3.2 % (0.0-3.0); HEMATOCRIT 35.3 % (36.0-47.0); HEMOGLOBIN 10.8 g/dl (12.0-15.5); LYMPH # 0.5 10^3/uL (1.5-5.0); LYMPH % 10.9 % (24.0-44.0); MEAN CORPUSCULAR HEMOGLOBIN 28.4 pg (27.0-33.0); MEAN CORPUSCULAR HGB CONC 30.6 g/dl (32.0-36.5); MEAN CORPUSCULAR VOLUME 92.9 fl (80.0-96.0); MONO # 0.8 10^3/uL (0.0-0.8); MONO % 15.7 % (0.0-5.0); NEUTROPHILS # 3.4 10^3/uL (1.5-8.5); PLATELET COUNT, AUTOMATED 218 10^3/uL (150-450)
[2018-12-19 14:21] LABS: CALCIUM LEVEL 9.9 MG/DL (8.5-10.1); CREATININE FOR GFR 2.07 MG/DL (0.55-1.30); GLOMERULAR FILTRATION RATE 26.1 (>51); PHOSPHORUS LEVEL 3.7 MG/DL (2.5-4.9); POTASSIUM SERUM 3.9 MEQ/L (3.5-5.1)
[2018-12-19 14:33] LABS: CREATININE,RANDOM URINE 15.8 MG/DL; TOTAL PROTEIN,RANDOM URINE 8.7 MG/DL (0.0-12.0)
== END ==
LOC: M LAB REF 13:13
PROVIDERS: ATTEND Internal Medicine Nephrology
DX: N18.5 Chronic kidney disease, stage 5 (principal); D84.9 Immunodeficiency, unspecified; Z94.0 Kidney transplant status; Z79.899 Other long term (current) drug therapy; I78.0 Hereditary hemorrhagic telangiectasia; Z79.01 Long term (current) use of anticoagulants

== ENCOUNTER → 2018-12-19 | Outpatient (REF) | payer MEDICARE ==
[~2018-12-19] MED LIST changes: +ALLO100T PO; +FAMO20TA PO; +FLAG500T PO; +FLORCAP6 PO; +MYCO1TAB PO; +NORV5TAB PO; +OMEP1CAP73 PO; -OMEP20CA4 PO; -OMEP40CA2 PO; +OMEP40CA97 PO; +PANT40TA3 PO; +SIRO1TAB3 PO; +VANC125C3 PO; +WARF4TAB51 PO
[2018-12-19 14:43] LABS: INR 2.36; PROTHROMBIN TIME 25.6 SECONDS (11.8-14.0)
== END ==
LOC: M LAB REF 13:11
PROVIDERS: ATTEND Internal Medicine Nephrology
DX: I48.0 Paroxysmal atrial fibrillation (principal); Z79.01 Long term (current) use of anticoagulants

== ENCOUNTER → 2018-12-27 | Outpatient (REF) | payer MEDICARE ==
[~2018-12-27] MED LIST changes: -ALLO100T PO; -FAMO20TA PO; -FLAG500T PO; -FLORCAP6 PO; -MYCO1TAB PO; -NORV5TAB PO; -OMEP1CAP73 PO; +OMEP20CA4 PO; +OMEP40CA2 PO; -OMEP40CA97 PO; -PANT40TA3 PO; -SIRO1TAB3 PO; -VANC125C3 PO; -WARF4TAB51 PO
[2018-12-27 13:30] LABS: BASO % 0.5 % (0.0-1.0); EOS # 0.1 10^3/uL (0.0-0.5); EOS % 1.3 % (0.0-3.0); HEMATOCRIT 34.6 % (36.0-47.0); HEMOGLOBIN 10.4 g/dl (12.0-15.5); LYMPH # 0.4 10^3/uL (1.5-5.0); LYMPH % 6.5 % (24.0-44.0); MEAN CORPUSCULAR HEMOGLOBIN 27.7 pg (27.0-33.0); MEAN CORPUSCULAR HGB CONC 30.1 g/dl (32.0-36.5); MONO # 0.5 10^3/uL (0.0-0.8); MONO % 8.2 % (0.0-5.0); NEUTROPHILS # 5.1 10^3/uL (1.5-8.5); NEUTROPHILS % 82.8 % (36.0-66.0); PLATELET COUNT, AUTOMATED 207 10^3/uL (150-450); RED BLOOD COUNT 3.76 10^6/uL (4.00-5.40); WHITE BLOOD COUNT 6.1 10^3/uL (4.0-10.0)
[2018-12-27 13:32] LABS: APPEARANCE, URINE CLEAR (CLEAR); BACTERIA, URINE AUTO NEGATIVE (NEGATIVE); BILIRUBIN, URINE AUTO NEGATIVE (NEGATIVE); BLOOD, URINE BLOOD NEGATIVE (NEGATIVE); COLOR, URINE YELLOW (YELLOW); GLUCOSE, URINE (UA) AUTO NEGATIVE (NEGATIVE); KETONE, URINE AUTO NEGATIVE (NEGATIVE); LEUKOCYTE ESTERASE, URINE AUTO NEGATIVE (NEGATIVE); NITRITE, URINE AUTO NEGATIVE (NEGATIVE); PROTEIN, URINE AUTO NEGATIVE (NEGATIVE); RBC, URINE AUTO 3 /HPF (0-3); SPECIFIC GRAVITY URINE AUTO 1.006 (1.002-1.035); SQUAMOUS EPITHELIAL CELL UR AU 0 /HPF (0-6); UROBILINOGEN, URINE AUTO 0.2 mg/dL (0.0-2.0); WBC, URINE AUTO 1 /HPF (0-3)
[2018-12-27 13:41] LABS: INR 2.61; PROTHROMBIN TIME 27.8 SECONDS (11.8-14.0)
[2018-12-27 13:54] LABS: TOTAL PROTEIN,RANDOM URINE 5.5 MG/DL (0.0-12.0)
[2018-12-27 13:57] LABS: CALCIUM LEVEL 9.8 MG/DL (8.5-10.1); CREATININE FOR GFR 2.33 MG/DL (0.55-1.30); GLOMERULAR FILTRATION RATE 22.8 (>51); PHOSPHORUS LEVEL 4.1 MG/DL (2.5-4.9); POTASSIUM SERUM 4.1 MEQ/L (3.5-5.1)
== END ==
LOC: M LAB REF 12:57
PROVIDERS: ATTEND Internal Medicine Nephrology
DX: N18.5 Chronic kidney disease, stage 5 (principal); Z79.899 Other long term (current) drug therapy; Z94.0 Kidney transplant status; D84.9 Immunodeficiency, unspecified

== ENCOUNTER → 2019-01-10 | Outpatient (REF) | payer MEDICARE ==
[2019-01-10 19:34] LABS: INR 2.46; PROTHROMBIN TIME 26.5 SECONDS (11.8-14.0)
== END ==
LOC: M LAB REF 17:10
PROVIDERS: ATTEND Internal Medicine Nephrology
DX: I48.0 Paroxysmal atrial fibrillation (principal); Z79.01 Long term (current) use of anticoagulants

== ENCOUNTER → 2019-01-27 | Outpatient (REF) | payer MEDICARE ==
[~2019-01-27] MED LIST changes: -OMEP40CA2 PO; +OMEP40CA97 PO
[2019-01-30 14:09] LABS: PERCENT SATURATION 14.6 % (13.2-45.0)
== END ==
LOC: M LAB REF 13:11
PROVIDERS: ATTEND Internal Medicine Nephrology
DX: N18.9 Chronic kidney disease, unspecified (principal); D63.1 Anemia in chronic kidney disease

== ENCOUNTER 2019-02-09 13:04 | Outpatient (CLI) | payer MEDICARE ==
[~2019-02-09] VITALS: Ht 149.9 cm; Wt 56.4 kg
[2019-02-09 13:55] VITALS: BP 122/56
[2019-02-09] MEDS ORDERED: FERRIC CARBOXYMALTOSE INJ 750 MG in NS 250 ML IV ONE (14:00)
[2019-02-09 14:50] VITALS: BP 121/58
[2019-02-09 15:15] VITALS: BP 124/57
== END 2019-02-09 15:15 | disposition home or self-care (01) ==
LOC: M INFU 13:04
PROVIDERS: ATTEND Internal Medicine Nephrology
DX: D50.9 Iron deficiency anemia, unspecified (principal); Z88.1 Allergy status to other antibiotic agents; Z88.8 Allergy status to other drugs, medicaments and biological substances; Z91.041 Radiographic dye allergy status; Z79.899 Other long term (current) drug therapy
CPT/HCPCS: 96365; J1439

== ENCOUNTER 2019-02-16 12:39 | Outpatient (CLI) | payer MEDICARE ==
[~2019-02-16] VITALS: Ht 149.9 cm; Wt 56.4 kg
[2019-02-16 12:45] VITALS: BP 170/74
[2019-02-16] MEDS ORDERED: RENATAB5 PO (13:33)
[2019-02-16] MEDS ORDERED: FAMO20TA PO (13:36)
[2019-02-16] MEDS ORDERED: PANT40TA3 PO (13:37)
[2019-02-16] MEDS ORDERED: SIRO1TAB3 PO (13:38)
[2019-02-16] MEDS ORDERED: ALLO100T PO (13:39)
[2019-02-16] MEDS ORDERED: NORV5TAB PO (13:40)
[2019-02-16 14:15] VITALS: BP 169/73
[2019-02-16] MEDS ORDERED: FERRIC CARBOXYMALTOSE INJ 750 MG in NS 250 ML IV ONE (14:30)
[2019-02-16 15:20] VITALS: BP 167/77
== END 2019-02-16 15:20 | disposition home or self-care (01) ==
LOC: M INFU 12:39
PROVIDERS: ATTEND Internal Medicine Nephrology
DX: D50.9 Iron deficiency anemia, unspecified (principal); Z88.8 Allergy status to other drugs, medicaments and biological substances; Z88.1 Allergy status to other antibiotic agents; Z91.041 Radiographic dye allergy status
CPT/HCPCS: 96365; J1439

== ENCOUNTER → 2019-02-28 | Outpatient (REF) | payer MEDICARE ==
[~2019-02-28] MED LIST changes: +ALLO100T PO; +FAMO20TA PO; +NORV5TAB PO; +PANT40TA3 PO; +SIRO1TAB3 PO
[2019-02-28 18:32] LABS: PROTHROMBIN TIME 53.3 SECONDS (11.8-14.0)
[2019-02-28 18:54] LABS: INR 5.89
== END ==
LOC: M LAB REF 17:05
PROVIDERS: ATTEND Internal Medicine Nephrology
DX: Z51.81 Encounter for therapeutic drug level monitoring (principal); Z79.01 Long term (current) use of anticoagulants; I48.0 Paroxysmal atrial fibrillation

== ENCOUNTER → 2019-03-03 | Outpatient (CLI) | payer MEDICARE ==
--- NOTE | 2019-03-03 19:08 | REP ---
CT abdomen and pelvis without IV or oral contrast: History: Hematuria. Comparison CT study August 06, 2017. CT findings: A digital preliminary aerodynamics teacher radiographs demonstrate a bowel containing periumbilical ventral hernia. There are postoperative clips in the right upper and lower abdomen. There is a dilated loop of what appears to be colon in the left central abdomen. Mild cardiomegaly. The lung bases are essentially clear on axial CT images. Stomach is mildly distended with ingested material. There is marked diffuse atrophy of the benton kidneys. There is a renal transplant in the right iliac fossa without hydronephrosis. No focal hepatic or splenic lesion is seen. No adrenal lesion is observed. Extensive vascular calcification is seen. No abnormalities noted in the pancreas. There is a periumbilical right paramedian ventral hernia defect in the anterior abdominal wall which measures 3.1 cm in right to left dimension by 1.5 cm craniocaudal. This transmits a loop of small intestine. Proximal to this in the left mid abdomen are dilated loops of small bowel displaying air-fluid levels. The colon is not dilated and is not involved in the hernia. No uterine or adnexal abnormality is seen. Urinary bladder is unremarkable. No evidence of free intraperitoneal air or abnormal fluid collection. Impression: Periumbilical ventral hernia transmits a loop of mid small bowel. There is small bowel dilation proximal to this in the left mid abdomen consistent with partial small bowel obstruction. No evidence of urinary tract calculus or hydronephrosis seen. No bladder calculus seen. No mass lesion is observed. The hernia is unchanged in location and size. Prior study showed a dilated loop of colon in the left lower quadrant as well. This was filled with inspissated material, Electronically Signed by Seun Calixto MD 03/04/2019 12:35 P
== END ==
LOC: M RAD 15:29
PROVIDERS: ATTEND Internal Medicine Nephrology
DX: K43.9 Ventral hernia without obstruction or gangrene (principal); R31.9 Hematuria, unspecified; I48.0 Paroxysmal atrial fibrillation; N18.4 Chronic kidney disease, stage 4 (severe); Z79.01 Long term (current) use of anticoagulants; Z94.0 Kidney transplant status

== ENCOUNTER → 2019-03-03 | Outpatient (REF) | payer MEDICARE ==
[2019-03-03 13:16] LABS: INR 1.67; PROTHROMBIN TIME 19.5 SECONDS (11.8-14.0)
[2019-03-06 10:11] LABS: SIROLIMUS (RAPAMUNE) LABCORP 2.7 ng/mL (3.0-20.0)
== END ==
LOC: M LAB REF 12:41
PROVIDERS: ATTEND Internal Medicine Nephrology
DX: I48.0 Paroxysmal atrial fibrillation (principal); N18.4 Chronic kidney disease, stage 4 (severe); Z79.01 Long term (current) use of anticoagulants; Z94.0 Kidney transplant status

== ENCOUNTER → 2019-03-08 | Outpatient (REF) | payer MEDICARE ==
[2019-03-08 13:48] LABS: INR 1.99; PROTHROMBIN TIME 22.4 SECONDS (11.8-14.0)
== END ==
LOC: M LAB REF 12:47
PROVIDERS: ATTEND Internal Medicine Nephrology
DX: Z51.81 Encounter for therapeutic drug level monitoring (principal); Z79.01 Long term (current) use of anticoagulants; I48.0 Paroxysmal atrial fibrillation

== ENCOUNTER 2019-03-24 15:26 | Emergency (ER) | payer MEDICARE ==
[~2019-03-24] VITALS: Ht 149.9 cm; Wt 51.3 kg
[2019-03-24 15:26] VITALS: BP 154/73
[~2019-03-24 15:26] MED LIST changes: +OMEP-172 PO; -OMEP20CA4 PO
[2019-03-24] MEDS ORDERED: TACR0.5C3 PO (17:09)
[2019-03-24] MEDS ORDERED: SIRO1TAB3 PO (17:09)
[2019-03-24] MEDS ORDERED: FLORCAP6 PO (17:09)
[2019-03-24] MEDS ORDERED: MAGN400T2 PO (17:09)
[2019-03-24] MEDS ORDERED: WARF4TAB51 PO (17:09)
[2019-03-24] MEDS ORDERED: MYCO1TAB PO (17:09)
[2019-03-24] MEDS ORDERED: FAMO20TA PO (17:09)
[2019-03-24] MEDS ORDERED: FURO40TA2 PO (17:09)
[2019-03-24] MEDS ORDERED: TACR1CAP3 PO (17:09)
[2019-03-24 17:24] LABS: BASO # 0.1 10^3/uL (0.0-0.2); BASO % 0.7 % (0.0-1.0); EOS # 0.1 10^3/uL (0.0-0.5); EOS % 0.8 % (0.0-3.0); HEMATOCRIT 44.2 % (36.0-47.0); HEMOGLOBIN 13.3 g/dl (12.0-15.5); LYMPH # 0.7 10^3/uL (1.5-5.0); LYMPH % 7.9 % (24.0-44.0); MEAN CORPUSCULAR HEMOGLOBIN 27.8 pg (27.0-33.0); MEAN CORPUSCULAR HGB CONC 30.1 g/dl (32.0-36.5); MEAN CORPUSCULAR VOLUME 92.3 fl (80.0-96.0); MONO # 0.9 10^3/uL (0.0-0.8); MONO % 10.6 % (0.0-5.0); NEUTROPHILS # 6.8 10^3/uL (1.5-8.5); NEUTROPHILS % 77.1 % (36.0-66.0); PLATELET COUNT, AUTOMATED 167 10^3/uL (150-450); RED BLOOD COUNT 4.79 10^6/uL (4.00-5.40); WHITE BLOOD COUNT 8.9 10^3/uL (4.0-10.0)
[2019-03-24 17:43] LABS: ALBUMIN 3.8 GM/DL (3.2-5.2); BILIRUBIN,DIRECT 0.1 MG/DL (0.0-0.2); BILIRUBIN,TOTAL 0.8 MG/DL (0.2-1.0); CALCIUM LEVEL 9.1 MG/DL (8.5-10.1); CREATININE FOR GFR 2.71 MG/DL (0.55-1.30); GLOMERULAR FILTRATION RATE 19.1 (>51); POTASSIUM SERUM 4.4 MEQ/L (3.5-5.1); TOTAL PROTEIN 7.5 GM/DL (6.4-8.2)
[2019-03-24] MEDS ORDERED: DICYCLOMINE 10 MG CAP PO ONE (17:45)
--- NOTE | 2019-03-24 18:19 | REP ---
Acute abdominal series: Three views. History: Abdominal cramping. Periumbilical region. Findings: Upright chest radiograph shows mildly prominent heart. Cardiothoracic ratio measures 52.1%. Pulmonary vasculature is not increased. The thoracic aorta is tortuous and calcific. The lungs are well inflated and clear. Pleural angles are sharp. No free subdiaphragmatic air is seen. Supine and erect views of the abdomen demonstrate scattered surgical clips in the upper and lower abdomen. Vascular calcification is noted. There are air-fluid levels scattered what appear to be large intestinal loops in the left colon question enteritis. No evidence of obstruction or free air. Impression: Surgical clips and vascular calcification in the abdomen. Colonic air fluid levels question enteritis. Mild cardiomegaly. Otherwise negative. Electronically Signed by Seun Calixto MD 03/24/2019 08:00 P
[2019-03-24] MEDS ORDERED: NS 500 ML IV ONE (19:15)
[2019-03-24] MEDS ORDERED: CIPR-249 PO (20:25)
[2019-03-24] MEDS ORDERED: FLAG500T PO (20:25)
[2019-03-24 20:31] LABS: INR 2.4
[2019-03-24 20:32] LABS: PARTIAL THROMBOPLASTIN TIME 46.1 SECONDS (25.0-38.4)
[2019-03-24] MEDS ORDERED: metroNIDAZOLE (FLAGYL) 500 MG TAB PO ONE (21:00)
[2019-03-24] MEDS ORDERED: CIPROFLOXACIN 250 MG TAB PO ONE (21:00)
[2019-03-25] MEDS ORDERED: VANC125C3 PO (02:52)
== END 2019-03-24 21:43 | disposition home or self-care (01) ==
LOC: M ED 15:26
DX: A09 Infectious gastroenteritis and colitis, unspecified (principal); R10.84 Generalized abdominal pain; R11.0 Nausea; I10 Essential (primary) hypertension; E78.5 Hyperlipidemia, unspecified; B58.9 Toxoplasmosis, unspecified; M32.9 Systemic lupus erythematosus, unspecified; Z90.49 Acquired absence of other specified parts of digestive tract; Z94.0 Kidney transplant status; Z88.6 Allergy status to analgesic agent; Z88.0 Allergy status to penicillin; Z88.8 Allergy status to other drugs, medicaments and biological substances; Z88.1 Allergy status to other antibiotic agents

== ENCOUNTER → 2019-03-30 | Outpatient (REF) | payer MEDICARE ==
[~2019-03-30] MED LIST changes: +FLAG500T PO; +FLORCAP6 PO; +MYCO1TAB PO; +VANC125C3 PO; +WARF4TAB51 PO
[2019-03-30 13:44] LABS: INR 2.44; PROTHROMBIN TIME 26.3 SECONDS (11.8-14.0)
== END ==
LOC: M LAB REF 13:09
PROVIDERS: ATTEND Internal Medicine Nephrology
DX: I48.0 Paroxysmal atrial fibrillation (principal); Z79.01 Long term (current) use of anticoagulants

== ENCOUNTER → 2019-04-04 | Outpatient (CLI) | payer MEDICARE | LOC: M LAB 08:34 | PROVIDERS: ATTEND Internal Medicine Nephrology | DX: Z94.0 Kidney transplant status (principal); N18.5 Chronic kidney disease, stage 5; D84.9 Immunodeficiency, unspecified; Z79.899 Other long term (current) drug therapy ==

== ENCOUNTER → 2019-04-18 | Outpatient (REF) | payer MEDICARE ==
[2019-04-18 13:38] LABS: APPEARANCE, URINE CLEAR (CLEAR); BACTERIA, URINE AUTO 1+ (NEGATIVE); BILIRUBIN, URINE AUTO NEGATIVE (NEGATIVE); BLOOD, URINE BLOOD 2+ (NEGATIVE); COLOR, URINE YELLOW (YELLOW); GLUCOSE, URINE (UA) AUTO NEGATIVE (NEGATIVE); KETONE, URINE AUTO NEGATIVE (NEGATIVE); LEUKOCYTE ESTERASE, URINE AUTO NEGATIVE (NEGATIVE); NITRITE, URINE AUTO NEGATIVE (NEGATIVE); PROTEIN, URINE AUTO NEGATIVE (NEGATIVE); RBC, URINE AUTO 13 /HPF (0-3); SPECIFIC GRAVITY URINE AUTO 1.005 (1.002-1.035); SQUAMOUS EPITHELIAL CELL UR AU 0 /HPF (0-6); UROBILINOGEN, URINE AUTO 0.2 mg/dL (0.0-2.0); WBC, URINE AUTO 1 /HPF (0-3)
[2019-04-18 13:45] LABS: HEMATOCRIT 36.8 % (36.0-47.0); HEMOGLOBIN 11.2 g/dl (12.0-15.5); MEAN CORPUSCULAR HEMOGLOBIN 28.4 pg (27.0-33.0); MEAN CORPUSCULAR HGB CONC 30.4 g/dl (32.0-36.5); MEAN CORPUSCULAR VOLUME 93.2 fl (80.0-96.0); PLATELET COUNT, AUTOMATED 167 10^3/uL (150-450); RED BLOOD COUNT 3.95 10^6/uL (4.00-5.40); WHITE BLOOD COUNT 10.8 10^3/uL (4.0-10.0)
[2019-04-18 14:01] LABS: ALBUMIN 3.5 GM/DL (3.2-5.2); CALCIUM LEVEL 7.8 MG/DL (8.5-10.1); CREATININE FOR GFR 1.83 MG/DL (0.55-1.30); GLOMERULAR FILTRATION RATE 30.1 (>51); MAGNESIUM LEVEL 1.8 MG/DL (1.8-2.4); PHOSPHORUS LEVEL 1.7 MG/DL (2.5-4.9); POTASSIUM SERUM 3.4 MEQ/L (3.5-5.1)
[2019-04-18 14:21] LABS: CREATININE,RANDOM URINE 18.3 MG/DL
[2019-04-18 14:54] LABS: EOSINOPHILS 2 % (0-3); LYMPHOCYTES 10 % (16-44); MONOCYTES 4 % (0-5); MYELOCYTES 6 % (0-0); NEUTROPHILS 69 % (28-66)
[2019-04-18 14:55] LABS: ANISOCYTOSIS 1+; PLATELET CLUMPS SMALL AMT; PLATELET ESTIMATE NORMAL (NORMAL)
== END ==
LOC: M LAB REF 12:56
PROVIDERS: ATTEND Internal Medicine Nephrology
DX: N18.5 Chronic kidney disease, stage 5 (principal); D64.9 Anemia, unspecified; Z94.0 Kidney transplant status; Z79.899 Other long term (current) drug therapy; I48.0 Paroxysmal atrial fibrillation; Z79.01 Long term (current) use of anticoagulants

== ENCOUNTER → 2019-04-18 | Outpatient (REF) | payer MEDICARE ==
[2019-04-18 14:05] LABS: INR 1.9; PROTHROMBIN TIME 21.5 SECONDS (11.8-14.0)
== END ==
LOC: M LAB REF 12:54
PROVIDERS: ATTEND Internal Medicine Nephrology
DX: I48.0 Paroxysmal atrial fibrillation (principal); Z79.01 Long term (current) use of anticoagulants

== ENCOUNTER → 2019-04-25 | Outpatient (REF) | payer MEDICARE ==
[~2019-04-25] MED LIST changes: -OMEP-172 PO; +OMEP1CAP73 PO
== END ==
LOC: M LAB REF 13:10
PROVIDERS: ATTEND Internal Medicine Nephrology
DX: Z94.0 Kidney transplant status (principal)
CPT/HCPCS: 80195; G0463

== ENCOUNTER → 2019-05-01 | Outpatient (REF) | payer MEDICARE ==
[2019-05-01 14:05] LABS: INR 1.42; PROTHROMBIN TIME 17.1 SECONDS (11.8-14.0)
== END ==
LOC: M LAB REF 13:15
PROVIDERS: ATTEND Internal Medicine Nephrology
DX: Z51.81 Encounter for therapeutic drug level monitoring (principal); Z79.01 Long term (current) use of anticoagulants; I48.0 Paroxysmal atrial fibrillation

== ENCOUNTER 2019-05-05 12:53 | Outpatient (CLI) | payer MEDICARE ==
[~2019-05-05] VITALS: Ht 149.9 cm; Wt 51.3 kg
[2019-05-05 13:00] VITALS: BP 134/70
[2019-05-05] MEDS ORDERED: BEZLOTOXUMAB 500 MG in NS 100 ML IV ONE (13:30)
[2019-05-05] MEDS ORDERED: CINA30TA4 PO (14:00)
[2019-05-05 15:00] VITALS: BP 121/58
[2019-05-05 15:25] VITALS: BP 137/64
== END 2019-05-05 15:25 | disposition home or self-care (01) ==
LOC: M INFU 12:53
PROVIDERS: ATTEND Internal Medicine Infectious Disease
DX: A04.71 Enterocolitis due to Clostridium difficile, recurrent (principal); Z88.1 Allergy status to other antibiotic agents; Z88.8 Allergy status to other drugs, medicaments and biological substances; Z91.041 Radiographic dye allergy status; Z79.899 Other long term (current) drug therapy
CPT/HCPCS: 96365; J0565

== ENCOUNTER → 2019-06-01 | Outpatient (REF) | payer MEDICARE ==
[2019-06-01 14:31] LABS: INR 1.62
== END ==
LOC: M LAB REF 13:35
PROVIDERS: ATTEND Internal Medicine Nephrology
DX: Z94.0 Kidney transplant status (principal); N18.4 Chronic kidney disease, stage 4 (severe); D68.61 Antiphospholipid syndrome

== ENCOUNTER → 2019-06-27 | Outpatient (REF) | payer MEDICARE ==
[2019-06-27 14:00] LABS: ALBUMIN 3.7 GM/DL (3.2-5.2); CREATININE FOR GFR 1.93 MG/DL (0.55-1.30); GLOMERULAR FILTRATION RATE 28.2 (>45); MAGNESIUM LEVEL 2.4 MG/DL (1.8-2.4); PHOSPHORUS LEVEL 3.5 MG/DL (2.5-4.9); POTASSIUM SERUM 3.9 MEQ/L (3.5-5.1)
[2019-06-27 14:03] LABS: BASO % 0.8 % (0.0-1.0); EOS # 0.1 10^3/uL (0.0-0.5); EOS % 2.9 % (0.0-3.0); HEMATOCRIT 34.5 % (36.0-47.0); HEMOGLOBIN 10.3 g/dl (12.0-15.5); LYMPH % 19.5 % (24.0-44.0); MEAN CORPUSCULAR HEMOGLOBIN 27.4 pg (27.0-33.0); MEAN CORPUSCULAR HGB CONC 29.9 g/dl (32.0-36.5); MEAN CORPUSCULAR VOLUME 91.8 fl (80.0-96.0); MONO # 0.9 10^3/uL (0.0-0.8); MONO % 17.6 % (0.0-5.0); NEUTROPHILS # 2.8 10^3/uL (1.5-8.5); NEUTROPHILS % 56.7 % (36.0-66.0); PLATELET COUNT, AUTOMATED 140 10^3/uL (150-450); RED BLOOD COUNT 3.76 10^6/uL (4.00-5.40); WHITE BLOOD COUNT 4.9 10^3/uL (4.0-10.0)
[2019-06-27 14:10] LABS: APPEARANCE, URINE CLEAR (CLEAR); BACTERIA, URINE AUTO 1+ (NEGATIVE); BILIRUBIN, URINE AUTO NEGATIVE (NEGATIVE); BLOOD, URINE BLOOD 1+ (NEGATIVE); COLOR, URINE YELLOW (YELLOW); GLUCOSE, URINE (UA) AUTO NEGATIVE (NEGATIVE); KETONE, URINE AUTO NEGATIVE (NEGATIVE); LEUKOCYTE ESTERASE, URINE AUTO TRACE (NEGATIVE); NITRITE, URINE AUTO NEGATIVE (NEGATIVE); PROTEIN, URINE AUTO 1+ mg/dL (NEGATIVE); RBC, URINE AUTO 2 /HPF (0-3); SPECIFIC GRAVITY URINE AUTO 1.011 (1.002-1.035); SQUAMOUS EPITHELIAL CELL UR AU 0 /HPF (0-6); UROBILINOGEN, URINE AUTO 0.2 mg/dL (0.0-2.0); WBC, URINE AUTO 5 /HPF (0-3)
[2019-06-27 14:15] LABS: CREATININE,RANDOM URINE 61.3 MG/DL; TOTAL PROTEIN,RANDOM URINE 36.8 MG/DL (0.0-12.0)
== END ==
LOC: M LAB REF 13:11
PROVIDERS: ATTEND Internal Medicine Nephrology
DX: N18.5 Chronic kidney disease, stage 5 (principal); Z94.0 Kidney transplant status; D84.9 Immunodeficiency, unspecified; Z79.899 Other long term (current) drug therapy; I48.0 Paroxysmal atrial fibrillation; Z79.01 Long term (current) use of anticoagulants

== ENCOUNTER → 2019-06-27 | Outpatient (REF) | payer MEDICARE ==
[2019-06-27 14:14] LABS: INR 2.68; PROTHROMBIN TIME 28.3 SECONDS (11.8-14.0)
== END ==
LOC: M LAB REF 13:09
PROVIDERS: ATTEND Internal Medicine Nephrology
DX: I48.0 Paroxysmal atrial fibrillation (principal); Z79.01 Long term (current) use of anticoagulants

== ENCOUNTER → 2019-07-24 | Outpatient (REF) | payer MEDICARE ==
[~2019-07-24] MED LIST changes: +VITA-243 PO; -VITA500T PO
== END ==
LOC: M LAB REF 16:58
PROVIDERS: ATTEND Internal Medicine Nephrology
DX: N39.0 Urinary tract infection, site not specified (principal)

== ENCOUNTER → 2019-07-31 | Outpatient (REF) | payer MEDICARE | LOC: M LAB REF 16:50 | PROVIDERS: ATTEND Internal Medicine Nephrology | DX: Z94.0 Kidney transplant status (principal); N18.5 Chronic kidney disease, stage 5; D84.9 Immunodeficiency, unspecified; Z79.899 Other long term (current) drug therapy ==

== ENCOUNTER → 2019-07-31 | Outpatient (REF) | payer MEDICARE ==
[2019-07-31 18:30] LABS: CREATININE,RANDOM URINE 42.4 MG/DL; TOTAL PROTEIN,RANDOM URINE 27.1 MG/DL (0.0-12.0)
== END ==
LOC: M LAB REF 16:52
PROVIDERS: ATTEND Internal Medicine Nephrology
DX: N18.5 Chronic kidney disease, stage 5 (principal); Z94.0 Kidney transplant status; D84.9 Immunodeficiency, unspecified; Z79.899 Other long term (current) drug therapy

== ENCOUNTER → 2019-09-05 | Outpatient (REF) | payer MEDICARE ==
[2019-09-05 19:08] LABS: BASO # 0.1 10^3/uL (0.0-0.2); BASO % 0.8 % (0.0-1.0); EOS # 0.1 10^3/uL (0.0-0.5); EOS % 1.5 % (0.0-3.0); HEMATOCRIT 35.2 % (36.0-47.0); HEMOGLOBIN 10.5 g/dl (12.0-15.5); LYMPH # 0.5 10^3/uL (1.5-5.0); LYMPH % 6.8 % (24.0-44.0); MEAN CORPUSCULAR HEMOGLOBIN 27.2 pg (27.0-33.0); MEAN CORPUSCULAR HGB CONC 29.8 g/dl (32.0-36.5); MEAN CORPUSCULAR VOLUME 91.2 fl (80.0-96.0); MONO # 0.6 10^3/uL (0.0-0.8); MONO % 7.7 % (0.0-5.0); NEUTROPHILS # 6.5 10^3/uL (1.5-8.5); NEUTROPHILS % 82.2 % (36.0-66.0); PLATELET COUNT, AUTOMATED 155 10^3/uL (150-450); RED BLOOD COUNT 3.86 10^6/uL (4.00-5.40); WHITE BLOOD COUNT 7.9 10^3/uL (4.0-10.0)
[2019-09-05 19:10] LABS: ALBUMIN 3.6 GM/DL (3.2-5.2); CALCIUM LEVEL 8.5 MG/DL (8.8-10.2); CREATININE FOR GFR 2.46 MG/DL (0.55-1.30); GLOMERULAR FILTRATION RATE 21.3 (>45); MAGNESIUM LEVEL 2.6 MG/DL (1.8-2.4); PHOSPHORUS LEVEL 2.9 MG/DL (2.5-4.9); POTASSIUM SERUM 4.3 MEQ/L (3.5-5.1)
[2019-09-05 19:43] LABS: CREATININE,RANDOM URINE 43.3 MG/DL
[2019-09-05 20:32] LABS: APPEARANCE, URINE CLEAR (CLEAR); BACTERIA, URINE AUTO NEGATIVE (NEGATIVE); BILIRUBIN, URINE AUTO NEGATIVE (NEGATIVE); BLOOD, URINE BLOOD 1+ (NEGATIVE); COLOR, URINE YELLOW (YELLOW); GLUCOSE, URINE (UA) AUTO NEGATIVE (NEGATIVE); KETONE, URINE AUTO NEGATIVE (NEGATIVE); LEUKOCYTE ESTERASE, URINE AUTO NEGATIVE (NEGATIVE); NITRITE, URINE AUTO NEGATIVE (NEGATIVE); PROTEIN, URINE AUTO NEGATIVE (NEGATIVE); RBC, URINE AUTO 2 /HPF (0-3); SPECIFIC GRAVITY URINE AUTO 1.008 (1.002-1.035); SQUAMOUS EPITHELIAL CELL UR AU 0 /HPF (0-6); UROBILINOGEN, URINE AUTO 0.2 mg/dL (0.0-2.0); WBC, URINE AUTO 3 /HPF (0-3)
== END ==
LOC: M LAB REF 16:28
PROVIDERS: ATTEND Internal Medicine Nephrology
DX: N18.5 Chronic kidney disease, stage 5 (principal); D84.9 Immunodeficiency, unspecified; Z94.0 Kidney transplant status; Z79.899 Other long term (current) drug therapy; I48.0 Paroxysmal atrial fibrillation; Z79.01 Long term (current) use of anticoagulants

== ENCOUNTER → 2019-09-05 | Outpatient (REF) | payer MEDICARE ==
[2019-09-05 19:23] LABS: INR 2.82; PROTHROMBIN TIME 29.6 SECONDS (11.8-14.0)
== END ==
LOC: M LAB REF 16:26
PROVIDERS: ATTEND Internal Medicine Nephrology
DX: I48.0 Paroxysmal atrial fibrillation (principal); Z79.01 Long term (current) use of anticoagulants

== ENCOUNTER → 2019-09-08 | Outpatient (REF) | payer MEDICARE ==
[~2019-09-08] MED LIST changes: -COUM1TAB14 PO; +COUM4TAB8 PO
[2019-09-08 18:19] LABS: ALBUMIN 3.6 GM/DL (3.2-5.2); CALCIUM LEVEL 8.3 MG/DL (8.8-10.2); CREATININE FOR GFR 1.98 MG/DL (0.55-1.30); GLOMERULAR FILTRATION RATE 27.4 (>45); PHOSPHORUS LEVEL 3.5 MG/DL (2.5-4.9); POTASSIUM SERUM 4.6 MEQ/L (3.5-5.1)
== END ==
LOC: M LAB REF 16:30
PROVIDERS: ATTEND Internal Medicine Nephrology
DX: Z51.81 Encounter for therapeutic drug level monitoring (principal); Z79.899 Other long term (current) drug therapy; Z94.0 Kidney transplant status; N18.5 Chronic kidney disease, stage 5; D84.9 Immunodeficiency, unspecified

== ENCOUNTER → 2019-10-03 | Outpatient (REF) | payer MEDICARE ==
[~2019-10-03] MED LIST changes: +PANT40TA29 PO; -PANT40TA3 PO
[2019-10-03 18:24] LABS: INR 2.13; PROTHROMBIN TIME 23.6 SECONDS (11.8-14.0)
== END ==
LOC: M LAB REF 16:35
PROVIDERS: ATTEND Internal Medicine Nephrology
DX: Z94.0 Kidney transplant status (principal); I48.0 Paroxysmal atrial fibrillation; Z79.01 Long term (current) use of anticoagulants

== ENCOUNTER → 2019-11-08 | Outpatient (REF) | payer MEDICARE ==
[2019-12-04 08:59] LABS: INR 2.66; PROTHROMBIN TIME 28.9 SECONDS (11.8-14.0)
== END ==
LOC: M LAB REF 11:44
PROVIDERS: ATTEND Internal Medicine Nephrology
DX: Z51.81 Encounter for therapeutic drug level monitoring (principal); Z79.01 Long term (current) use of anticoagulants; I48.0 Paroxysmal atrial fibrillation

== ENCOUNTER → 2019-11-08 | Outpatient (REF) | payer MEDICARE ==
[2019-12-04 08:43] LABS: APPEARANCE, URINE CLEAR (CLEAR); BACTERIA, URINE AUTO NEGATIVE (NEGATIVE); BILIRUBIN, URINE AUTO NEGATIVE (NEGATIVE); BLOOD, URINE BLOOD 1+ (NEGATIVE); COLOR, URINE YELLOW (YELLOW); GLUCOSE, URINE (UA) AUTO NEGATIVE (NEGATIVE); KETONE, URINE AUTO NEGATIVE (NEGATIVE); LEUKOCYTE ESTERASE, URINE AUTO NEGATIVE (NEGATIVE); NITRITE, URINE AUTO NEGATIVE (NEGATIVE); PROTEIN, URINE AUTO NEGATIVE (NEGATIVE); RBC, URINE AUTO 0 /HPF (0-3); SPECIFIC GRAVITY URINE AUTO 1.006 (1.002-1.035); SQUAMOUS EPITHELIAL CELL UR AU 1 /HPF (0-6); UROBILINOGEN, URINE AUTO 0.2 mg/dL (0.0-2.0); WBC, URINE AUTO 4 /HPF (0-3)
[2019-12-04 10:36] LABS: BASO % 0.6 % (0.0-1.0); EOS # 0.2 10^3/uL (0.0-0.5); EOS % 2.3 % (0.0-3.0); HEMATOCRIT 36.2 % (36.0-47.0); HEMOGLOBIN 10.8 g/dl (12.0-15.5); LYMPH % 13.6 % (24.0-44.0); MEAN CORPUSCULAR HEMOGLOBIN 26.7 pg (27.0-33.0); MEAN CORPUSCULAR HGB CONC 29.8 g/dl (32.0-36.5); MEAN CORPUSCULAR VOLUME 89.6 fl (80.0-96.0); MONO # 0.9 10^3/uL (0.0-0.8); MONO % 12.2 % (0.0-5.0); NEUTROPHILS # 4.9 10^3/uL (1.5-8.5); NEUTROPHILS % 69.7 % (36.0-66.0); PLATELET COUNT, AUTOMATED 143 10^3/uL (150-450); RED BLOOD COUNT 4.04 10^6/uL (4.00-5.40)
[2019-12-13 13:46] LABS: BK VIRUS URINE PCR1 See Separate Report
[2019-12-16 09:09] LABS: ALBUMIN 3.8 GM/DL (3.2-5.2); ALT/SGPT 28 U/L (12-78); BILIRUBIN,DIRECT < 0.1 MG/DL (0.0-0.2); BILIRUBIN,TOTAL 0.5 MG/DL (0.2-1.0); BLOOD UREA NITROGEN 42 MG/DL (7-18); CALCIUM LEVEL 8.7 MG/DL (8.8-10.2); CARBON DIOXIDE LEVEL 26 MEQ/L (21-32); CHLORIDE LEVEL 105 MEQ/L (98-107); CHOLESTEROL LEVEL 121 MG/DL (<200); CHOLESTEROL RISK RATIO 3.457 (<5); CREATININE FOR GFR 1.77 MG/DL (0.55-1.30); CREATININE,RANDOM URINE 51.6 MG/DL; GLOMERULAR FILTRATION RATE 31.2 (>45); GLUCOSE, FASTING 73 MG/DL (70-100); HDL CHOLESTEROL 35 MG/DL (>40); LDL CHOLESTEROL 39 MG/DL (<100); MAGNESIUM LEVEL 1.8 MG/DL (1.8-2.4); NON-HDL-C 86 MG/DL; PHOSPHORUS LEVEL 2.8 MG/DL (2.5-4.9); POTASSIUM SERUM 3.3 MEQ/L (3.5-5.1); SODIUM LEVEL 139 MEQ/L (136-145); TOTAL PROTEIN 6.7 GM/DL (6.4-8.2); TOTAL PROTEIN,RANDOM URINE 12.2 MG/DL (0.0-12.0); TRIGLYCERIDES LEVEL 237 MG/DL (<150)
[2020-01-12 13:03] LABS: BK VIRUS BLOOD PCR1 SEE SEPARATE REPORT
== END ==
LOC: M LAB REF 11:47
PROVIDERS: ATTEND Internal Medicine Nephrology
DX: Z51.81 Encounter for therapeutic drug level monitoring (principal); Z94.0 Kidney transplant status; Z79.01 Long term (current) use of anticoagulants; I48.0 Paroxysmal atrial fibrillation; Z79.899 Other long term (current) drug therapy; N18.5 Chronic kidney disease, stage 5; D84.9 Immunodeficiency, unspecified

== ENCOUNTER → 2019-12-08 | Outpatient (REF) | payer MEDICARE ==
[2019-12-08 19:20] LABS: CREATININE,RANDOM URINE 46.5 MG/DL; TOTAL PROTEIN,RANDOM URINE 18.6 MG/DL (0.0-12.0)
[2019-12-12 13:09] LABS: BK VIRUS URINE PCR1 Negative copies/mL (Negative)
[2019-12-12 14:09] LABS: BK VIRUS BLOOD PCR1 Negative copies/mL (Negative)
== END ==
LOC: M LAB REF 17:18
PROVIDERS: ATTEND Internal Medicine Nephrology
DX: Z51.81 Encounter for therapeutic drug level monitoring (principal); Z94.0 Kidney transplant status; Z79.899 Other long term (current) drug therapy; D84.9 Immunodeficiency, unspecified; N18.5 Chronic kidney disease, stage 5

== ENCOUNTER → 2019-12-08 | Outpatient (REF) | payer MEDICARE ==
[2019-12-08 19:49] LABS: INR 2.19; PROTHROMBIN TIME 24.9 SECONDS (11.8-14.0)
== END ==
LOC: M LAB REF 19:17
PROVIDERS: ATTEND Internal Medicine Nephrology
DX: I48.0 Paroxysmal atrial fibrillation (principal); Z79.01 Long term (current) use of anticoagulants

== ENCOUNTER → 2020-01-08 | Outpatient (REF) | payer MEDICARE ==
[2020-01-08 17:40] LABS: INR 2.75; PROTHROMBIN TIME 29.7 SECONDS (12.5-14.3)
== END ==
LOC: M LAB REF 16:49
PROVIDERS: ATTEND Internal Medicine Nephrology
DX: N18.4 Chronic kidney disease, stage 4 (severe) (principal); Z94.0 Kidney transplant status; I48.0 Paroxysmal atrial fibrillation; Z79.01 Long term (current) use of anticoagulants

== ENCOUNTER → 2020-02-07 | Outpatient (REF) | payer MEDICARE ==
[2020-02-07 17:53] LABS: BASO # 0.1 10^3/uL (0.0-0.2); BASO % 0.8 % (0.0-1.0); EOS # 0.2 10^3/uL (0.0-0.5); EOS % 2.2 % (0.0-3.0); HEMATOCRIT 36.3 % (36.0-47.0); HEMOGLOBIN 10.7 g/dl (12.0-15.5); LYMPH # 0.9 10^3/uL (1.5-5.0); LYMPH % 12.3 % (24.0-44.0); MEAN CORPUSCULAR HEMOGLOBIN 26.5 pg (27.0-33.0); MEAN CORPUSCULAR HGB CONC 29.5 g/dl (32.0-36.5); MEAN CORPUSCULAR VOLUME 89.9 fl (80.0-96.0); MONO # 0.8 10^3/uL (0.0-0.8); MONO % 11.1 % (0.0-5.0); NEUTROPHILS # 5.1 10^3/uL (1.5-8.5); NEUTROPHILS % 71.8 % (36.0-66.0); PLATELET COUNT, AUTOMATED 152 10^3/uL (150-450); RED BLOOD COUNT 4.04 10^6/uL (4.00-5.40); WHITE BLOOD COUNT 7.1 10^3/uL (4.0-10.0)
[2020-02-07 18:20] LABS: APPEARANCE, URINE CLEAR (CLEAR); BACTERIA, URINE AUTO NEGATIVE (NEGATIVE); BILIRUBIN, URINE AUTO NEGATIVE (NEGATIVE); BLOOD, URINE BLOOD 1+ (NEGATIVE); COLOR, URINE STRAW (YELLOW); GLUCOSE, URINE (UA) AUTO NEGATIVE (NEGATIVE); KETONE, URINE AUTO NEGATIVE (NEGATIVE); LEUKOCYTE ESTERASE, URINE AUTO NEGATIVE (NEGATIVE); NITRITE, URINE AUTO NEGATIVE (NEGATIVE); PROTEIN, URINE AUTO NEGATIVE (NEGATIVE); RBC, URINE AUTO 1 /HPF (0-3); SPECIFIC GRAVITY URINE AUTO 1.006 (1.002-1.035); SQUAMOUS EPITHELIAL CELL UR AU 0 /HPF (0-6); UROBILINOGEN, URINE AUTO 0.2 mg/dL (0.0-2.0); WBC, URINE AUTO 2 /HPF (0-3)
[2020-02-07 18:36] LABS: ALBUMIN 3.8 GM/DL (3.2-5.2); BILIRUBIN,DIRECT 0.1 MG/DL (0.0-0.2); BILIRUBIN,TOTAL 0.3 MG/DL (0.2-1.0); CALCIUM LEVEL 9.1 MG/DL (8.8-10.2); CHOLESTEROL RISK RATIO 2.866 (<5); CREATININE FOR GFR 1.68 MG/DL (0.55-1.30); GLOMERULAR FILTRATION RATE 33.1 (>45); MAGNESIUM LEVEL 2.1 MG/DL (1.8-2.4); PHOSPHORUS LEVEL 3.2 MG/DL (2.5-4.9); POTASSIUM SERUM 4.1 MEQ/L (3.5-5.1); TOTAL PROTEIN 6.6 GM/DL (6.4-8.2)
[2020-02-07 18:44] LABS: CREATININE,RANDOM URINE 25.2 MG/DL; TOTAL PROTEIN,RANDOM URINE 10.1 MG/DL (0.0-12.0)
== END ==
LOC: M LAB REF 16:53
PROVIDERS: ATTEND Internal Medicine Nephrology
DX: N18.5 Chronic kidney disease, stage 5 (principal); D84.9 Immunodeficiency, unspecified; I48.0 Paroxysmal atrial fibrillation; Z94.0 Kidney transplant status; Z79.899 Other long term (current) drug therapy; Z79.01 Long term (current) use of anticoagulants

== ENCOUNTER → 2020-02-07 | Outpatient (REF) | payer MEDICARE ==
[2020-02-07 18:27] LABS: INR 2.11; PROTHROMBIN TIME 24.1 SECONDS (12.5-14.3)
== END ==
LOC: M LAB REF 16:51
PROVIDERS: ATTEND Internal Medicine Nephrology
DX: N18.4 Chronic kidney disease, stage 4 (severe) (principal); I48.0 Paroxysmal atrial fibrillation; Z94.0 Kidney transplant status; Z79.01 Long term (current) use of anticoagulants

== ENCOUNTER → 2020-03-13 | Outpatient (REF) | payer MEDICARE ==
[2020-03-13 18:07] LABS: INR 2.33; PROTHROMBIN TIME 26.1 SECONDS (12.5-14.3)
== END ==
LOC: M LAB REF 17:11
PROVIDERS: ATTEND Internal Medicine Nephrology
DX: Z79.01 Long term (current) use of anticoagulants (principal); Z94.0 Kidney transplant status; I48.0 Paroxysmal atrial fibrillation

== ENCOUNTER → 2020-03-13 | Outpatient (REF) | payer MEDICARE ==
[2020-03-13 17:53] LABS: BASO # 0.1 10^3/uL (0.0-0.2); BASO % 0.7 % (0.0-1.0); EOS # 0.1 10^3/uL (0.0-0.5); EOS % 1.6 % (0.0-3.0); HEMATOCRIT 39.2 % (36.0-47.0); HEMOGLOBIN 11.3 g/dl (12.0-15.5); LYMPH # 0.8 10^3/uL (1.5-5.0); LYMPH % 11.9 % (24.0-44.0); MEAN CORPUSCULAR HGB CONC 28.8 g/dl (32.0-36.5); MEAN CORPUSCULAR VOLUME 90.3 fl (80.0-96.0); MONO # 0.8 10^3/uL (0.0-0.8); MONO % 12.1 % (0.0-5.0); NEUTROPHILS # 4.8 10^3/uL (1.5-8.5); NEUTROPHILS % 71.3 % (36.0-66.0); PLATELET COUNT, AUTOMATED 146 10^3/uL (150-450); RED BLOOD COUNT 4.34 10^6/uL (4.00-5.40); WHITE BLOOD COUNT 6.8 10^3/uL (4.0-10.0)
[2020-03-13 18:06] LABS: APPEARANCE, URINE CLEAR (CLEAR); BACTERIA, URINE AUTO NEGATIVE (NEGATIVE); BILIRUBIN, URINE AUTO NEGATIVE (NEGATIVE); BLOOD, URINE BLOOD 2+ (NEGATIVE); COLOR, URINE STRAW (YELLOW); GLUCOSE, URINE (UA) AUTO NEGATIVE (NEGATIVE); KETONE, URINE AUTO NEGATIVE (NEGATIVE); LEUKOCYTE ESTERASE, URINE AUTO TRACE (NEGATIVE); NITRITE, URINE AUTO NEGATIVE (NEGATIVE); PROTEIN, URINE AUTO 1+ mg/dL (NEGATIVE); RBC, URINE AUTO 3 /HPF (0-3); SQUAMOUS EPITHELIAL CELL UR AU 0 /HPF (0-6); TRANSITIONAL EPITHELIAL AUTO 1 /HPF; UROBILINOGEN, URINE AUTO 0.2 mg/dL (0.0-2.0); WBC, URINE AUTO 6 /HPF (0-3)
[2020-03-13 18:10] LABS: TOTAL PROTEIN,RANDOM URINE 26.2 MG/DL (0.0-12.0)
[2020-03-13 18:21] LABS: ALBUMIN 3.9 GM/DL (3.2-5.2); ALT/SGPT 27 U/L (12-78); BILIRUBIN,DIRECT < 0.1 MG/DL (0.0-0.2); BILIRUBIN,TOTAL 0.3 MG/DL (0.2-1.0); BLOOD UREA NITROGEN 47 MG/DL (7-18); CALCIUM LEVEL 9.4 MG/DL (8.8-10.2); CARBON DIOXIDE LEVEL 27 MEQ/L (21-32); CHLORIDE LEVEL 106 MEQ/L (98-107); CHOLESTEROL LEVEL 160 MG/DL (<200); CHOLESTEROL RISK RATIO 3.636 (<5); CREATININE FOR GFR 2.05 MG/DL (0.55-1.30); GLOMERULAR FILTRATION RATE 26.3 (>45); GLUCOSE, FASTING 57 MG/DL (70-100); HDL CHOLESTEROL 44 MG/DL (>40); LDL CHOLESTEROL 61 MG/DL (<100); MAGNESIUM LEVEL 2.2 MG/DL (1.8-2.4); NON-HDL-C 116 MG/DL; PHOSPHORUS LEVEL 3.2 MG/DL (2.5-4.9); POTASSIUM SERUM 3.9 MEQ/L (3.5-5.1); SODIUM LEVEL 141 MEQ/L (136-145); TOTAL PROTEIN 6.8 GM/DL (6.4-8.2); TRIGLYCERIDES LEVEL 276 MG/DL (<150)
== END ==
LOC: M LAB REF 17:07
PROVIDERS: ATTEND Internal Medicine Nephrology
DX: Z94.0 Kidney transplant status (principal); N18.5 Chronic kidney disease, stage 5; D84.9 Immunodeficiency, unspecified; Z79.01 Long term (current) use of anticoagulants; I48.0 Paroxysmal atrial fibrillation; Z79.899 Other long term (current) drug therapy

== ENCOUNTER → 2020-04-22 | Outpatient (REF) | payer MEDICARE ==
[2020-04-22 17:59] LABS: INR 2.79
== END ==
LOC: M LAB REF 17:22
PROVIDERS: ATTEND Internal Medicine Nephrology
DX: Z48.22 Encounter for aftercare following kidney transplant (principal); Z79.01 Long term (current) use of anticoagulants; I48.0 Paroxysmal atrial fibrillation

== ENCOUNTER → 2020-05-21 | Outpatient (REF) | payer MEDICARE ==
[~2020-05-21] MED LIST changes: +ISOS1TAB35 PO; -ISOS30TA4 PO
[2020-05-21 18:32] LABS: INR 3.09; PROTHROMBIN TIME 32.6 SECONDS (12.5-14.3)
== END ==
LOC: M LAB REF 16:45
PROVIDERS: ATTEND Internal Medicine Nephrology
DX: Z79.01 Long term (current) use of anticoagulants (principal); I48.0 Paroxysmal atrial fibrillation

== ENCOUNTER → 2020-05-21 | Outpatient (REF) | payer MEDICARE ==
[2020-05-21 17:58] LABS: APPEARANCE, URINE CLEAR (CLEAR); BACTERIA, URINE AUTO NEGATIVE (NEGATIVE); BILIRUBIN, URINE AUTO NEGATIVE (NEGATIVE); BLOOD, URINE BLOOD 1+ (NEGATIVE); COLOR, URINE STRAW (YELLOW); GLUCOSE, URINE (UA) AUTO NEGATIVE (NEGATIVE); KETONE, URINE AUTO NEGATIVE (NEGATIVE); LEUKOCYTE ESTERASE, URINE AUTO NEGATIVE (NEGATIVE); NITRITE, URINE AUTO NEGATIVE (NEGATIVE); PROTEIN, URINE AUTO NEGATIVE (NEGATIVE); RBC, URINE AUTO 1 /HPF (0-3); SPECIFIC GRAVITY URINE AUTO 1.004 (1.002-1.035); SQUAMOUS EPITHELIAL CELL UR AU 0 /HPF (0-6); UROBILINOGEN, URINE AUTO 0.2 mg/dL (0.0-2.0); WBC, URINE AUTO 1 /HPF (0-3)
[2020-05-21 18:17] LABS: BASO # 0.1 10^3/uL (0.0-0.2); BASO % 0.7 % (0.0-1.0); EOS # 0.2 10^3/uL (0.0-0.5); EOS % 2.1 % (0.0-3.0); HEMOGLOBIN 10.6 g/dl (12.0-15.5); LYMPH # 0.9 10^3/uL (1.5-5.0); LYMPH % 12.3 % (24.0-44.0); MEAN CORPUSCULAR HEMOGLOBIN 25.6 pg (27.0-33.0); MEAN CORPUSCULAR HGB CONC 29.4 g/dl (32.0-36.5); MONO # 0.9 10^3/uL (0.0-0.8); MONO % 11.8 % (0.0-5.0); NEUTROPHILS # 5.2 10^3/uL (1.5-8.5); NEUTROPHILS % 71.8 % (36.0-66.0); PLATELET COUNT, AUTOMATED 149 10^3/uL (150-450); RED BLOOD COUNT 4.14 10^6/uL (4.00-5.40); WHITE BLOOD COUNT 7.2 10^3/uL (4.0-10.0)
[2020-05-21 18:32] LABS: TOTAL PROTEIN,RANDOM URINE 8.3 MG/DL (0.0-12.0)
[2020-05-21 18:40] LABS: ALBUMIN 3.8 GM/DL (3.2-5.2); BILIRUBIN,DIRECT 0.1 MG/DL (0.0-0.2); BILIRUBIN,TOTAL 0.3 MG/DL (0.2-1.0); CALCIUM LEVEL 8.6 MG/DL (8.8-10.2); CHOLESTEROL RISK RATIO 3.4 (<5); CREATININE FOR GFR 1.8 MG/DL (0.55-1.30); GLOMERULAR FILTRATION RATE 30.5 (>45); MAGNESIUM LEVEL 1.6 MG/DL (1.8-2.4); PHOSPHORUS LEVEL 2.8 MG/DL (2.5-4.9); POTASSIUM SERUM 3.8 MEQ/L (3.5-5.1); TOTAL PROTEIN 6.8 GM/DL (6.4-8.2)
== END ==
LOC: M LAB REF 16:48
PROVIDERS: ATTEND Internal Medicine Nephrology
DX: Z79.899 Other long term (current) drug therapy (principal); Z94.0 Kidney transplant status; N18.5 Chronic kidney disease, stage 5; D64.9 Anemia, unspecified; I48.0 Paroxysmal atrial fibrillation; Z79.01 Long term (current) use of anticoagulants

== ENCOUNTER → 2020-06-18 | Outpatient (REF) | payer MEDICARE ==
[2020-06-18 17:47] LABS: BASO % 0.7 % (0.0-1.0); EOS # 0.1 10^3/uL (0.0-0.5); EOS % 1.8 % (0.0-3.0); HEMATOCRIT 34.4 % (36.0-47.0); HEMOGLOBIN 10.2 g/dl (12.0-15.5); LYMPH # 0.8 10^3/uL (1.5-5.0); LYMPH % 13.9 % (24.0-44.0); MEAN CORPUSCULAR HEMOGLOBIN 26.6 pg (27.0-33.0); MEAN CORPUSCULAR HGB CONC 29.7 g/dl (32.0-36.5); MEAN CORPUSCULAR VOLUME 89.8 fl (80.0-96.0); MONO # 0.8 10^3/uL (0.0-0.8); MONO % 13.4 % (2.0-8.0); NEUTROPHILS # 4.2 10^3/uL (1.5-8.5); NEUTROPHILS % 68.7 % (36.0-66.0); PLATELET COUNT, AUTOMATED 122 10^3/uL (150-450); RED BLOOD COUNT 3.83 10^6/uL (4.00-5.40); WHITE BLOOD COUNT 6.1 10^3/uL (4.0-10.0)
[2020-06-18 17:55] LABS: APPEARANCE, URINE CLEAR (CLEAR); BACTERIA, URINE AUTO NEGATIVE (NEGATIVE); BILIRUBIN, URINE AUTO NEGATIVE (NEGATIVE); BLOOD, URINE BLOOD 1+ (NEGATIVE); COLOR, URINE YELLOW (YELLOW); GLUCOSE, URINE (UA) AUTO NEGATIVE (NEGATIVE); KETONE, URINE AUTO NEGATIVE (NEGATIVE); LEUKOCYTE ESTERASE, URINE AUTO NEGATIVE (NEGATIVE); NITRITE, URINE AUTO NEGATIVE (NEGATIVE); PROTEIN, URINE AUTO NEGATIVE (NEGATIVE); RBC, URINE AUTO 2 /HPF (0-3); SPECIFIC GRAVITY URINE AUTO 1.012 (1.002-1.035); SQUAMOUS EPITHELIAL CELL UR AU 0 /HPF (0-6); UROBILINOGEN, URINE AUTO 0.2 mg/dL (0.0-2.0); WBC, URINE AUTO 5 /HPF (0-3)
[2020-06-18 18:06] LABS: CREATININE,RANDOM URINE 78.5 MG/DL; TOTAL PROTEIN,RANDOM URINE 27.1 MG/DL (0.0-12.0)
[2020-06-18 18:10] LABS: ALBUMIN 3.5 GM/DL (3.2-5.2); ALT/SGPT 23 U/L (12-78); BILIRUBIN,DIRECT < 0.1 MG/DL (0.0-0.2); BILIRUBIN,TOTAL 0.2 MG/DL (0.2-1.0); BLOOD UREA NITROGEN 49 MG/DL (7-18); CALCIUM LEVEL 8.4 MG/DL (8.8-10.2); CARBON DIOXIDE LEVEL 27 MEQ/L (21-32); CHLORIDE LEVEL 108 MEQ/L (98-107); CHOLESTEROL LEVEL 134 MG/DL (<200); CREATININE FOR GFR 1.91 MG/DL (0.55-1.30); GLOMERULAR FILTRATION RATE 28.4 (>45); GLUCOSE, FASTING 66 MG/DL (70-100); HDL CHOLESTEROL 42 MG/DL (>40); LDL CHOLESTEROL 49 MG/DL (<100); MAGNESIUM LEVEL 1.8 MG/DL (1.8-2.4); NON-HDL-C 92 MG/DL; PHOSPHORUS LEVEL 2.9 MG/DL (2.5-4.9); POTASSIUM SERUM 3.6 MEQ/L (3.5-5.1); SODIUM LEVEL 141 MEQ/L (136-145); TOTAL PROTEIN 6.5 GM/DL (6.4-8.2); TRIGLYCERIDES LEVEL 215 MG/DL (<150)
[2020-06-21 17:06] LABS: BK VIRUS BLOOD PCR1 Negative copies/mL (Negative)
== END ==
LOC: M LAB REF 16:54
PROVIDERS: ATTEND Internal Medicine Nephrology
DX: Z94.0 Kidney transplant status (principal); N18.5 Chronic kidney disease, stage 5; D84.9 Immunodeficiency, unspecified; Z79.899 Other long term (current) drug therapy; I48.0 Paroxysmal atrial fibrillation; Z79.01 Long term (current) use of anticoagulants

== ENCOUNTER → 2020-06-18 | Outpatient (REF) | payer MEDICARE ==
[2020-06-18 17:57] LABS: INR 3.66; PROTHROMBIN TIME 37.2 SECONDS (12.5-14.3)
== END ==
LOC: M LAB REF 16:52
PROVIDERS: ATTEND Internal Medicine Nephrology
DX: Z79.01 Long term (current) use of anticoagulants (principal); I48.0 Paroxysmal atrial fibrillation

== ENCOUNTER → 2020-07-23 | Outpatient (REF) | payer MEDICARE ==
[2020-07-23 18:12] LABS: INR 1.99; PROTHROMBIN TIME 23.1 SECONDS (12.5-14.3)
[2020-07-23 18:26] LABS: PERCENT SATURATION 44.2 % (13.2-45.0)
== END ==
LOC: M LAB REF 16:44
PROVIDERS: ATTEND Internal Medicine Nephrology
DX: I48.0 Paroxysmal atrial fibrillation (principal); D63.1 Anemia in chronic kidney disease; Z79.01 Long term (current) use of anticoagulants; N18.9 Chronic kidney disease, unspecified

== ENCOUNTER → 2020-08-12 | Outpatient (REF) | payer MEDICARE ==
[2020-08-12 17:38] LABS: INR 3.58; PROTHROMBIN TIME 36.6 SECONDS (12.5-14.3)
== END ==
LOC: M LAB REF 16:47
PROVIDERS: ATTEND Internal Medicine Nephrology
DX: Z48.22 Encounter for aftercare following kidney transplant (principal); Z79.01 Long term (current) use of anticoagulants; I48.0 Paroxysmal atrial fibrillation

== ENCOUNTER → 2020-08-15 | Outpatient (REF) | payer MEDICARE | LOC: M LAB REF 13:44 | PROVIDERS: ATTEND Dermatology | DX: Z48.02 Encounter for removal of sutures (principal) ==

== ENCOUNTER → 2020-08-20 | Outpatient (REF) | payer MEDICARE | LOC: M LAB REF 13:55 | PROVIDERS: ATTEND Dermatology | DX: T14.90XD Injury, unspecified, subsequent encounter (principal) ==

== ENCOUNTER → 2020-08-30 | Outpatient (REF) | payer MEDICARE | LOC: M LAB REF 13:42 | PROVIDERS: ATTEND Dermatology | DX: T14.90XD Injury, unspecified, subsequent encounter (principal) ==

== ENCOUNTER → 2020-10-01 | Outpatient (REF) | payer MEDICARE ==
[~2020-10-01] MED LIST changes: +OMEP40CA4 PO; -OMEP40CA97 PO
[2020-10-01 18:07] LABS: BASO # 0.1 10^3/uL (0.0-0.2); BASO % 1.1 % (0.0-1.0); EOS # 0.1 10^3/uL (0.0-0.5); EOS % 1.4 % (0.0-3.0); HEMATOCRIT 37.8 % (36.0-47.0); HEMOGLOBIN 11.2 g/dl (12.0-15.5); LYMPH # 0.7 10^3/uL (1.5-5.0); MEAN CORPUSCULAR HEMOGLOBIN 26.8 pg (27.0-33.0); MEAN CORPUSCULAR HGB CONC 29.6 g/dl (32.0-36.5); MEAN CORPUSCULAR VOLUME 90.4 fl (80.0-96.0); MONO # 0.8 10^3/uL (0.0-0.8); MONO % 9.9 % (2.0-8.0); NEUTROPHILS # 6.2 10^3/uL (1.5-8.5); NEUTROPHILS % 76.9 % (36.0-66.0); PLATELET COUNT, AUTOMATED 130 10^3/uL (150-450); RED BLOOD COUNT 4.18 10^6/uL (4.00-5.40)
[2020-10-01 18:28] LABS: CREATININE,RANDOM URINE 23.9 MG/DL
[2020-10-01 18:36] LABS: ALBUMIN 3.6 GM/DL (3.2-5.2); ALT/SGPT 28 U/L (12-78); BILIRUBIN,DIRECT < 0.1 MG/DL (0.0-0.2); BILIRUBIN,TOTAL 0.3 MG/DL (0.2-1.0); BLOOD UREA NITROGEN 37 MG/DL (7-18); CALCIUM LEVEL 9.2 MG/DL (8.8-10.2); CARBON DIOXIDE LEVEL 25 MEQ/L (21-32); CHLORIDE LEVEL 110 MEQ/L (98-107); CHOLESTEROL LEVEL 152 MG/DL (<200); CREATININE FOR GFR 1.72 MG/DL (0.55-1.30); GLOMERULAR FILTRATION RATE 32.1 (>45); GLUCOSE, FASTING 72 MG/DL (70-100); HDL CHOLESTEROL 50 MG/DL (>40); LDL CHOLESTEROL 60 MG/DL (<100); MAGNESIUM LEVEL 1.6 MG/DL (1.8-2.4); NON-HDL-C 102 MG/DL; PHOSPHORUS LEVEL 3.2 MG/DL (2.5-4.9); POTASSIUM SERUM 3.6 MEQ/L (3.5-5.1); SODIUM LEVEL 142 MEQ/L (136-145); TOTAL PROTEIN 6.7 GM/DL (6.4-8.2); TRIGLYCERIDES LEVEL 210 MG/DL (<150)
[2020-10-01 18:41] LABS: APPEARANCE, URINE CLEAR (CLEAR); BACTERIA, URINE AUTO NEGATIVE (NEGATIVE); BILIRUBIN, URINE AUTO NEGATIVE (NEGATIVE); BLOOD, URINE BLOOD NEGATIVE (NEGATIVE); COLOR, URINE STRAW (YELLOW); GLUCOSE, URINE (UA) AUTO NEGATIVE (NEGATIVE); KETONE, URINE AUTO NEGATIVE (NEGATIVE); LEUKOCYTE ESTERASE, URINE AUTO NEGATIVE (NEGATIVE); MUCUS, URINE SMALL (NEGATIVE); NITRITE, URINE AUTO NEGATIVE (NEGATIVE); PROTEIN, URINE AUTO NEGATIVE (NEGATIVE); RBC, URINE AUTO 1 /HPF (0-3); SPECIFIC GRAVITY URINE AUTO 1.004 (1.002-1.035); SQUAMOUS EPITHELIAL CELL UR AU 0 /HPF (0-6); UROBILINOGEN, URINE AUTO 0.2 mg/dL (0.0-2.0); WBC, URINE AUTO 3 /HPF (0-3)
== END ==
LOC: M LAB REF 17:30
PROVIDERS: ATTEND Internal Medicine Nephrology
DX: Z94.0 Kidney transplant status (principal); N18.5 Chronic kidney disease, stage 5; D84.9 Immunodeficiency, unspecified; I48.0 Paroxysmal atrial fibrillation; Z79.01 Long term (current) use of anticoagulants; Z79.899 Other long term (current) drug therapy

== ENCOUNTER → 2020-10-01 | Outpatient (REF) | payer MEDICARE ==
[2020-10-01 18:19] LABS: INR 1.56
== END ==
LOC: M LAB REF 17:37
PROVIDERS: ATTEND Internal Medicine Nephrology
DX: I48.0 Paroxysmal atrial fibrillation (principal); Z79.01 Long term (current) use of anticoagulants

== ENCOUNTER → 2020-10-10 | Outpatient (REF) | payer MEDICARE ==
[2020-10-10 17:53] LABS: BASO # 0.1 10^3/uL (0.0-0.2); BASO % 0.8 % (0.0-1.0); EOS # 0.1 10^3/uL (0.0-0.5); EOS % 1.5 % (0.0-3.0); HEMATOCRIT 37.3 % (36.0-47.0); LYMPH # 0.8 10^3/uL (1.5-5.0); LYMPH % 13.6 % (24.0-44.0); MEAN CORPUSCULAR HEMOGLOBIN 26.6 pg (27.0-33.0); MEAN CORPUSCULAR HGB CONC 29.5 g/dl (32.0-36.5); MEAN CORPUSCULAR VOLUME 90.1 fl (80.0-96.0); MONO # 0.7 10^3/uL (0.0-0.8); MONO % 11.5 % (2.0-8.0); NEUTROPHILS # 4.2 10^3/uL (1.5-8.5); NEUTROPHILS % 70.9 % (36.0-66.0); PLATELET COUNT, AUTOMATED 119 10^3/uL (150-450); RED BLOOD COUNT 4.14 10^6/uL (4.00-5.40); WHITE BLOOD COUNT 5.9 10^3/uL (4.0-10.0)
[2020-10-10 18:02] LABS: APPEARANCE, URINE CLEAR (CLEAR); BACTERIA, URINE AUTO NEGATIVE (NEGATIVE); BILIRUBIN, URINE AUTO NEGATIVE (NEGATIVE); BLOOD, URINE BLOOD 1+ (NEGATIVE); COLOR, URINE YELLOW (YELLOW); GLUCOSE, URINE (UA) AUTO NEGATIVE (NEGATIVE); KETONE, URINE AUTO NEGATIVE (NEGATIVE); LEUKOCYTE ESTERASE, URINE AUTO NEGATIVE (NEGATIVE); NITRITE, URINE AUTO NEGATIVE (NEGATIVE); PROTEIN, URINE AUTO NEGATIVE (NEGATIVE); RBC, URINE AUTO 0 /HPF (0-3); SPECIFIC GRAVITY URINE AUTO 1.008 (1.002-1.035); SQUAMOUS EPITHELIAL CELL UR AU 0 /HPF (0-6); UROBILINOGEN, URINE AUTO 0.2 mg/dL (0.0-2.0); WBC, URINE AUTO 3 /HPF (0-3)
[2020-10-10 18:11] LABS: CREATININE,RANDOM URINE 63.8 MG/DL; TOTAL PROTEIN,RANDOM URINE 11.6 MG/DL (0.0-12.0)
[2020-10-10 18:15] LABS: ALBUMIN 3.7 GM/DL (3.2-5.2); BILIRUBIN,DIRECT 0.1 MG/DL (0.0-0.2); BILIRUBIN,TOTAL 0.4 MG/DL (0.2-1.0); CALCIUM LEVEL 9.2 MG/DL (8.8-10.2); CHOLESTEROL RISK RATIO 3.215 (<5); CREATININE FOR GFR 1.99 MG/DL (0.55-1.30); GLOMERULAR FILTRATION RATE 27.1 (>45); PHOSPHORUS LEVEL 3.7 MG/DL (2.5-4.9); POTASSIUM SERUM 3.9 MEQ/L (3.5-5.1); TOTAL PROTEIN 6.6 GM/DL (6.4-8.2)
== END ==
LOC: M LAB REF 17:14
PROVIDERS: ATTEND Internal Medicine Nephrology
DX: Z94.0 Kidney transplant status (principal); N18.5 Chronic kidney disease, stage 5; D84.9 Immunodeficiency, unspecified; I48.0 Paroxysmal atrial fibrillation; Z79.01 Long term (current) use of anticoagulants; Z79.899 Other long term (current) drug therapy

== ENCOUNTER → 2020-10-10 | Outpatient (REF) | payer MEDICARE ==
[2020-10-10 18:03] LABS: INR 1.52; PROTHROMBIN TIME 18.6 SECONDS (12.5-14.3)
== END ==
LOC: M LAB REF 17:17
PROVIDERS: ATTEND Internal Medicine Nephrology
DX: I48.0 Paroxysmal atrial fibrillation (principal); Z79.01 Long term (current) use of anticoagulants

== ENCOUNTER → 2020-11-06 | Outpatient (REF) | payer MEDICARE ==
[2020-11-06 17:16] LABS: INR 1.51; PROTHROMBIN TIME 18.5 SECONDS (12.5-14.3)
== END ==
LOC: M LAB REF 16:39
PROVIDERS: ATTEND Internal Medicine Nephrology
DX: N18.4 Chronic kidney disease, stage 4 (severe) (principal); Z79.01 Long term (current) use of anticoagulants; I48.0 Paroxysmal atrial fibrillation

== ENCOUNTER → 2020-11-28 | Outpatient (REF) | payer MEDICARE ==
[2020-11-28 14:12] LABS: APPEARANCE, URINE HAZY (CLEAR); BACTERIA, URINE AUTO 1+ (NEGATIVE); BILIRUBIN, URINE AUTO NEGATIVE (NEGATIVE); BLOOD, URINE BLOOD 3+ (NEGATIVE); COLOR, URINE YELLOW (YELLOW); GLUCOSE, URINE (UA) AUTO NEGATIVE (NEGATIVE); KETONE, URINE AUTO NEGATIVE (NEGATIVE); LEUKOCYTE ESTERASE, URINE AUTO 1+ (NEGATIVE); NITRITE, URINE AUTO NEGATIVE (NEGATIVE); PROTEIN, URINE AUTO 1+ mg/dL (NEGATIVE); RBC, URINE AUTO 43 /HPF (0-3); SPECIFIC GRAVITY URINE AUTO 1.008 (1.002-1.035); SQUAMOUS EPITHELIAL CELL UR AU 3 /HPF (0-6); TRANSITIONAL EPITHELIAL AUTO 3 /HPF; UROBILINOGEN, URINE AUTO 0.2 mg/dL (0.0-2.0); WBC, URINE AUTO 17 /HPF (0-3)
[2020-11-28 14:26] LABS: BASO # 0.1 10^3/uL (0.0-0.2); BASO % 1.1 % (0.0-1.0); EOS # 0.1 10^3/uL (0.0-0.5); EOS % 2.1 % (0.0-3.0); HEMATOCRIT 38.2 % (36.0-47.0); HEMOGLOBIN 11.5 g/dl (12.0-15.5); MEAN CORPUSCULAR HEMOGLOBIN 26.9 pg (27.0-33.0); MEAN CORPUSCULAR HGB CONC 30.1 g/dl (32.0-36.5); MEAN CORPUSCULAR VOLUME 89.5 fl (80.0-96.0); MONO # 0.7 10^3/uL (0.0-0.8); MONO % 10.9 % (2.0-8.0); NEUTROPHILS # 4.5 10^3/uL (1.5-8.5); NEUTROPHILS % 69.1 % (36.0-66.0); PLATELET COUNT, AUTOMATED 144 10^3/uL (150-450); RED BLOOD COUNT 4.27 10^6/uL (4.00-5.40); WHITE BLOOD COUNT 6.5 10^3/uL (4.0-10.0)
[2020-11-28 14:50] LABS: TOTAL PROTEIN,RANDOM URINE 22.7 MG/DL (0.0-12.0)
[2020-11-28 15:38] LABS: ALBUMIN 3.5 GM/DL (3.2-5.2); BILIRUBIN,DIRECT 0.1 MG/DL (0.0-0.2); BILIRUBIN,TOTAL 0.4 MG/DL (0.2-1.0); CALCIUM LEVEL 8.6 MG/DL (8.8-10.2); CHOLESTEROL RISK RATIO 3.577 (<5); CREATININE FOR GFR 1.77 MG/DL (0.55-1.30); PHOSPHORUS LEVEL 3.5 MG/DL (2.5-4.9); POTASSIUM SERUM 3.5 MEQ/L (3.5-5.1); TOTAL PROTEIN 6.6 GM/DL (6.4-8.2)
== END ==
LOC: M LAB REF 12:58
PROVIDERS: ATTEND Internal Medicine Nephrology
DX: Z94.0 Kidney transplant status (principal); D84.9 Immunodeficiency, unspecified; N18.5 Chronic kidney disease, stage 5; Z79.899 Other long term (current) drug therapy

== ENCOUNTER → 2020-11-28 | Outpatient (REF) | payer MEDICARE ==
[2020-11-28 14:38] LABS: INR 1.7; PROTHROMBIN TIME 20.4 SECONDS (12.7-14.5)
== END ==
LOC: M LAB REF 12:56
PROVIDERS: ATTEND Internal Medicine Nephrology
DX: Z79.01 Long term (current) use of anticoagulants (principal); I48.0 Paroxysmal atrial fibrillation

== ENCOUNTER → 2021-01-01 | Outpatient (REF) | payer MEDICARE ==
[2021-01-01 13:42] LABS: BASO # 0.1 10^3/uL (0.0-0.2); BASO % 0.8 % (0.0-1.0); EOS # 0.1 10^3/uL (0.0-0.5); EOS % 1.8 % (0.0-3.0); HEMATOCRIT 38.9 % (36.0-47.0); HEMOGLOBIN 11.7 g/dl (12.0-15.5); LYMPH # 0.8 10^3/uL (1.5-5.0); LYMPH % 10.9 % (24.0-44.0); MEAN CORPUSCULAR HEMOGLOBIN 26.8 pg (27.0-33.0); MEAN CORPUSCULAR HGB CONC 30.1 g/dl (32.0-36.5); MONO # 0.7 10^3/uL (0.0-0.8); MONO % 9.2 % (2.0-8.0); NEUTROPHILS # 5.5 10^3/uL (1.5-8.5); NEUTROPHILS % 75.7 % (36.0-66.0); PLATELET COUNT, AUTOMATED 150 10^3/uL (150-450); RED BLOOD COUNT 4.37 10^6/uL (4.00-5.40); WHITE BLOOD COUNT 7.3 10^3/uL (4.0-10.0)
[2021-01-01 14:17] LABS: APPEARANCE, URINE CLEAR (CLEAR); BACTERIA, URINE AUTO 1+ (NEGATIVE); BILIRUBIN, URINE AUTO NEGATIVE (NEGATIVE); BLOOD, URINE BLOOD 3+ (NEGATIVE); COLOR, URINE STRAW (YELLOW); GLUCOSE, URINE (UA) AUTO NEGATIVE (NEGATIVE); KETONE, URINE AUTO NEGATIVE (NEGATIVE); LEUKOCYTE ESTERASE, URINE AUTO NEGATIVE (NEGATIVE); MUCUS, URINE SMALL (NEGATIVE); NITRITE, URINE AUTO NEGATIVE (NEGATIVE); PROTEIN, URINE AUTO NEGATIVE (NEGATIVE); RBC, URINE AUTO 28 /HPF (0-3); SPECIFIC GRAVITY URINE AUTO 1.004 (1.002-1.035); SQUAMOUS EPITHELIAL CELL UR AU 1 /HPF (0-6); UROBILINOGEN, URINE AUTO 0.2 mg/dL (0.0-2.0); WBC, URINE AUTO 4 /HPF (0-3)
[2021-01-01 14:52] LABS: CREATININE,RANDOM URINE 23.3 MG/DL; TOTAL PROTEIN,RANDOM URINE 7.5 MG/DL (0.0-12.0)
[2021-01-01 14:54] LABS: ALBUMIN 3.9 GM/DL (3.2-5.2); BILIRUBIN,DIRECT 0.1 MG/DL (0.0-0.2); BILIRUBIN,TOTAL 0.4 MG/DL (0.2-1.0); CALCIUM LEVEL 9.9 MG/DL (8.8-10.2); CHOLESTEROL RISK RATIO 3.51 (<5); CREATININE FOR GFR 1.81 MG/DL (0.55-1.30); GLOMERULAR FILTRATION RATE 30.3 (>45); MAGNESIUM LEVEL 2.6 MG/DL (1.8-2.4); PHOSPHORUS LEVEL 3.4 MG/DL (2.5-4.9); TOTAL PROTEIN 6.9 GM/DL (6.4-8.2)
== END ==
LOC: M LAB REF 13:01
PROVIDERS: ATTEND Internal Medicine Nephrology
DX: Z94.0 Kidney transplant status (principal); N18.5 Chronic kidney disease, stage 5; D84.9 Immunodeficiency, unspecified; Z79.899 Other long term (current) drug therapy; Z79.01 Long term (current) use of anticoagulants; I48.0 Paroxysmal atrial fibrillation

== ENCOUNTER → 2021-01-01 | Outpatient (REF) | payer MEDICARE ==
[2021-01-01 14:28] LABS: INR 1.7; PROTHROMBIN TIME 20.4 SECONDS (12.7-14.5)
== END ==
LOC: M LAB REF 12:59
PROVIDERS: ATTEND Internal Medicine Nephrology
DX: Z79.01 Long term (current) use of anticoagulants (principal); I48.0 Paroxysmal atrial fibrillation

== ENCOUNTER → 2021-02-11 | Outpatient (REF) | payer MEDICARE ==
[2021-02-11 14:31] LABS: CREATININE,RANDOM URINE 17.6 MG/DL; TOTAL PROTEIN,RANDOM URINE 18.6 MG/DL (0.0-12.0)
== END ==
LOC: M LAB REF 13:07
PROVIDERS: ATTEND Internal Medicine Nephrology
DX: Z94.0 Kidney transplant status (principal); N18.5 Chronic kidney disease, stage 5; D84.9 Immunodeficiency, unspecified; Z79.899 Other long term (current) drug therapy

== ENCOUNTER → 2021-02-20 | Outpatient (REF) | payer MEDICARE ==
[2021-02-20 18:25] LABS: INR 1.92; PROTHROMBIN TIME 22.4 SECONDS (12.7-14.5)
== END ==
LOC: M LAB REF 17:24
PROVIDERS: ATTEND Internal Medicine Nephrology
DX: Z79.01 Long term (current) use of anticoagulants (principal); I48.0 Paroxysmal atrial fibrillation

== ENCOUNTER → 2021-03-25 | Outpatient (REF) | payer MEDICARE ==
[2021-03-25 18:11] LABS: APPEARANCE, URINE CLOUDY (CLEAR); BACTERIA, URINE AUTO 1+ (NEGATIVE); BILIRUBIN, URINE AUTO NEGATIVE (NEGATIVE); BLOOD, URINE BLOOD 3+ (NEGATIVE); COLOR, URINE YELLOW (YELLOW); GLUCOSE, URINE (UA) AUTO NEGATIVE (NEGATIVE); KETONE, URINE AUTO NEGATIVE (NEGATIVE); LEUKOCYTE ESTERASE, URINE AUTO 3+ (NEGATIVE); MUCUS, URINE SMALL (NEGATIVE); NITRITE, URINE AUTO NEGATIVE (NEGATIVE); PROTEIN, URINE AUTO 2+ mg/dL (NEGATIVE); RBC, URINE AUTO 96 /HPF (0-3); SPECIFIC GRAVITY URINE AUTO 1.009 (1.002-1.035); SQUAMOUS EPITHELIAL CELL UR AU 0 /HPF (0-6); UROBILINOGEN, URINE AUTO 0.2 mg/dL (0.0-2.0); WBC, URINE AUTO 126 /HPF (0-3)
[2021-03-25 18:24] LABS: CREATININE,RANDOM URINE 49.3 MG/DL; TOTAL PROTEIN,RANDOM URINE 167.5 MG/DL (0.0-12.0)
[2021-03-25 18:36] LABS: ALBUMIN 2.9 GM/DL (3.2-5.2); ALT/SGPT 45 U/L (12-78); BILIRUBIN,DIRECT 0.1 MG/DL (0.0-0.2); BILIRUBIN,TOTAL 0.3 MG/DL (0.2-1.0); CHOLESTEROL LEVEL 190 MG/DL (<200); CHOLESTEROL RISK RATIO 5.428 (<5); HDL CHOLESTEROL 35 MG/DL (>40); MAGNESIUM LEVEL 2.1 MG/DL (1.8-2.4); NON-HDL-C 155 MG/DL; PHOSPHORUS LEVEL 3.3 MG/DL (2.5-4.9); TOTAL PROTEIN 6.4 GM/DL (6.4-8.2); TRIGLYCERIDES LEVEL 404 MG/DL (<150)
== END ==
LOC: M LAB REF 17:22
PROVIDERS: ATTEND Internal Medicine Nephrology
DX: N18.5 Chronic kidney disease, stage 5 (principal); D84.9 Immunodeficiency, unspecified; I48.0 Paroxysmal atrial fibrillation; D50.9 Iron deficiency anemia, unspecified; Z94.0 Kidney transplant status; Z79.899 Other long term (current) drug therapy; Z79.01 Long term (current) use of anticoagulants

== ENCOUNTER → 2021-03-25 | Outpatient (REF) | payer MEDICARE ==
[2021-03-25 18:27] LABS: INR 2.84; PROTHROMBIN TIME 30.2 SECONDS (12.7-14.5)
[2021-03-25 18:29] LABS: PERCENT SATURATION 17.2 % (13.2-45.0)
== END ==
LOC: M LAB REF 17:20
PROVIDERS: ATTEND Internal Medicine Nephrology
DX: I48.0 Paroxysmal atrial fibrillation (principal); D50.9 Iron deficiency anemia, unspecified; Z79.01 Long term (current) use of anticoagulants

== ENCOUNTER → 2021-04-01 | Outpatient (REF) | payer MEDICARE ==
[2021-04-01 14:02] LABS: APPEARANCE, URINE MANUAL CLOUDY (CLEAR); COLOR, URINE MANUAL RED (YELLOW); GLUCOSE, URINE (UA) MANUAL NEGATIVE (NEGATIVE); PROTEIN, URINE MANUAL 3+ mg/dL (NEGATIVE); SPECIFIC GRAVITY,URINE MANUAL 1.015 (1.002-1.035)
[2021-04-01 14:03] LABS: BILIRUBIN, URINE MANUAL NEGATIVE (NEGATIVE); BLOOD URINE MANUAL POSITIVE (NEGATIVE); KETONE, URINE MANUAL NEGATIVE (NEGATIVE); LEUKOCYTE ESTERASE, URINE MAN POSITIVE (NEGATIVE); NITRITE, URINE MANUAL NEGATIVE (NEGATIVE); UROBILINOGEN, URINE MANUAL NORMAL (NORMAL)
[2021-04-01 14:06] LABS: BACTERIA, URINE SMALL AMOUNT; RBC, URINE TNTC /hpf (0-3); SQUAMOUS EPITHELIAL CELL URINE SMALL AMOUNT /hpf (SMALL AMT)
[2021-04-01 14:07] LABS: HYALINE CAST, URINE NONE SEEN /lpf (0-1)
== END ==
LOC: M LAB REF 12:46
PROVIDERS: ATTEND Internal Medicine Nephrology
DX: N39.0 Urinary tract infection, site not specified (principal)

== ENCOUNTER → 2021-04-22 | Outpatient (REF) | payer MEDICARE ==
[2021-04-22 20:13] LABS: APPEARANCE, URINE CLOUDY (CLEAR); BACTERIA, URINE AUTO NEGATIVE (NEGATIVE); BILIRUBIN, URINE AUTO NEGATIVE (NEGATIVE); BLOOD, URINE BLOOD 2+ (NEGATIVE); COLOR, URINE RED (YELLOW); GLUCOSE, URINE (UA) AUTO NEGATIVE (NEGATIVE); KETONE, URINE AUTO NEGATIVE (NEGATIVE); LEUKOCYTE ESTERASE, URINE AUTO 1+ (NEGATIVE); NITRITE, URINE AUTO NEGATIVE (NEGATIVE); PROTEIN, URINE AUTO 2+ mg/dL (NEGATIVE); RBC, URINE AUTO TNTC /HPF (0-3); SQUAMOUS EPITHELIAL CELL UR AU 0 /HPF (0-6); UROBILINOGEN, URINE AUTO 0.2 mg/dL (0.0-2.0); WBC, URINE AUTO TNTC /HPF (0-3)
== END ==
LOC: M LAB REF 17:18
PROVIDERS: ATTEND Internal Medicine Nephrology
DX: N39.0 Urinary tract infection, site not specified (principal)

== ENCOUNTER → 2021-05-20 | Outpatient (REF) | payer MEDICARE ==
[2021-05-20 17:25] LABS: APPEARANCE, URINE CLEAR (CLEAR); BACTERIA, URINE AUTO NEGATIVE (NEGATIVE); BILIRUBIN, URINE AUTO NEGATIVE (NEGATIVE); BLOOD, URINE BLOOD 2+ (NEGATIVE); COLOR, URINE STRAW (YELLOW); GLUCOSE, URINE (UA) AUTO NEGATIVE (NEGATIVE); KETONE, URINE AUTO NEGATIVE (NEGATIVE); LEUKOCYTE ESTERASE, URINE AUTO TRACE (NEGATIVE); NITRITE, URINE AUTO NEGATIVE (NEGATIVE); PROTEIN, URINE AUTO NEGATIVE (NEGATIVE); RBC, URINE AUTO 2 /HPF (0-3); SPECIFIC GRAVITY URINE AUTO 1.006 (1.002-1.035); SQUAMOUS EPITHELIAL CELL UR AU 0 /HPF (0-6); UROBILINOGEN, URINE AUTO 0.2 mg/dL (0.0-2.0); WBC, URINE AUTO 11 /HPF (0-3)
[2021-05-20 17:46] LABS: CHOLESTEROL RISK RATIO 4.285 (<5); TOTAL PROTEIN,RANDOM URINE 9.7 MG/DL (0.0-12.0)
== END ==
LOC: M LAB REF 16:47
PROVIDERS: ATTEND Internal Medicine Nephrology
DX: D84.9 Immunodeficiency, unspecified (principal); N18.5 Chronic kidney disease, stage 5; Z94.0 Kidney transplant status; Z79.899 Other long term (current) drug therapy

== ENCOUNTER → 2021-05-20 | Outpatient (REF) | payer MEDICARE ==
[2021-05-20 17:47] LABS: INR 3.28; PROTHROMBIN TIME 33.7 SECONDS (12.7-14.5)
[2021-05-20 18:17] LABS: PERCENT SATURATION 16.9 % (13.2-45.0)
== END ==
LOC: M LAB REF 16:49
PROVIDERS: ATTEND Internal Medicine Nephrology
DX: D50.9 Iron deficiency anemia, unspecified (principal); I48.0 Paroxysmal atrial fibrillation; D48.9 Neoplasm of uncertain behavior, unspecified; N18.5 Chronic kidney disease, stage 5; Z79.01 Long term (current) use of anticoagulants; Z94.0 Kidney transplant status; Z79.899 Other long term (current) drug therapy

== ENCOUNTER → 2021-06-04 | Outpatient (REF) | payer MEDICARE | LOC: M LAB REF 13:00 | PROVIDERS: ATTEND Internal Medicine Nephrology | DX: Z51.81 Encounter for therapeutic drug level monitoring (principal); Z94.0 Kidney transplant status; N18.5 Chronic kidney disease, stage 5; D84.9 Immunodeficiency, unspecified; Z79.899 Other long term (current) drug therapy ==

== ENCOUNTER → 2021-06-25 | Outpatient (REF) | payer MEDICARE ==
[2021-06-25 18:19] LABS: INR 3.12; PROTHROMBIN TIME 32.4 SECONDS (12.7-14.5)
== END ==
LOC: M LAB REF 17:03
PROVIDERS: ATTEND Internal Medicine Nephrology
DX: Z79.01 Long term (current) use of anticoagulants (principal); I48.0 Paroxysmal atrial fibrillation

== ENCOUNTER → 2021-06-25 | Outpatient (REF) | payer MEDICARE ==
[~2021-06-25] MED LIST changes: +LEVO250T3 PO; +ONDA4TAB6 PO
[2021-06-25 18:04] LABS: APPEARANCE, URINE CLEAR (CLEAR); BACTERIA, URINE AUTO NEGATIVE (NEGATIVE); BASO # 0.1 10^3/uL (0.0-0.2); BASO % 0.7 % (0.0-1.0); BILIRUBIN, URINE AUTO NEGATIVE (NEGATIVE); BLOOD, URINE BLOOD 2+ (NEGATIVE); COLOR, URINE STRAW (YELLOW); EOS # 0.1 10^3/uL (0.0-0.5); GLUCOSE, URINE (UA) AUTO NEGATIVE (NEGATIVE); HEMATOCRIT 40.2 % (36.0-47.0); HEMOGLOBIN 11.6 g/dl (12.0-15.5); KETONE, URINE AUTO NEGATIVE (NEGATIVE); LEUKOCYTE ESTERASE, URINE AUTO TRACE (NEGATIVE); LYMPH # 0.8 10^3/uL (1.5-5.0); LYMPH % 7.6 % (24.0-44.0); MEAN CORPUSCULAR HEMOGLOBIN 26.4 pg (27.0-33.0); MEAN CORPUSCULAR HGB CONC 28.9 g/dl (32.0-36.5); MEAN CORPUSCULAR VOLUME 91.4 fl (80.0-96.0); MONO # 0.7 10^3/uL (0.0-0.8); MONO % 6.5 % (2.0-8.0); MUCUS, URINE SMALL (NEGATIVE); NEUTROPHILS # 8.9 10^3/uL (1.5-8.5); NITRITE, URINE AUTO NEGATIVE (NEGATIVE); PLATELET COUNT, AUTOMATED 182 10^3/uL (150-450); PROTEIN, URINE AUTO NEGATIVE (NEGATIVE); RBC, URINE AUTO 8 /HPF (0-3); SPECIFIC GRAVITY URINE AUTO 1.006 (1.002-1.035); SQUAMOUS EPITHELIAL CELL UR AU 0 /HPF (0-6); UROBILINOGEN, URINE AUTO 0.2 mg/dL (0.0-2.0); WBC, URINE AUTO 11 /HPF (0-3); WHITE BLOOD COUNT 10.7 10^3/uL (4.0-10.0)
[2021-06-25 18:30] LABS: ALBUMIN 3.8 GM/DL (3.2-5.2); ALT/SGPT 34 U/L (12-78); BILIRUBIN,DIRECT < 0.1 MG/DL (0.0-0.2); BILIRUBIN,TOTAL 0.3 MG/DL (0.2-1.0); BLOOD UREA NITROGEN 40 MG/DL (7-18); CALCIUM LEVEL 9.6 MG/DL (8.8-10.2); CARBON DIOXIDE LEVEL 28 MEQ/L (21-32); CHLORIDE LEVEL 106 MEQ/L (98-107); CHOLESTEROL LEVEL 165 MG/DL (<200); CHOLESTEROL RISK RATIO 4.342 (<5); CREATININE FOR GFR 1.66 MG/DL (0.55-1.30); GLOMERULAR FILTRATION RATE 33.3 (>45); GLUCOSE, FASTING 76 MG/DL (70-100); HDL CHOLESTEROL 38 MG/DL (>40); LDL CHOLESTEROL 70 MG/DL (<100); MAGNESIUM LEVEL 2.1 MG/DL (1.8-2.4); NON-HDL-C 127 MG/DL; SODIUM LEVEL 140 MEQ/L (136-145); TOTAL PROTEIN 7.4 GM/DL (6.4-8.2); TRIGLYCERIDES LEVEL 283 MG/DL (<150)
[2021-06-25 18:32] LABS: CREATININE,RANDOM URINE < 13.0 MG/DL; TOTAL PROTEIN,RANDOM URINE 15.7 MG/DL (0.0-12.0)
== END ==
LOC: M LAB REF 16:57
PROVIDERS: ATTEND Internal Medicine Nephrology
DX: Z94.0 Kidney transplant status (principal); D64.9 Anemia, unspecified; N18.5 Chronic kidney disease, stage 5; I48.0 Paroxysmal atrial fibrillation; Z79.01 Long term (current) use of anticoagulants; Z79.899 Other long term (current) drug therapy; D84.9 Immunodeficiency, unspecified

== ENCOUNTER → 2021-07-03 | Outpatient (REF) | payer MEDICARE ==
[2021-07-03 18:23] LABS: APPEARANCE, URINE HAZY (CLEAR); BACTERIA, URINE AUTO NEGATIVE (NEGATIVE); BILIRUBIN, URINE AUTO NEGATIVE (NEGATIVE); BLOOD, URINE BLOOD 1+ (NEGATIVE); COLOR, URINE YELLOW (YELLOW); GLUCOSE, URINE (UA) AUTO NEGATIVE (NEGATIVE); KETONE, URINE AUTO NEGATIVE (NEGATIVE); LEUKOCYTE ESTERASE, URINE AUTO 1+ (NEGATIVE); NITRITE, URINE AUTO NEGATIVE (NEGATIVE); PROTEIN, URINE AUTO 1+ mg/dL (NEGATIVE); RBC, URINE AUTO 6 /HPF (0-3); SPECIFIC GRAVITY URINE AUTO 1.013 (1.002-1.035); SQUAMOUS EPITHELIAL CELL UR AU 0 /HPF (0-6); UROBILINOGEN, URINE AUTO 0.2 mg/dL (0.0-2.0); WBC, URINE AUTO 46 /HPF (0-3)
== END ==
LOC: M LAB REF 16:56
PROVIDERS: ATTEND Internal Medicine Nephrology
DX: N18.5 Chronic kidney disease, stage 5 (principal); Z94.0 Kidney transplant status; D84.9 Immunodeficiency, unspecified; Z79.899 Other long term (current) drug therapy

== ENCOUNTER 2021-07-04 12:15 | Emergency (ER) | payer MEDICARE ==
[~2021-07-04] VITALS: Ht 149.9 cm; Wt 50.3 kg
[~2021-07-04 12:15] MED LIST changes: -LEVO250T3 PO; -ONDA4TAB6 PO
[2021-07-04] MEDS ORDERED: ONDANSETRON 4MG/2ML VIAL IV ONE (13:00)
[2021-07-04] MEDS ORDERED: ACETAMINOPHEN *IV* 1,000 MG in IV 1 EA IV ONE (13:00)
[2021-07-04] MEDS ORDERED: NS 1,000 ML IV ONE (13:00)
[2021-07-04 13:21] LABS: BASO # 0.1 10^3/uL (0.0-0.2); BASO % 0.4 % (0.0-1.0); EOS % 0.3 % (0.0-3.0); HEMATOCRIT 40.4 % (36.0-47.0); HEMOGLOBIN 12.2 g/dl (12.0-15.5); LYMPH # 0.6 10^3/uL (1.5-5.0); LYMPH % 4.2 % (24.0-44.0); MEAN CORPUSCULAR HEMOGLOBIN 26.2 pg (27.0-33.0); MEAN CORPUSCULAR HGB CONC 30.2 g/dl (32.0-36.5); MEAN CORPUSCULAR VOLUME 86.9 fl (80.0-96.0); MONO # 0.6 10^3/uL (0.0-0.8); MONO % 4.4 % (2.0-8.0); NEUTROPHILS # 12.5 10^3/uL (1.5-8.5); NEUTROPHILS % 89.8 % (36.0-66.0); PLATELET COUNT, AUTOMATED 207 10^3/uL (150-450); RED BLOOD COUNT 4.65 10^6/uL (4.00-5.40); WHITE BLOOD COUNT 13.9 10^3/uL (4.0-10.0)
[2021-07-04 13:45] LABS: ALBUMIN 3.2 GM/DL (3.2-5.2); BILIRUBIN,DIRECT 0.1 MG/DL (0.0-0.2); BILIRUBIN,TOTAL 0.3 MG/DL (0.2-1.0); CALCIUM LEVEL 8.7 MG/DL (8.8-10.2); CREATININE FOR GFR 1.6 MG/DL (0.55-1.30); GLOMERULAR FILTRATION RATE 34.8 (>45); POTASSIUM SERUM 4.3 MEQ/L (3.5-5.1); TOTAL PROTEIN 6.4 GM/DL (6.4-8.2)
[2021-07-04] MEDS ORDERED: ISOVUE-370 76% 100ML VIAL As Ordered ONE (13:52)
[2021-07-04 14:43] LABS: RSV AMPLIFICATION NEGATIVE (NEGATIVE)
[2021-07-04] MEDS ORDERED: LevoFLOXacin 500 MG TABLET PO ONE (19:10)
[2021-07-04] MEDS ORDERED: LEVO250T3 PO (19:14)
[2021-07-04] MEDS ORDERED: ONDA4TAB6 PO (19:15)
[2021-07-04 19:51] VITALS: BP 120/70
== END 2021-07-04 19:52 | disposition home or self-care (01) ==
LOC: M ED 12:15
DX: N39.0 Urinary tract infection, site not specified (principal); N13.39 Other hydronephrosis; N28.1 Cyst of kidney, acquired; Z94.0 Kidney transplant status; N26.1 Atrophy of kidney (terminal); Z79.01 Long term (current) use of anticoagulants; Z79.899 Other long term (current) drug therapy; Z88.6 Allergy status to analgesic agent; Z88.1 Allergy status to other antibiotic agents; Z88.8 Allergy status to other drugs, medicaments and biological substances; Z88.2 Allergy status to sulfonamides
CPT/HCPCS: 74177; 80048; 80076; 81001; 83690; 85025; 87086; 87631; 96361; 96365; 96375; 99284; J0131; J2405; Q9967

== ENCOUNTER 2021-07-08 12:47 | Emergency (ER) | payer MEDICARE ==
[~2021-07-08] VITALS: Ht 149.9 cm; Wt 51.4 kg
[~2021-07-08 12:47] MED LIST changes: +LEVO250T3 PO; +ONDA4TAB6 PO
[2021-07-08] MEDS ORDERED: LEVO250T3 PO (12:58)
[2021-07-08] MEDS ORDERED: ONDA4TAB6 PO (12:58)
[2021-07-08 15:05] LABS: BASO # 0.1 10^3/uL (0.0-0.2); BASO % 0.5 % (0.0-1.0); EOS # 0.1 10^3/uL (0.0-0.5); EOS % 0.8 % (0.0-3.0); HEMATOCRIT 40.6 % (36.0-47.0); HEMOGLOBIN 12.1 g/dl (12.0-15.5); LYMPH # 0.4 10^3/uL (1.5-5.0); LYMPH % 4.6 % (24.0-44.0); MEAN CORPUSCULAR HEMOGLOBIN 26.1 pg (27.0-33.0); MEAN CORPUSCULAR HGB CONC 29.8 g/dl (32.0-36.5); MEAN CORPUSCULAR VOLUME 87.7 fl (80.0-96.0); MONO # 0.7 10^3/uL (0.0-0.8); MONO % 7.8 % (2.0-8.0); NEUTROPHILS # 7.7 10^3/uL (1.5-8.5); NEUTROPHILS % 85.1 % (36.0-66.0); PLATELET COUNT, AUTOMATED 187 10^3/uL (150-450); RED BLOOD COUNT 4.63 10^6/uL (4.00-5.40); WHITE BLOOD COUNT 9.1 10^3/uL (4.0-10.0)
[2021-07-08 15:30] LABS: ALBUMIN 3.4 GM/DL (3.2-5.2); ALT/SGPT 28 U/L (12-78); BILIRUBIN,DIRECT < 0.1 MG/DL (0.0-0.2); BILIRUBIN,TOTAL 0.3 MG/DL (0.2-1.0); BLOOD UREA NITROGEN 35 MG/DL (7-18); CALCIUM LEVEL 9.3 MG/DL (8.8-10.2); CARBON DIOXIDE LEVEL 29 MEQ/L (21-32); CHLORIDE LEVEL 108 MEQ/L (98-107); CREATININE FOR GFR 1.84 MG/DL (0.55-1.30); GLOMERULAR FILTRATION RATE 29.6 (>45); GLUCOSE, FASTING 94 MG/DL (70-100); LIPASE 815 U/L (73-393); POTASSIUM SERUM 4.4 MEQ/L (3.5-5.1); SODIUM LEVEL 143 MEQ/L (136-145); TOTAL PROTEIN 6.6 GM/DL (6.4-8.2)
[2021-07-08] MEDS ORDERED: NS 500 ML IV ONE (16:30)
[2021-07-08] MEDS ORDERED: ACETAMINOPHEN TAB 650MG DOSE (2X325MG) PO ONE (16:35)
[2021-07-08 20:25] VITALS: BP 140/70
== END 2021-07-08 21:07 | disposition home or self-care (01) ==
LOC: M ED 12:47
DX: R10.9 Unspecified abdominal pain (principal); R11.2 Nausea with vomiting, unspecified; I10 Essential (primary) hypertension; Z87.442 Personal history of urinary calculi; Z87.448 Personal history of other diseases of urinary system; M32.9 Systemic lupus erythematosus, unspecified; Z94.0 Kidney transplant status; Z79.01 Long term (current) use of anticoagulants; Z79.899 Other long term (current) drug therapy; Z88.6 Allergy status to analgesic agent; Z88.0 Allergy status to penicillin; Z88.8 Allergy status to other drugs, medicaments and biological substances; Z88.2 Allergy status to sulfonamides

== ENCOUNTER 2021-07-11 16:05 | Inpatient (IN) | payer MEDICARE ==
[~2021-07-11] VITALS: Ht 149.9 cm; Wt 105.5 kg
[~2021-07-11 16:05] MED LIST changes: -CIPR250T3 PO; -DOK100TA2 PO; -METR-265 PO; -POTA10CA32 PO
[2021-07-11] MEDS: WARFARIN SOD 4MG TAB PO SCH (17:00)
[2021-07-11] MEDS ORDERED: NS 1,000 ML IV SCH (17:30)
[2021-07-11] MEDS ORDERED: ONDANSETRON 4MG/2ML VIAL IV ONE (17:30)
[2021-07-11] MEDS ORDERED: NS 500 ML IV ONE (17:30)
[2021-07-11 19:02] LABS: INR 1.51; PROTHROMBIN TIME 18.6 SECONDS (12.7-14.5)
[2021-07-11 19:59] LABS: RSV AMPLIFICATION NEGATIVE (NEGATIVE)
[2021-07-11] MEDS ORDERED: ACETAMINOPHEN 325 MG TAB PO ONE (20:50)
[2021-07-11 20:59] LABS: CK-MB VALUE MASS 1.2 NG/ML (<3.6); MB/CK RELATIVE INDEX 2.4 (< OR =4)
[2021-07-11] MEDS ORDERED: FLECAINIDE 50MG TABLET PO SCH (21:00)
[2021-07-11 22:09] LABS: CALCIUM LEVEL 8.9 MG/DL (8.8-10.2); CREATININE FOR GFR 2.31 MG/DL (0.55-1.30); GLOMERULAR FILTRATION RATE 22.8 (>45); POTASSIUM SERUM 4.4 MEQ/L (3.5-5.1)
[2021-07-11 22:12] LABS: CK-MB VALUE MASS 1.1 NG/ML (<3.6); MB/CK RELATIVE INDEX 1.9 (< OR =4)
[2021-07-11] MEDS: NS 1,000 ML IV SCH (23:05)
[2021-07-11] MEDS ORDERED: HEPARIN SOD (PORCINE) 5000UNITS/ML 1ML VIAL/SYRINGE SC SCH (23:05)
[2021-07-11] MEDS ORDERED: POTA10CA32 PO (23:42)
[2021-07-11] MEDS ORDERED: WARF-20 PO (23:42)
[2021-07-11] MEDS ORDERED: DOK100TA2 PO (23:42)
[2021-07-11] MEDS ORDERED: HOME MED LIST COMPLETE! XX SCH (23:45)
[2021-07-12] MEDS: ATORVASTATIN 10 MG TAB PO SCH ×2 (00:21→20:38)
[2021-07-12] MEDS: MAGNESIUM OXIDE 400MG TAB (MAG-OX) PO SCH ×3 (00:21→20:39)
[2021-07-12] MEDS: CIPROFLOXACIN 400 MG in IV 1 EA IV SCH ×2 (00:21→23:22)
[2021-07-12] MEDS: ONDANSETRON 4MG/2ML VIAL IV PRN ×3 (00:28→21:56)
[2021-07-12] MEDS: metroNIDAZOLE 500 MG in IV 1 EA IV SCH ×3 (02:22→17:45)
[2021-07-12 03:36] VITALS: BP 138/74
[2021-07-12 06:05] LABS: BASO % 0.4 % (0.0-1.0); EOS # 0.2 10^3/uL (0.0-0.5); EOS % 2.3 % (0.0-3.0); HEMATOCRIT 41.1 % (36.0-47.0); HEMOGLOBIN 12.7 g/dl (12.0-15.5); LYMPH # 0.7 10^3/uL (1.5-5.0); LYMPH % 7.5 % (24.0-44.0); MEAN CORPUSCULAR HEMOGLOBIN 26.5 pg (27.0-33.0); MEAN CORPUSCULAR HGB CONC 30.9 g/dl (32.0-36.5); MEAN CORPUSCULAR VOLUME 85.8 fl (80.0-96.0); MONO # 0.9 10^3/uL (0.0-0.8); MONO % 10.2 % (2.0-8.0); NEUTROPHILS % 78.3 % (36.0-66.0); PLATELET COUNT, AUTOMATED 176 10^3/uL (150-450); RED BLOOD COUNT 4.79 10^6/uL (4.00-5.40)
[2021-07-12 06:16] LABS: INR 1.81; PROTHROMBIN TIME 21.4 SECONDS (12.7-14.5)
[2021-07-12 06:19] LABS: MAGNESIUM LEVEL 2.9 MG/DL (1.8-2.4)
[2021-07-12 07:59] LABS: CALCIUM LEVEL 8.5 MG/DL (8.8-10.2); CREATININE FOR GFR 2.03 MG/DL (0.55-1.30); GLOMERULAR FILTRATION RATE 26.4 (>45); POTASSIUM SERUM 3.6 MEQ/L (3.5-5.1)
[2021-07-12] MEDS: LACTOBACILLUS ACIDOPHILUS CAP (BACID) PO SCH (08:44)
[2021-07-12] MEDS: SIROLIMUS 1 MG TAB (RAPAMUNE) PO SCH (08:45)
[2021-07-12] MEDS: PANTOPRAZOLE 40MG TAB (PROTONIX) PO SCH (08:45)
[2021-07-12] MEDS: amLODIPine 5 MG TAB PO SCH (08:45)
[2021-07-12] MEDS: FLECAINIDE 50MG TABLET PO SCH ×2 (08:45→20:39)
[2021-07-12] MEDS: ISOSORBIDE MON. (IMDUR) 30 MG XR TAB PO SCH ×2 (08:46→20:39)
[2021-07-12] MEDS: POTASSIUM CHLORIDE 10MEQ SR TABLET PO SCH (08:46)
[2021-07-12] MEDS: predniSONE 5 MG TAB PO SCH (08:46)
[2021-07-12] MEDS: METOPROLOL TARTRATE 100MG TAB PO SCH ×2 (08:46→20:39)
[2021-07-12] MEDS: allopurinoL 100 MG TAB PO SCH (08:47)
[2021-07-12] MEDS: NS 1,000 ML IV SCH (13:57)
[2021-07-12] MEDS: FERROUS SULFATE 325MG TAB PO SCH (13:57)
[2021-07-12 14:00] VITALS: BP 139/69
[2021-07-12 15:44] LABS: CALCIUM LEVEL 8.5 MG/DL (8.8-10.2); CREATININE FOR GFR 1.93 MG/DL (0.55-1.30); POTASSIUM SERUM 3.8 MEQ/L (3.5-5.1)
[2021-07-12] MEDS: WARFARIN SOD 4MG TAB PO SCH (17:45)
[2021-07-12] MEDS: ACETAMINOPHEN TAB 650MG DOSE (2X325MG) PO PRN (17:47)
[2021-07-12 20:00] VITALS: BP 158/72
[2021-07-12] MEDS ORDERED: PROMETHAZINE 25MG/ML 1ML VIAL IV PRN (22:20)
[2021-07-13] MEDS: metroNIDAZOLE 500 MG in IV 1 EA IV SCH ×3 (00:25→16:20)
[2021-07-13] MEDS: NS 1,000 ML IV SCH (00:25)
[2021-07-13 04:00] VITALS: BP 152/70
[2021-07-13 07:22] LABS: BASO # 0.1 10^3/uL (0.0-0.2); BASO % 0.5 % (0.0-1.0); EOS # 0.1 10^3/uL (0.0-0.5); EOS % 1.3 % (0.0-3.0); HEMATOCRIT 37.3 % (36.0-47.0); HEMOGLOBIN 11.5 g/dl (12.0-15.5); LYMPH # 0.7 10^3/uL (1.5-5.0); LYMPH % 7.3 % (24.0-44.0); MEAN CORPUSCULAR HEMOGLOBIN 26.7 pg (27.0-33.0); MEAN CORPUSCULAR HGB CONC 30.8 g/dl (32.0-36.5); MEAN CORPUSCULAR VOLUME 86.7 fl (80.0-96.0); MONO # 1.1 10^3/uL (0.0-0.8); MONO % 11.8 % (2.0-8.0); NEUTROPHILS # 7.5 10^3/uL (1.5-8.5); NEUTROPHILS % 78.2 % (36.0-66.0); PLATELET COUNT, AUTOMATED 198 10^3/uL (150-450); WHITE BLOOD COUNT 9.6 10^3/uL (4.0-10.0)
[2021-07-13 07:35] LABS: INR 2.01; PROTHROMBIN TIME 23.2 SECONDS (12.7-14.5)
[2021-07-13 07:43] LABS: CALCIUM LEVEL 8.4 MG/DL (8.8-10.2); CREATININE FOR GFR 1.61 MG/DL (0.55-1.30); GLOMERULAR FILTRATION RATE 34.5 (>45); POTASSIUM SERUM 3.6 MEQ/L (3.5-5.1)
[2021-07-13] MEDS: MAGNESIUM OXIDE 400MG TAB (MAG-OX) PO SCH (09:00)
[2021-07-13] MEDS: ONDANSETRON 4MG/2ML VIAL IV PRN ×2 (09:11→17:18)
[2021-07-13] MEDS: LACTOBACILLUS ACIDOPHILUS CAP (BACID) PO SCH (09:14)
[2021-07-13] MEDS: METOPROLOL TARTRATE 100MG TAB PO SCH ×2 (09:15→21:13)
[2021-07-13] MEDS: SIROLIMUS 1 MG TAB (RAPAMUNE) PO SCH (09:15)
[2021-07-13] MEDS: allopurinoL 100 MG TAB PO SCH (09:15)
[2021-07-13] MEDS: amLODIPine 5 MG TAB PO SCH (09:16)
[2021-07-13] MEDS: POTASSIUM CHLORIDE 10MEQ SR TABLET PO SCH (09:16)
[2021-07-13] MEDS: FLECAINIDE 50MG TABLET PO SCH ×2 (09:16→21:13)
[2021-07-13] MEDS: ISOSORBIDE MON. (IMDUR) 30 MG XR TAB PO SCH ×2 (09:16→21:13)
[2021-07-13] MEDS: PANTOPRAZOLE 40MG TAB (PROTONIX) PO SCH (09:16)
[2021-07-13] MEDS: predniSONE 5 MG TAB PO SCH (09:16)
[2021-07-13 10:33] LABS: MAGNESIUM LEVEL 2.8 MG/DL (1.8-2.4)
[2021-07-13] MEDS: NS 0.45% 1,000 ML IV SCH ×2 (11:34→23:50)
[2021-07-13] MEDS: CIPROFLOXACIN 400 MG in IV 1 EA IV SCH ×2 (11:34→23:49)
[2021-07-13] MEDS: FERROUS SULFATE 325MG TAB PO SCH (13:26)
[2021-07-13 14:00] VITALS: BP 138/67
[2021-07-13] MEDS: WARFARIN SOD 4MG TAB PO SCH (16:20)
[2021-07-13] MEDS: ACETAMINOPHEN TAB 650MG DOSE (2X325MG) PO PRN (17:22)
[2021-07-13 20:00] VITALS: BP 153/77
[2021-07-13] MEDS: ATORVASTATIN 10 MG TAB PO SCH (21:13)
[2021-07-14] MEDS: metroNIDAZOLE 500 MG in IV 1 EA IV SCH ×2 (01:19→08:37)
[2021-07-14] MEDS: ONDANSETRON 4MG/2ML VIAL IV PRN ×2 (01:20→08:37)
[2021-07-14 06:00] VITALS: BP 138/70
[2021-07-14] MEDS ORDERED: CIPROFLOXACIN 500MG TABLET PO SCH (06:00)
[2021-07-14 06:34] LABS: BASO % 0.4 % (0.0-1.0); EOS # 0.2 10^3/uL (0.0-0.5); EOS % 1.8 % (0.0-3.0); HEMATOCRIT 34.8 % (36.0-47.0); HEMOGLOBIN 10.5 g/dl (12.0-15.5); LYMPH # 0.8 10^3/uL (1.5-5.0); LYMPH % 9.6 % (24.0-44.0); MEAN CORPUSCULAR HEMOGLOBIN 26.4 pg (27.0-33.0); MEAN CORPUSCULAR HGB CONC 30.2 g/dl (32.0-36.5); MEAN CORPUSCULAR VOLUME 87.4 fl (80.0-96.0); MONO # 1.2 10^3/uL (0.0-0.8); MONO % 13.8 % (2.0-8.0); NEUTROPHILS # 6.2 10^3/uL (1.5-8.5); PLATELET COUNT, AUTOMATED 170 10^3/uL (150-450); RED BLOOD COUNT 3.98 10^6/uL (4.00-5.40); WHITE BLOOD COUNT 8.4 10^3/uL (4.0-10.0)
[2021-07-14 06:45] LABS: INR 2.79; PROTHROMBIN TIME 29.8 SECONDS (12.7-14.5)
[2021-07-14 06:56] LABS: CALCIUM LEVEL 7.7 MG/DL (8.8-10.2); CREATININE FOR GFR 1.5 MG/DL (0.55-1.30); GLOMERULAR FILTRATION RATE 37.5 (>45); MAGNESIUM LEVEL 2.3 MG/DL (1.8-2.4)
[2021-07-14] MEDS: SIROLIMUS 1 MG TAB (RAPAMUNE) PO SCH (08:37)
[2021-07-14] MEDS: PANTOPRAZOLE 40MG TAB (PROTONIX) PO SCH (08:37)
[2021-07-14] MEDS: FLECAINIDE 50MG TABLET PO SCH (08:37)
[2021-07-14] MEDS: predniSONE 5 MG TAB PO SCH (08:37)
[2021-07-14] MEDS: allopurinoL 100 MG TAB PO SCH (08:37)
[2021-07-14 08:38] VITALS: BP 139/71
[2021-07-14] MEDS: POTASSIUM CHLORIDE 10MEQ SR TABLET PO SCH (08:38)
[2021-07-14] MEDS: METOPROLOL TARTRATE 100MG TAB PO SCH (08:38)
[2021-07-14] MEDS: ISOSORBIDE MON. (IMDUR) 30 MG XR TAB PO SCH (08:38)
[2021-07-14] MEDS: LACTOBACILLUS ACIDOPHILUS CAP (BACID) PO SCH (08:39)
[2021-07-14] MEDS: amLODIPine 5 MG TAB PO SCH (08:39)
[2021-07-14] MEDS: MAGNESIUM OXIDE 400MG TAB (MAG-OX) PO SCH (09:12)
[2021-07-14] MEDS ORDERED: CIPR250T3 PO (10:02)
[2021-07-14] MEDS ORDERED: METR-265 PO (10:02)
[2021-07-14] MEDS: NS 0.45% 1,000 ML IV SCH (12:45)
[2021-07-14] MEDS: FERROUS SULFATE 325MG TAB PO SCH (13:15)
[2021-07-14] MEDS ORDERED: metroNIDAZOLE (FLAGYL) 500MG TABLET PO SCH (14:00)
[2021-07-15 04:07] LABS: CYTOMEGALOVIRUS IgG ANTIBODY <0.60 U/mL (0.00-0.59); CYTOMEGALOVIRUS IgM ANTIBODY <30.0 AU/mL (0.0-29.9)
== END 2021-07-14 14:37 | disposition home or self-care (01) | DRG 683 ==
LOC: M ED 16:05 → M ED INP 23:04 → M 4MAIN 07-12 03:26
PROVIDERS: ADMIT Family Medicine; ATTEND Family Medicine
DX: N17.9 Acute kidney failure, unspecified (principal); Z94.0 Kidney transplant status; D84.9 Immunodeficiency, unspecified; N39.0 Urinary tract infection, site not specified; I48.0 Paroxysmal atrial fibrillation; Z86.73 Personal history of transient ischemic attack (TIA), and cerebral infarction without residual deficits; G40.909 Epilepsy, unspecified, not intractable, without status epilepticus; M32.9 Systemic lupus erythematosus, unspecified; Z98.41 Cataract extraction status, right eye; Z98.42 Cataract extraction status, left eye; Z90.49 Acquired absence of other specified parts of digestive tract; Z20.822 Contact with and (suspected) exposure to COVID-19; I12.9 Hypertensive chronic kidney disease with stage 1 through stage 4 chronic kidney disease, or unspecified chronic kidney disease; K21.9 Gastro-esophageal reflux disease without esophagitis; M10.9 Gout, unspecified; E78.5 Hyperlipidemia, unspecified; Z79.899 Other long term (current) drug therapy; Z79.01 Long term (current) use of anticoagulants; Z88.1 Allergy status to other antibiotic agents; Z88.2 Allergy status to sulfonamides; Z88.6 Allergy status to analgesic agent; Z88.8 Allergy status to other drugs, medicaments and biological substances; K29.80 Duodenitis without bleeding; D64.9 Anemia, unspecified; Z85.51 Personal history of malignant neoplasm of bladder; N18.30 Chronic kidney disease, stage 3 unspecified; B95.8 Unspecified staphylococcus as the cause of diseases classified elsewhere

== ENCOUNTER → 2021-07-11 | Outpatient (REF) | payer MEDICARE ==
[~2021-07-11] MED LIST changes: +CIPR250T3 PO; +DOK100TA2 PO; +METR-265 PO; +POTA10CA32 PO
[2021-07-11 17:58] LABS: INR 1.78; PROTHROMBIN TIME 21.1 SECONDS (12.7-14.5)
== END ==
LOC: M LAB REF 16:53
PROVIDERS: ATTEND Internal Medicine Nephrology
DX: I48.0 Paroxysmal atrial fibrillation (principal); Z79.01 Long term (current) use of anticoagulants